=== PATIENT | female | born 1995 | race Caucasian/White ===

== ENCOUNTER 2017-05-01 20:30 | Emergency (ER) | payer SELFPAY ==
[~2017-05-01] VITALS: Ht 160 cm; Wt 97.5 kg
[2017-05-01] MEDS ORDERED: BUPR-42 PO (20:46)
--- NOTE | 2017-05-01 20:54 | ED Cough/URI ---
General Chief Complaint: Chest Wall/Rib Pain Stated Complaint: CHEST PAIN/COUGH Nursing Triage Note: PRODUCTIVE COUGH, CHEST WALL PAIN, EMISIS YESTERDAY. Source: patient Exam Limitations: no limitations History of Present Illness Time seen by provider: 20:54 Initial Comments 22-year-old female patient presents to the emergency department complaints of green productive cough, rib pain with coughing, and coughing until she throws up beginning yesterday. Does report chills and malaise. Patient states she missed work today because of the illness. Does have a history of asthma. Smokes daily. Timing/Duration: yesterday, getting worse Severity/Quality: productive cough Prior Episodes/Possible Cause: occasional episodes Modifying Factors: Worse With Coughing Allergies and Home Medications Allergies Coded Allergies: Sulfa (Sulfonamide Antibiotics) (Verified Allergy, Unknown, 05/01/17) Home Medications Bupropion HCl 150 Mg Tab.er.24h, Unknown Dose PO, (Reported) Constitutional: see HPI, chills, fever, malaise EENTM: nose congestion, throat pain, No ear pain, No nose pain, No throat swelling Respiratory: see HPI, cough, phlegm, short of breath (occasional shortness of breath), wheezing (occasional wheezing) Cardiovascular: no symptoms reported Gastrointestinal: No abdominal pain, No constipation, No diarrhea, loss of appetite, No nausea, vomiting Genitourinary: no symptoms reported Musculoskeletal: see HPI, other (generalized rib pain) Skin: no symptoms reported Psychiatric/Neurological: No Symptoms Reported All Other Systems Reviewed Negative Unless Noted: Yes (Negative excepted noted.) Past Mrotfzw-Muwhhx-Cavcqf Hx Patient Social History Alcohol Use: Rarely Uses Recreational Drug Use: No Smoking Status: Current Everyday Smoker Type Used: Cigarettes 2nd Hand Smoke Exposure: Yes Recent Foreign Travel: No Contact w/Someone Who Travel: No Recent Infectious Disease Expo: No Recent Hopitalizations: No Immunizations Up To Date Tetanus Booster (TDap): Unknown PED Vaccines UTD: Yes Seasonal Allergies Seasonal Allergies: No Surgeries HX Surgeries: Yes Surgeries: Nose, Tonsillectomy Respiratory Hx Respiratory Disorders: Yes Respiratory Disorders: Asthma Cardiovascular Hx Cardiac Disorders: No Neurological Hx Neurological Disorders: No Reproductive System : No Gastrointestinal Hx Gastrointestinal Disorders: No Reviewed Nursing Assessment Reviewed/Agree w Nursing PMH: Yes Family Medical History Significant Family History: No Pertinent Family Hx Physical Exam Vital Signs Vital Sign - Last 12Hours 05/01/17 20:47 Temp 96.9 Pulse 103 Resp 16 B/P (MAP) 114/70 Pulse Ox 96 O2 Delivery Room Air Capillary Refill : Less Than 3 Seconds General Appearance: WD/WN, no apparent distress HEENT: PERRL/EOMI, TMs normal, pharyngeal erythema, No tonsillar exudate, other (positive nasal congestion.) Neck: non-tender, full range of motion, supple, normal inspection Respiratory: lungs clear, normal breath sounds, no respiratory distress, no accessory muscle use Cardiovascular: regular rate, rhythm, no murmur Gastrointestinal: normal bowel sounds, non tender, soft Extremities: normal capillary refill Neurologic/Psychiatric: alert, normal mood/affect, oriented x 3 Skin: normal color, warm/dry Progress/Results/Core Measures Results/Orders Vital Signs/I&O Vital Sign - Last 12Hours 05/01/17 20:47 Temp 96.9 Pulse 103 Resp 16 B/P (MAP) 114/70 Pulse Ox 96 O2 Delivery Room Air Blood Pressure Mean: 85 Departure Impression Impression: Primary Impression: Acute bronchitis Qualified Codes: J20.9 - Acute bronchitis, unspecified Disposition: 01 HOME, SELF-CARE Condition: Improved Departure-Patient Inst. Decision time for Depature: 21:25 Referrals: [facility] (PCP/Family) Primary Care Physician Patient Instructions: Acute Bronchitis, Adult (DC) Add. Discharge Instructions: All discharge instructions reviewed with patient and/or family. Voiced understanding. Medications as instructed. Tylenol extra strength over-the- counter as directed for pain. Ibuprofen 800 mg by mouth every 8 hours as needed for pain. Cool humidifier. No smoking or exposure to secondhand smoke. Afrin nasal spray [id number] as needed for nasal congestion. Follow-up with your family practitioner for recheck if needed. Return to the emergency department for worsened symptoms or any other concerns. Scripts Minocycline HCl (Minocycline HCl) 100 Mg Capsule 100 MG PO BID, #14 CAP 0 Refills Prov: TATYANA ESTES 05/01/17 Prednisone (Prednisone) 20 Mg Tab 40 MG PO DAILY, #8 TAB 0 Refills Prov: TATYANA ESTES 05/01/17 Work/School Note: Work Release Form Date Seen in the Emergency Department: May 01, 2017 Return to Work: May 02, 2017 Other Restrictions Listed Below: please excuse patient's absence due to acute bronchitis. TATYANA ESTES May 01, 2017 20:54
[2017-05-01] MEDS ORDERED: RX-ALBUTEROL INHALER (PROAIR) 8 GM IH STA (21:19)
[2017-05-01] MEDS ORDERED: PROMETHAZINE/ CODEINE SYRUP 5 ML UDC PO STA (21:19)
[2017-05-01] MEDS ORDERED: RX-DOXYCYCLINE 100 MG (VIBRAMYCIN) TAB PPK#2 PO STA (21:19)
[2017-05-01] MEDS ORDERED: MINO100C2 PO (21:27)
[2017-05-01] MEDS ORDERED: PRD20T PO (21:27)
[2017-05-01] MEDS ORDERED: predniSONE 20 MG TAB PO ONE (21:30)
[2017-05-01 21:34] VITALS: BP 114/70
--- OUTSIDE RECORDS SUMMARY | 2017-05-12 12:14 | XMS REPORT | CCD ---
Author Author BUBBA MATOS Organization Unknown Address [address] [place], [place] [id number] Care Team Providers Care [employer] Officer Name Role Phone KARLA HENDERSON, ARABELLA Parkinson Attphys Vital Signs Vital Sign Value Unit Date/Time Recent/Initial? Weight Measured 201 lbs 02/14/2015 04:08 Initial VS Height 63 in 02/14/2015 04:08 Initial VS BMI (Body Mass Index) 35.61 kg/m^2 02/14/2015 04:08 Initial VS BSA (Body Surface Area) 2.01 m^2 02/14/2015 04:08 Initial VS Weight Measured 201 lbs 02/14/2015 04:54 Most Recent VS Height 63 in 02/14/2015 04:54 Most Recent VS BMI (Body Mass Index) 35.61 kg/m^2 02/14/2015 04:54 Most Recent VS BSA (Body Surface Area) 2.01 m^2 02/14/2015 04:54 Most Recent VS Allergies Allergy Code Allergy Type Reaction Status SULFA (sulfonamide) 0 Drug allergy Active Procedures Procedure Code Procedure Type Date OB TRANSVAGINAL 183508485 SNOMED CT 02/14/2015 ^CULTURE URINE IDENTIFICATION 609951040 SNOMED CT 2014 ^UA WITH MICRO 923228115 SNOMED CT 02/14/2015 CULTURE URINE 118601433 SNOMED CT 02/14/2015 RAPID DRUG SCREEN 472262126 SNOMED CT 02/14/2015 UA ROUTINE C&S IF IND 780750267 SNOMED CT 02/14/2015 History of Immunizations Immunization Code Date OPV 1995 OPV 10/15/1996 OPV 12/17/1996 MMR 10/15/1996 Hep B, adolescent or pediatric 1995 Hep B, adolescent or pediatric 1995 Hep B, adolescent or pediatric 10/15/1996 Hib, unspecified formulation 17 1995 Hib, unspecified formulation 17 10/15/1996 DTaP 06/24/1997 varicella 06/24/1997 Problems Unknown or Not Available. Results RAPID DRUG SCREEN - Collect Date/Time: 02/14/2015 04:22 Test Name Code Test Result Test Units Test Ref Range Cannabinoids (THC) NEGATIVE N/A NEG: < 50 ng/ ml Phencyclidine (PCP) NEGATIVE N/A NEG: < 25 ng/ ml Cocaine NEGATIVE N/A NEG: < 300 ng/ml Methamphetamine NEGATIVE N/A NEG: < 1000 ng/ml Opiates NEGATIVE N/A NEG: < 300 ng/ml Amphetamine NEGATIVE N/A NEG: < 1000 ng/ml Benzodiazepines NEGATIVE N/A NEG: < 300 ng/ml Tricyclic Antidepres NEGATIVE N/A NEG: < 300 ng/ ml Methadone NEGATIVE N/A NEG: < 300 ng/ml Barbiturates NEGATIVE N/A NEG: < 200 ng/ml Oxycodone NEGATIVE N/A NEG: < 100 ng/ml Propoxyphene (PPX) NEGATIVE N/A NEG: < 300 ng/ ml UA ROUTINE C&S IF IND - Collect Date/Time: 02/14/2015 04:12 Test Name Code Test Result Test Units Test Ref Range COLOR YELLOW N/A NL: YELLOW APPEARANCE CLOUDY N/A NL: CLEAR SPEC GRAV 1.020 N/A NL: 1.002 - 1.022 pH 6.5 N/A NL: 5 - 9 PROTEIN TRACE N/A NL: NEGATIVE mg/dl GLUCOSE NEGATIVE N/A NL: NEGATIVE mg/dl KETONE NEGATIVE N/A NL: NEGATIVE mg/dl BILIRUBIN NEGATIVE N/A NL: NEGATIVE BLOOD MODERATE N/A NL: NEGATIVE NITRITE POSITIVE N/A NL: NEGATIVE LEUK SCREEN MODERATE N/A NL: NEGATIVE MICRO INDICATED? SEE BELOW N/A WBC/HPF 20-50 N/A NL: NEGATIVE RBC/HPF 10-20 N/A NL: NEGATIVE CASTS/LPF FEW HYALINE N/A NL: NEGATIVE CRYSTALS TRACE AMORPH N/A NL: NEGATIVE MUCOUS THRDS 1+ N/A NL: NEGATIVE BACTERIA 1+ N/A NL: NEGATIVE EPITH CELLS 1+ SQUAMOUS N/A NL: NEGATIVE TRICHOMONAS NEGATIVE N/A NL: NEGATIVE YEAST NEGATIVE N/A NL: NEGATIVE CULT SET UP? YES N/A Active Medications Medication Code Dose Units Frequency Route Modification Start Date/Time Amoxicillin/Clavulanate Potassium 875MG-125MG Oral Tablet [id number] MILLIGRAMS TWICE WITH MEALS BY MOUTH 12:06 PNV Plus 1MG-27MG Oral Tablet [id number] 1 EACH DAILY ORAL 02/14/2015 12:06 Medications Administered During Visit Unknown or Not Available. Encounters Encounter Diagnosis Diagnosis Code Start Date PREG COMPL NEC-ANTEPART 09906 02/14/2015 Social History Smoking Status Code Start Date End Date Current every day smoker [id number] Patient Decision Aids Unknown or Not Available. Discharge Instructions You were admitted to [facility] on 02/14/2015 with a principal diagnosis of PREG COMPL NEC-ANTEPART. You were discharged from [facility] on 02/14/2015. Should you have any questions prior to discharge, please contact a member of your healthcare team. If you have left the hospital and have any questions, please contact your primary care physician. Chief Complaint and Reason For Visit Chief Complaint Date of Onset FALL Function Status Unknown or Not Available. Plan of Care Unknown or Not Available. Referral/Transition of Care Unknown or Not Available.
--- OUTSIDE RECORDS SUMMARY | 2017-05-12 12:14 | XMS REPORT ---
Author Author Shikha Kessler Organization [facility] Address [address] [place], [place] [address] Care Team Providers Care Smocker Name Role Phone Shikha Kessler PCP Unavailable Allergies and Adverse Reactions Name Reaction Notes SULFA (SULFONAMIDES) hives and vomiting Plan of Treatment Not available. Medications Active Name Start Date Estimated Completion Date SIG Comments Vitamin oral tablet take 1 tablet by oral route once daily Diflucan 150 mg oral tablet 07/13/2015 take 1 tablet (150 mg) by oral route once Name Start Date Expiration Date SIG Comments Flagyl 500 mg oral tablet 09/17/2014 09/23/2014 take 1 tablet (500 mg) by oral route 2 times per day for 7 days Diflucan 150 mg oral tablet 09/17/2014 09/17/2014 take 1 tablet (150 mg) by oral route once for 1 day Macrobid 100 mg oral capsule 03/03/2015 03/13/2015 take 1 capsule (100 mg) by oral route every 12 hours with food for 10 days Elocon 0.1 % topical cream 04/08/2015 04/22/2015 apply a thin layer to the affected area(s) by topical route once daily for 14 days Discontinued Name Start Date Discontinued Date SIG Comments Augmentin 500-125 mg oral tablet 01/22/2015 01/23/2015 take 1 tablet by oral route every 12 hours for 7 days organism resistent to augmentin Problem List Not available. Vital Signs Date Time BP-Sys(mm[Hg] BP-Farheen(mm[Hg]) HR(bpm) RR(rpm) Temp WT HT HC BMI BSA BMI Percentile O2 Sat(%) 09/10/2014 4:36:00 PM 106 mmHg 71 mmHg 85 bpm 98.1 F 188.25 lbs 63 in 33.35 kg/m2 1.95 m2 96.3 % Social History Name Description Comments Tobacco Current every day smoker Black and mild Alcohol Never No history of foreign travel History of Procedures Date Ordered Description Order Status 09/10/2014 12:00 AM CYTOPATH C/V THIN LAYER Reviewed 09/10/2014 12:00 AM SPECIMEN HANDLING OFFICE-LAB Reviewed 09/10/2014 12:00 AM N.GONORRHOEAE DNA AMP PROB Returned 09/10/2014 12:00 AM CHLAMYDIA CULTURE Returned 09/10/2014 12:00 AM HIV-1ANTIBODY Returned 09/10/2014 12:00 AM OBSTETRIC PANEL Returned 09/10/2014 12:00 AM HERPES SIMPLEX TYPE 1 TEST Returned 09/10/2014 12:00 AM HERPES SIMPLEX TYPE 2 TEST Returned 12/05/2014 12:00 AM OB US >/=14 WKS SNGL FETUS Returned 01/08/2015 12:00 AM GLUCOSE TEST Returned 01/08/2015 12:00 AM COMPLETE CBC W/AUTO DIFF WBC Returned 01/08/2015 12:00 AM Type and screen Returned 01/16/2015 12:00 AM OB US LIMITED FETUS(S) Returned 01/23/2015 12:00 AM URINALYSIS AUTO W/SCOPE Returned 03/19/2015 12:00 AM CULTURE SCREEN ONLY Returned 03/26/2015 12:00 AM OB US LIMITED FETUS(S) Returned 04/08/2015 12:00 AM BIOPHYS PROFILE W/NST Returned 04/08/2015 12:00 AM OB US LIMITED FETUS(S) Reviewed Results Summary Data and Description Results 09/10/2014 5:50 PM WBC 13.1 RBC 4.56 HGB 13.70 g/dLHCT 40.40 %MCV 89.0 fLMCH 30.0 pgMCHC 33.90 g/dLRDW CV 13.10 %MPV 10.0 fLPLT 260 %NEUT 69.90 %%LYMP 19.50 %%MONO 7.0 %%EOS 3.10 %%BASO 0.50 %#NEUT 9.15 #LYMP 2.55 #MONO 0.92 #EOS 0.40 # BASO 0.06 HIV AG/AB COMBO 0.11 COLOR YELLOW APPEARANCE CLEAR SPEC GRAV 1.025 pH 6.0 PROTEIN NEGATIVE GLUCOSE NEGATIVE KETONE NEGATIVE BILIRUBIN NEGATIVE BLOOD NEGATIVE NITRITE NEGATIVE LEUK SCREEN NEGATIVE CASTS/LPF NEGATIVE CRYSTALS NEGATIVE MUCOUS THRDS FEW BACTERIA FEW EPITH CELLS FEW SQUAMOUS TRICHOMONAS NEGATIVE YEAST NEGATIVE HBsAg Screen Negative RPR Non Reactive Rubella Antibodies, IgG 1.69 IndexHSV 1 IgG, Type Spec 16.10 IndexHSV 2 IgG, Type Spec < 0.91 index 12/14/2014 5:53 PM AMNISURE ROM NEGATIVE COLOR YELLOW APPEARANCE CLEAR SPEC GRAV 1.010 pH 6.5 PROTEIN NEGATIVE GLUCOSE NEGATIVE KETONE NEGATIVE BILIRUBIN NEGATIVE BLOOD NEGATIVE NITRITE NEGATIVE LEUK SCREEN NEGATIVE CASTS/LPF NEGATIVE CRYSTALS NEGATIVE MUCOUS THRDS FEW BACTERIA NEGATIVE EPITH CELLS FEW SQUAMOUS TRICHOMONAS NEGATIVE YEAST NEGATIVE 01/08/2015 3:55 PM WBC 11.2 RBC 4.00 HGB 11.90 g/dLHCT 36.0 %MCV 90.0 fLMCH 29.80 pgMCHC 33.10 g/dLRDW CV 13.60 %MPV 9.20 fLPLT 217 %NEUT 75.0 %%LYMP 17.0 % %MONO 5.0 %%EOS 2.60 %%BASO 0.40 %#NEUT 8.40 #LYMP 1.90 #MONO 0.56 #EOS 0.29 # BASO 0.04 01/21/2015 7:15 PM COLOR YELLOW APPEARANCE CLEAR SPEC GRAV 1.015 pH 7.0 PROTEIN NEGATIVE GLUCOSE NEGATIVE KETONE NEGATIVE BILIRUBIN NEGATIVE BLOOD TRACE -INTACT NITRITE POSITIVE LEUK SCREEN SMALL CASTS/LPF NEGATIVE CRYSTALS NEGATIVE MUCOUS THRDS NEGATIVE BACTERIA 1+ EPITH CELLS FEW SQUAMOUS TRICHOMONAS NEGATIVE YEAST NEGATIVE 02/14/2015 4:12 AM COLOR YELLOW APPEARANCE CLOUDY SPEC GRAV 1.020 pH 6.5 PROTEIN TRACE GLUCOSE NEGATIVE KETONE NEGATIVE BILIRUBIN NEGATIVE BLOOD MODERATE NITRITE POSITIVE LEUK SCREEN MODERATE CASTS/LPF FEW HYALINE CRYSTALS TRACE AMORPH MUCOUS THRDS 1+ BACTERIA 1+ EPITH CELLS 1+ SQUAMOUS TRICHOMONAS NEGATIVE YEAST NEGATIVE 02/14/2015 4:22 AM Cannabinoids (THC) NEGATIVE Phencyclidine (PCP) NEGATIVE Cocaine NEGATIVE Methamphetamine NEGATIVE Opiates NEGATIVE Amphetamine NEGATIVE Benzodiazepines NEGATIVE Methadone NEGATIVE Barbiturates NEGATIVE Oxycodone NEGATIVE Propoxyphene (PPX) NEGATIVE 03/31/2015 9:40 AM AMNISURE ROM NEGATIVE 04/03/2015 2:27 AM AMNISURE ROM NEGATIVE 07/13/2015 11:30 AM HSV 1 IgG, Type Spec 13.40 IndexHSV 2 IgG, Type Spec 3.970 Index 07/13/2015 11:51 AM WET PREP NO TRICH SEEN CLUE CELLS NONE SEEN Neisseria Gonorrhoeae NEGATIVE Chlamydia Trachomatis NEGATIVE History Of Immunizations Not available. History of Past Illness Name Date of Onset Comments MRSA 01/22/15 UTI test confirmed positive Sep 10 2014 4:38PM UTI (lower urinary tract infection) Sep 10 2014 4:38PM Vaginal discharge in Sep 10 2014 4:38PM Genital lesion, female Sep 10 2014 4:38PM , First Normal Dec 02 2014 9:54AM , First Normal Jan 08 2015 3:01PM Uterine size date discrepancy; antepartum condition or complication Jan 08 2015 3:10PM UTI (urinary tract infection) Jan 23 2015 11:49AM , First Normal Mar 19 2015 1:56PM Urinary Tract Infection Mar 19 2015 1:56PM Small For Dates, Antepartum Mar 26 2015 2:22PM SGA (small for gestational age), , affecting care of mother, antepartum Apr 08 2015 4:36PM Payers Insurance Name Company Name Plan Name Plan Number Policy Number Policy Group Number Start Date [facility] - RHC - Community Plan [facility] RHC Comm [id number] N/A [facility] Community Plan [facility] Comm Plan of [id number] N/A History of Encounters Visit Date Visit Type Provider 07/13/2015 Office visit Shikha Kessler APRN 04/17/[address] [facility] [address]. KRISTINA GARCIA MD 04/09/2015 Office visit DELIA RUEDA MD 04/08/2015 Office visit DELIA RUEDA MD 04/03/2015 [facility] DELIA RUEDA MD 03/26/2015 Office visit DELIA RUEDA MD 03/19/2015 Office visit JV OLIVO DO 02/14/2015 [facility] Heath Salomon MD 02/05/2015 Office visit Delia Rueda MD 01/21/2015 [facility] Heath Salomon MD 01/16/2015 Office visit Heath Salomon MD 01/08/2015 Office visit Heath Salomon MD 12/01/2014 Office visit Heath Salomon MD 09/24/2014 Office visit Heath Salomon MD 09/10/2014 Office visit Heath Salomon MD
--- OUTSIDE RECORDS SUMMARY | 2017-05-12 12:14 | XMS REPORT ---
Author Author [facility] Organization [facility] Address [address] [place], [place] [address] Care Team Providers Care Credit Collections Rep Name Role Phone PCP Unavailable Allergies and Adverse Reactions Name Reaction Notes SULFA (SULFONAMIDES) hives and vomiting Plan of Treatment Planned Activity Comments Planned Date Planned Time Plan/Goal CULTURE SCREEN ONLY 03/19/2015 12:00 AM URINALYSIS 03/19/2015 12:00 AM URINE CULTURE/COLONY COUNT 03/19/2015 12:00 AM COMPLETE CBC W/AUTO DIFF WBC 03/19/2015 12:00 AM Medications Active Name Start Date Estimated Completion Date SIG Comments Vitamin oral tablet take 1 tablet by oral route once daily Name Start Date Expiration Date SIG Comments Flagyl oral tablet 500 mg 09/17/2014 09/23/2014 take 1 tablet (500 mg) by oral route 2 times per day for 7 days Diflucan oral tablet 150 mg 09/17/2014 09/17/2014 take 1 tablet (150 mg) by oral route once for 1 day Macrobid oral capsule 100 mg 03/03/2015 03/13/2015 take 1 capsule (100 mg) by oral route every 12 hours with food for 10 days Discontinued Name Start Date Discontinued Date SIG Comments Augmentin oral tablet 500-125 mg 01/22/2015 01/23/2015 take 1 tablet by oral [...] every day smoker Black and mild Alcohol No history of foreign travel History of [...] 01/23/2015 12:00 AM URINALYSIS AUTO W/SCOPE Returned Results Summary Data and Description Results 09/10/2014 [...] TRICHOMONAS NEGATIVE YEAST NEGATIVE HBsAg Screen Negative 12/14/2014 5:53 PM AMNISURE ROM NEGATIVE COLOR [...] Barbiturates NEGATIVE Oxycodone NEGATIVE Propoxyphene (PPX) NEGATIVE History Of Immunizations Not available. History [...] Urinary Tract Infection Mar 19 2015 1:56PM Payers Insurance Name Company Name Plan Name Plan Number Policy Number Policy Group Number Start Date [facility] Comm [id number] N/A [facility] Comm Plan of [id number] N/A History of Encounters Visit Date Visit Type Provider 03/19/2015 Office visit JV OLIVO DO 02/14/2015 [facility] Heath Salomon MD 02/05/2015 Office visit Delia Rueda MD 01/21/2015 [facility] Heath Salomon MD 01/16/2015 Office visit Heath Salomon MD 01/08/2015 Office visit Heath Salomon MD 12/01/2014 Office visit Heath Salomon MD 09/24/2014 Office visit Heath Salomon MD 09/10/2014 Office visit Heath Salomon MD
--- OUTSIDE RECORDS SUMMARY | 2017-05-12 12:14 | XMS REPORT ---
Author ARELI Smith [facility] eClinicalWorks Address Unknown Phone Unavailable Care Team Providers Care Help Desk Associate Name Role Phone ARELI LARA CP Unavailable Allergies, Adverse Reactions, Alerts Substance Reaction Event Type Sulfamethoxazole-Trimethoprim hives Drug Allergy Problems Problem Type Condition Code Onset Dates Condition Status Assessment Laceration T14.8 Active Medications Medication Code System Code Instructions Start Date End Date Status Dosage Cephalexin [facility] [address]-51 250 MG Orally Four times a day 1 capsule Depo-Provera [facility] [address]-57 150 mg/mL April 29, 2013 inject 150 mg by Intramuscular route every 3 months Clindamycin HCl [facility] [address]-92 300 MG Orally 4 times a day 1 capsule Naproxen [facility] [address]-02 500 MG Orally every 12 hrs Oct 19, 2015 1 tablet as needed Procedures Procedure Coding System Code Date Office Visit, Est Pt., Level 3 CPT-4 86954 Oct 29, 2015 Vital Signs Date/Time: Oct 29, 2015 Temperature 98.3 F Weight 197.3 lbs Height 64 in BMI 33.86 Index Blood Pressure Diastolic 68 mmHg Blood Pressure Systolic 108 mmHg Cardiac Monitoring Heart Rate 96 bpm Results No Known Results Summary Purpose eClinicalWorks Submission
--- OUTSIDE RECORDS SUMMARY | 2017-05-12 12:15 | XMS REPORT ---
Author Author [facility] Organization [facility] Address [address] [place], [place] [address] Care Team Providers Care Cupola Worker Name Role Phone PCP Unavailable Allergies and [...] 1 day Macrobid oral capsule 100 mg 01/23/2015 01/30/2015 take 1 capsule (100 mg) by oral route every 12 hours with food for 7 days Discontinued Name Start Date Discontinued Date [...] (urinary tract infection) Jan 23 2015 11:49AM Payers Insurance Name Company Name Plan Name Plan Number Policy Number Policy Group Number Start Date [facility] - [facility] - [facility] Comm [id number] N/A [facility] Comm Plan of [id number] N/A History of Encounters Visit Date Visit Type Provider 02/14/2015 [facility] Heath Salomon MD 02/05/2015 Office visit Delia Rueda MD 01/21/2015 [facility] Heath Salomon MD 01/16/2015 Office visit Heath Salomon MD 01/08/2015 Office visit Heath Salomon MD 12/01/2014 Office visit Heath Salomon MD 09/24/2014 Office visit Heath Salomon MD 09/10/2014 Office visit Heath Salomon MD
--- OUTSIDE RECORDS SUMMARY | 2017-05-12 12:15 | XMS REPORT ---
Author Author [facility] Organization [facility] Address [address] [place], [place] [id number] Care Team Providers Care Leaf Tinner Name Role Phone PCP Unavailable Allergies and Adverse Reactions Name Reaction Notes SULFA (SULFONAMIDES) hives and vomiting Plan of Treatment Planned Activity Comments Planned Date Planned Time Plan/Goal URINALYSIS 03/19/2015 12:00 AM URINE CULTURE/COLONY COUNT 03/19/2015 12:00 AM COMPLETE CBC W/AUTO DIFF WBC 03/19/2015 12:00 AM OB US LIMITED FETUS(S) 03/26/2015 12:00 AM OB US LIMITED FETUS(S) 03/26/2015 12:00 AM OB US LIMITED FETUS(S) 03/26/2015 12:00 AM BIOPHYS PROFILE W/NST 04/08/2015 12:00 AM OB US LIMITED FETUS(S) 04/08/2015 12:00 AM Medications Active Name Start Date Estimated Completion Date SIG Comments Vitamin oral tablet take 1 tablet by oral route once daily Elocon topical cream 0.1 % 04/08/2015 04/22/2015 apply a thin layer to the affected area(s) by topical route once daily for 14 days Name Start Date Expiration Date SIG Comments [...] 03/19/2015 12:00 AM CULTURE SCREEN ONLY Returned Results Summary Data and Description Results [...] NEGATIVE 04/03/2015 2:27 AM AMNISURE ROM NEGATIVE History Of Immunizations Not available. History [...] Policy Number Policy Group Number Start Date [facility] - [facility] - Community Plan [facility] Comm [id number] N/A [facility] Comm Plan of [id number] N/A History of Encounters Visit Date Visit Type Provider 04/09/2015 Office visit DELIA RUEDA MD 04/08/2015 Office visit DELIA RUEDA MD 03/26/2015 Office visit DELIA RUEDA MD 03/19/2015 Office visit JV OLIVO DO 02/14/2015 [facility] Heath Salomon MD 02/05/2015 Office visit Delia Rueda MD 01/21/2015 [facility] Heath Salomon MD 01/16/2015 Office visit Heath Salomon MD 01/08/2015 Office visit Heath Salomon MD 12/01/2014 Office visit Heath Salomon MD 09/24/2014 Office visit Heath Salomon MD 09/10/2014 Office visit Heath Salomon MD
--- OUTSIDE RECORDS SUMMARY | 2017-05-12 12:15 | XMS REPORT ---
Author Author [facility] Organization [facility] Address [address] [place], [place] [phone] Care Team Providers Care Supervisor [place] Name Role Phone PCP Unavailable Allergies and [...] Policy Number Policy Group Number Start Date [facility] - [facility] - [facility] Comm [id number] N/A [facility] Comm Plan of [id number] N/A History of Encounters Visit Date Visit Type Provider 03/26/2015 Office visit DELIA RUEDA MD 03/19/2015 Office visit JV OLIVO DO 02/14/2015 [facility] Heath Salomon MD 02/05/2015 Office visit Delia Rueda MD 01/21/2015 [facility] Heath Salomon MD 01/16/2015 Office visit Heath Salomon MD 01/08/2015 Office visit Heath Salomon MD 12/01/2014 Office visit Heath Salomon MD 09/24/2014 Office visit Heath Salomon MD 09/10/2014 Office visit Heath Salomon MD
--- OUTSIDE RECORDS SUMMARY | 2017-05-12 12:16 | XMS REPORT | Continuity of Care Document ---
Author Author [facility] Organization [facility] Address [facility] [address] [place] [address] Phone Unavailable Support Name Relationship Address Phone SARAH TAPIA DO Caregiver [address] [place] [address] Unavailable GIORGI BILLS D.O. Caregiver [address] [place] [address] ELKE CHAPARRO Next Of Kin [address] [place] [address] Insurance Providers Payer Name Policy Number Subscriber Name Relationship Self Pay Insurance Kita Lopez 18 Self / Same As Patient Advance Directives Directive Response Recorded Date/Time Advance Directives No 10/16/15 8:53pm Living Will No 10/16/15 8:53pm Power of General Accountant for Health Care No 10/16/15 8:53pm Organ, Tissue, or Eye Donor No 10/16/15 8:53pm Do you have a signed organ donor card? No 10/16/15 8:53pm Chief Complaint and Reason for Visit Chief Complaint NAUSEA Reason for Visit Nausea Problems Active Problems Medical Problem Onset Date Status Abdominal cramping Unknown Acute Anxiety Unknown Acute Bronchitis Unknown Acute Bronchitis Unknown Acute Contusion Unknown Acute Laceration of shoulder, left, complicated Unknown Acute Nausea Unknown Acute Unknown Acute Scabies Unknown Acute Sinusitis, acute Unknown Acute Surgical wound dehiscence Unknown Acute Upper respiratory infection Unknown Acute Wound, surgical, infected Unknown Acute finger fracture Unknown Acute nausea Unknown Acute nausea, resolved Unknown Acute Medications Current Home Medications Medication Dose Units Route Directions Days/Qty Instructions Start Date No Known Medications 05/11/15 Clindamycin Hcl 300 Mg 300 Mg Oral Four Times Daily 40 05/11/15 Clindamycin Hcl 300 Mg 300 Mg Oral Four Times Daily 40 05/11/15 Cephalexin Monohydrate 500 Mg 500 Mg Oral Four Times Daily 20 10/16/15 Mupirocin 22 Gm 22 Gm External Twice A Day 1 10/16/15 Permethrin 60 Gm 60 Gm External Once 1 Days Apply to entire body before bed and rinse completely off in the a.m. 03/17/16 Past Home Medications Medication Directions Ordered Status Medroxyprogesterone Acet 400 Mg/Ml Vial, 07/09/13 Discontinued Acetaminophen/Hydrocodone Bitart (Lortab 5-500MG*) 1 Each Tablet, 1 Ea Oral Every 4-6 Hrs As Needed Pain 08/04/13 Discontinued Amoxicillin 875 Mg Tablet, 875 Mg Oral Twice A Day 12/13/14 Discontinued Social History Social History Problem Response Recorded Date/Time Smoking Status Never smoker 10/30/2016 6:41am Tobacco Use Cigarettes 03/17/2016 10:43am Sexual History Heterosexual 07/09/2013 9:41pm Query Response Start Date Stop Date Smoking Status Never smoker Hospital Discharge Instructions No hospital discharge instructions. Plan of Care Discharge Date 10/30/16 7:05am Condition at Discharge Stable Instructions/Education Provided Acute Nausea and Vomiting (ED) Prescriptions See Medication Section Additional Instructions/Education Followup as needed. Functional Status Query Response Date Recorded Patient Behavior Cooperative Appropriate October 30, 2016 6:38am Allergies, Adverse Reactions, Alerts Allergen Type Severity Reaction Status Last Updated SULFA (SULFONAMIDE ANTIBIOTICS) Allergy Unknown Active 05/11/15 Immunizations Name Given Type Hx Diphtheria, Pertussis, Tetanus Vaccination Unknown Historical Hx Influenza Vaccination N refused Historical Hx Pneumococcal Vaccination N refused Historical Vital Signs Acute Vital Signs Vital Response Date/Time Temperature (Fahrenheit) 97.5 degrees F (97.6 - 99.5) 10/30/2016 6:38am Temperature Source Temporal Artery 10/30/2016 6:38am Pulse Rate (adult) 94 bpm (60 - 90) 10/30/2016 6:38am Respiratory Rate 16 bpm (12 - 24) 10/30/2016 6:38am Blood Pressure 114/58 mm Hg 10/30/2016 6:38am O2 Sat by Pulse Oximetry 96 % (90 - 100) 10/30/2016 6:38am Oxygen Delivery Method 10/30/2016 6:38am Height 5 ft 3 in Weight 195 lb Body Mass Index 34.0 kg/m^2 Results Laboratory Results Test Name Result Units Flags Reference Collection Date/Time Result Date/ Time Comments Urine HCG, Qualitative NEGATIVE NEG 10/30/2016 6:45am 10/30/2016 6: 56am Procedures No known history of procedures. Encounters Encounter Location Arrival/Admit Date Discharge/Depart Date Attending Provider Departed Emergency Room [place] 10/30/16 6:39am 10/30/16 7:05am SARAH TAPIA DO Recent Diagnosis
--- OUTSIDE RECORDS SUMMARY | 2017-05-12 12:16 | XMS REPORT | Continuity of Care Document ---
Author Author [facility] Organization [facility] Address [facility] [address] [place] [address] Phone Unavailable Support Name Relationship Address Phone GIORGI BILLS D.O. Caregiver [address] [place] [address] LIDIA SHEPPARD DO Caregiver [address] [place] [address] ELKE CHAPARRO Next Of Kin [address] [place] [address] Insurance Providers Payer Name Policy Number Subscriber Name Relationship Self Pay Insurance Kita Lopez 18 Self / Same As Patient Advance Directives Directive Response Recorded Date/Time Advance Directives No 10/16/15 8:53pm Living Will No 10/16/15 8:53pm Health Care Proxy No 11/18/16 3:01pm Power of Doper Operator for Health Care No 10/16/15 8:53pm Organ, Tissue, or Eye Donor No 10/16/15 8:53pm Do you have a signed organ donor card? No 10/16/15 8:53pm Chief Complaint and Reason for Visit Chief Complaint SORE THROAT Reason for Visit [id number] Problems Active Problems Medical Problem Onset Date Status Abdominal cramping Unknown Acute Anxiety Unknown Acute Bronchitis Unknown Acute Bronchitis Unknown Acute Contusion Unknown Acute Laceration of shoulder, left, complicated Unknown Acute Nausea Unknown Acute Unknown Acute Scabies Unknown Acute Sinusitis, acute Unknown Acute Surgical wound dehiscence Unknown Acute Upper respiratory infection Unknown Acute Viral syndrome Unknown Acute Wound, surgical, infected Unknown Acute [...] rinse completely off in the a.m. 03/17/16 Promethazine Hcl 25 Mg 25 Mg Oral Every 4-6 Hours as needed for Nausea 10 11/18/16 Albuterol (Ventolin 17GM Hfa Inhaler*) 1 Puff 2 Puff Inhalation Every 4-6 Hours As Needed 1 INHALE 2 PUFFS 11/18/16 Past Home Medications Medication Directions Ordered Status Medroxyprogesterone Acet 400 Mg/Ml Vial, 07/09/13 Discontinued Acetaminophen/Hydrocodone Bitart (Lortab 5-500MG*) 1 Each Tablet, 1 Ea Oral Every 4-6 Hrs As Needed Pain 08/04/13 Discontinued Amoxicillin 875 Mg Tablet, 875 Mg Oral Twice A Day 12/13/14 Discontinued Social History Social History Problem Response Recorded Date/Time Smoking Status Never smoker 10/30/2016 6:41am Tobacco Use Denies Use 11/18/2016 3:20pm Alcohol Use none 11/18/2016 3:20pm Drug Use none 11/18/2016 3:20pm Sexual History Heterosexual 07/09/2013 9:41pm Query Response Start Date Stop Date Smoking Status Never smoker Hospital Discharge Instructions No hospital discharge instructions. Plan of Care Discharge Date 11/18/16 3:14pm Condition at Discharge Stable Instructions/Education Provided Viral Syndrome (ED) Prescriptions See Medication Section Referrals GIORGI BILLS D.O. - Functional Status Query Response Date Recorded Patient Behavior Appropriate November 18, 2016 2:53pm Allergies, Adverse Reactions, Alerts Allergen Type Severity Reaction Status Last Updated SULFA (SULFONAMIDE ANTIBIOTICS) Allergy Unknown Active 05/11/15 Immunizations Name Given Type Hx Diphtheria, Pertussis, Tetanus Vaccination Up To Date Historical Hx Influenza Vaccination No Historical Hx Pneumococcal Vaccination No Historical Vital Signs Acute Vital Signs Vital Response Date/Time Temperature (Fahrenheit) 100.2 degrees F (97.6 - 99.5) 11/18/2016 3:14pm Temperature Source Temporal Artery 11/18/2016 3:14pm Pulse Rate (adult) 114 bpm (60 - 90) 11/18/2016 3:14pm Respiratory Rate 16 bpm (12 - 24) 11/18/2016 3:14pm Blood Pressure 109/72 mm Hg 11/18/2016 3:14pm O2 Sat by Pulse Oximetry 99 % (90 - 100) 11/18/2016 3:14pm Oxygen Delivery Method 11/18/2016 3:14pm Height 5 ft 3 in Weight 185 lb Body Mass Index 32.0 kg/m^2 Results Laboratory Results Test Name Result Units Flags Reference Collection Date/Time Result Date/ Time Comments Urine HCG, Qualitative NEGATIVE NEG 10/30/2016 6:45am 10/30/2016 6: 56am Procedures No known history of procedures. Encounters Encounter Location Arrival/Admit Date Discharge/Depart Date Attending Provider Departed Emergency Room [place] 11/18/16 2:53pm 11/18/16 3:14pm LIDIA SHEPPARD DO Departed Emergency Room [place] 10/30/16 6:39am 10/30/16 7:05am SARAH TAPIA DO Recent Diagnosis
--- OUTSIDE RECORDS SUMMARY | 2017-05-12 12:16 | XMS REPORT ---
Author Author [facility] Organization [facility] Address [address] [place], [place] [address] Care Team Providers Care Veterans Employment Representative Name Role Phone PCP Unavailable Allergies and [...] Policy Number Policy Group Number Start Date [facility] - [facility] Comm [id number] N/A [facility] Comm Plan of [id number] N/A History of Encounters Visit Date Visit Type Provider 03/19/2015 Office visit JV OLIVO DO 02/14/2015 [facility] Heath Salomon MD 02/05/2015 Office visit Delia Rueda MD 01/21/2015 [facility] Heath Salomon MD 01/16/2015 Office visit Heath Salomon MD 01/08/2015 Office visit Heath Salomon MD 12/01/2014 Office visit Heath Salomon MD 09/24/2014 Office visit Heath Salomon MD 09/10/2014 Office visit Heath Salomon MD
--- OUTSIDE RECORDS SUMMARY | 2017-05-12 12:16 | XMS REPORT | Continuity of Care Document ---
Author Author [facility] Organization [facility] Address [facility] [address] [place] [address] Phone Unavailable Support Name Relationship Address Phone BOSTON OCONNELL DO Caregiver [address] [place], [place] [phone] GIORGI BILLS D.O. Caregiver [address] [place] [address] ELKE CHAPARRO Next Of Kin [address] [place] [address] Insurance Providers Payer Name Policy Number Subscriber Name Relationship Self Pay Insurance Kita Lopez 18 Self / Same As Patient Advance Directives Directive Response Recorded Date/Time Advance Directives No 10/16/15 8:53pm Living Will No 10/16/15 8:53pm Health Care Proxy No 03/17/16 9:33am Power of Automation Clerk for Health Care No 10/16/15 8:53pm Organ, Tissue, or Eye Donor No 10/16/15 8:53pm Do you have a signed organ donor card? No 10/16/15 8:53pm Chief Complaint and Reason for Visit Chief Complaint SKIN RASH Reason for Visit Scabies [id number] Problems Active Problems Medical Problem Onset Date Status Abdominal cramping Unknown Acute Anxiety Unknown Acute Bronchitis Unknown Acute Bronchitis Unknown Acute Contusion Unknown Acute Laceration of shoulder, left, complicated Unknown Acute Unknown Acute Scabies Unknown Acute [...] History Problem Response Recorded Date/Time Smoking Status Current every day smoker 07/09/2013 9:41pm Tobacco Use Cigarettes 03/17/2016 10:43am Alcohol Use none 03/17/2016 10:43am Drug Use none 03/17/2016 10:43am Sexual History Heterosexual 07/09/2013 9:41pm Employment Employed 03/17/2016 10:43am Query Response Start Date Stop Date Smoking Status Current every day smoker Hospital Discharge Instructions No hospital discharge instructions. Plan of Care Discharge Date 03/17/16 10:59am Disposition 01 HOME, HALFWAY,ASSISTED LIVING Condition at Discharge Stable Instructions/Education Provided Scabies (ED) Acute Abdominal Pain (ED) Prescriptions See Medication Section Referrals GIORGI BILLS D.O. - Functional Status Query Response Date Recorded Patient Behavior Appropriate March 17, 2016 9:25am Allergies, Adverse Reactions, Alerts Allergen Type Severity Reaction Status Last Updated SULFA (SULFONAMIDE ANTIBIOTICS) Allergy Unknown Active 05/11/15 Immunizations Name Given Type Hx Diphtheria, Pertussis, Tetanus Vaccination Unknown Historical Hx Influenza Vaccination No Historical Hx Pneumococcal Vaccination No Historical Vital Signs Acute Vital Signs Vital Response Date/Time Temperature (Fahrenheit) 98.9 degrees F (97.6 - 99.5) 03/17/2016 9:25am Temperature Source Temporal Artery 03/17/2016 9:25am Pulse Rate (adult) 82 bpm (60 - 90) 03/17/2016 10:50am Respiratory Rate 18 bpm (12 - 24) 03/17/2016 10:50am Blood Pressure 122/70 mm Hg 03/17/2016 10:50am O2 Sat by Pulse Oximetry 99 % (90 - 100) 03/17/2016 10:50am Oxygen Delivery Method 03/17/2016 10:50am Height 5 ft 3 in Weight 189 lb Body Mass Index 33.0 kg/m^2 Results Laboratory Results Test Name Result Units Flags Reference Collection Date/Time Result Date/ Time Comments Urine Color YELLOW YELLOW 03/17/2016 10:05am 03/17/2016 10:14am Urine Appearance CLEAR CLEAR 03/17/2016 10:0503/17/2016 10:14am Urine Glucose (UA) NEGATIVE mg/dL NEGATIVE 03/17/2016 10:052015 10:14am Urine Bilirubin NEGATIVE NEGATIVE 03/17/2016 10:0503/17/2016 10: 14am Urine Ketones NEGATIVE mg/dL NEGATIVE 03/17/2016 10:0503/17/2016 10: 14am Urine Specific [place] >=1.030 H 1.010-1.025 03/17/2016 10:052015 10:14am Urine Occult Blood NEGATIVE NEGATIVE 03/17/2016 10:0503/17/2016 10 :14am Urine pH 6.0 5.0-8.0 03/17/2016 10:05am 03/17/2016 10:14am Urine Protein NEGATIVE mg/dL NEGATIVE 03/17/2016 10:0503/17/2016 10: 14am Urine Urobilinogen 0.2 mg/dL E.U./dL 0.2-1.0 03/17/2016 10:052015 10:14am Urine Nitrate NEGATIVE NEGATIVE 03/17/2016 10:0503/17/2016 10: 14am Urine Leukocyte Esterase NEGATIVE NEGATIVE 03/17/2016 10:052015 10:14am Urine RBC NEGATIVE /hpf 0 03/17/2016 10:0503/17/2016 10:25am Urine WBC 3-4 /hpf 0-4 03/17/2016 10:0503/17/2016 10:25am Urine Squamous Epithelial Cells 5-10 /hpf H 0-1 03/17/2016 10:05am 03/17 10:25am Urine Bacteria 1+ H NEGATIVE 03/17/2016 10:0503/17/2016 10:25am Urine HCG, Qualitative NEGATIVE NEG 03/17/2016 10:0503/17/2016 10: 14am Procedures No known history of procedures. Encounters Encounter Location Arrival/Admit Date Discharge/Depart Date Attending Provider Departed Emergency Room [place] 03/17/16 9:26am 03/17/16 10:59am BOSTON OCONNELL DO Recent Diagnosis
--- OUTSIDE RECORDS SUMMARY | 2017-05-12 12:16 | XMS REPORT ---
Author Author THEO SAVAGE Organization [employer] Address Unknown Phone Unavailable Care Team Providers Care Business Advisor Name Role Phone THEO SAVAGE CP Unavailable Allergies, Adverse Reactions, Alerts Substance Reaction Event Type Sulfamethoxazole-Trimethoprim hives Drug Allergy Problems Problem Type Condition Code Onset Dates Condition Status Assessment Encounter for initial prescription of injectable contraceptive Z30.013 Active Assessment Laceration T14.8 Active Medications Medication Code System Code Instructions Start Date End Date Status Dosage Cephalexin [facility] [address]-61 250 MG Orally Four times a day 1 capsule Naproxen [facility] [address]-11 500 MG Orally every 12 hrs Oct 19, 2015 1 tablet as needed Procedures Procedure Coding System Code Date DEPO PROVERA (150 MG/ML) CPT-4 J1050 Oct 19, 2015 THER/PROPH/DIAG INJ, SC/IM CPT-4 26365 Oct 19, 2015 URINE TEST CPT-4 80228 Oct 19, 2015 Office Visit, Est Pt., Level 3 CPT-4 95865 Oct 19, 2015 TORADOL (IM) 60 MG/2ML (UP TO 15 MG) CPT-4 J1885 Oct 19, 2015 Vital Signs Date/Time: Oct 19, 2015 Temperature 98 F Weight 195 lbs Height 64 in BMI 33.47 Index Blood Pressure Diastolic 78 mmHg Blood Pressure Systolic 128 mmHg Cardiac Monitoring Heart Rate 98 bpm Results Name Result Date Reference Range Unit Abnormality Flag TEST, URINE (IN HOUSE) ----RESULTS neg [id number] ----Lot # [id number] ----Control + [id number] ----Exp date [id number] Summary Purpose [employer] Submission
--- OUTSIDE RECORDS SUMMARY | 2017-05-12 12:16 | XMS REPORT ---
Author Author NAGA ARORA Organization [employer] Address Unknown Phone Unavailable Care Team Providers Care Afterschool Babysitter Name Role Phone NAGA ARORA CP Unavailable Allergies No Known Allergies Problems No Known Problems Medications No Known Medications Results No Known Results Summary Purpose [employer] Submission
--- OUTSIDE RECORDS SUMMARY | 2017-05-12 12:16 | XMS REPORT ---
Author Author [facility] Organization [facility] Address [address] [place], [place] [address] Care Team Providers Care Pattern Puncher Name Role Phone PCP Unavailable Allergies and [...] Policy Number Policy Group Number Start Date [facility] - [facility] Comm [id number] N/A [facility] Comm Plan of [id number] N/A History of Encounters Visit Date Visit Type Provider 03/19/2015 Office visit JV OLIVO DO 02/14/2015 [facility] Heath Salomon MD 02/05/2015 Office visit Delia Rueda MD 01/21/2015 [facility] Heath Salomon MD 01/16/2015 Office visit Heath Salomon MD 01/08/2015 Office visit Heath Salomon MD 12/01/2014 Office visit Heath Salomon MD 09/24/2014 Office visit Heath Salomon MD 09/10/2014 Office visit Heath Salomon MD
--- OUTSIDE RECORDS SUMMARY | 2017-05-12 12:17 | XMS REPORT | CCD ---
Author Author COLIN PEÑA Organization Unknown Address [address] [place], [place] [address] Care Team Providers Care Change Management Name Role Phone RE FALCONR DO Attphys FALCONRER DO Prisurg Vital Signs Unknown or Not Available. Allergies Allergy Code Allergy Type Reaction Status SULFA (sulfonamide) 0 Drug allergy Active Procedures Procedure Code Procedure Type Date TEST URINE [id number] SNOMED CT 05/26/2015 History of Immunizations Immunization Code Date DTP 1995 DTP 10/15/1996 DTP 12/17/1996 DTP 06/24/1997 DTP 03/30/2000 OPV 02 1995 OPV 02 10/15/1996 OPV 02 12/17/1996 OPV 02 05/30/2000 MMR 03 10/15/1996 MMR 03 05/30/2000 Hep B, adolescent or pediatric 1995 Hep B, adolescent or pediatric 1995 Hep B, adolescent or pediatric 08 10/15/1996 IPV 10 05/30/2000 Hib, unspecified formulation 17 1995 Hib, unspecified formulation 17 10/15/1996 DTaP 20 06/24/1997 DTaP 20 05/30/2000 varicella 21 06/24/1997 varicella 21 06/28/2010 varicella 21 07/04/2012 HPV, quadrivalent 62 04/07/2010 HPV, quadrivalent 62 05/25/2011 HPV, quadrivalent 62 07/04/2012 influenza, live, intranasal 111 07/04/2012 Tdap 115 06/28/2010 Tdap 115 07/04/2012 Tdap 115 04/18/2015 Meningococcal MCV4O 136 06/28/2010 Problems Unknown or Not Available. Results TEST URINE - Collect Date/Time: 05/26/2015 23:02 Test Name Code Test Result Test Units Test Ref Range TEST UR 9154-3 NEGATIVE N/A Active Medications Medication Code Dose Units Frequency Route Modification Start Date/Time PNV Plus 1MG-27MG Oral Tablet [id number] 1 EACH DAILY ORAL 02/14/2015 12:06 Medications Administered During Visit Unknown or Not Available. Encounters Encounter Diagnosis Diagnosis Code Start Date IRREGULAR MENSTRUATION 6264 05/26/2015 Social History Smoking Status Code Start Date End Date Current every day smoker 464291976 Patient Decision Aids Unknown or Not Available. Discharge Instructions You were admitted to [facility] on 05/26/2015 with a principal diagnosis of IRREGULAR MENSTRUATION. You were discharged from [facility] on 05/26/2015. Should you have any questions prior to discharge, please contact a member of your healthcare team. If you have left the hospital and have any questions, please contact your primary care physician. Chief Complaint and Reason For Visit Chief Complaint Date of Onset VAG BLEEDING Function Status Unknown or Not Available. Plan of Care Unknown or Not Available. Referral/Transition of Care Unknown or Not Available.
--- OUTSIDE RECORDS SUMMARY | 2017-05-12 12:17 | XMS REPORT ---
Author Author [facility] Organization [facility] Address [address] [place], [place] [address] Care Team Providers Care Track Greaser Name Role Phone PCP Unavailable Allergies and [...] OB US LIMITED FETUS(S) 03/26/2015 12:00 AM Medications Active Name Start Date [...] ONLY Returned 03/26/2015 12:00 AM OB US >/=14 WKS SNGL FETUS Returned Results Summary Data and Description Results [...] Small For Dates, Antepartum Mar 26 2015 2:17PM Small For Dates, Antepartum Mar 26 2015 2:22PM Payers Insurance Name Company Name Plan Name Plan Number Policy Number Policy Group Number Start Date [facility] - RHC - Community [facility] RHC Comm [id number] N/A [facility] Comm Plan of [id number] N/A History of Encounters Visit Date Visit Type Provider 04/08/2015 Office visit DELIA UREDA MD 03/26/2015 Office visit DELIA RUEDA MD 03/19/2015 Office visit JV OLIVO DO 02/14/2015 [facility] Heath Salomon MD 02/05/2015 Office visit Delia Rueda MD 01/21/2015 [facility] Heath Salomon MD 01/16/2015 Office visit Heath Salomon MD 01/08/2015 Office visit Heath Salomon MD 12/01/2014 Office visit Heath Salomon MD 09/24/2014 Office visit Heath Salomon MD 09/10/2014 Office visit Heath Salomon MD
--- OUTSIDE RECORDS SUMMARY | 2017-05-12 12:17 | XMS REPORT ---
Author Author Shikha Kessler [facility] Address [address] [place], [place] [address] Care Team Providers Care Blocker And Polisher Gold Wheel Name Role Phone Shikha Kessler PCP Unavailable Allergies and Adverse Reactions Name Reaction Notes SULFA (SULFONAMIDES) hives and vomiting Plan of Treatment Not available. Medications Active Name Start Date Estimated Completion Date SIG Comments Vitamin oral tablet take 1 tablet by oral route once daily Diflucan 150 mg oral tablet 08/05/2015 take 1 tablet (150 mg) by oral [...] for 7 days organism resistent to augmentin Diflucan 150 mg oral tablet 07/13/2015 08/05/2015 take 1 tablet (150 mg) by oral route once Problem List Not available. Vital Signs Date Time BP-Sys(mm[Hg] BP-Farheen(mm[Hg]) HR(bpm) RR(rpm) Temp WT HT HC BMI BSA BMI Percentile O2 Sat(%) 08/05/2015 2:56:00 PM 124 mmHg 64 mmHg 56 bpm 18 rpm 98.7 F 194.25 lbs 63 in 34.41 kg/m2 1.98 m2 0 % 98 % 09/10/2014 4:36:00 PM 106 mmHg 71 mmHg 85 bpm 98.1 F 188.25 lbs 63 in 33.3466 kg/m 1.9482 m 96.3 % Social History Name Description Comments [...] of mother, antepartum Apr 08 2015 4:36PM Vulvovaginitis due to Jessica Aug 05 2015 2:58PM HSV (herpes simplex virus) infection Aug 05 2015 2:58PM Payers Insurance Name Company Name Plan Name Plan Number Policy Number Policy Group Number Start Date [facility] - [facility] RH Comm [id number] N/A [facility] Comm Plan of [id number] N/A History of Encounters Visit Date Visit Type Provider 08/05/2015 Office visit Shikha Kessler APRN 07/13/2015 Office visit Shikha Kessler APRN 04/17/[address] [facility] [address] KRISTINA GARCIA MD 04/09/2015 Office visit DELIA RUEDA MD 04/08/2015 Office visit DELIA RUEDA MD 04/03/2015 [facility] DELIA RUEDA MD 03/26/2015 Office visit DELIA RUEDA MD 03/19/2015 Office visit JV OLIVO DO 02/14/2015 [facility] Heath Salomon MD 02/05/2015 Office visit Delia Rueda MD 01/21/2015 [facility] Heath Salomon MD 01/16/2015 Office visit Heath Salomon MD 01/08/2015 Office visit Heath Salomon MD 12/01/2014 Office visit Hetah Salomon MD 09/24/2014 Office visit Heath Salomon MD 09/10/2014 Office visit Heath Salomon MD
--- OUTSIDE RECORDS SUMMARY | 2017-05-12 12:17 | XMS REPORT ---
Author Author NAGA ARORA Organization [employer] Address Unknown Phone Unavailable Care Team Providers Care Door Tender Name Role Phone NAGA ARORA CP Unavailable Allergies No Known Allergies Problems No Known Problems Medications No Known Medications Results No Known Results Summary Purpose [employer] Submission
--- OUTSIDE RECORDS SUMMARY | 2017-05-12 12:18 | XMS REPORT ---
Author Author [facility] Organization [facility] Address [address] [place], [place] [address] Care Team Providers Care Boat Loader Name Role Phone PCP Unavailable Allergies and [...] Policy Number Policy Group Number Start Date [facility] - [facility] Comm [id number] N/A [facility] Comm Plan of [id number] N/A History of Encounters Visit Date Visit Type Provider 03/19/2015 Office visit JV OLIVO DO 02/14/2015 [facility] Heath Salomon MD 02/05/2015 Office visit Delia Rueda MD 01/21/2015 [facility] Heath Salomon MD 01/16/2015 Office visit Heath Salomno MD 01/08/2015 Office visit Heath Salomon MD 12/01/2014 Office visit Heath Salomon MD 09/24/2014 Office visit Heath Salomon MD 09/10/2014 Office visit Heath Salomon MD
--- OUTSIDE RECORDS SUMMARY | 2017-05-12 12:18 | XMS REPORT ---
Author Author [facility] Organization [facility] Address [address] [place], [place] [address] Care Team Providers Care Sea Kayaking Guide Name Role Phone PCP Unavailable Allergies and [...] Policy Number Policy Group Number Start Date [facility] - RHC - Community Plan [facility] RHC Comm [id number] N/A [facility] Community [facility] Comm Plan of [id number] N/A History of Encounters Visit Date Visit Type Provider 04/08/2015 Office visit DELIA RUEDA MD 03/26/2015 Office visit DELIA RUEDA MD 03/19/2015 Office visit JV OLIVO DO 02/14/2015 [facility] Heath Salomon MD 02/05/2015 Office visit Delia Rueda MD 01/21/2015 [facility] Heath Salomon MD 01/16/2015 Office visit Heath Salomon MD 01/08/2015 Office visit Heath Salomon MD 12/01/2014 Office visit Heath Salomon MD 09/24/2014 Office visit Heath Salomon MD 09/10/2014 Office visit Heath Salomon MD
--- OUTSIDE RECORDS SUMMARY | 2017-05-12 12:18 | XMS REPORT ---
Author Author THEO SAVAGE Organization [employer] Address Unknown Phone Unavailable Care Team Providers Care Counter Hand Name Role Phone THEO SAVAGE CP Unavailable Allergies, Adverse Reactions, Alerts Substance Reaction Event Type Sulfamethoxazole-Trimethoprim hives Drug Allergy Problems Problem Type Condition Code Onset Dates Condition Status Assessment Laceration T14.8 Active Medications Medication Code System Code Instructions Start Date End Date Status Dosage Depo-Provera [facility] [address]-33 150 mg/mL April 29, 2013 inject 150 mg by Intramuscular route every 3 months Clindamycin HCl [facility] [address]-61 300 MG Orally 4 times a day Oct 26, 2015 Nov 02, 2015 1 capsule Cephalexin [facility] [address]-46 250 MG Orally Four times a day 1 capsule Naproxen [facility] [address]-29 500 MG Orally every 12 hrs Oct 19, 2015 1 tablet as needed Procedures Procedure Coding System Code Date REMOV SUTS; NOT MD WHO CLOS WND CPT-4 S0630 Oct 26, 2015 Office Visit, Est Pt., Level 3 CPT-4 61198 Oct 26, 2015 Vital Signs Date/Time: Oct 26, 2015 Temperature 98.5 F Weight 198.2 lbs Height 64 in BMI 34.02 Index Blood Pressure Diastolic 68 mmHg Blood Pressure Systolic 110 mmHg Cardiac Monitoring Heart Rate 94 bpm Results Name Result Date Reference Range Unit Abnormality Flag SUTURE REMOVAL Summary Purpose [employer] Submission
--- OUTSIDE RECORDS SUMMARY | 2017-05-12 12:18 | XMS REPORT ---
Author Author [facility] Organization [facility] Address [address] [place], [place] [address] Care Team Providers Care Triage Register Nurse Name Role Phone PCP Unavailable Allergies and Adverse Reactions Name Reaction Notes SULFA (SULFONAMIDES) hives and vomiting Plan of Treatment Planned Activity Comments Planned Date Planned Time Plan/Goal URINALYSIS 03/19/2015 12:00 AM URINE CULTURE/COLONY COUNT 03/19/2015 12:00 AM COMPLETE CBC W/AUTO DIFF WBC 03/19/2015 12:00 AM OB US >/=14 WKS SNGL FETUS 03/26/2015 12:00 AM OB US LIMITED FETUS(S) [...] Policy Number Policy Group Number Start Date [facility] - RHC - Community Plan [facility] RHC Comm [id number] N/A [facility] Community Plan [facility] Comm Plan of [id number] N/A History of Encounters Visit Date Visit Type Provider 03/26/2015 Office visit DELIA RUEDA MD 03/19/2015 Office visit JV OLIVO DO 02/14/2015 [facility] Heath Salomon MD 02/05/2015 Office visit Delia Rueda MD 01/21/2015 [facility] Heath Salomon MD 01/16/2015 Office visit Heath Salomon MD 01/08/2015 Office visit Heath Salomon MD 12/01/2014 Office visit Heath Salomon MD 09/24/2014 Office visit Heath Salomon MD 09/10/2014 Office visit Heath Salomon MD
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
--- OUTSIDE RECORDS SUMMARY | 2017-05-12 12:19 | XMS REPORT ---
Author Author [facility] Organization [facility] Address [address] [place], [place] [address] Care Team Providers Care Electronic Communications Technician Name Role Phone PCP Unavailable Allergies and [...] Group Number Start Date [facility] - [facility] - Community [facility] Comm [id number] N/A [facility] Comm Plan of [id number] N/A History of Encounters Visit Date Visit Type Provider 02/14/2015 [facility] Heath Salomon MD 02/05/2015 Office visit Delia Rueda MD 01/21/2015 [facility] Heath Salomon MD 01/16/2015 Office visit Heath Salomon MD 01/08/2015 Office visit Heath Salomon MD 12/01/2014 Office visit Heath Salomon MD 09/24/2014 Office visit Heath Salomon MD 09/10/2014 Office visit Heath Salomon MD
--- OUTSIDE RECORDS SUMMARY | 2017-05-12 12:19 | XMS REPORT | CCD ---
Author Author TRISTIN JARRELL Organization Unknown Address [address] [place], [place] [address] Care Team Providers Care Night Stocker Name Role Phone IRENE ER, REJI DO Attphys IRENE ER, REJI DO Prisurg Vital Signs Unknown or Not Available. Allergies Allergy Code Allergy Type Reaction Status SULFA (sulfonamide) 0 Drug allergy Active Procedures Procedure Code Procedure Type Date UA W/MICRO C&S IF IND [id number] SNOMED CT 08/25/2015 TEST URINE [id number] SNOMED CT 08/25/2015 RAPID DRUG SCREEN [id number] SNOMED CT 08/25/2015 History of Immunizations Immunization Code Date DTP [...] 06/28/2010 Problems Unknown or Not Available. Results RAPID DRUG SCREEN - Collect Date/Time: 08/25/2015 04:47 Test Name Code Test Result Test Units [...] N/A NEG: < 300 ng/ ml UA W/MICRO C&S IF IND - Collect Date/Time: 08/25/2015 04:47 Test Name Code Test Result Test Units Test Ref Range COLOR YELLOW N/A NL: YELLOW APPEARANCE CLEAR N/A NL: CLEAR SPEC GRAV >=1.030 N/A NL: 1.002 - 1.022 pH 6.0 N/A NL: 5 - 9 PROTEIN NEGATIVE N/A NL: NEGATIVE mg/dl GLUCOSE NEGATIVE N/A NL: NEGATIVE mg/dl KETONE NEGATIVE N/A NL: NEGATIVE mg/dl BILIRUBIN NEGATIVE N/A NL: NEGATIVE BLOOD NEGATIVE N/A NL: NEGATIVE NITRITE NEGATIVE N/A NL: NEGATIVE LEUK SCREEN NEGATIVE N/A NL: NEGATIVE WBC/HPF NEGATIVE N/A NL: NEGATIVE RBC/HPF NEGATIVE N/A NL: NEGATIVE CASTS/LPF NEGATIVE N/A NL: NEGATIVE CRYSTALS NEGATIVE N/A NL: NEGATIVE MUCOUS THRDS NEGATIVE N/A NL: NEGATIVE BACTERIA FEW N/A NL: NEGATIVE EPITH CELLS 1+ SQUAMOUS N/A NL: NEGATIVE TRICHOMONAS NEGATIVE N/A NL: NEGATIVE YEAST NEGATIVE N/A NL: NEGATIVE CULT SET UP? NO N/A TEST URINE - Collect Date/Time: 08/25/2015 04:47 Test Name Code Test Result Test Units Test Ref Range TEST UR 2106-3 NEGATIVE N/A Active Medications Medication Code Dose Units Frequency Route Modification Start Date/Time PNV Plus 1MG-27MG Oral Tablet [id number] 1 EACH DAILY ORAL 02/14/2015 12:06 Prescription Detail 1 EACH ORAL DAILY Medications Administered During Visit Unknown or Not Available. Encounters Encounter Diagnosis Diagnosis Code Start Date Constipation [id number] 08/25/2015 Social History Smoking Status Code Start Date End Date Current every day smoker [id number] Patient Decision Aids Unknown or Not Available. Discharge Instructions You were admitted to [facility] on 08/25/2015 with a principal diagnosis of Constipation . You were discharged from [facility] on 08/25/2015. Should you have any questions prior to discharge, please contact a member of your healthcare team. If you have left the hospital and have any questions, please contact your primary care physician. Chief Complaint and Reason For Visit Chief Complaint Date of Onset POSS UTI Function Status Unknown or Not Available. Plan of Care Unknown or Not Available. Referral/Transition of Care Unknown or Not Available.
--- OUTSIDE RECORDS SUMMARY | 2017-05-12 12:19 | XMS REPORT ---
Demographics Preferred Language American Marital Status Never Zoroastrianism Affiliation Unknown Race Other Race Ethnic Group Unknown Author Shikha Frankel [facility] Address [address] [place], [place] [address] Care Team Providers Care Ward Clerk Name Role Phone Shikha Kessler PCP Unavailable Allergies and Adverse Reactions Name Reaction Notes SULFA (SULFONAMIDES) Plan of Treatment Planned Activity Comments Planned Date Planned Time Plan/Goal TISSUE EXAM FOR FUNGI 07/13/2015 12:00 AM SMEAR WET [place] SALINE/INK 07/13/2015 12:00 AM CHLAMYDIA CULTURE 07/13/2015 12:00 AM N.GONORRHOEAE DNA AMP PROB 07/13/2015 12:00 AM CHORIONIC GONADOTROPIN ASSAY 07/13/2015 12:00 AM HERPES SIMPLEX TYPE 1 TEST 07/13/2015 12:00 AM HERPES SIMPLEX TYPE 2 TEST 07/13/2015 12:00 AM VIRUS INOCULATION TISSUE 07/13/2015 12:00 AM Medications Active Name Start Date Estimated Completion Date SIG Comments Cipro oral Problem List Description Status Onset *No known medical problems Active Vital Signs Date Time BP-Sys(mm[Hg] BP-Farheen(mm[Hg]) HR(bpm) RR(rpm) Temp WT HT HC BMI BSA BMI Percentile O2 Sat(%) 07/13/2015 10:39:00 AM 126 mmHg 72 mmHg 66 bpm 18 rpm 98.4 F 193.125 lbs 63 in 34.21 kg/m2 1.97 m2 0 % 97 % Social History Name Description Comments Tobacco Current every day smoker denies alcohol use SONIC History of Procedures Not available. Results Summary Not available. History Of Immunizations Not available. History of Past Illness Name Date of Onset Comments *No known medical problems Vaginal lesion Jul 13 2015 10:42AM Vaginal discharge Jul 13 2015 10:42AM Amenorrhea Jul 13 2015 10:42AM Payers Not available. History of Encounters Visit Date Visit Type Provider 07/13/2015 Office visit Shikha Kessler BAR ATTENDANT
--- OUTSIDE RECORDS SUMMARY | 2017-05-12 12:19 | XMS REPORT ---
Author Author [facility] Organization [facility] Address [address] [place], [place] [address] Care Team Providers Care Clinical Application Manager Name Role Phone PCP Unavailable Allergies and [...] Policy Number Policy Group Number Start Date [facility] - [facility] - [facility] Comm [id number] N/A [facility] Comm Plan of [id number] N/A History of Encounters Visit Date Visit Type Provider 03/26/2015 Office visit DELIA RUEDA MD 03/19/2015 Office visit JV OLIVO DO 02/14/2015 [facility] Heath Salomon MD 02/05/2015 Office visit Delia Rueda MD 01/21/2015 [facility] Heath Salomon MD 01/16/2015 Office visit Heath Salomon MD 01/08/2015 Office visit Heath Salomon MD 12/01/2014 Office visit Heath Salomon MD 09/24/2014 Office visit Heath Salomon MD 09/10/2014 Office visit Heath Salomon MD
--- OUTSIDE RECORDS SUMMARY | 2017-05-12 12:19 | XMS REPORT | Continuity of Care Document ---
Author Author [facility] Organization [facility] Address [facility] [address] [place] [address] Phone Unavailable Support Name Relationship Address Phone GIORGI BILLS D.O. Caregiver [address] [place], [place] [phone] ALTAGRACIA KEVIN MD Caregiver [address] [place] [address] Unavailable ELKE CHAPARRO Next Of Kin [address] [place] [address] Insurance Providers Payer Name Policy Number Subscriber Name Relationship Self Pay Insurance Kita Lopez 18 Self / Same As Patient Advance Directives Directive Response Recorded Date/Time Advance Directives No 10/16/15 8:53pm Living Will No 10/16/15 8:53pm Health Care Proxy No 05/24/16 2:14pm Power of [place] Former for Health Care No 10/16/15 8:53pm Organ, Tissue, or Eye Donor No 10/16/15 8:53pm Do you have a signed organ donor card? No 10/16/15 8:53pm Problems Active Problems Medical Problem Onset Date [...] 07/09/2013 9:41pm Tobacco Use Cigarettes 03/17/2016 10:43am Sexual History Heterosexual 07/09/2013 9:41pm Query Response Start Date Stop Date Smoking Status Current every day smoker Hospital Discharge Instructions No hospital discharge instructions. Plan of Care Discharge Date 05/24/16 6:00pm Disposition 07 AMA, LWOT, LWBS Prescriptions See Medication Section Functional Status No functional status results. Allergies, Adverse Reactions, Alerts Allergen Type Severity [...] 03/17/2016 10:50am Oxygen Delivery Method 03/17/2016 10:50am Results Laboratory Results Test Name Result Units Flags Reference Collection Date/Time Result Date/ Time Comments Urine Color YELLOW YELLOW 03/17/2016 10:05am 03/17/2016 10:14am Urine Appearance CLEAR CLEAR 03/17/2016 10:05am 03/17/2016 10:14am Urine Glucose (UA) NEGATIVE mg/dL NEGATIVE 03/17/2016 10:05am 2015 10:14am Urine Bilirubin NEGATIVE NEGATIVE 03/17/2016 10:05am 03/17/2016 10: 14am Urine Ketones NEGATIVE mg/dL NEGATIVE 03/17/2016 10:05am 03/17/2016 10: 14am Urine Specific [place] >=1.030 H 1.010-1.025 03/17/2016 10:05am 2015 10:14am Urine Occult Blood NEGATIVE NEGATIVE 03/17/2016 10:05am 03/17/2016 10 :14am Urine pH 6.0 5.0-8.0 03/17/2016 10:05am 03/17/2016 10:14am Urine Protein NEGATIVE mg/dL NEGATIVE 03/17/2016 10:05am 03/17/2016 10: 14am Urine Urobilinogen 0.2 mg/dL E.U./dL 0.2-1.0 03/17/2016 10:05am 2015 10:14am Urine Nitrate NEGATIVE NEGATIVE 03/17/2016 10:05am 03/17/2016 10: 14am Urine Leukocyte Esterase NEGATIVE NEGATIVE 03/17/2016 10:05am 2015 10:14am Urine RBC NEGATIVE /hpf 0 03/17/2016 10:05am 03/17/2016 10:25am Urine WBC 3-4 /hpf 0-4 03/17/2016 10:05am 03/17/2016 10:25am Urine Squamous Epithelial Cells 5-10 /hpf H 0-1 03/17/2016 10:05am 03/17 10:25am Urine Bacteria 1+ H NEGATIVE 03/17/2016 10:05am 03/17/2016 10:25am Urine HCG, Qualitative NEGATIVE NEG 03/17/2016 10:05am 03/17/2016 10: 14am Procedures No known history of procedures. Encounters Encounter Location Arrival/Admit Date Discharge/Depart Date Attending Provider Departed Emergency Room [place] 05/24/16 6:00pm 05/24/16 6:00pm ALTAGRACIA KEVIN MD Departed Emergency Room [place] 03/17/16 9:26am 03/17/16 10:59am BOSTON OCONNELL DO
--- OUTSIDE RECORDS SUMMARY | 2017-05-12 12:20 | XMS REPORT ---
Author Author [facility] Organization [facility] Address [address] [place], [place] [address] Care Team Providers Care Supervisor Costuming Name Role Phone PCP Unavailable Allergies and [...] Policy Number Policy Group Number Start Date [facility] - [facility] - [facility] Comm [id number] N/A [facility] Comm Plan of [id number] N/A History of Encounters Visit Date Visit Type Provider 03/19/2015 Office visit JV OLIVO DO 02/14/2015 [facility] Heath Salomon MD 02/05/2015 Office visit Delia Rueda MD 01/21/2015 [facility] Heath Salomon MD 01/16/2015 Office visit Heath Salomon MD 01/08/2015 Office visit Heath Salomon MD 12/01/2014 Office visit Heath Salomon MD 09/24/2014 Office visit Heath Salomon MD 09/10/2014 Office visit Heath Salomon MD
--- OUTSIDE RECORDS SUMMARY | 2017-05-12 12:20 | XMS REPORT ---
Author Author [facility] Organization [facility] Address [address] [place], [place] [phone] Care Team Providers Care Rodding Machine Tender Name Role Phone PCP Unavailable Allergies and Adverse Reactions Name Reaction Notes SULFA (SULFONAMIDES) hives and vomiting Plan of Treatment Planned Activity Comments Planned Date Planned Time Plan/Goal URINALYSIS AUTO W/SCOPE 01/23/2015 12:00 AM Medications Active Name Start Date [...] 12:00 AM OB US LIMITED FETUS(S) Returned Results Summary Data and Description Results [...] CELLS FEW SQUAMOUS TRICHOMONAS NEGATIVE YEAST NEGATIVE History Of Immunizations Not available. History [...] Policy Number Policy Group Number Start Date [facility] - RHC - Community Plan [facility] Comm [id number] N/A [facility] Comm Plan of [id number] N/A History of Encounters Visit Date Visit Type Provider 02/05/2015 Office visit Delia Rueda MD 01/21/2015 [facility] Heath Salomon MD 01/16/2015 Office visit Heath Salomon MD 01/08/2015 Office visit Heath Salomon MD 12/01/2014 Office visit Heath Salomon MD 09/24/2014 Office visit Heath Salomon MD 09/10/2014 Office visit Heath Salomon MD
--- OUTSIDE RECORDS SUMMARY | 2017-05-12 12:20 | XMS REPORT ---
Author Author Shikha Kessler Organization [facility] Address [address] [place], [place] [address] Care Team Providers Care Inside Sales Coordinator Name Role Phone Shikha Kessler PCP Unavailable [...] Policy Number Policy Group Number Start Date [facility] - RHC - Community Plan [facility] RHC Comm [id number] N/A [facility] Community Plan [facility] Comm Plan of [id number] N/A History of Encounters Visit Date Visit Type Provider 07/13/2015 Office visit Shikha Kessler APRN 04/17/2015 [facility] Dr. KRISTINA GARCIA MD 04/09/2015 Office visit DELIA RUEDA MD 04/08/2015 Office visit DELIA RUEDA MD 04/03/2015 [facility] DELIA RUEDA MD 03/26/2015 Office visit DELIA RUEDA MD 03/19/2015 Office visit JV OLIVO DO 02/14/2015 [facility] Heath Salomon MD 02/05/2015 Office visit Delia Rueda MD 01/21/2015 [facility] Heath Salomon MD 01/16/2015 Office visit Heath Salomon MD 01/08/2015 Office visit Heath Salomon MD 12/01/2014 Office visit Heath Salomon MD 09/24/2014 Office visit Heath Salomon MD 09/10/2014 Office visit Heath Salomon MD
--- OUTSIDE RECORDS SUMMARY | 2017-05-12 12:21 | XMS REPORT ---
Author Author [facility] Organization [facility] Address [address] [place], [place] [phone] Care Team Providers Care Professor Of Poultry Science Name Role Phone PCP Unavailable Allergies and [...] Policy Number Policy Group Number Start Date [facility] - RHC - Community Plan [facility] RHC Comm [id number] N/A [facility] Community [facility] Comm Plan of [id number] N/A History of Encounters Visit Date Visit Type Provider 04/09/2015 Office visit DELIA RUEDA MD 04/08/2015 Office visit DELIA RUEDA MD 03/26/2015 Office visit DELIA RUEDA MD 03/19/2015 Office visit JV OLIVO DO 02/14/2015 [facility] Heath Salomon MD 02/05/2015 Office visit Delia Rueda MD 01/21/2015 [facility] Heath Salomon MD 01/16/2015 Office visit Heath Salomon MD 01/08/2015 Office visit Heath Salomon MD 12/01/2014 Office visit Heath Salomon MD 09/24/2014 Office visit Heath Salomon MD 09/10/2014 Office visit Heath Salomon MD
--- OUTSIDE RECORDS SUMMARY | 2017-05-12 12:21 | XMS REPORT | CCD ---
Author Author COLIN PEÑA Organization Unknown Address [address] [place], [place] [phone] Care Team Providers Care Newspaper Stuffer Name Role Phone RE FALCONR DO Attphys FALCONRER DO Prisurg Vital Signs Unknown or Not Available. Allergies Allergy Code Allergy Type Reaction Status SULFA (sulfonamide) 0 Drug allergy Active Procedures Procedure Code Procedure Type Date TEST URINE 760409897 SNOMED CT 05/26/2015 History of Immunizations Immunization [...] Test Units Test Ref Range TEST UR 6025-3 NEGATIVE N/A Active Medications Medication Code Dose Units Frequency Route Modification Start Date/Time PNV Plus 1MG-27MG Oral Tablet 1981124 1 EACH DAILY ORAL 02/14/2015 12:06 Medications Administered During Visit Unknown or Not Available. Encounters Encounter Diagnosis Diagnosis Code Start Date IRREGULAR MENSTRUATION 6264 05/26/2015 Social History Smoking Status Code Start Date End Date Current every day smoker 817659512 Patient Decision Aids Unknown or Not Available. Discharge Instructions You were admitted to [facility] on 05/26/2015 with a principal diagnosis of IRREGULAR MENSTRUATION. You were discharged from [facility] on 05/26/2015. Should you have any questions [...]
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
--- OUTSIDE RECORDS SUMMARY | 2017-05-12 12:21 | XMS REPORT ---
Author Author [facility] Organization [facility] Address [address] [place], [place] [phone] Care Team Providers Care Him Specialists Name Role Phone PCP Unavailable Allergies and [...] Policy Group Number Start Date [facility] Comm [id number] N/A [facility] Comm Plan of [id number] N/A History of Encounters Visit Date Visit Type Provider 03/26/2015 Office visit DELIA RUEDA MD 03/19/2015 Office visit JV OLIVO DO 02/14/2015 [facility] Heath Salomon MD 02/05/2015 Office visit Delia Rueda MD 01/21/2015 [facility] Heath Salomon MD 01/16/2015 Office visit Heath Salomon MD 01/08/2015 Office visit Heath Salomon MD 12/01/2014 Office visit Heath Salomon MD 09/24/2014 Office visit Heath Salomon MD 09/10/2014 Office visit Heath Salomon MD
--- OUTSIDE RECORDS SUMMARY | 2017-05-12 12:21 | XMS REPORT ---
Author Author VLADIMIR WEBER [facility] eClinicalWorks Address Unknown Phone Unavailable Care Team Providers Care Corncob Pipe Manufacturing Supervisor Name Role Phone VLADIMIR WEBER CP Unavailable Allergies, Adverse Reactions, Alerts Substance Reaction Event Type Sulfamethoxazole-Trimethoprim hives Drug Allergy Problems Problem Type Condition Code Onset Dates Condition Status Assessment Possible exposure to STD Z20.2 Active Assessment Possible Z32.00 Active Medications No Known Medications Procedures Procedure Coding System Code Date No Charge CPT-4 58475 Jul 29, 2016 HIV-1 AG W/HIV-1 & HIV-2 AB CPT-4 90374 Jul 29, 2016 URINE TEST CPT-4 11651 Jul 29, 2016 VENIPUNCT, ROUTINE* CPT-4 93645 Jul 29, 2016 TRICHOMONAS ASSAY W/OPTIC CPT-4 74064 Jul 29, 2016 Office Visit, Est Pt., Level 3 CPT-4 68394 Jul 29, 2016 Vital Signs Date/Time: Jul 29, 2016 Cardiac Monitoring Heart Rate 111 bpm Weight 202.2 lbs Height 64 in BMI 34.70 Index Blood Pressure Diastolic 68 mmHg Blood Pressure Systolic 110 mmHg Results Name Result Date Reference Range Unit Abnormality Flag TEST, URINE (IN HOUSE) ----Control + [id number] ----Exp date [id number] ----RESULTS neg [id number] ----Lot # [id number] HIV ANTIGEN/ANTIBODY ----HIV Screen 4th Generation wRfx Non Reactive [id number] Non Reactive ROUTINE VENIPUNCTURE TRICHOMONAS (IN HOUSE) ----Exp date 20160801 ----Control + [id number] ----Lot # [id number] ----TRICHOMONAS neg [id number] HEP B SURFACE ANTIGEN (STATE) ----HEP B ANTIBODY (STATE) NonReactive [id number] HEP C ANTIBODY (STATE) ----RESULTS NonReactive [id number] SYPHILIS (STATE) CULTURE, GENITAL ----Request Problem TNP [id number] ----Genital Culture, Routine TNP [id number] GC/CHLAM PROBE (STATE) ----GC Negative [id number] ----CHLAMYDIA Negative [id number] Summary Purpose eClinicalWorks Submission
--- OUTSIDE RECORDS SUMMARY | 2017-05-12 12:22 | XMS REPORT ---
Author Author [facility] Organization [facility] Address [address] [place], [place] [address] Care Team Providers Care Placement Specialist Name Role Phone PCP Unavailable Allergies and [...] Number Policy Group Number Start Date [facility] - RHC - Community Plan [facility] Comm [id number] N/A [facility] Comm Plan of [id number] N/A History of Encounters Visit Date Visit Type Provider 02/05/2015 Office visit Delia Rueda MD 01/21/2015 [facility] Heath Salomon MD 01/16/2015 Office visit Heath Salomon MD 01/08/2015 Office visit Heath Salomon MD 12/01/2014 Office visit Heath Salomon MD 09/24/2014 Office visit Heath Salomon MD 09/10/2014 Office visit Heath Salomon MD
--- OUTSIDE RECORDS SUMMARY | 2017-05-12 12:22 | XMS REPORT | CCD ---
Author Author COLIN PEÑA Organization Unknown Address [address] [place], [place] [phone] Care Team Providers Care Compliance Coordinator Name Role Phone RE FALCONR DO Attphys FALCONRER DO Prisurg Vital Signs Unknown or Not Available. Allergies Allergy Code Allergy Type Reaction Status SULFA (sulfonamide) 0 Drug allergy Active Procedures Procedure Code Procedure Type Date TEST URINE [id number] SNOMED CT 05/26/2015 History of Immunizations Immunization [...] Test Units Test Ref Range TEST UR 9228-3 NEGATIVE N/A Active Medications Medication Code Dose Units Frequency Route Modification Start Date/Time PNV Plus 1MG-27MG Oral Tablet [id number] 1 EACH DAILY ORAL 02/14/2015 12:06 Medications Administered During Visit Unknown or Not Available. Encounters Encounter Diagnosis Diagnosis Code Start Date IRREGULAR MENSTRUATION 6264 05/26/2015 Social History Smoking Status Code Start Date End Date Current every day smoker 063160630 Patient Decision Aids Unknown or Not Available. Discharge Instructions You were admitted to [facility] on 05/26/2015 with a principal diagnosis of IRREGULAR MENSTRUATION. You were discharged from [facility] on 05/26/2015. Should you have any [...]
--- OUTSIDE RECORDS SUMMARY | 2017-05-12 12:22 | XMS REPORT ---
Author Author [facility] Organization [facility] Address [address] [place], [place] [phone] Care Team Providers Care Composition Teacher Name Role Phone PCP Unavailable Allergies and [...] Policy Number Policy Group Number Start Date [facility] - RHC - Community Plan [facility] RHC Comm [id number] N/A [facility] Community [facility] Comm Plan of [id number] N/A History of Encounters Visit Date Visit Type Provider 04/08/2015 Office visit DELIA RUEDA MD 03/26/2015 Office visit DELIA RUEDA MD 03/19/2015 Office visit JV OLIVO DO 02/14/2015 [facility] Heath Salomon MD 02/05/2015 Office visit Delia Rueda MD 01/21/2015 [facility] Heath Salomon MD 01/16/2015 Office visit Heath Salomon MD 01/08/2015 Office visit Heath Salomon MD 12/01/2014 Office visit Heath Salomon MD 09/24/2014 Office visit Heath Salomon MD 09/10/2014 Office visit Heath Salomon MD
--- OUTSIDE RECORDS SUMMARY | 2017-05-12 12:22 | XMS REPORT ---
Author Author Shikha Kessler Organization [facility] Address [address] [place], [place] [address] Care Team Providers Care Case Finisher Name Role Phone Shikha Kessler PCP Unavailable [...] Number Policy Group Number Start Date [facility] - RHC - Community Plan [facility] RHC Comm [id number] N/A [facility] Community Plan [facility] Comm Plan of [id number] N/A History of Encounters Visit Date Visit Type Provider 07/13/2015 Office visit Shikha eKssler APRN 04/17/[address] [facility] [address] KRISTINA GARCIA MD 04/09/2015 Office visit DELIA RUEDA MD 04/08/2015 Office visit DELIA RUEDA MD 04/03/2015 [facility] DELIA RUEDA MD 03/26/2015 Office visit DELIA RUEDA MD 03/19/2015 Office visit JV OLIVO DO 02/14/2015 [facility] Heath Salomon MD 02/05/2015 Office visit Delia Rueda MD 01/21/2015 [facility] Heath Salomon MD 01/16/2015 Office visit Heath Salomon MD 01/08/2015 Office visit Heath Salomon MD 12/01/2014 Office visit Heath Salomon MD 09/24/2014 Office visit Heath Salomon MD 09/10/2014 Office visit Heath Salomon MD
--- OUTSIDE RECORDS SUMMARY | 2017-05-12 12:23 | XMS REPORT | Continuity of Care Document ---
Author Author [facility] Organization [facility] Address [facility] [address] [place] [address] Phone Unavailable Support Name Relationship Address Phone GIORGI BILLS D.O. Caregiver [address] [place], [place] [phone] SENDY CAROLINA Caregiver [address] [place] [address] Unavailable ELKE CHAPARRO Next Of Kin [address] [place] [address] Insurance Providers Payer Name Policy Number Subscriber Name Relationship [facility] [id number] Kita Lopez 18 Self / Same As Patient Advance Directives Directive Response Recorded Date/Time Advance Directives No 08/04/13 12:55pm Living Will No 08/04/13 12:55pm Health Care Proxy No 05/11/15 12:48pm Power of Geographic Analyst for Health Care No 08/04/13 12:55pm Organ, Tissue, or Eye Donor No 08/04/13 12:55pm Do you have a signed organ donor card? No 08/04/13 12:55pm Chief Complaint and Reason for Visit Chief Complaint POST OP WOUND CHECK Reason for Visit [id number] Problems Active Problems Medical Problem Onset Date Status Anxiety Unknown Acute Bronchitis Unknown Acute Bronchitis Unknown Acute Contusion Unknown Acute Unknown Acute Sinusitis, acute Unknown [...] Mg Oral Four Times Daily 40 05/11/15 Past Home Medications Medication Directions Ordered Status [...] discharge instructions. Plan of Care Discharge Date 05/11/15 1:50pm Condition at Discharge Stable Instructions/Education Provided Wound Dehiscence (ED) Prescriptions See Medication Section Additional Instructions/Education Monitor for signs of worsening infection. This may include increasing or spreading redness around the surgical site, increased amount of drainage from the surgical site, fevers or chills. If any of these should occur before years senior application security consultant, he will need to return to the emergency department immediately for evaluation. Functional Status Query Response Date Recorded Patient Behavior Appropriate May 11, 2015 12:57pm Allergies, Adverse Reactions, Alerts Allergen Type Severity Reaction Status Last Updated SULFA (SULFONAMIDE ANTIBIOTICS) Allergy Unknown Active 05/11/15 Immunizations Name Given Type Hx Diphtheria, Pertussis, Tetanus Vaccination Unknown Historical Hx Influenza Vaccination Y 2013 Historical Hx Pneumococcal Vaccination No Historical Vital Signs Acute Vital Signs Vital Response Date/Time Temperature (Fahrenheit) 97.6 degrees F (97.6 - 99.5) 05/11/2015 1:50pm Temperature Source Temporal Artery 05/11/2015 1:50pm Pulse Rate (adult) 69 bpm (60 - 90) 05/11/2015 1:50pm Respiratory Rate 20 bpm (12 - 24) 05/11/2015 1:50pm Blood Pressure 111/80 mm Hg 05/11/2015 1:50pm O2 Sat by Pulse Oximetry 100 % (90 - 100) 05/11/2015 1:50pm Oxygen Delivery Method 05/11/2015 1:50pm Height 5 ft 3 in Weight 165 lb Body Mass Index 29.0 kg/m^2 Results No known relevant diagnostic tests, laboratory data and/or discharge summary. Procedures No known history of procedures. Encounters Encounter Location Arrival/Admit Date Discharge/Depart Date Attending Provider Departed Emergency Room [facility] 05/11/15 12:50pm 05/11/15 1:50pm CAROLINA KABA DO Recent Diagnosis
--- OUTSIDE RECORDS SUMMARY | 2017-05-12 12:23 | XMS REPORT | Continuity of Care Document ---
Demographics Preferred Language Unknown Marital Status Unknown Christianity Affiliation Unknown Race Unknown Ethnic Group Unknown Author Author [facility] Organization [facility] Address Unknown Phone Unavailable Allergies Medications Problems Procedures Results Encounters ACCT No. Visit Date/Time Discharge Status Pt. Type Provider Facility Loc./Unit Complaint [id number] 07/13/2015 13:08:41 07/13/2015 23: 59:59 C[facility] Outpatient Shikha Kessler
--- OUTSIDE RECORDS SUMMARY | 2017-05-12 12:23 | XMS REPORT ---
Author Author Shikha Kessler [facility] Address [address] [place], [place] [phone] Care Team Providers Care Market Research Specialist Name Role Phone Shikha Kessler PCP Unavailable [...] Policy Number Policy Group Number Start Date [facility] - Community Plan [facility] Comm [id number] Monday, 2014 [facility] Comm Plan of [id number] N/A History of Encounters Visit Date Visit Type Provider 08/05/2015 Office visit Shikha Kessler APRN 07/13/2015 Office visit Shikha Kessler APRN 04/17/2015 [facility] [address] KRISTINA GARCIA MD 04/09/2015 Office visit DELIA RUEDA MD 04/08/2015 Office visit DELIA RUEDA MD 04/03/2015 [facility] DELIA RUEDA MD 03/26/2015 Office visit DELIA RUEDA MD 03/19/2015 Office visit JV OLIVO DO 02/14/2015 [facility] Heath Salomon MD 02/05/2015 Office visit Delia Rueda MD 01/21/2015 [facility] Heath Salomon MD 01/16/2015 Office visit Heath Salomon MD 01/08/2015 Office visit Heath Salomon MD 12/01/2014 Office visit Heath Salomon MD 09/24/2014 Office visit Heath Salomon MD 09/10/2014 Office visit 09/10/2014 Office visit 09/10/2014 Office visit Heath Salomon MD
== END 2017-05-01 21:33 | disposition home or self-care (01) ==
LOC: ER 20:33
DX: J20.9 Acute bronchitis, unspecified (principal); J45.909 Unspecified asthma, uncomplicated; F17.210 Nicotine dependence, cigarettes, uncomplicated
CPT/HCPCS: 99283

== ENCOUNTER 2017-05-06 16:59 | Emergency (ER) | payer SELFPAY ==
[~2017-05-06] VITALS: Ht 160 cm; Wt 97.5 kg
[~2017-05-06 16:59] MED LIST: BUPR-42 PO; MINO100C2 PO; PRD20T PO
[2017-05-06] MEDS ORDERED: ONDANSETRON 4 MG (ZOFRAN) ORAL DISSOLVE TAB SL STA (17:19)
[2017-05-06] MEDS ORDERED: AMOX500C2 PO (17:45)
[2017-05-06] MEDS ORDERED: ONDA8TAB13 PO (17:45)
--- NOTE | 2017-05-06 17:45 | ED GI ---
General Chief Complaint: Abdominal/GI Problems Stated Complaint: ACUTE BRONCHITIS, THROWING UP MEDICINE Nursing Triage Note: vomitting after taking prednisone Sepsis Screen: No Definite Risk Source of Information: Patient Exam Limitations: No Limitations History of Present Illness Time Seen By Provider: 17:40 Allergies and Home Medications Allergies Coded Allergies: Sulfa (Sulfonamide Antibiotics) (Verified Allergy, Unknown, 05/01/17) Home Medications Bupropion HCl 150 Mg Tab.er.24h, Unknown Dose PO, (Reported) Minocycline HCl 100 Mg Capsule, 100 MG PO BID, #14 Ref 0 Prescribed by: TATYANA ESTES on 05/01/172126 Prednisone 20 Mg Tab, 40 MG PO DAILY, #8 Ref 0 Prescribed by: TATYANA ESTES on 05/01/172126 Past Wrqabnc-Qjzwor-Updrec Hx Patient Social History Alcohol Use: Denies Use Recreational Drug Use: No Smoking Status: Current Everyday Smoker Type Used: Cigarettes 2nd Hand Smoke Exposure: Yes Recent Foreign Travel: No Contact w/Someone Who Travel: No Recent Infectious Disease Expo: No Recent Hopitalizations: No Immunizations Up To Date Tetanus Booster (TDap): Unknown PED Vaccines UTD: Yes Seasonal Allergies Seasonal Allergies: No Surgeries HX Surgeries: Yes Surgeries: Nose, Tonsillectomy Respiratory Hx Respiratory Disorders: Yes Respiratory Disorders: Asthma Cardiovascular Hx Cardiac Disorders: No Neurological Hx Neurological Disorders: No Reproductive System : No Gastrointestinal Hx Gastrointestinal Disorders: No Family Medical History Significant Family History: No Pertinent Family Hx Physical Exam Vital Signs VS - Last 72 Hours, by Label 05/06/17 17:15 Temp 99.0 Pulse 99 Resp 16 B/P (MAP) 145/81 Pulse Ox 96 O2 Delivery Room Air Capillary Refill : Less Than 3 Seconds Progress/Results/Core Measures Results/Orders My Orders Orders - TATYANA ESTES Ondansetron Oral Dissolve Tab (Zofran (05/06/17 17:19) Vital Signs/I&O Vital Sign - Last 12Hours 05/06/17 17:15 Temp 99.0 Pulse 99 Resp 16 B/P (MAP) 145/81 Pulse Ox 96 O2 Delivery Room Air Blood Pressure Mean: 102 Departure Impression Impression: Primary Impression: Adverse drug effect Additional Impression: Nausea and vomiting Disposition: 01 HOME, SELF-CARE Condition: Improved Departure-Patient Inst. Decision time for Depature: 17:40 Referrals: [facility] (PCP/Family) Primary Care Physician Patient Instructions: Nausea and Vomiting, Adult (DC) Add. Discharge Instructions: All discharge instructions reviewed with patient and/or family. Voiced understanding. Stop the prednisone and minocycline immediately. Zofran as instructed. Drink plenty of fluids. Follow-up with your family practitioner for recheck if no improvement in symptoms. Return to the emergency department for worsened symptoms or any other concerns. Scripts Amoxicillin (Amoxicillin) 500 Mg Capsule 500 MG PO Q8H, #21 CAP 0 Refills Prov: TATYANA ESTES 05/06/17 Ondansetron (Ondansetron Odt) 8 Mg Tab.rapdis 8 MG PO Q6H Y for NAUSEA/VOMITING-1ST LINE, #10 TAB 0 Refills Prov: TATYANA ESTES 05/06/17 TATYANA ESTES May 06, 2017 17:45
[2017-05-06 17:54] VITALS: BP 145/81
== END 2017-05-06 17:54 | disposition home or self-care (01) ==
LOC: EDUNIT# 16:59 → ER 17:01
DX: T38.0X5A Adverse effect of glucocorticoids and synthetic analogues, initial encounter (principal); R11.2 Nausea with vomiting, unspecified; J45.909 Unspecified asthma, uncomplicated; F17.210 Nicotine dependence, cigarettes, uncomplicated; Z90.89 Acquired absence of other organs
CPT/HCPCS: 99283

== ENCOUNTER 2017-09-10 15:29 | Emergency (ER) | payer SELFPAY ==
[~2017-09-10] VITALS: Ht 160 cm; Wt 90.7 kg
[~2017-09-10 15:29] MED LIST changes: +AMOX500C2 PO; +ONDA8TAB13 PO
--- OUTSIDE RECORDS SUMMARY | 2017-09-10 15:34 | XMS REPORT | Clinical Summary ---
Author Author [facility] Address Unknown Phone Unavailable Allergies Not on File Current Medications Not on file Active Problems Not on file Social History Tobacco Use Types Packs/Day Years Used Date Never Assessed Sex Assigned at Date Recorded Not on file Plan of Treatment Health Maintenance Due Date Last Done Comments HPV Vaccines (1 of 3 - 2006 Female 3 Dose Series) Varicella Vaccines (1 of 02/19/2008 2 - 2 Dose Adolescent Series) MenB Vaccine (Bexsero) (1 2011 of 2) DTaP,Tdap,and Td Vaccines 2014 (1 - Tdap) CERVICAL CANCER SCREENING 02/19/2016 Influenza Vaccine (#1) 2017 Results Not on filefrom Last 3 Months
--- OUTSIDE RECORDS SUMMARY | 2017-09-10 15:37 | XMS REPORT | CCD ---
Author MICHAEL Orozco Unknown Address [address] [facility] [address] [place] [address] Care Team Providers Care Precision Lens Centerer And Edger Name Role Phone BILL GAGE DO Attphys BILL GAGE DO Prisurg Allergies Allergy Code Allergy Type Reaction Status SULFA (sulfonamide) 0 Drug allergy Active Active Medications Medication Code Dose Units Frequency Route Modification Start Date/Time PNV Plus 1MG-27MG Oral Tablet [id number] 1 EACH DAILY ORAL 02/14/2015 12:06 Prescription Detail 1 EACH ORAL DAILY Problems Unknown or Not Available. Procedures Procedure Code Procedure Type Date CULTURE WOUND [id number] SNOMED CT 12/31/2016 Results Unknown or Not Available. Function Status Unknown or Not Available. History of Immunizations Immunization Code Date DTP 1995 DTP 10/15/1996 DTP 12/17/1996 DTP 06/24/1997 DTP 03/30/2000 OPV 02 1995 OPV 02 10/15/1996 OPV 02 12/17/1996 OPV 02 05/30/2000 MMR 03 10/15/1996 MMR 03 05/30/2000 Hep B, adolescent or pediatric 1995 Hep B, adolescent or pediatric 1995 Hep B, adolescent or pediatric 10/15/1996 IPV 10 05/30/2000 Hib, unspecified formulation 17 1995 Hib, unspecified formulation 17 10/15/1996 DTaP 06/24/1997 DTaP 05/30/2000 varicella 21 06/24/1997 varicella 21 06/28/2010 varicella 21 07/04/2012 HPV, quadrivalent 62 04/07/2010 HPV, quadrivalent 62 05/25/2011 HPV, quadrivalent 62 07/04/2012 influenza, live, intranasal 111 07/04/2012 Tdap 115 06/28/2010 Tdap 115 07/04/2012 Tdap 115 04/18/2015 Meningococcal MCV4O 136 06/28/2010 Plan of Treatment Unknown or Not Available. Social History Smoking Status Code Start Date End Date Current every day smoker [id number] Vital Signs Unknown or Not Available. Function Status Unknown or Not Available. Goals Unknown or Not Available. ASSESSMENTS Unknown or Not Available. Health Concerns Section Unknown or Not Available.
--- OUTSIDE RECORDS SUMMARY | 2017-09-10 15:37 | XMS REPORT ---
Author Author SHOLA MORENO Organization [facility] Address [address] [place] [address] Care Team Providers Care Dish Room Worker Name Role Phone SHOLA MORENO Unavailable PROBLEMS Type Condition ICD9-CM Code INQ00-CT Code Onset Dates Condition Status SNOMED Code Problem Non morbid obesity due to excess calories E66.09 Active 544116643 Problem Moderate depressive disorder F32.9 Active 000833336 ALLERGIES Substance Reaction Event Type Date Status Sulfamethoxazole-Trimethoprim hives Drug Allergy Oct, Active SOCIAL HISTORY No smoking Hx information available PLAN OF CARE Activity Details Follow Up prn Reason: VITAL SIGNS Height 64 in 2016-11-04 Weight 208 lbs 2016-11-04 Temperature 98 degrees Fahrenheit 2016-11-04 Heart Rate 90 bpm 2016-11-04 Respiratory Rate 18 2016-11-04 BMI 35.70 kg/m2 2016-11-04 Blood pressure systolic 120 mmHg 2016-11-04 Blood pressure diastolic 76 mmHg 2016-11-04 MEDICATIONS Medication Instructions Dosage Frequency Start Date End Date Duration Status Metronidazole 500 MG Orally once a day 4 tablet 24h Oct, Active RESULTS No Results PROCEDURES Procedure Date Ordered Related Diagnosis Body Site ROUTINE VENIPUNCTURE 2016-11-04 N/A No Charge Nov 04, 2016 Office Visit, Est Pt., Level 3 Nov 04, 2016 BOYKIN VAG, DNA, DIR PROBE Nov 04, 2016 TRICHOMONAS ASSAY W/OPTIC Nov 04, 2016 VENIPUNCT, ROUTINE* Nov 04, 2016 SPECIMEN HANDLING Nov 04, 2016 IMMUNIZATIONS No Known Immunizations
--- OUTSIDE RECORDS SUMMARY | 2017-09-10 15:38 | XMS REPORT ---
Author Author SHOLA MORENO Organization [facility] Address [address] [place] [address] Care Team Providers Care Home Lighting Adviser Name Role Phone SHOLA MORENO Unavailable PROBLEMS Type Condition ICD9-CM Code YLS14-DM Code Onset Dates Condition Status SNOMED Code Problem Non morbid obesity due to excess calories E66.09 Active 197204302 Problem Moderate depressive disorder F32.9 Active 802301046 ALLERGIES No Information SOCIAL HISTORY Never Assessed PLAN OF CARE VITAL SIGNS MEDICATIONS Unknown Medications RESULTS No Results PROCEDURES No Known procedures IMMUNIZATIONS No Known Immunizations MEDICAL (GENERAL) HISTORY Type Description Date Medical History herpes gential Medical History depression Medical History bipolar disorder Medical History borderline diabetes Surgical History tonsillectomy Surgical History deviated septum repair Surgical History section Hospitalization History childbirth only
--- OUTSIDE RECORDS SUMMARY | 2017-09-10 15:42 | XMS REPORT | Continuity of Care Document ---
Demographics x Preferred Language Unknown Marital Status Unknown Taoist Affiliation Unknown Race Unknown Ethnic Group Unknown Author Author [facility] Organization [facility] Address Unknown Phone Unavailable Allergies Medications Problems Procedures Results Encounters ACCT No. Visit Date/Time Discharge Status Pt. Type Provider Facility Loc./Unit Complaint [id number] 07/13/2015 13:08:41 07/13/2015 23: 59:59 CLS Outpatient Shikha Kessler [id number] 08/05/2015 15:51:36 08/05/2015 23: 59:59 CLS Outpatient Checo Shikha [id number] 07/13/2015 13:13:24 07/13/2015 23: 59:59 CLS Outpatient [place]co Shikha [id number] 05/18/2015 22:28:33 05/18/2015 23: 59:59 CLS Outpatient Heath Salomon [id number] 05/18/2015 22:19:16 05/18/2015 23: 59:59 CLS Outpatient Heath Salomon [id number] 05/18/2015 22:09:03 05/18/2015 23: 59:59 CLS Outpatient Heath Salomon [id number] 05/18/2015 22:09:00 05/18/2015 23: 59:59 CLS Outpatient Heath Salomon [id number] 05/18/2015 22:00:04 05/18/2015 23: 59:59 CLS Outpatient Heath Salomon [id number] 05/18/2015 21:55:44 05/18/2015 23: 59:59 CLS Outpatient Heath Salomon [id number] 05/18/2015 21:27:14 05/18/2015 23: 59:59 CLS Outpatient Heath Salomon [id number] 02/05/2015 14:21:31 02/05/2015 23: 59:59 CLS Outpatient Stephanie Hendrickson [id number] 02/02/2015 18:12:04 02/02/2015 23: 59:59 CLS Outpatient Heath Salomon [id number] 01/16/2015 12:03:06 01/16/2015 23: 59:59 CLS Outpatient Heath Salomon [id number] 01/08/2015 15:34:50 01/08/2015 23: 59:59 [facility] Outpatient Heath Salomon [id number] 09/24/2014 10:52:17 09/24/2014 23: 59:59 [facility] Outpatient Heath Salomon [id number] 09/10/2014 17:00:27 09/10/2014 23: 59:59 [facility] Outpatient Heath Salomon
[2017-09-10] MEDS ORDERED: CLINDAMYCIN INJECTION 900 MG in NS (IVPB) 50 ML IV ONE (15:45)
[2017-09-10] MEDS ORDERED: HYDROcodone/APAP 5 MG/325 MG (LORTAB) TAB PO ONE (15:45)
[2017-09-10] MEDS ORDERED: PENI500T PO (15:48)
[2017-09-10] MEDS ORDERED: HYDR-757 PO (15:48)
--- NOTE | 2017-09-10 15:48 | ED EENT ---
History of Present Illness General Stated Complaint: DENTAL PAIN/FACIAL SWELLING Source: patient Exam Limitations: no limitations History of Present Illness Time seen by provider: 15:44 Initial Comments To ER with right lower dental pain and swelling for 3 days. She states that she fractured this tooth months ago and then again fractured what remained elevated a few days ago. Following the second fracture she developed swelling. Timing/Duration: other Severity: moderate Location: dental Associated Symptoms: denies symptoms, facial pain/swelling Allergies and Home Medications Allergies Coded Allergies: Sulfa (Sulfonamide Antibiotics) (Verified Allergy, Unknown, 05/01/17) Home Medications Amoxicillin 500 Mg Capsule, 500 MG PO Q8H, #21 Ref 0 Prescribed by: TATYANA ESTES on 05/06/171744 Bupropion HCl 150 Mg Tab.er.24h, Unknown Dose PO, (Reported) Hydrocodone/Acetaminophen 1 Each Tablet, 1 EACH PO Q4H PRN for PAIN-MODERATE, # 14 Do not fill unless penicillin is also filled Prescribed by: OSCAR HENDRIX on 09/10/17 154 Minocycline HCl 100 Mg Capsule, 100 MG PO BID, #14 Ref 0 Prescribed by: TATYANA ESTES on 05/01/172126 Ondansetron 8 Mg Tab.rapdis, 8 MG PO Q6H PRN for NAUSEA/VOMITING-1ST LINE, #10 Ref 0 Prescribed by: TATYANA ESTES on 05/06/171744 Penicillin V Potassium 500 Mg Tablet, 500 MG PO QID, #30 Prescribed by: OSCAR HENDRIX on 09/10/17 154 Prednisone 20 Mg Tab, 40 MG PO DAILY, #8 Ref 0 Prescribed by: TATYANA ESTES on 05/01/172126 Review of Systems Constitutional: see HPI Eyes: No Symptoms Reported Ears: No Symptoms Reported Nose: no symptoms reported Mouth: see HPI Throat: no symptoms reported Respiratory: no symptoms reported Cardiovascular: no symptoms reported Musculoskeletal: no symptoms reported Past Sldtexa-Asrhoq-Fszzjs Hx Patient Social History Alcohol Beverage of Choice: Wine Type Used: Cigarettes 2nd Hand Smoke Exposure: Yes Recent Foreign Travel: No Contact w/Someone Who Travel: No Recent Hopitalizations: No Immunizations Up To Date Tetanus Booster (TDap): Unknown PED Vaccines UTD: Yes Seasonal Allergies Seasonal Allergies: No Surgeries History of Surgeries: Yes Surgeries: Nose, Tonsillectomy Respiratory History of Respiratory Disorde: No Respiratory Disorders: Asthma Cardiovascular History of Cardiac Disorders: No Neurological History of Neurological Disord: No Genitourinary History of Genitourinary Disor: No Gastrointestinal History of Gastrointestinal Di: No Musculoskeletal History of Musculoskeletal Dis: No Endocrine History of Endocrine Disorders: No HEENT History of HEENT Disorders: No Cancer History of Cancer: No Psychosocial History of Psychiatric Problem: No Integumentary History of Skin or Integumenta: No Blood Transfusions History of Blood Disorders: No Family Medical History Significant Family History: No Pertinent Family Hx Physical Exam Vital Signs Vital Sign - Last 12Hours 09/10/17 15:45 Temp 98.1 Pulse 70 Resp 16 B/P (MAP) 114/89 (97) Pulse Ox 99 General Appearance: WD/WN, no apparent distress Eyes: bilateral eye normal inspection, bilateral eye PERRL, bilateral eye EOMI Ears: bilateral ear auricle normal, bilateral ear canal normal, bilateral ear TM normal Mouth/Throat: normal mouth inspection, mandibular swelling, other (multiple dental caries. The buccal mucosa on the right mandible is swollen but without fluctuance.) Neck: non-tender, full range of motion Respiratory: normal breath sounds, no respiratory distress, no accessory muscle use Gastrointestinal: non tender, soft Neurologic/Psychiatric: alert, normal mood/affect, oriented x 3 Progress/Results/Core Measures Results/Orders Lab Results Laboratory Tests Test 09/10/17 15:42 Range/Units White Blood Count 11.2 H 4.3-11.0 10^3/uL Red Blood Count 4.86 4.35-5.85 10^6/uL Hemoglobin 14.9 11.5-16.0 G/DL Hematocrit 44 35-52 % Mean Corpuscular Volume 90 80-99 FL Mean Corpuscular Hemoglobin 31 25-34 PG Mean Corpuscular Hemoglobin Concent 34 32-36 G/DL Red Cell Distribution Width 14.0 10.0-14.5 % Platelet Count 264 130-400 10^3/uL Mean Platelet Volume 9.6 7.4-10.4 FL Neutrophils (%) (Auto) 66 42-75 % Lymphocytes (%) (Auto) 22 12-44 % Monocytes (%) (Auto) 10 0-12 % Eosinophils (%) (Auto) 3 0-10 % Basophils (%) (Auto) 1 0-10 % Neutrophils # (Auto) 7.3 1.8-7.8 X 10^3 Lymphocytes # (Auto) 2.4 1.0-4.0 X 10^3 Monocytes # (Auto) 1.1 H 0.0-1.0 X 10^3 Eosinophils # (Auto) 0.3 0.0-0.3 10^3/uL Basophils # (Auto) 0.1 0.0-0.1 10^3/uL My Orders Orders - OSCAR HENDRIX APRN Cbc With Automated Diff (09/10/17 15:43) Urine Bedside (09/10/17 15:43) Saline Lock/Iv-Start (09/10/17 15:43) Ct Maxillofacial W (09/10/17 15:43) Hydrocodone/Apap 5/325 Tablet (Lortab 5 (09/10/17 15:45) Clindamycin Injection (Cleocin Injection (09/10/17 15:45) Iohexol Injection (Omnipaque 350 Mg/Ml 1 (09/10/17 16:00) Ns (Ivpb) (Sodium Chloride 0.9% Ivpb Bag (09/10/17 16:00) Medications Given in ED Current Medications Medications Dose Ordered Sig/Edy Route Start Time Stop Time Status Last Admin Dose Admin Acetaminophen/ Hydrocodone Bitart 1 tab ONCE ONCE PO 09/10/17 15:45 09/10/17 15:46 DC 09/10/17 16:31 1 TAB Clindamycin Phosphate 900 mg/ Sodium Chloride 56 ml @ 100 mls/hr ONCE ONCE IV 09/10/17 15:45 09/10/17 16:18 DC 09/10/17 16:32 100 MLS/HR Iohexol 100 ml ONCE ONCE IV 09/10/17 16:00 09/10/17 16:01 DC 09/10/17 16:08 80 ML Sodium Chloride 100 ml ONCE ONCE IV 09/10/17 16:00 09/10/17 16:01 DC 09/10/17 16:08 80 ML Vital Signs/I&O Vital Sign - Last 12Hours 09/10/17 09/10/17 15:45 16:31 Temp 98.1 98.1 Pulse 70 Resp 16 B/P (MAP) 114/89 (97) Pulse Ox 99 Departure Communication (Admissions) Progress Notes NAME: BERNADETTE GLEASON R MED REC#: [id number] PT STATUS: REG ER : 1995 PHYSICIAN: OSCAR HENDRIX DISTRICT CAPTAIN ADMIT DATE: 09/10/17/ER Draft Date of Exam:09/10/17 CT MAXILLOFACIAL W PROCEDURE: CT maxillofacial with contrast. TECHNIQUE: After intravenous administration of contrast, axial images were obtained through the face and reformatted into coronal and sagittal planes. INDICATION: Right-sided facial swelling. COMPARISON: None available. FINDINGS: The globes are unremarkable. Retrobulbar fat is unremarkable. No retrobulbar abscess. The partially visualized intracranial contents are grossly unremarkable. Parapharyngeal fat is symmetric and well maintained. Muscles of mastication are unremarkable. The visualized salivary glands are unremarkable. Fat stranding is identified within the subcutaneous tissues of the face inferiorly on the right extending over the mandible and chin. This is associated with thickening of the right platysma. Submental lymph nodes are also asymmetrically prominent on the right. No focal fluid collection. The airway is patent. Minimal fluid and mucosal thickening within some left ethmoidal air cells. Minimal mucosal thickening within the bilateral maxillary sinuses. Sphenoid sinuses are clear. Mastoid air cells and middle ear cavities are clear. No temporomandibular joint dislocation. No facial fracture. Periapical lucency is identified associated with the right mandibular first molar. Minimal cortical breakthrough is suggested on series 2, image 20. No focal fluid collection or dislocation. No suspicious radiopaque foreign body. IMPRESSION: 1. Fat stranding throughout the right face inferiorly, with associated mild probable reactive adenopathy within the right submental region. Findings are favored to relate to an underlying infectious process including cellulitis. Given a periapical lucency with probable cortical breakthrough associated with the right mandibular first molar, this may be odontogenic in origin. There is no evidence of focal abscess or fluid collection. 2. Additional findings, as above. Dictated on workstation # [id number] Dict: 09/10/17 1627 Trans: 09/10/17 1655 [id number] Interpreted by: ANA JARRETT MD Electronically signed by: Impression Impression: Primary Impression: Dental infection Disposition: 01 HOME, SELF-CARE Condition: Stable Departure-Patient Inst. Decision time for Depature: 15:46 Referrals: [facility] (PCP/Family) Primary Care Physician Patient Instructions: Dental Pain, Tooth Abscess (DC) Add. Discharge Instructions: 1. Medication as directed 2. The pain medication runs out use Tylenol and Motrin. Follow-up with a dentist of your choosing next week. If you do not have a dentist [facility] and [address] to schedule an appointment. Scripts Hydrocodone/Acetaminophen ([place] 5-325 Tablet) 1 Each Tablet 1 EACH PO Q4H Y for PAIN-MODERATE, #14 TAB Do not fill unless penicillin is also filled Prov: OCSAR HENDRIX APRN 09/10/17 Penicillin V Potassium (Penicillin V Potassium) 500 Mg Tablet 500 MG PO QID, #30 TAB Prov: OSCAR HENDRIX APRN 09/10/17 Images Mouth/Nose 1 - Caries, Fracture Tooth, Swelling, Tenderness OSCAR HENDRIX APRN Sep 10, 2017 15:48
[2017-09-10 15:55] LABS: BASOPHILS # (AUTO) 0.1 10^3/uL (0.0-0.1); BASOPHILS % (AUTO) 1 % (0-10); EOSINOPHILS # (AUTO) 0.3 10^3/uL (0.0-0.3); EOSINOPHILS % (AUTO) 3 % (0-10); LYMPHOCYTES # (AUTO) 2.4 X 10^3 (1.0-4.0); LYMPHOCYTES % (AUTO) 22 % (12-44); MEAN CORPUSCULAR HEMOGLOBIN 31 PG (25-34); MEAN CORPUSCULAR HGB CONC 34 G/DL (32-36); MEAN CORPUSCULAR VOLUME 90 FL (80-99); MEAN PLATELET VOLUME 9.6 FL (7.4-10.4); MONOCYTES # (AUTO) 1.1 X 10^3 (0.0-1.0); MONOCYTES % (AUTO) 10 % (0-12); NEUTROPHILS # (AUTO) 7.3 X 10^3 (1.8-7.8); NEUTROPHILS % (AUTO) 66 % (42-75); PLATELET COUNT 264 10^3/uL (130-400); RED BLOOD COUNT 4.86 10^6/uL (4.35-5.85); WHITE BLOOD COUNT 11.2 10^3/uL (4.3-11.0)
[2017-09-10] MEDS ORDERED: NS 100 ML (IVPB) BAG IV ONE (16:00)
[2017-09-10] MEDS ORDERED: IOHEXOL 350 MG/ML 100 ML (OMNIPAQUE 350) VIAL IV ONE (16:00)
--- NOTE | 2017-09-10 16:55 | Diagnostic Imaging Report ---
PROCEDURE: CT maxillofacial with contrast. TECHNIQUE: After intravenous administration of contrast, axial images were obtained through the face and reformatted into coronal and sagittal planes. INDICATION: Right-sided facial swelling. COMPARISON: None available. FINDINGS: The globes are unremarkable. Retrobulbar fat is unremarkable. No retrobulbar abscess. The partially visualized intracranial contents are grossly unremarkable. Parapharyngeal fat is symmetric and well maintained. Muscles of mastication are unremarkable. The visualized salivary glands are unremarkable. Fat stranding is identified within the subcutaneous tissues of the face inferiorly on the right extending over the mandible and chin. This is associated with thickening of the right platysma. Submental lymph nodes are also asymmetrically prominent on the right. No focal fluid collection. The airway is patent. Minimal fluid and mucosal thickening within some left ethmoidal air cells. Minimal mucosal thickening within the bilateral maxillary sinuses. Sphenoid sinuses are clear. Mastoid air cells and middle ear cavities are clear. No temporomandibular joint dislocation. No facial fracture. Periapical lucency is identified associated with the right mandibular first molar. Minimal cortical breakthrough is suggested on series 2, image 20. No focal fluid collection or dislocation. No suspicious radiopaque foreign body. IMPRESSION: 1. Fat stranding throughout the right face inferiorly, with associated mild probable reactive adenopathy within the right submental region. Findings are favored to relate to an underlying infectious process including cellulitis. Given a periapical lucency with probable cortical breakthrough associated with the right mandibular first molar, this may be odontogenic in origin. There is no evidence of focal abscess or fluid collection. 2. Additional findings, as above. Dictated by: Dictated on workstation # [id number]
[2017-09-10 17:07] VITALS: BP 114/89
== END 2017-09-10 17:07 | disposition home or self-care (01) ==
LOC: EDUNIT# 15:29 → ER 15:31
DX: K04.7 Periapical abscess without sinus (principal); J45.909 Unspecified asthma, uncomplicated; Z77.22 Contact with and (suspected) exposure to environmental tobacco smoke (acute) (chronic); Z90.89 Acquired absence of other organs
CPT/HCPCS: 36415; 70487; 85025

== ENCOUNTER 2017-12-25 23:14 | Emergency (ER) | payer SELFPAY ==
[~2017-12-25] VITALS: Ht 160 cm; Wt 90.7 kg
[~2017-12-25 23:14] MED LIST changes: +HYDR-757 PO; +PENI500T PO
[2017-12-25] MEDS ORDERED: LACTATED RINGERS 1,000 ML IV ONE (23:34)
--- NOTE | 2017-12-25 23:37 | ED Abdominal Pain ---
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 patient reports it is like she has a UTI. patient denies and reports having her menstrual period already this month. c/o n/v Sepsis Screen: No Definite Risk Source of Information: Patient History of Present Illness Date Seen by Provider: Dec 25, 2017 Time Seen by Provider: 23:23 Initial Comments PT ARRIVES VIA POV FROM HOME PT STATES SHE HAS BEEN VOMITING ALL DAY--HAS VOMITED X 6 TODAY STATES SHE HAS BEEN VOMITING FOR THE LAST 3 MONTHS WAS SEEN AT [facility] LAST WEEK FOR THIS COMPLAINT OF VOMITING AND STATES SHE HAD LAB DONE, BUT NO EXAM OR OTHER TESTS. WAS GIVEN RX FOR ZOFRAN, BUT ONLY TAKES IT ONCE A DAY. TOOK 1 ZOFRAN THIS AM. PT STATES SHE "CAN'T KEEP ANYTHING DOWN" --YET WAS DRINKING WATER IN THE WAITING ROOM. PT STATES IT HAS BEEN "HARD TO PEE" FOR 2 DAYS C/O SEVERE DIFFUSE LOWER ABDOMINAL PAIN "WHERE MY SCAR IS" --BEGAN SUDDENLY 1 HOUR AGO, ALONG WITH BLEEDING--DOES NOT KNOW IF BLEEDING IS VAGINAL OR FROM URINE. LMP -ENDED 1 1/2 WEEKS AGO, NO CONTROL. DOES NOT KNOW IF SHE HAS HAD FEVER OR NOT--"JUST FEEL HOT" HAS NOT TAKEN ANYTHING FOR PAIN PCP: [facility] Allergies and Home Medications Allergies Coded Allergies: Sulfa (Sulfonamide Antibiotics) (Verified Allergy, Unknown, 05/01/17) Home Medications Amoxicillin 500 Mg Capsule, 500 MG PO Q8H Prescribed by: TATYANA ESTES on 05/06/17 1745 Hydrocodone/Acetaminophen 1 Each Tablet, 1 EACH PO Q4H PRN for PAIN-MODERATE Do not fill unless penicillin is also filled Prescribed by: OSCAR HENDRIX on 09/10/17 1548 Hydrocodone/Ibuprofen 1 Each Tablet, 1-2 EACH PO Q4H Prescribed by: KATIE WALTON on 12/26/17106 Minocycline HCl 100 Mg Capsule, 100 MG PO BID Prescribed by: TATYANA ESTES on 05/01/172126 Nitrofurantoin Monohyd/M-Cryst 100 Mg Capsule, 100 MG PO BID Prescribed by: KATIE WALTON on 12/26/17106 Ondansetron 8 Mg Tab.rapdis, 8 MG PO Q6H PRN for NAUSEA/VOMITING-1ST LINE Prescribed by: TATYANA ESTES on 05/06/17 174 Penicillin V Potassium 500 Mg Tablet, 500 MG PO QID Prescribed by: OSCAR HENDRIX on 09/10/17 1548 Prednisone 20 Mg Tab, 40 MG PO DAILY Prescribed by: TATYANA ESTES on 05/01/172126 Promethazine HCl 25 Mg Supp.rect, 25 MG RC Q4H Prescribed by: KATIE WALTON on 12/26/17106 Tamsulosin HCl 0.4 Mg Cap, 0.4 MG PO DAILY Prescribed by: KATIE WALTON on 12/26/17106 Patient Home Medication List Home Medication List Reviewed: Yes Review of Systems Constitutional: see HPI Respiratory: No Symptoms Reported Cardiovascular: No Symptoms Reported Gastrointestinal: See HPI, Abdominal Pain, Denies Constipated, Denies Diarrhea , Nausea, Poor Appetite, Poor Fluid Intake, Vomiting Genitourinary: See HPI, Denies Burning Musculoskeletal: no symptoms reported, No back pain Skin: no symptoms reported Psychiatric/Neurological: No Symptoms Reported Endocrine: No Symptoms Reported Hematologic/Lymphatic: No Symptoms Reported Past Uyyxvus-Vlbrnu-Cpxldp Hx Patient Social History Alcohol Use: Rarely Uses Number of Drinks Today: Alcohol Beverage of Choice: Wine Recreational Drug Use: No Smoking Status: Current Everyday Smoker Type Used: Cigarettes 2nd Hand Smoke Exposure: Yes Recent Foreign Travel: No Contact w/Someone Who Travel: No Recent Infectious Disease Expo: No Recent Hopitalizations: No Immunizations Up To Date Tetanus Booster (TDap): Unknown PED Vaccines UTD: Yes Seasonal Allergies Seasonal Allergies: No Surgeries History of Surgeries: Yes ( X 1) Surgeries: Section, Nose, Tonsillectomy Respiratory History of Respiratory Disorde: Yes Respiratory Disorders: Asthma Cardiovascular History of Cardiac Disorders: No Neurological History of Neurological Disord: No Reproductive System : No Last Menstrual Period: Dec 07, 2017 Hx : 4 Hx Para: 1 Hx Total # of Abortions (Spona: 3 Female Reproductive Disorders: Denies Genitourinary History of Genitourinary Disor: No Gastrointestinal History of Gastrointestinal Di: No Musculoskeletal History of Musculoskeletal Dis: No Endocrine History of Endocrine Disorders: No HEENT History of HEENT Disorders: No Cancer History of Cancer: No Psychosocial History of Psychiatric Problem: No Integumentary History of Skin or Integumenta: No Blood Transfusions History of Blood Disorders: No Family Medical History Significant Family History: No Pertinent Family Hx Physical Exam Vital Signs VS - Last 72 Hours, by Label 12/25/17 12/26/17 23:22 02:03 Temp 98.5 98.5 Pulse 82 82 Resp 18 18 B/P (MAP) 120/72 (88) 120/72 (88) Pulse Ox 98 98 Capillary Refill : Less Than 3 Seconds General Appearance: obese, other (VERY DRAMATIC, SOBBING/MOANING/WAILING LOUDLY , HYPERVENTILATING, NEAR-HYSTERIA, THRASHING ALL OVER. PT NOTED TO BE HOLDING RIGHT FLANK AT TIMES WELL LOWER ABDOMEN. SCREAMS EVEN LOUDER WITH IV STICK ) HEENT: PERRL/EOMI Respiratory: normal breath sounds, other (HYPERVENTILATING) Cardiovascular: tachycardia Gastrointestinal: soft, tenderness (DIFFUSE LOWER ABDOMINAL TENDERNESS. ) Extremities: normal inspection Back: CVA tenderness (R) Neurologic/Psychiatric: hat liner II-XII nml as tested, no motor/sensory deficits, alert, oriented x 3 Skin: normal color, warm/dry Progress/Results/Core Measures Results/Orders Lab Results Laboratory Tests Test 12/25/17 23:35 12/26/17 01:30 Range/Units White Blood Count 14.4 H 4.3-11.0 10^3/uL Red Blood Count 4.73 4.35-5.85 10^6/uL Hemoglobin 14.5 11.5-16.0 G/DL Hematocrit 42 35-52 % Mean Corpuscular Volume 89 80-99 FL Mean Corpuscular Hemoglobin 31 25-34 PG Mean Corpuscular Hemoglobin Concent 35 32-36 G/DL Red Cell Distribution Width 14.0 10.0-14.5 % Platelet Count 321 130-400 10^3/uL Mean Platelet Volume 9.3 7.4-10.4 FL Neutrophils (%) (Auto) 72 42-75 % Lymphocytes (%) (Auto) 21 12-44 % Monocytes (%) (Auto) 6 0-12 % Eosinophils (%) (Auto) 1 0-10 % Basophils (%) (Auto) 0 0-10 % Neutrophils # (Auto) 10.3 H 1.8-7.8 X 10^3 Lymphocytes # (Auto) 3.0 1.0-4.0 X 10^3 Monocytes # (Auto) 0.9 0.0-1.0 X 10^3 Eosinophils # (Auto) 0.2 0.0-0.3 10^3/uL Basophils # (Auto) 0.1 0.0-0.1 10^3/uL Neutrophils % (Manual) 71 % Lymphocytes % (Manual) 24 % Monocytes % (Manual) 5 % Eosinophils % (Manual) 0 % Basophils % (Manual) 0 % Band Neutrophils 0 % Blood Morphology Comment NORMAL Sodium Level 139 135-145 MMOL/L Potassium Level 3.4 L 3.6-5.0 MMOL/L Chloride Level 108 H 98-107 MMOL/L Carbon Dioxide Level 18 L 21-32 MMOL/L Anion Gap 13 5-14 MMOL/L Blood Urea Nitrogen 7 7-18 MG/DL Creatinine 0.88 0.60-1.30 MG/DL Estimat Glomerular Filtration Rate > 60 BUN/Creatinine Ratio 8 Glucose Level 108 H 70-105 MG/DL Calcium Level 9.8 8.5-10.1 MG/DL Total Bilirubin 0.4 0.1-1.0 MG/DL Aspartate Amino Transf (AST/SGOT) 19 5-34 U/L Alanine Aminotransferase (ALT/SGPT) 21 0-55 U/L Alkaline Phosphatase 60 40-136 U/L Total Protein 7.6 6.4-8.2 GM/DL Albumin 4.4 3.2-4.5 GM/DL Amylase Level 42 25-125 U/L Lipase 11 8-78 U/L Serum Test, Qualitative NEGATIVE NEGATIVE Serum Alcohol < 10 <10 MG/DL Urine Color MERCY H Urine Clarity SLIGHTLY CLOUDY Urine pH 6 5-9 Urine Specific Capulin 1.015 L 1.016-1.022 Urine Protein 3+ H NEGATIVE Urine Glucose (UA) NEGATIVE NEGATIVE Urine Ketones 1+ H NEGATIVE Urine Nitrite NEGATIVE NEGATIVE Urine Bilirubin NEGATIVE NEGATIVE Urine Urobilinogen 1 NORMAL MG/DL Urine Leukocyte Esterase 2+ H NEGATIVE Urine RBC (Auto) 5+ H NEGATIVE Urine RBC TNTC H /HPF Urine WBC 5-10 H /HPF Urine Squamous Epithelial Cells RARE /HPF Urine Crystals PRESENT H /LPF Urine Calcium Oxalate Crystals FEW H /LPF Urine Bacteria FEW H /HPF Urine Casts NONE /LPF Urine Mucus SMALL H /LPF Urine Culture Indicated YES Urine Opiates Screen NEGATIVE NEGATIVE Urine Oxycodone Screen NEGATIVE NEGATIVE Urine Methadone Screen NEGATIVE NEGATIVE Urine Propoxyphene Screen NEGATIVE NEGATIVE Urine Barbiturates Screen NEGATIVE NEGATIVE Ur Tricyclic Antidepressants Screen NEGATIVE NEGATIVE Urine Phencyclidine Screen NEGATIVE NEGATIVE Urine Amphetamines Screen NEGATIVE NEGATIVE Urine Methamphetamines Screen NEGATIVE NEGATIVE Urine Benzodiazepines Screen POSITIVE H NEGATIVE Urine Cocaine Screen NEGATIVE NEGATIVE Urine Cannabinoids Screen POSITIVE H NEGATIVE My Orders Orders - ISABELLEKATIE Yakov DO Saline Lock/Iv-Start (12/25/17 23:34) Alcohol (12/25/17 23:34) Amylase (12/25/17 23:34) Cbc With Automated Diff (12/25/17 23:34) Comprehensive Metabolic Panel (12/25/17 23:34) Drug Screen Stat (Urine) (12/25/17 23:34) Hcg,Qualitative Serum (12/25/17:34) Lipase (12/25/17:34) Ua Culture If Indicated (12/25/17 23:34) Saline Lock/Iv-Start (12/25/17 23:34) Lactated Ringers (Lr 1000 Ml Iv Solution (12/25/17 23:34) Ondansetron Injection (Zofran Injectio (12/25/17 23:45) Manual Differential (12/25/17 23:35) Abdomen/Kub 1view (12/26/17 00:01) Ct Abd/Pelvis Wo(Kidney Stone) (12/26/17 00:01) Ketorolac Injection (Toradol Injection) (12/26/17 00:15) Promethazine Injection (Phenergan Injec (12/26/17 00:15) Diphenhydramine Injection (Benadryl Inje (12/26/17 00:15) Alfuzosin (Not Stocked) (Uroxatral (Not (12/26/17 01:15) Nitrofurantoin Capsule,Macro (Macrobid C (12/26/17 01:15) Rx-Hydrocodone/Apap 5-325 Mg (Rx-Vicodin (12/26/17 01:15) Urine Culture (12/26/17 01:30) Medications Given in ED Current Medications Medications Dose Ordered Sig/Edy Route Start Time Stop Time Status Last Admin Dose Admin Acetaminophen/ Hydrocodone Bitart 1 ea Q4H PRN PO 12/26/17 01:15 12/26/17 02:04 DC 12/26/17 02:00 1 EA Diphenhydramine HCl 50 mg ONCE ONCE IVP 12/26/17 00:15 12/26/17 00:16 DC 12/26/17 00:09 50 MG Ketorolac Tromethamine 30 mg ONCE ONCE IVP 12/26/17 00:15 12/26/17 00:16 DC 12/26/17 00:09 30 MG Lactated Ringer's 1,000 ml @ 0 mls/hr Q0M ONCE IV 12/25/17 23:34 12/25/17 23:36 DC 12/25/17 23:44 0 MLS/HR Nitrofurantoin Macrocrystals 100 mg ONCE ONCE PO 12/26/17 01:15 12/26/17 01:16 DC 12/26/17 02:00 100 MG Ondansetron HCl 8 mg ONCE ONCE IVP 12/25/17 23:45 12/25/17 23:46 DC 12/25/17 23:44 8 MG Promethazine HCl 25 mg ONCE ONCE IVP 12/26/17 00:15 12/26/17 00:16 DC 12/26/17 00:09 25 MG Vital Signs/I&O Vital Sign - Last 12Hours 12/25/17 12/26/17 23:22 02:03 Temp 98.5 98.5 Pulse 82 82 Resp 18 18 B/P (MAP) 120/72 (88) 120/72 (88) Pulse Ox 98 98 Blood Pressure Mean: 88 Progress Note : Progress Note ALL SYMPTOMS COMPLETELY RESOLVED WITH MEDICATIONS ABDOMEN IS NON-TENDER AT DISMISSAL Diagnostic Imaging Comments KUB--NO ACUTE PROCESS, PENDING RADIOLOGIST REVIEW CT ABDOMEN/PELVIS--5 MM DISTAL RIGHT URETERAL STONE AT UVJ WITH MILD RIGHT HYDRONEPHROSIS. PUNCTATE NONOBSTRUCTIVE 2 MM STONE IN UPPER POLE OF RIGHT KIDNEY. CHOLELITHIASIS WITHOUT INFLAMMATION OR DUCTAL DILATION. PER [facility] VIA FAX AT 0025 Reviewed: Reviewed by Me Departure Impression Impression: Primary Impression: Right distal ureteral calculus Additional Impression: Cholelithiasis Disposition: HOME, SELF-CARE Condition: Improved Departure-Patient Inst. Referrals: [facility] (PCP/Family) Primary Care Physician VIN RICHARDSON MD, ELIAS A MD Patient Instructions: Gallstones (DC), Kidney Stones (DC) Add. Discharge Instructions: LOTS OF CLEAR LIQUIDS CONTINUE ZOFRAN EVERY 4 HOURS NEEDED FOR NAUSEA STRAIN ALL URINE--RETURN ANY STONES TO DR. ROSSI'S OFFICE FOLLOW UP WITH DR. ROSSI THIS WEEK FOR FOLLOW UP ON KIDNEY STONE FOLLOW UP WITH DR. RICHARDSON THIS WEEK FOR FOLLOW UP ON GALLSTONES FOLLOW UP WITH [facility] NEEDED RETURN TO ER IF SYMPTOMS WORSEN All discharge instructions reviewed with patient and/or family. Voiced understanding. Scripts Tamsulosin HCl (Flomax) 0.4 Mg Cap 0.4 MG PO DAILY, #10 CAP Prov: KATIE WALTON DO 12/26/17 Promethazine HCl (Phenergan) 25 Mg Supp.rect 25 MG RC Q4H for Nausea/Vomiting, #10 SUPP.RECT Prov: KATIE WALTON DO 12/26/17 Hydrocodone/Ibuprofen (Hydrocodone-Ibuprofen 7.5-200) 1 Each Tablet 1-2 EACH PO Q4H for Pain, #20 TAB Prov: KATIE WALTON DO 12/26/17 Nitrofurantoin Monohyd/M-Cryst (Macrobid 100 mg Capsule) 100 Mg Capsule 100 MG PO BID, #20 CAP Prov: KATIE WALTON DO 12/26/17 KATIE WALTON DO Dec 25, 2017 23:37
[2017-12-25 23:44] LABS: BASOPHILS # (AUTO) 0.1 10^3/uL (0.0-0.1); BASOPHILS % (AUTO) 0 % (0-10); EOSINOPHILS # (AUTO) 0.2 10^3/uL (0.0-0.3); EOSINOPHILS % (AUTO) 1 % (0-10); HEMATOCRIT 42 % (35-52); HEMOGLOBIN 14.5 G/DL (11.5-16.0); LYMPHOCYTES % (AUTO) 21 % (12-44); MEAN CORPUSCULAR HEMOGLOBIN 31 PG (25-34); MEAN CORPUSCULAR HGB CONC 35 G/DL (32-36); MEAN CORPUSCULAR VOLUME 89 FL (80-99); MEAN PLATELET VOLUME 9.3 FL (7.4-10.4); MONOCYTES # (AUTO) 0.9 X 10^3 (0.0-1.0); MONOCYTES % (AUTO) 6 % (0-12); NEUTROPHILS # (AUTO) 10.3 X 10^3 (1.8-7.8); NEUTROPHILS % (AUTO) 72 % (42-75); PLATELET COUNT 321 10^3/uL (130-400); RED BLOOD COUNT 4.73 10^6/uL (4.35-5.85); WHITE BLOOD COUNT 14.4 10^3/uL (4.3-11.0)
[2017-12-25] MEDS ORDERED: ONDANSETRON 4 MG/2 ML (SDV) Z0FRAN IVP ONE (23:45)
[2017-12-25 23:55] LABS: BAND NEUTROPHILS 0 %; BASOPHILS % (MANUAL) 0 %; EOSINOPHILS % (MANUAL) 0 %; LYMPHOCYTES % (MANUAL) 24 %; MONOCYTES % (MANUAL) 5 %; NEUTROPHILS % (MANUAL) 71 %; RBC MORPH NORMAL
[2017-12-26 00:07] LABS: ALANINE AMINOTRANSFERASE 21 U/L (0-55); ALBUMIN 4.4 GM/DL (3.2-4.5); ALKALINE PHOSPHATASE 60 U/L (40-136); AMYLASE 42 U/L (25-125); BILIRUBIN,TOTAL 0.4 MG/DL (0.1-1.0); BUN/CREATININE RATIO 8; CALCIUM 9.8 MG/DL (8.5-10.1); CARBON DIOXIDE 18 MMOL/L (21-32); CHLORIDE 108 MMOL/L (98-107); CREATININE SERUM 0.88 MG/DL (0.60-1.30); GFR ESTIMATED > 60; GLUCOSE 108 MG/DL (70-105); LIPASE 11 U/L (8-78); POTASSIUM 3.4 MMOL/L (3.6-5.0); SODIUM 139 MMOL/L (135-145); TOTAL PROTEIN 7.6 GM/DL (6.4-8.2)
[2017-12-26] MEDS ORDERED: PROMETHAZINE INJ 25 MG/ML (PHENERGAN) AMP IVP ONE (00:15)
[2017-12-26] MEDS ORDERED: diphenhydrAMINE 50 MG/ML INJ (BENADRYL) IVP ONE (00:15)
[2017-12-26] MEDS ORDERED: KETOROLAC 30 MG/ML VIAL IVP ONE (00:15)
[2017-12-26] MEDS ORDERED: PROM25SU43 RC (01:07)
[2017-12-26] MEDS ORDERED: TAMS0.4C98 PO (01:07)
[2017-12-26] MEDS ORDERED: HYDR-87 PO (01:07)
[2017-12-26] MEDS ORDERED: NITR-65 PO (01:07)
[2017-12-26] MEDS ORDERED: NITROFURANTOIN 100 MG (MACROBID) CAPSULE PO ONE (01:15)
[2017-12-26] MEDS ORDERED: ALFUZOSIN HCL 10 MG TAB (UROXATRAL) PO SCH (01:15)
[2017-12-26] MEDS ORDERED: RX-HYDROCODONE/APAP 5/325 MG #4 TAB PK PO PRN (01:15)
[2017-12-26 01:57] LABS: BILIRUBIN,URINE NEGATIVE (NEGATIVE); CLARITY,URINE SLIGHTLY CLOUDY; GLUCOSE, URINE (UA) NEGATIVE (NEGATIVE); KETONES,URINE 1+ (NEGATIVE); LEUKOCYTE ESTERASE ,URINE 2+ (NEGATIVE); NITRITE,URINE NEGATIVE (NEGATIVE); PH,URINE 6 (5-9); PROTEIN,URINE 3+ (NEGATIVE); UROBILINOGEN,URINE 1 MG/DL (NORMAL)
[2017-12-26 02:03] VITALS: BP 120/72
[2017-12-26 02:06] LABS: COLOR,URINE AMBER
[2017-12-26 02:12] LABS: BACTERIA,URINE FEW /HPF; CALCIUM OXALATE CRYSTALS,UR FEW /LPF; RBC,URINE TNTC /HPF; SQUAMOUS EPITHELIAL CELL,UR RARE /HPF
[2017-12-26 02:22] LABS: AMPHETAMINE SCREEN, URINE NEGATIVE (NEGATIVE); BARBITURATE SCREEN URINE NEGATIVE (NEGATIVE); BENZODIAZEPINES SCREEN URINE POSITIVE (NEGATIVE); CANNABINOID SCREEN, URINE POSITIVE (NEGATIVE); COCAINE SCREEN URINE NEGATIVE (NEGATIVE); METHADONE STAT NEGATIVE (NEGATIVE); METHAMPHETAMINE SCREEN URINE S NEGATIVE (NEGATIVE); OPIATE SCREEN URINE NEGATIVE (NEGATIVE); OXYCODONE STAT NEGATIVE (NEGATIVE); PROPOXYPHENE STAT NEGATIVE (NEGATIVE); TRICYCLIC ANTIDEPRESSANTS SCRE NEGATIVE (NEGATIVE)
--- NOTE | 2017-12-26 06:20 | Diagnostic Imaging Report ---
Clinical indication: Patient with complaints of lower abdominal and pelvic pain with hematuria. Exam: KUB x-ray. Comparison: None. Findings: There are small calcifications in the right and left side of the pelvis seen medially. The largest measures roughly 3 mm and is on the left. There is no other calcifications overlying the expected regions of the kidneys or ureters. There is a nonobstructed bowel gas pattern. There is no evidence of abdominal free air. The visualized bones and extra abdominal soft tissues are unremarkable. Impression: There are small calcifications in the right and left pelvis medially. These may represent phleboliths, but distal urinary tract stones can't be completely excluded. CT scan would better evaluate if clinically indicated. Dictated by: Dictated on workstation # [id number]
--- NOTE | 2017-12-26 07:14 | Diagnostic Imaging Report ---
Clinical indication: Patient complains of lower abdominal and pelvic pain with hematuria. Exam: CT exam of the abdomen and pelvis is performed without IV or oral contrast using stone protocol. Comparisons: None. Findings: Visualized lung bases: Unremarkable. Liver: Unremarkable as visualized. Gallbladder: There are multiple gallstones seen. The gallbladder is mildly fluid distended. There is no gallbladder wall thickening or pericholecystic fluid. Pancreas: Unremarkable as visualized. Spleen: Unremarkable as visualized. Adrenal glands: Unremarkable. Kidneys/ ureters: There is a 2 mm nonobstructive focal calcification involving the upper pole of the right kidney. There is a 5 mm stone within the distal right ureter/UVJ region which causes mild right hydronephrosis. There are no urinary tract stones seen. Both kidneys are otherwise unremarkable. Aorta: Unremarkable as visualized. Intraabdominal/ retroperitoneal contents: Unremarkable. Intestines: Unremarkable as visualized. Appendix: Unremarkable. Bladder: Besides stones seen in the right UVJ, the bladder is predominantly decompressed with no other gross abnormality. Pelvic organs: Unremarkable as visualized. Extra abdominal/ pelvis regions: Unremarkable. Abdominal wall: Unremarkable. Bones: Unremarkable. Impression: 1: There is a 5 mm obstructive stone in the distal right ureter/UVJ with mild right hydronephrosis. 2: There is another 2 mm nonobstructive right renal stone. 3: Cholelithiasis with no CT evidence of cholecystitis. I agree with [facility] report. Dictated by: Dictated on workstation # [id number]
== END 2017-12-26 02:03 | disposition home or self-care (01) ==
LOC: EDUNIT# 23:14 → ER 23:16
DX: N20.1 Calculus of ureter (principal); K80.20 Calculus of gallbladder without cholecystitis without obstruction; J45.909 Unspecified asthma, uncomplicated; F17.210 Nicotine dependence, cigarettes, uncomplicated; Z87.59 Personal history of other complications of pregnancy, childbirth and the puerperium; Z88.0 Allergy status to penicillin; Z90.89 Acquired absence of other organs; Z79.52 Long term (current) use of systemic steroids
CPT/HCPCS: 36415; 74018; 74176; 80053; 80306; 80320; 81000; 82150; 83690; 84703; 85007; 85027; 87088; 96361; 96374; 96375

== ENCOUNTER 2018-02-19 05:41 | Outpatient (CLI) | payer MEDICAID ==
[~2018-02-19] VITALS: Ht 160 cm; Wt 90.7 kg
[~2018-02-19 05:41] MED LIST changes: +HYDR-87 PO; +NITR-65 PO; +PROM25SU43 RC; +TAMS0.4C98 PO
[2018-02-19] MEDS ORDERED: ACET-93 PO (13:32)
== END 2018-02-19 13:49 ==
LOC: PREOP 05:41
PROVIDERS: ATTEND Surgery
DX: Z01.818 Encounter for other preprocedural examination (principal); K80.20 Calculus of gallbladder without cholecystitis without obstruction

== ENCOUNTER 2018-02-21 09:34 | Day surgery (SDC) | payer MEDICAID ==
[~2018-02-21] VITALS: Ht 160 cm; Wt 90.7 kg
[~2018-02-21 09:34] MED LIST changes: +ACET-93 PO
[2018-02-21 09:38] VITALS: BP 109/68
--- OUTSIDE RECORDS SUMMARY | 2018-02-21 09:38 | XMS REPORT ---
Author Author FUNMILAYO RAMOS Organization [facility] Address [address] [place] [address] Care Team Providers Care Pastrycook'S Assistant Name Role Phone FUNMILAYO RAMOS Unavailable PROBLEMS Type Condition ICD9-CM Code WOV67-LO Code Onset Dates Condition Status SNOMED Code Problem Nephrolithiasis N20.0 Active 68441841 Problem Gallstones K80.20 Active 291617619 Problem Other chronic pain G89.29 Active 68510673 Problem Vaginal yeast infection B37.3 Active 30190347 Problem Moderate depressive disorder F32.9 Active 820629910 Problem Non morbid obesity due to excess calories E66.09 Active 824588274 ALLERGIES No Information ENCOUNTERS Encounter Location Date Diagnosis [facility] [id number] [place] [phone] Jan, [facility] [address] [address] Dec, Nephrolithiasis N20.0 ; Gallstones K80.20 and Right lower quadrant abdominal pain R10.31 [facility] [id number] [place] [phone] Dec, [facility] [address] [address] Dec, [facility] [id number] [place] [address] Dec, Unprotected sexual intercourse Z72.51 and Intractable cyclical vomiting with nausea 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 [facility] [id number] [place] [phone] Dec, Dental examination Z01.20 [facility] [id number] [place] [phone] Jul, [facility] [id number] [address] Jun, Concern about STD in female without diagnosis Z71.1 [facility] [id number] [address] Jun, [facility] [id number] [address] Apr, [facility] [address], [place] [address] Apr, [facility] [address], [place] [address] Mar, Screening for STD sexually transmitted disease Z11.3 ; control counseling Z30.09 ; Tobacco use Z72.0 ; Moderate depressive disorder F32.9 ; Non morbid obesity due to excess calories E66.09 ; Pain at surgical incision R20.8 ; Low back pain M54.5 and Other chronic pain G89.29 [facility] [id number] [address] Nov, [facility] [address] [id number] [address] Oct, Routine screening for STI (sexually transmitted infection) Z11.3 ; Screening for cervical cancer Z12.4 and Trichomonal cervicitis A59.09 [address]65100[place] [phone] Jul, [address]65100[place] [id number] Jul, [id number] [place] [phone] Jul, Possible Z32.00 and Possible exposure to STD Z20.2 [address]65[place] [phone] Apr, [address] [id number] [id number] Mar, Encounter for surveillance of injectable contraceptive Z30.42 and General medical exam Z00.00 [facility] [address] [id number] [place] [phone] Mar, [facility] [id number] [phone] Oct, [facility] T14.8 [facility] [id number] [place] [id number] Oct, Laceration T14.8 [facility] [id number] [place] [id number] Oct, Laceration T14.8 and Encounter for initial prescription of injectable contraceptive Z30.013 [facility] [address], [place] [address] Jan, [facility] [id number] [place] [address] Jan, [facility] [id number] [place] [id number] Oct, [facility] [id number] [place] [address] Oct, [facility] [address], [place] [address] Oct, [facility] [id number] [place] [address] Oct, [facility] [id number] [place] [address] Jun, [facility] [id number] [place] [id number] Jun, [facility] [id number] [id number] Jun, [facility] [address] [facility] [id number] [place] [address] Jun, [address] [facility] [id number] [place] [id number] Apr, [facility] [address] [facility] [id number] [address] Apr, [facility] [address] [facility] [id number] [address] Apr, [facility] [address] [facility] [id number] [place] [phone] Apr, IMMUNIZATIONS No Known Immunizations SOCIAL HISTORY Never Assessed REASON FOR VISIT PLAN OF CARE VITAL SIGNS MEDICATIONS Unknown Medications RESULTS No Results PROCEDURES No Known procedures INSTRUCTIONS MEDICATIONS ADMINISTERED No Known Medications MEDICAL (GENERAL) HISTORY Type Description Date Medical History herpes gential Medical History depression Medical History bipolar disorder Medical History borderline diabetes Surgical History tonsillectomy Surgical History deviated septum repair Surgical History section Hospitalization History childbirth only Hospitalization History ER visit 12/25/17
--- OUTSIDE RECORDS SUMMARY | 2018-02-21 09:38 | XMS REPORT | Clinical Summary ---
Author Author [facility] Address Unknown Phone Unavailable Care Team Providers Care Millinery Salesperson Name Role Phone PP Unavailable Allergies Not on File Current Medications [...] 02/19/2008 2 - 2 Dose Adolescent Series) DTaP,Tdap,and Td Vaccines 2014 (1 - Tdap) CERVICAL CANCER SCREENING 02/19/2016 Influenza Vaccine (Season 06/09/2018 Ended) MenB Vaccine (Bexsero) Aged Out No longer eligible based on patient's age to complete this topic Results Not on filefrom Last 3 Months
--- OUTSIDE RECORDS SUMMARY | 2018-02-21 09:40 | XMS REPORT ---
Author Author FUNMILAYO RAMOS Organization [facility] Address [address] [place] [address] Care Team Providers Care Nutritional Assistant Name Role Phone FUNMILAYO RAMOS Unavailable PROBLEMS Type Condition ICD9-CM Code [id number] Code Onset Dates Condition Status SNOMED Code Problem Nephrolithiasis N20.0 Active 37061090 Problem Gallstones K80.20 Active 840500781 Problem Other chronic pain G89.29 Active 73441534 Problem Vaginal yeast infection B37.3 Active 37416868 Problem Moderate depressive disorder F32.9 Active 817781276 Problem Non morbid obesity due to excess calories E66.09 Active 345903333 ALLERGIES No Information ENCOUNTERS Encounter Location Date Diagnosis [facility] [id number] [place] [address] Dec, Nephrolithiasis N20.0 ; Gallstones K80.20 and Right lower quadrant abdominal pain R10.31 [facility] [id number] [place] [address] Dec, [facility] [id number] [place] [address]07- [address] Dec, [facility] [id number] [place] [address] 9547 Dec, Unprotected sexual intercourse Z72.51 and Intractable cyclical vomiting with nausea G43.A1 [facility] [id number] [place] [id number] Dec, Dental examination Z01.20 [facility] [id number] [place] [id number] Jul, [facility] [address] [address] 30 Jun, 2017 Concern about STD in female without diagnosis Z71.1 [facility] [address] [facility] [id number] [address] Jun, [facility] [id number] [address] Apr, [facility] [id number] [address] Apr, [facility] [id number] [address] Mar, Screening for STD (sexually transmitted disease) Z11.3 ; control counseling Z30.09 ; Tobacco use Z72.0 ; Moderate depressive disorder F32.9 ; Non morbid obesity due to excess calories E66.09 ; Pain at surgical incision R20.8 ; Low back pain M54.5 and Other chronic pain G89.29 [facility] [id number], [place] [address] Nov, [facility] [id number], [place] [address] Oct, Routine screening for STI (sexually transmitted infection) Z11.3 ; Screening for cervical cancer Z12.4 and Trichomonal cervicitis A59.09 [address]65[place] [id number] Jul, [id number] [id number] Jul, [id number] [id number] Jul, Possible Z32.00 and Possible exposure to STD Z20.[address]65[place] [id number] Apr, [id number] [id number] Mar, Encounter for surveillance of injectable contraceptive Z30.42 and General medical exam Z00.00 [facility] [id number] [id number] Mar, [facility] [id number][place] [id number] Oct, Laceration T14.8 [facility] [address] [place] [id number] Oct, Laceration T14.8 [facility] [address] [place] [id number] Oct, Laceration T14.8 and Encounter for initial prescription of injectable contraceptive Z30.013 [facility] [address]00565100[place] [address] Jan, [facility] [id number] [place] [address] Jan, [facility] [address] [place] [id number] Oct, [facility] [id number] [place] [address] Oct, [facility] [address] [place] [address] [id number]- [address] Oct, [facility] [address] [place] [address] Oct, [facility] [address] [place] [address] [id number]- [address] Jun, [facility] [id number], [place] [id number] Jun, [facility] [id number], [place] [id number] Jun, [facility] [address]00565100[place], [place] [address] Jun, [facility] [address] [facility] [id number] [place] [id number] Apr, [facility] [address] [facility] [id number], [place] [address] Apr, [facility] [address] [facility] [id number] [place] [address] Apr, [facility] [address] [facility] [id number] [phone] Apr, IMMUNIZATIONS No Known Immunizations SOCIAL HISTORY Never Assessed REASON FOR VISIT triage - CBowmanRN PLAN OF CARE VITAL SIGNS MEDICATIONS No Known Medications RESULTS No Results PROCEDURES No Known procedures INSTRUCTIONS MEDICATIONS ADMINISTERED No Known Medications MEDICAL (GENERAL) HISTORY Type Description Date Medical History herpes gential Medical History depression Medical History bipolar disorder Medical History borderline diabetes Surgical History tonsillectomy Surgical History deviated septum repair Surgical History section Hospitalization History childbirth only Hospitalization History ER visit 12/25/17
--- OUTSIDE RECORDS SUMMARY | 2018-02-21 09:44 | XMS REPORT ---
Author Author YOSHI GRACIA Organization [facility] Address [address] [place] [address] Care Team Providers Care Roll Setter Name Role Phone YOSHI GRACIA Unavailable PROBLEMS Type Condition ICD9-CM Code QUP03-ZT Code Onset Dates Condition Status SNOMED Code Problem Nephrolithiasis N20.0 Active 87768815 Problem Gallstones K80.20 Active 640098464 Problem Other chronic pain G89.29 Active 47305773 Problem Vaginal yeast infection B37.3 Active 80205259 Problem Moderate depressive disorder F32.9 Active 170462866 Problem Non morbid obesity due to excess calories E66.09 Active 739250325 ALLERGIES Substance Reaction Event Type Date Status Sulfamethoxazole-Trimethoprim hives Drug Allergy Jun, Active ENCOUNTERS Encounter Location Date Diagnosis [facility] [id number] [place] [address] February, [facility] [id number] [place] [address] Jan, [facility] [id number] [place] [address]3099- [address] Dec, Nephrolithiasis N20.0 ; Gallstones K80.20 and Right lower quadrant abdominal pain R10.31 [facility] [id number] [place] [address]26[address] 54[address] Dec, [facility] [address] [address] Dec, [facility] [id number] [place] [address] 9787 Dec, Unprotected sexual intercourse Z72.51 and Intractable cyclical vomiting with nausea G43.A1 [facility] [id number] [id number] Dec, Dental examination Z01.20 [facility] [id number] [id number] Jul, [facility] [id number] [address] Jun, Concern about STD in female without diagnosis Z71.1 [facility] [address]00565100[place], [place] [address] Jun, [facility] [address]00565100[place], [place] [address] Apr, [facility] [id number] [place] [address] 12258- 4[address] Apr, [facility] [address], [place] [address] Mar, Screening for STD sexually transmitted disease Z11.3 ; control counseling Z30.09 ; Tobacco use Z72.0 ; Moderate depressive disorder F32.9 ; Non morbid obesity due to excess calories E66.09 ; Pain at surgical incision R20.8 ; Low back pain M54.5 and Other chronic pain G89.29 [facility] [address] [id number] [address] Nov, [facility] [id number] [place] [address] Oct, Routine screening for STI (sexually transmitted infection) Z11.3 ; Screening for cervical cancer Z12.4 and Trichomonal cervicitis A59.09 [facility] [id number] [place] [id number] Jul, [address]00565100[place] [id number] Jul, [address]00565100[place] [id number] Jul, Possible Z32.00 and Possible exposure to STD Z20.2 [facility] [address]00565100[place] [id number] Apr, [facility] [id number] [place] [id number] Mar, Encounter for surveillance of injectable contraceptive Z30.42 and General medical exam Z00.00 [facility] [address] [id number] [place] [id number] Mar, [facility] [address]00565100[place] [id number] Oct, Laceration T14.[id number] [place] [id number] Oct, [place] T14.[address] [place] [id number] Oct, Laceration T14.8 and Encounter for initial prescription of injectable contraceptive Z30.013 [facility] [address]005[address]100[place] [address] Jan, [facility] [address] [place] [address] [id number]- 9280 Jan, [address]00565100[place] [id number] Oct, [facility] [id number] [place] [address] 9[address]00- [address] Oct, [facility] [address] [id number] Oct, [facility] [id number] [place] [address] [id number]- 7266 Oct, [facility] [address]100[place] [address] Jun, [address] [id number] [id number] Jun, [facility] [address] [id number] [id number] Jun, [facility] [id number] [address] Jun, [facility] [address]00565100[place] [id number] Apr, [facility] [address]100[place], [place] [address] Apr, [facility] [address]100[place], [place] [address] Apr, [facility] [address]00565100[place] [id number] Apr, IMMUNIZATIONS No Known Immunizations SOCIAL HISTORY Never Assessed REASON FOR VISIT STD check Neha MOODY PLAN OF CARE Activity Details Follow Up prn Reason: VITAL SIGNS Height 64 in 2017-07-08 Weight 218.0 lbs 2017-07-08 Temperature 98.1 degrees Fahrenheit 2017-07-08 Heart Rate 88 bpm 2017-07-08 Respiratory Rate 16 2017-07-08 BMI 37.42 kg/m2 2017-07-08 Blood pressure systolic 118 mmHg 2017-07-08 Blood pressure diastolic 74 mmHg 2017-07-08 MEDICATIONS Medication Instructions Dosage Frequency Start Date End Date Duration Status BuPROPion HCl 100 mg Orally Once a day 1/2 tablet 24h Mar, 30 day(s) Active Xulane 150-35 MCG/24HR Transdermal weekly 1 patch to skin Mar, 21 day(s) Active RESULTS Name Result Date Reference Range TEST, URINE (IN HOUSE) 2017-07-08 RESULTS neg Lot # [id number] Control + Exp date 01/06/17 GC/CHLAM URINE (STATE) CHLAMYDIA GC PROCEDURES Procedure Date Ordered Result Body Site URINE TEST Jul 08, 2017 No Charge Jul 08, 2017 INSTRUCTIONS MEDICATIONS ADMINISTERED No Known Medications MEDICAL (GENERAL) HISTORY Type Description Date Medical History herpes gential Medical History depression Medical History bipolar disorder Medical History borderline diabetes Surgical History tonsillectomy Surgical History deviated septum repair Surgical History section Hospitalization History childbirth only Hospitalization History ER visit 12/25/17
--- OUTSIDE RECORDS SUMMARY | 2018-02-21 09:46 | XMS REPORT | Continuity of Care Document ---
Demographics x Preferred Language Unknown Marital Status Unknown Judaism Affiliation Unknown Race Unknown Ethnic Group Unknown Author Author [facility] Organization [facility] Address Unknown Phone Unavailable Allergies Active Description Code Type Severity Reaction Onset Reported/Identified Relationship to Patient Clinical Status Yes SULFA Drug Allergy N/A N/A Yes SULFA (sulfonamide) [id number] CLASS N/A N/A Yes Sulfa (Sulfonamide Antibiotics) [id number] Drug Allergy Unknown N/A 2017 Medications Medication Packaging Start Date Stop Date Route Dosage Sig MACROBID ORAL 08/14/2014 08/21/2014 ORAL 1414 twice daily Problems Date Dx Coded Attending Type Code Diagnosis Diagnosed By 04/29/2013 V25.02 CONTRACEPTION - ANY METHOD 04/29/2013 V25.09 CONTRACEPTIVE COUNSELING - GENERAL 04/29/2013 V65.45 STD COUNSELING 04/29/2013 V74.5 STD SCREEN 04/29/2013 YUE ORTEGA MD V25.02 CONTRACEPTION - ANY METHOD 04/29/2013 YUE ORTEGA MD V25.09 CONTRACEPTIVE COUNSELING - GENERAL 04/29/2013 YUE ORTEGA MD V65.45 STD COUNSELING 04/29/2013 YUE ORTEGA MD V74.5 STD SCREEN 04/29/2013 YUE ORTEGA MD V25.02 CONTRACEPTION - ANY METHOD 04/29/2013 YUE ORTEGA MD V25.09 CONTRACEPTIVE COUNSELING - GENERAL 04/29/2013 YUE ORTEGA MD V65.45 STD COUNSELING 04/29/2013 YUE ORTEGA MD V74.5 STD SCREEN 05/06/2013 919.4 INSECT BITE NONVENOMOUS OF OTHER MULTIPLE AND UNSPECIFIED SITES WITHOUT INFECTION 05/06/2013 YUE ORTEGA MD 919.4 INSECT BITE NONVENOMOUS OF OTHER MULTIPLE AND UNSPECIFIED SITES WITHOUT INFECTION 05/06/2013 YUE ORTEGA MD 919.4 INSECT BITE NONVENOMOUS OF OTHER MULTIPLE AND UNSPECIFIED SITES WITHOUT INFECTION 06/14/2013 YUE ORTEGA MD 300.00 ANXIETY UNSPEC 06/14/2013 YUE ORTEGA MD 300.00 ANXIETY UNSPEC 10/28/2014 YUE ORTEGA MD 788.1 DYSURIA 10/28/2014 YUE ORTEGA MD V04.81 FLU SHOT 05/01/2017 TATYANA ESPINOZA Ot F17.210 NICOTINE DEPENDENCE, CIGARETTES, UNCOMPL 05/01/2017 TATYANA ESPINOZA Ot J20.9 ACUTE BRONCHITIS, UNSPECIFIED 05/01/2017 TATYANA ESPINOZA Ot J45.909 UNSPECIFIED ASTHMA, UNCOMPLICATED 05/01/2017 TATYANA ESPINOZA Ot R05 COUGH 05/03/2017 TATYANA ESPINOZA Ot F17.210 NICOTINE DEPENDENCE, CIGARETTES, UNCOMPL 05/03/2017 TATYANA ESPINOZA Ot J20.9 ACUTE BRONCHITIS, UNSPECIFIED 05/03/2017 TATYANA ESPINOZA Ot J45.909 UNSPECIFIED ASTHMA, UNCOMPLICATED 05/03/2017 TATYANA ESPINOZA Ot R05 COUGH 05/06/2017 Ot F17.210 NICOTINE DEPENDENCE, CIGARETTES, UNCOMPL 05/06/2017 Ot J20.9 ACUTE BRONCHITIS, UNSPECIFIED 05/06/2017 Ot J45.909 UNSPECIFIED ASTHMA, UNCOMPLICATED 05/06/2017 Ot R11.2 NAUSEA WITH VOMITING, UNSPECIFIED 05/06/2017 Ot T38.0X5A ADVERSE EFFECT OF GLUCOCORT/SYNTH ANALOG 05/06/2017 Ot Z90.89 ACQUIRED ABSENCE OF OTHER ORGANS 09/10/2017 OSCAR HENDRIX APRN Ot J45.909 UNSPECIFIED ASTHMA, UNCOMPLICATED 09/10/2017 OSCAR HENDRIX APRN Ot K04.7 PERIAPICAL ABSCESS WITHOUT SINUS 09/10/2017 OSCAR HENDRIX APRN Ot K08.89 OTHER SPECIFIED DISORDERS OF TEETH AND S 09/10/2017 OSCAR HENDRIX APRN Ot Z77.22 CNTCT W AND EXPSR TO ENVIRON TOBACCO SMO 09/10/2017 OSCAR HENDRIX APRN Ot Z90.89 ACQUIRED ABSENCE OF OTHER ORGANS 12/26/2017 KATIE WALTON DO Ot F17.210 NICOTINE DEPENDENCE, CIGARETTES, UNCOMPL 12/26/2017 KATIE WALTON DO Ot J45.909 UNSPECIFIED ASTHMA, UNCOMPLICATED 12/26/2017 KATIE WALTON DO Ot K80.20 CALCULUS OF GALLBLADDER W/O CHOLECYSTITI 12/26/2017 ISABELLE DO, KATIE K Ot N20.1 CALCULUS OF URETER 12/26/2017 ISABELLE DO, KATIE K Ot R10.84 GENERALIZED ABDOMINAL PAIN 12/26/2017 ISABELLE DO, KATIE K Ot 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.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 12/26/2017 ISABELLE DO, KATIE K Ot Z87.59 PERSONAL HISTORY OF COMP OF PREG, CHLDBR 12/26/2017 ISABELLE DO, KATIE K Ot Z88.0 ALLERGY STATUS TO PENICILLIN 12/26/2017 BREEDING DO, KATIE K Ot Z90.89 ACQUIRED ABSENCE OF OTHER ORGANS 12/27/2017 ISABELLE DO, KATIE K Ot F17.210 NICOTINE DEPENDENCE, CIGARETTES, UNCOMPL 12/27/2017 ISABELLE DO, KATIE K Ot J45.909 UNSPECIFIED ASTHMA, UNCOMPLICATED 12/27/2017 BREEDING DO, KATIE K Ot K80.20 CALCULUS OF GALLBLADDER W/O CHOLECYSTITI 12/27/2017 ISABELLE DO KATIE K Ot N20.1 CALCULUS OF URETER 12/27/2017 BREEDING DO, KATIE K Ot R10.84 GENERALIZED ABDOMINAL PAIN 12/27/2017 BREEDING DO, KATIE K Ot 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.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 12/27/2017 BREEDING DO, KATIE K Ot Z87.59 PERSONAL HISTORY OF COMP OF PREG, CHLDBR 12/27/2017 BREEDING DO, KATIE K Ot Z88.0 ALLERGY STATUS TO PENICILLIN 12/27/2017 BREEDING DO, KATIE K Ot Z90.89 ACQUIRED ABSENCE OF OTHER ORGANS 02/16/2018 ISABELLE DO, KATIE K Ot F17.210 NICOTINE DEPENDENCE, CIGARETTES, UNCOMPL 02/16/2018 ISABELLE DO, KATIE K Ot J45.909 UNSPECIFIED ASTHMA, UNCOMPLICATED 02/16/2018 ISABELLE DO, KATIE K Ot K80.20 CALCULUS OF GALLBLADDER W/O CHOLECYSTITI 02/16/2018 ISABELLE DO KATIE K Ot N20.1 CALCULUS OF URETER 02/16/2018 ISABELLE DO, KATIE K Ot R10.84 GENERALIZED ABDOMINAL PAIN 02/16/2018 ISABELLE DO, KATIE K Ot Z79.52 [facility] (CURRENT) USE OF SYSTEMIC STER 02/16/2018 ISABELLE DO, KATIE K Ot Z87.59 PERSONAL HISTORY OF COMP OF PREG, CHLDBR 02/16/2018 KATIE WALTON DO Ot Z88.0 ALLERGY STATUS TO PENICILLIN 02/16/2018 KATIE WALTON DO Yakov Ot Z90.89 ACQUIRED ABSENCE OF OTHER ORGANS 02/17/2018 OSCAR HENDRIX APRN Ot J45.909 UNSPECIFIED ASTHMA, UNCOMPLICATED 02/17/2018 OSCAR HENDRIX APRN Ot K04.7 PERIAPICAL ABSCESS WITHOUT SINUS 02/17/2018 OSCAR HENDRIX APRN Ot K08.89 OTHER SPECIFIED DISORDERS OF TEETH AND S 02/17/2018 OSCAR HENDRIX APRN Ot Z77.22 CNTCT W AND EXPSR TO ENVIRON TOBACCO SMO 02/17/2018 OSCAR HENDRIX APRN Ot Z90.89 ACQUIRED ABSENCE OF OTHER ORGANS Procedures Code Description [place] [address] UA LONG DIP 10/28/2014 Results Test Result Range Genital Culture, Routine - 04/06/17 16:13 Genital Culture, Routine Note Hemoglobin A1c - 04/06/17 16:13 Hemoglobin A1c 5.8 % 4.8-5.6 hCG,Beta Subunit,Qual,Serum - 04/06/17 16:13 hCG,Beta Subunit,Qual,Serum Negative mIU/mL Negative <6 Complete blood count (CBC) with automated white blood cell (WBC) differential - 09/10/17 15:42 Blood leukocytes automated count (number/volume) 11.2 10*3/uL 4.3-11.0 Blood erythrocytes automated count (number/volume) 4.86 10*6/uL 4.35-5.85 Venous blood hemoglobin measurement (mass/volume) 14.9 g/dL 11.5-16.0 Blood hematocrit (volume fraction) 44 % 35-52 Automated erythrocyte mean corpuscular volume 90 [foz_us] 80-99 Automated erythrocyte mean corpuscular hemoglobin (mass per erythrocyte) 31 pg 25-34 Automated erythrocyte mean corpuscular hemoglobin concentration measurement ( mass/volume) 34 g/dL 32-36 Automated erythrocyte distribution width ratio 14.0 % 10.0-14.5 Automated blood platelet count (count/volume) 264 10*3/uL 130-400 Automated blood platelet mean volume measurement 9.6 [foz_us] 7.4-10.4 Automated blood neutrophils/100 leukocytes 66 % 42-75 Automated blood lymphocytes/100 leukocytes 22 % 12-44 Blood monocytes/100 leukocytes 10 % 0-12 Automated blood eosinophils/100 leukocytes 3 % 0-10 Automated blood basophils/100 leukocytes 1 % 0-10 Blood neutrophils automated count (number/volume) 7.3 10*3 1.8-7.8 Blood lymphocytes automated count (number/volume) 2.4 10*3 1.0-4.0 Blood monocytes automated count (number/volume) 1.1 10*3 0.0-1.0 Automated eosinophil count 0.3 10*3/uL 0.0-0.3 Automated blood basophil count (count/volume) 0.1 10*3/uL 0.0-0.1 TSH - 12/18/17 13:45 TSH TNP mIU/L NRG CMP - 12/18/17 14:00 GLUCOSE 92 mg/dL 65-99 UREA NITROGEN (BUN) 7 mg/dL 7-25 CREATININE 0.83 mg/dL 0.50-1.10 eGFR NON-AFR. LAO 100 mL/min/1.73m2 > OR=60 eGFR 116 mL/min/1.73m2 > OR=60 BUN/CREATININE RATIO NOT APPLICABLE (calc) 6-22 SODIUM 135 mmol/L 135-146 POTASSIUM 3.9 mmol/L 3.5-5.3 CHLORIDE 105 mmol/L 98-110 CARBON DIOXIDE 24 mmol/L 20-31 CALCIUM 9.3 mg/dL 8.6-10.2 PROTEIN, TOTAL 6.9 g/dL 6.1-8.1 ALBUMIN 4.4 g/dL 3.6-5.1 GLOBULIN 2.5 g/dL (calc) 1.9-3.7 ALBUMIN/GLOBULIN RATIO 1.8 (calc) 1.0-2.5 BILIRUBIN, TOTAL 0.6 mg/dL 0.2-1.2 ALKALINE PHOSPHATASE 62 U/L 33-115 AST 17 U/L 10-30 ALT 19 U/L 6-29 CBC - 12/18/17 14:00 WHITE BLOOD CELL COUNT 10.1 Thousand/uL 3.8-10.8 RED BLOOD CELL COUNT 4.81 Million/uL 3.80-5.10 HEMOGLOBIN 14.4 g/dL 11.7-15.5 HEMATOCRIT 43.4 % 35.0-45.0 MCV 90.2 fL 80.0-100.0 MCH 29.9 pg 27.0-33.0 MCHC 33.2 g/dL 32.0-36.0 RDW 13.2 % 11.0-15.0 PLATELET COUNT 285 Thousand/uL 140-400 MPV 9.7 fL 7.5-12.5 ABSOLUTE NEUTROPHILS 6908 cells/uL 9821-7502 ABSOLUTE LYMPHOCYTES 2202 cells/uL 850-3900 ABSOLUTE MONOCYTES 737 cells/uL 200-950 ABSOLUTE EOSINOPHILS 182 cells/uL 15-500 ABSOLUTE BASOPHILS 71 cells/uL 0-200 NEUTROPHILS 68.4 % NRG LYMPHOCYTES 21.8 % NRG MONOCYTES 7.3 % NRG EOSINOPHILS 1.8 % NRG BASOPHILS 0.7 % NRG TSH - 12/18/17 14:00 TSH 2.18 mIU/L NRG Complete blood count (CBC) with automated white blood cell (WBC) differential - 12/25/17 23:35 Blood leukocytes automated count (number/volume) 14.4 10*3/uL 4.3-11.0 Blood erythrocytes automated count (number/volume) 4.73 10*6/uL 4.35-5.85 Venous blood hemoglobin measurement (mass/volume) 14.5 g/dL 11.5-16.0 Blood hematocrit (volume fraction) 42 % 35-52 Automated erythrocyte mean corpuscular volume 89 [foz_us] 80-99 Automated erythrocyte mean corpuscular hemoglobin (mass per erythrocyte) 31 pg 25-34 Automated erythrocyte mean corpuscular hemoglobin concentration measurement ( mass/volume) 35 g/dL 32-36 Automated erythrocyte distribution width ratio 14.0 % 10.0-14.5 Automated blood platelet count (count/volume) 321 10*3/uL 130-400 Automated blood platelet mean volume measurement 9.3 [foz_us] 7.4-10.4 Automated blood neutrophils/100 leukocytes 72 % 42-75 Automated blood lymphocytes/100 leukocytes 21 % 12-44 Blood monocytes/100 leukocytes 6 % 0-12 Automated blood eosinophils/100 leukocytes 1 % 0-10 Automated blood basophils/100 leukocytes 0 % 0-10 Blood neutrophils automated count (number/volume) 10.3 10*3 1.8-7.8 Blood lymphocytes automated count (number/volume) 3.0 10*3 1.0-4.0 Blood monocytes automated count (number/volume) 0.9 10*3 0.0-1.0 Automated eosinophil count 0.2 10*3/uL 0.0-0.3 Automated blood basophil count (count/volume) 0.1 10*3/uL 0.0-0.1 Blood manual differential performed detection - 12/25/17 23:35 Blood monocytes/100 leukocytes 5 % NRG Manual blood segmented neutrophils/100 leukocytes 71 % NRG Blood band neutrophils/100 leukocytes 0 % NRG Manual blood lymphocytes/100 leukocytes 24 % NRG Manual eosinophils/100 leukocytes in nose 0 % NRG Manual blood basophils/100 leukocytes 0 % NRG Blood erythrocyte morphology finding identification NORMAL NRG Serum or plasma choriogonadotropin ( test) detection - 12/25/17 23:35 Serum or plasma choriogonadotropin ( test) detection NEGATIVE NEGATIVE Comprehensive metabolic panel - 12/25/17 23:35 Serum or plasma sodium measurement (moles/volume) 139 mmol/L 135-145 Serum or plasma potassium measurement (moles/volume) 3.4 mmol/L 3.6-5.0 Serum or plasma chloride measurement (moles/volume) 108 mmol/L 98-107 Carbon dioxide 18 mmol/L 21-32 Serum or plasma anion gap determination (moles/volume) 13 mmol/L 5-14 Serum or plasma urea nitrogen measurement (mass/volume) 7 mg/dL 7-18 Serum or plasma creatinine measurement (mass/volume) 0.88 mg/dL 0.60-1.30 Serum or plasma urea nitrogen/creatinine mass ratio 8 NRG Serum or plasma creatinine measurement with calculation of estimated glomerular filtration rate > NRG Serum or plasma glucose measurement (mass/volume) 108 mg/dL 70-105 Serum or plasma calcium measurement (mass/volume) 9.8 mg/dL 8.5-10.1 Serum or plasma total bilirubin measurement (mass/volume) 0.4 mg/dL 0.1-1.0 Serum or plasma alkaline phosphatase measurement (enzymatic activity/volume) 60 U/L 40-136 Serum or plasma aspartate aminotransferase measurement (enzymatic activity/ volume) 19 U/L 5-34 Serum or plasma alanine aminotransferase measurement (enzymatic activity/volume ) 21 U/L 0-55 Serum or plasma protein measurement (mass/volume) 7.6 g/dL 6.4-8.2 Serum or plasma albumin measurement (mass/volume) 4.4 g/dL 3.2-4.5 Serum or plasma amylase measurement (enzymatic activity/volume) - 12/25/17 23: 35 Serum or plasma amylase measurement (enzymatic activity/volume) 42 U /L 25-125 Lipase - 12/25/17 23:35 Lipase 11 U/L 8-78 Serum or plasma ethanol measurement (mass/volume) - 12/25/17 23:35 Serum or plasma ethanol measurement (mass/volume) < mg/dL <10 Complete urinalysis with reflex to culture - 12/26/17 01:30 Urine color determination SHIKHA NRG Urine clarity determination SLIGHTLY CLOUDY NRG Urine pH measurement by test strip 6 5-9 Specific gravity of urine by test strip 1.015 1.016- 1.022 Urine protein assay by test strip, semi-quantitative 3+ NEGATIVE Urine glucose detection by automated test strip NEGATIVE NEGATIVE Erythrocytes detection in urine sediment by light microscopy 5+ NEGATIVE Urine ketones detection by automated test strip 1+ NEGATIVE Urine nitrite detection by test strip NEGATIVE NEGATIVE Urine total bilirubin detection by test strip NEGATIVE NEGATIVE Urine urobilinogen measurement by automated test strip (mass/volume) 1 mg/dL NORMAL Urine leukocyte esterase detection by dipstick 2+ NEGATIVE Automated urine sediment erythrocyte count by microscopy (number/high power field) TNTC NRG Automated urine sediment leukocyte count by microscopy (number/high power field ) [HPF] NRG Bacteria detection in urine sediment by light microscopy FEW NRG Squamous epithelial cells detection in urine sediment by light microscopy RARE NRG Crystals detection in urine sediment by light microscopy PRESENT NRG Casts detection in urine sediment by light microscopy NONE NRG Mucus detection in urine sediment by light microscopy SMALL NRG Complete urinalysis with reflex to culture YES NRG Calcium oxalate crystals detection in urine sediment by light microscopy FEW NRG Urine drug screening test - 12/26/17 01:30 Urine phencyclidine detection by screening method NEGATIVE NEGATIVE Urine benzodiazepines detection by screening method POSITIVE NEGATIVE Urine cocaine detection NEGATIVE NEGATIVE Urine amphetamines detection by screening method NEGATIVE NEGATIVE Urine methamphetamine detection by screening method NEGATIVE NEGATIVE Urine cannabinoids detection by screening method POSITIVE NEGATIVE Urine opiates detection by screening method NEGATIVE NEGATIVE Urine barbiturates detection NEGATIVE NEGATIVE Screening urine tricyclic antidepressants detection NEGATIVE NEGATIVE Urine methadone detection by screening method NEGATIVE NEGATIVE Urine oxycodone detection NEGATIVE NEGATIVE Urine propoxyphene detection NEGATIVE NEGATIVE Bacterial urine culture - 12/26/17 01:30 URINE CULTURE RESULTS IF STILL NEEDED NRG Encounters ACCT No. Visit Date/Time Discharge Status Pt. Type Provider Facility Loc./Unit Complaint [id number] 07/13/2015 13:08:41 07/13/2015 23:59:59 CLS Outpatient Shikha Kessler [id number] 11/04/2014 09:42:45 11/04/2014 09:42:46 DIS Outpatient [id number] 04/10/2017 13:05:00 Document Registration [id number] 12/27/2017 15:20:00 12/27/2017 23:59:59 CLS Outpatient [facility] [id number] 12/18/2017 13:45:00 Document Registration [id number] 12/18/2017 13:00:00 Document Registration [id number] 10/18/2014 10:27:25 10/18/2014 10:27:25 DIS Outpatient [id number] 08/22/2014 13:04:14 Document Registration [id number] 08/14/2014 17:07:25 Document Registration [id number] 08/14/2014 17:07:24 Document Registration [id number] 08/14/2014 17:07:23 Document Registration [id number] 08/14/2014 17:07:19 Document Registration [id number] 08/14/2014 17:07:16 Document Registration [id number] 10/28/2014 16:16:00 10/28/2014 23:59:59 CLS Outpatient YUE ORTEGA MD [id number] 06/14/2013 08:59:00 06/14/2013 23:59:59 CLS Outpatient YUE ORTEGA MD [id number] 05/06/2013 15:26:00 Document Registration [id number] 04/07/2017 11:08:00 Document Registration [id number] 05/27/2017 14:28:25 Document Registration [id number] 05/27/2017 14:24:56 Document Registration [id number] 08/05/2015 15:51:36 08/05/2015 23:59:59 CLS Outpatient Shikha Kessler [id number] 07/13/2015 13:13:24 07/13/2015 23:59:59 CLS Outpatient Shikha Kessler [id number] 05/18/2015 22:28:33 05/18/2015 23:59:59 CLS Outpatient Heath Salomon [id number] 05/18/2015 22:19:16 05/18/2015 23:59:59 CLS Outpatient Heath Salomon [id number] 05/18/2015 22:09:03 05/18/2015 23:59:59 CLS Outpatient Heath Salomon [id number] 05/18/2015 22:09:00 05/18/2015 23:59:59 CLS Outpatient Heath Salomon [id number] 05/18/2015 22:00:04 05/18/2015 23:59:59 CLS Outpatient Heath Salomon [id number] 05/18/2015 21:55:44 05/18/2015 23:59:59 CLS Outpatient Heath Salomon [id number] 05/18/2015 21:27:14 05/18/2015 23:59:59 CLS Outpatient Heath Salomon [id number] 02/05/2015 14:21:31 02/05/2015 23:59:59 CLS Outpatient Stephanie Hendrickson [id number] 02/02/2015 18:12:04 02/02/2015 23:59:59 CLS Outpatient Heath Salomon [id number] 01/16/2015 12:03:06 01/16/2015 23:59:59 CLS Outpatient Heath Salomon [id number] 01/08/2015 15:34:50 01/08/2015 23:59:59 CLS Outpatient Heath Salomon [id number] 09/24/2014 10:52:17 09/24/2014 23:59:59 CLS Outpatient Heath Salomon [id number] 09/10/2014 17:00:27 09/10/2014 23:59:59 CLS Outpatient Heath Saloomn [id number] 02/19/2018 05:41:00 02/19/2018 13:49:00 DIS Outpatient SUHAS VIDES DO [facility] PREOP LAP LEIF [id number] 12/29/2017 07:00:00 12/29/2017 23:59:59 CLS Preadmit BRIELLE [employer] [facility] RAD G43.A1 VOMITING W/NAUSEA [id number] 12/25/2017 23:16:00 12/26/2017 02:03:00 DIS Outpatient KATIE WALTON DO [facility] ER ABD PAIN [id number] 09/10/2017 15:31:00 09/10/2017 17:07:00 DIS Outpatient OSCAR HENDRIX APRN [facility] ER DENTAL PAIN/FACIAL SWELLING [id number] 05/01/2017 20:33:00 05/01/2017 21:33:00 DIS Emergency TATYANA ESPINOZA [facility] ER CHEST PAIN/COUGH [id number] 02/21/2018 11:00:00 PEN Preadmit SUHAS VIDES DO [facility] CHOLELITHIASIS [id number] 05/06/2017 17:01:00 Document Registration
--- OUTSIDE RECORDS SUMMARY | 2018-02-21 09:46 | XMS REPORT | CCD ---
Author Author MICHAEL RUTH Organization Unknown Address [address] [facility] [address] [place] [address] Care Team Providers Care Research Greenhouse Supervisor Name Role Phone REJI PARIS DO Attphys Allergies Allergy Code Allergy Type Reaction Status SULFA (sulfonamide) 0 Drug allergy Active Active Medications Medication Code Dose Units Frequency Route Modification Start Date/Time PNV Plus 1MG-27MG Oral Tablet 028664 1 EACH DAILY ORAL 02/14/2015 12:06 Prescription Detail 1 EACH ORAL DAILY Problems Unknown or Not Available. Procedures Procedure Code Procedure Type Date ^UA AUTO DIPSTICK ONLY [id number] SNOMED CT 05/27/2017 TEST URINE 215295049 SNOMED CT 05/27/2017 UA ROUTINE C&S IF IND 780468606 SNOMED CT 05/27/2017 Results UA ROUTINE C&S IF IND - Collect Date/Time: 05/27/2017 15:10 Test Name Code Test Result Test Units Test Ref Range COLOR YELLOW N/A NL: YELLOW APPEARANCE CLEAR N/A NL: CLEAR SPEC GRAV 1.025 N/A NL: 1.002 - 1.022 pH 6.0 N/A NL: 5 - 9 PROTEIN NEGATIVE N/A NL: NEGATIVE mg/dl GLUCOSE NEGATIVE N/A NL: NEGATIVE mg/dl KETONE NEGATIVE N/A NL: NEGATIVE mg/dl BILIRUBIN NEGATIVE N/A NL: NEGATIVE BLOOD NEGATIVE N/A NL: NEGATIVE NITRITE NEGATIVE N/A NL: NEGATIVE LEUK SCREEN NEGATIVE N/A NL: NEGATIVE MICRO INDICATED? NOT INDICATED N/A TEST URINE - Collect Date/Time: 05/27/2017 15:10 Test Name Code Test Result Test Units Test Ref Range TEST UR 2106-3 NEGATIVE N/A Function Status Unknown or Not Available. History of Immunizations Immunization Code Date DTP 1995 DTP 10/15/1996 DTP 12/17/1996 DTP 06/24/1997 DTP 03/30/2000 OPV 02 1995 OPV 10/15/1996 OPV 02 12/17/1996 OPV 05/30/2000 MMR 10/15/1996 MMR 05/30/2000 Hep B, adolescent or pediatric 1995 [...] Date End Date Current every day smoker [id number] Vital Signs Unknown or Not Available. Function Status Unknown or Not Available. Goals Unknown or Not Available. ASSESSMENTS Unknown or Not Available. Health Concerns Section Unknown or Not Available.
[2018-02-21] MEDS ORDERED: ceFAZolin 2 GM IV Premixed 50 ML IV ONE (10:00)
[2018-02-21] MEDS ORDERED: FAMOTIDINE 20MG/2ML IV (PEPCID) ONE (10:41)
[2018-02-21 10:47] LABS: BASOPHILS % (AUTO) 1 % (0-10); EOSINOPHILS # (AUTO) 0.3 10^3/uL (0.0-0.3); EOSINOPHILS % (AUTO) 4 % (0-10); HEMATOCRIT 41 % (35-52); HEMOGLOBIN 13.7 G/DL (11.5-16.0); LYMPHOCYTES % (AUTO) 28 % (12-44); MEAN CORPUSCULAR HEMOGLOBIN 30 PG (25-34); MEAN CORPUSCULAR HGB CONC 34 G/DL (32-36); MEAN CORPUSCULAR VOLUME 91 FL (80-99); MEAN PLATELET VOLUME 9.3 FL (7.4-10.4); MONOCYTES # (AUTO) 0.7 X 10^3 (0.0-1.0); MONOCYTES % (AUTO) 9 % (0-12); NEUTROPHILS # (AUTO) 4.2 X 10^3 (1.8-7.8); NEUTROPHILS % (AUTO) 59 % (42-75); PLATELET COUNT 273 10^3/uL (130-400); RED CELL DISTRIBUTION WIDTH 14.3 % (10.0-14.5); WHITE BLOOD COUNT 7.1 10^3/uL (4.3-11.0)
[2018-02-21] MEDS: LACTATED RINGERS 1,000 ML IV PRN ×2 (10:52→11:47)
[2018-02-21] MEDS ORDERED: LIDOCAINE/EPI 1%-1:200,000 (XYLOCAINE) 10 ML VIAL ONE (10:53)
[2018-02-21] MEDS ORDERED: GLYCOPYRROLATE 0.2 MG/ML (ROBINUL) 2 ML VIAL ONE (10:53)
[2018-02-21] MEDS ORDERED: SEVOFLURANE (ULTANE) 15 ML INHAL SOLN ONE ×2 (10:53→12:01)
[2018-02-21] MEDS ORDERED: ONDANSETRON 4 MG/2 ML (SDV) Z0FRAN ONE (10:53)
[2018-02-21] MEDS ORDERED: MIDAZOLAM 2 MG/2 ML (VERSED) VIAL ONE (10:53)
[2018-02-21] MEDS ORDERED: fentaNYL INJECTION 100 MCG/2 ML AMP ONE ×2 (10:53→11:31)
[2018-02-21] MEDS ORDERED: DEXAMETHASONE 10 MG/ML (DECADRON) 1 ML VIAL ONE (10:53)
[2018-02-21] MEDS ORDERED: LIDOCAINE PF 2% 5 ML (XYLOCAINE) VIAL ONE (10:53)
[2018-02-21] MEDS ORDERED: proPOfol 200 MG/20 ML (DIPRIVAN) VIAL IV ONE (10:53)
[2018-02-21] MEDS ORDERED: ROCURONIUM 10 MG/ML 5 ML SYRINGE IV ONE (10:53)
[2018-02-21] MEDS ORDERED: NEOSTIGMINE 1 MG/ML 5 ML SYRINGE ONE (10:53)
--- NOTE | 2018-02-21 11:04 | Progress Note-Pre Operative ---
Pre-Operative Progress Note H&P Reviewed The H&P was reviewed, patient examined and no changes noted. Time Seen by Provider: 10:58 Date H&P Reviewed: February 21, 2018 Time H&P Reviewed: 11:01 Pre-Operative Diagnosis: kelsey/kelsey SUHAS VIDES DO February 21, 2018 11:04
--- NOTE | 2018-02-21 11:59 | Progress Note-Post Operative ---
Post-Operative Progess Note Surgeon (s)/Freight Loader (s) Surgeon SUHAS VIDES DO Freight Loader: Nicole Pre-Operative Diagnosis kelsey/kelsey Post-Operative Diagnosis same Procedure & Operative Findings Date of Procedure 02/21/18 Procedure Performed/Findings Lap kelsey with IOC Anesthesia Type GET Estimated Blood Loss Estimated blood loss (mL): scant Specimens/Packing Specimens Removed GB and contents SUHAS VIDES DO February 21, 2018 11:59
[2018-02-21] MEDS ORDERED: ACHD5005 PO (12:00)
--- NOTE | 2018-02-21 12:02 | Discharge Inst-Surgical ---
Discharge Inst-Surgical Depart Medication/Instructions New, Converted or Re-Newed RX: RX Given to Pt/Family Patient Instructions Follow up Appt: Make appointment for 1 week; [phone]. Instructions: No lifting greater than 10 pounds. No strenuous activity. May shower in 24 hours, no tub bath or soaking. Use incentive spirometer at home as directed. No Smoking Skin/Wound Care: May remove bandages. You need to leave the Dermabond on over incision it will fall off on its own. Symptoms to Report: Appetite Changes, Extremity Discoloration, Numbness/Tingling, Swelling Increased , Bleeding Excessive, Eyesight Changes, Pain Increased, Urine Color Change, Constipation(Persistent), Fever over 101 degree F, Pain/Pressure in chest, Urinating Difficulty, Cough Up/Vomit Blood, Heart Beat Irreg/Pounding, Pain/ Pressure in jaw, Vaginal Bleeding Increase, Cramps in feet or legs, Lightheadedness, Pain/Pressure in shoulder, Diarrhea(Persistent), Memory Changes Suddenly, Questions/Concerns, Weight gain consecutive days, Dizziness/ Fainting, Nausea/Vomiting, Shortness of Breath, Weight gain over 2 pounds. If eyes or skin turn yellow notify physician. If questions or concerns contact your physician Or seek help at emergency department. Activity Activity as Tolerated: Yes Activity Instructions: Avoid Pulling & Pushing, Avoid Stress to Incision Driving Instructions: No Driving/Refer to Dr. Hagen Discharge Diet: Avoid Fatty Foods, Low Fat/Low Cholesterol Diet After 24 Hours: Clear Liquid if Nauseous If Any Problems/Questions/Issu: Contact Your Physician, Go to Emergency Room Skin/Wound Care Infection Signs and Symptoms: Increased Redness, Foul Odor of Wound, Increased Drainage, Skin Itchy or Has a Rash, Increased Swelling, Temperature Above 101 F Wound Care Comment: Heating pad to shoulder or neck for pain tonight. Bathing Instructions: Shower Stitches/Zoë/Dermabond Dis: Dermabond Ice Pack: Ice On and Off Site SUHAS VIDES DO February 21, 2018 12:02
[2018-02-21] MEDS ORDERED: ONDANSETRON 4 MG/2 ML (SDV) Z0FRAN IVP PRN (12:30)
[2018-02-21] MEDS ORDERED: MEPERIDINE (DEMEROL) INJ 50 MG/ML IVP PRN (12:30)
[2018-02-21] MEDS ORDERED: fentaNYL INJECTION 100 MCG/2 ML AMP IVP PRN (12:30)
[2018-02-21] MEDS ORDERED: HYDROmorphone 1 MG/ML (DILAUDID) 1 ML SYRINGE ONE (12:36)
[2018-02-21] MEDS: HYDROmorphone 1 MG/ML (DILAUDID) 1 ML SYRINGE IV PRN ×2 (12:40→12:50)
[2018-02-21 13:20] VITALS: BP 107/65
--- NOTE | 2018-02-21 13:41 | Diagnostic Imaging Report ---
Indication: Fluoroscopy for intraoperative cholangiogram. Fluoroscopy was provided during intraoperative cholangiogram. 14 seconds of fluoroscopy was utilized. Images demonstrate contrast being injected via the cystic duct remnant. Extrahepatic bile duct is without evidence of filling defect. There is contrast flowing into the duodenum. Impression: Fluoroscopy for intraoperative cholangiogram, as described. Dictated by: Dictated on workstation # [id number]
[2018-02-21] MEDS ORDERED: HYDROcodone/APAP 5 MG/325 MG (LORTAB) TAB ONE (13:49)
--- NOTE | 2018-02-21 13:49 | Anesthesia-General Post-Op ---
General Patient Condition Mental Status/LOC: Same as Preop Cardiovascular: Satisfactory Nausea/Vomiting: Absent Respiratory: Satisfactory Pain: Controlled Complications: Absent Post Op Complications Complications None Follow Up Care/Instructions Patient Instructions None needed. Anesthesia/Patient Condition Patient Condition Patient is doing well, no complaints, stable vital signs, no apparent adverse anesthesia problems. No complications reported per nursing. VERONICA BAL CRNA February 21, 2018 13:49
[2018-02-21 13:55] VITALS: BP 109/63
[2018-02-21] MEDS ORDERED: HYDROcodone/APAP 5 MG/325 MG (LORTAB) TAB PO ONE (14:00)
[2018-02-21 14:30] VITALS: BP 102/68
[2018-02-21 14:52] VITALS: BP 102/68
--- NOTE | 2018-02-22 01:06 | OPERATIVE REPORT ---
DATE OF SERVICE: PREOPERATIVE DIAGNOSES: Cholelithiasis and cholecystitis. POSTOPERATIVE DIAGNOSES: Cholelithiasis and cholecystitis. PROCEDURES: Laparoscopic cholecystectomy, intraoperative cholangiogram. SURGEON: Raheel Cordero DO. BIOMETRICS TECHNICIAN: Dick Rivera DO. ANESTHESIA: General endotracheal tube. SPECIMEN: Gallbladder and contents. BLOOD LOSS: Scant. FLUIDS: Per Anesthesia. POSTOPERATIVE CONDITION: Stable. INDICATION FOR PROCEDURE: The patient is a 23-year-old female, who has been having some right upper quadrant pain, symptoms classic for cholecystitis with cholelithiasis and has CAT scan, which showed cholelithiasis. FINDINGS: The patient had a gallbladder removed without any difficulty. PROCEDURE NOTE: After informed consent was obtained, the patient was brought to the operating room, placed on the table in supine position. She was sterilely prepped and draped in normal fashion. Local lidocaine was used to infiltrate the skin above the umbilicus. I then made an incision with #11-blade, carried down through the skin into the subcutaneous tissue, then deepened down through the subcutaneous tissue with Bovie electrocautery down to fascia. Fascia was incised with Bovie electrocautery and bluntly entered the abdomen, swept a finger around, placed 0 Vicryl fjjiap-uf-gyete suture, then placed 11 mm trocar port under direct visualization. I created pneumoperitoneum and placed three more ports in normal fashion using local lidocaine, #11-blade for stab incision and the VersaStep system, all done under direct visualization, one in the subxiphoid and two in the right upper quadrant. The patient was then placed in reverse Trendelenburg and rotated little bit left, able to grasp the gallbladder at the fundus and taken in superior direction and then grasped at Eulogio's pouch and pulled in the inferolateral direction and start dissecting out the cystic duct and cystic artery. I was able to get around the cystic duct and the cystic artery using the Bovie electrocautery as well as blunt dissection with the Maryland forceps. Then able to place one clip distally on the cystic duct and then one distally and two proximally in the cystic artery. Cut the cystic duct correction through Metzenbaum scissors. Placed a cholangiogram catheter, shot a cholangiogram. Good spillage of dye down the cystic duct into the common bile duct and into the duodenum as well as up into the common hepatic duct. Removed the cholangiogram catheter, placed two clips proximally on the cystic duct and cut the cystic duct and cystic artery with Metzenbaum scissors. Removed the gallbladder from bed of liver with the L-hook cautery, which was completely removed and placed in the bag and then removed this through a supraumbilical incision. Placed the port back in the abdomen, copiously irrigated with normal saline, suctioned this out, took picture of the bed of liver. There was no bleeding. Briefly looked around, no other obvious pathology and at this point, the patient was then placed supine and removed all ports under direct visualization, suctioned out the pneumoperitoneum as well as allowed it to escape. Closed the supraumbilical incision with the 0 Vicryl nzjmze-to-zowtb suture closing the fascia first and then irrigated all incisions with normal saline, closing the 3 small 5 mm incisions with a single interrupted 4-0 undyed Monocryl subcuticular stitch, closed the supraumbilical incision with 3 interrupted 4-0 undyed Monocryl subcuticular stitches. Area was cleaned and dried. Dermabond placed as well as Band-Aids. The patient then transferred to the recovery room in stable condition. Sponge, instrument and needle counts correct at the end of the case. Dr. Rivera assisted in this case. His presence was necessary. He helped make incisions, close the incisions as well as identify anatomy and hold up the gallbladder so surgery could be performed on. Job ID: [id number] DocumentID: [id number] Dictated Date: 02/21/2018 13:51:37 Room Cooler Installer Date: 02/22/2018 00:21:05 Dictated By: DO VIOLET JUAREZ
== END 2018-02-21 14:52 | disposition home or self-care (01) ==
LOC: SDC 09:34
PROVIDERS: ATTEND Surgery
DX: K80.10 Calculus of gallbladder with chronic cholecystitis without obstruction (principal); Z11.2 Encounter for screening for other bacterial diseases; N20.2 Calculus of kidney with calculus of ureter; J45.909 Unspecified asthma, uncomplicated; G43.909 Migraine, unspecified, not intractable, without status migrainosus; K21.9 Gastro-esophageal reflux disease without esophagitis; F17.210 Nicotine dependence, cigarettes, uncomplicated
CPT/HCPCS: 36415; 84703; 85025; 87081; 88304; 94664

== ENCOUNTER 2018-09-21 19:20 | Emergency (ER) | payer MEDICAID ==
[~2018-09-21] VITALS: Ht 160 cm; Wt 84.8 kg
[~2018-09-21 19:20] MED LIST changes: +ACHD5005 PO; +HYDR-4226 PO; -HYDR-757 PO
--- OUTSIDE RECORDS SUMMARY | 2018-09-21 19:26 | XMS REPORT | Clinical Summary ---
Author Author [facility] Address Unknown Phone Unavailable Care Team Providers Care Activities Volunteer Name Role Phone PP Unavailable Allergies Not on File Current Medications Not on file Active Problems Not on file Social History Tobacco Use Types Packs/Day Years Used Date Never Assessed Sex Assigned at Date Recorded Not on file Plan of Treatment Health Maintenance Due Date Last Done Comments HPV Vaccines (1 - Female 2006 3-dose series) Varicella Vaccines (1 of 02/19/2008 2 - 2-dose adolescent series) DTaP,Tdap,and Td Vaccines 2014 (1 - Tdap) CERVICAL CANCER SCREENING 02/19/2016 Influenza Vaccine (#1) 2018 MenB Vaccine (Bexsero) Aged Out No longer eligible based on patient's age to complete this topic Results Not on filefrom Last 3 Months
--- OUTSIDE RECORDS SUMMARY | 2018-09-21 19:32 | XMS REPORT ---
Author Author KRISTINA HAWK Organization [facility] Address [address] [place] [address] Care Team Providers Care Bilingual Office Assistant Name Role Phone KRISTINA HAWK Unavailable PROBLEMS Type Condition ICD9-CM Code XLC90-WT Code Onset Dates Condition Status SNOMED Code Problem Moderate depressive disorder F32.9 Active 805492726 Problem Non morbid obesity due to excess calories E66.09 Active 297870528 Problem Other chronic pain G89.29 Active 86449137 Problem Vaginal yeast infection B37.3 Active 65573482 Problem Seasonal allergies J30.2 Active 442835362 Problem Chronic gingivitis, plaque induced K05.10 Active 90333390 Problem Gallstones K80.20 Active 314273839 Problem Nephrolithiasis N20.0 Active 88599916 Problem Hx laparoscopic cholecystectomy Z90.49 Active 308945383 Problem Status post cholecystectomy Z90.49 Active 813372802 ALLERGIES Substance Reaction Event Type Date Status Sulfamethoxazole-Trimethoprim hives Drug Allergy Aug, Active ENCOUNTERS Encounter Location Date Diagnosis [facility] [address] [address] Aug, Vaginal discharge N89.8 and Low back pain M54.5 [facility] [id number] [place] [address] Jul, Encounter for test, result negative Z32.02 and Seasonal allergies J30.2 [facility] [address] [address] 15 May, 2018 [facility] [id number] [place] [address] Apr, Abdominal pain R10.9 [facility] [address] [address] February, Blister (nonthermal) of oral cavity, initial encounter S00.522A and Chronic gingivitis, plaque induced K05.10 [facility] [id number] [place] [address] February, Vaginal discharge N89.8 ; Vaginal yeast infection B37.3 ; Acute vaginitis N76.0 and Status post cholecystectomy Z90.49 [facility] [id number] [place] [address] February, [facility] [address] [address] Jan, [facility] [address] [address] Dec, Nephrolithiasis N20.0 ; Gallstones K80.20 and Right lower quadrant abdominal pain R10.31 [facility] [id number] [place] [address] Dec, [facility] [id number] [place] [address] Dec, [facility] [id number] [place] [address] Dec, Unprotected sexual intercourse Z72.51 and Intractable cyclical vomiting with nausea G43.A1 [facility] [id number] [place] [id number] Dec, Dental examination Z01.20 [facility] [address] [place] [id number] Jul, [facility] [address] [address] 30 Jun, 2017 Concern about STD in female without diagnosis Z71.1 [facility] [address] [place] [address] Jun, [facility] [id number] [place] [address] Apr, [facility] [address] [facility] [id number] [id number] Apr, [facility] [address] [facility] [id number] [address] Mar, Screening for STD sexually transmitted disease Z11.3 ; control counseling Z30.09 ; Tobacco use Z72.0 ; Moderate depressive disorder F32.9 ; Non morbid obesity due to excess calories E66.09 ; Pain at surgical incision R20.8 ; Low back pain M54.5 and Other chronic pain G89.29 [facility] [id number], [place] [address] Nov, [facility] [address] [id number] [address] Oct, Routine screening for STI (sexually transmitted infection) Z11.3 ; Screening for cervical cancer Z12.4 and Trichomonal cervicitis A59.09 [facility] [address]65[place] [id number] Jul, [id number] [place] [id number] Jul, [address]65[place] [id number] Jul, Possible Z32.00 and Possible exposure to STD Z20.2 [address]00565[place] [id number] Apr, [id number] [place] [id number] Mar, Encounter for surveillance of injectable contraceptive Z30.42 and General medical exam Z00.00 [facility] [address] [id number] [id number] Mar, [facility] [address]00565[place] [id number] Oct, [place] T14.8 [facility] [id number] [id number] Oct, [place] T14.8 [facility] [id number], [place] [id number] Oct, [place] T14.8 and Encounter for initial prescription of injectable contraceptive Z30.013 [facility] [id number] [place] [address] Jan, [facility] [id number] [place] [address] Jan, [facility] [id number] [place] [id number] Oct, [facility] [id number] [place] [address] Oct, [facility] [id number] [place] [address] Oct, [facility] [id number] [place] [address] Oct, [facility] [id number] [place] [address] Jun, [address]65[place] [id number] Jun, [address]65[place] [id number] Jun, [facility] [address]65100[place], [place] [address] Jun, [facility] [id number], [place] [id number] Apr, [facility] [address]65100[place], [place] [address] Apr, [facility] [address] [facility] [id number] [place] [address] Apr, [facility] [address] [facility] [id number] [place] [phone] Apr, IMMUNIZATIONS No Known Immunizations SOCIAL HISTORY Never Assessed REASON FOR VISIT Yeast infection, possible-No symptoms just wants check up- Radha Moraes RN, Also reports having yellowish- Green discharge for 3-4 days in a row for the last couple weeks- Radha Moraes RN PLAN OF CARE Activity Details Follow Up if not improving with PCP or reg follow up Reason: Pending Test TRICHOMONAS (IN HOUSE) Pending Test BACTERIAL VAGINOSIS (IN HOUSE) Pending Test GC/CHLAMYDIA (SWAB OR URINE)-RAPID VITAL SIGNS Height 64 in 2018-08-27 Weight 186 lbs 2018-08-27 Temperature 98.0 degrees Fahrenheit 2018-08-27 Heart Rate 78 bpm 2018-08-27 Respiratory Rate 18 2018-08-27 BMI 31.92 kg/m2 2018-08-27 Blood pressure systolic 102 mmHg 2018-08-27 Blood pressure diastolic 74 mmHg 2018-08-27 MEDICATIONS Medication Instructions Dosage Frequency Start Date End Date Duration Status Cyclobenzaprine HCl 10 mg Orally qhs 1 tablet as needed Aug, 30 days Active Metronidazole 500 mg Orally 2 times a day 1 tablet 12h Aug, 10 day(s) Active Naproxen 250 MG Orally Twice a day 1 tablet with food or milk 12h Aug, 30 day(s) Active RESULTS No Results PROCEDURES Procedure Date Ordered Result Body Site LAB NOT BILLED BY [facility] Aug 27, 2018 Bacterial Vaginosis In House Aug 27, 2018 INSTRUCTIONS MEDICATIONS ADMINISTERED No Known Medications MEDICAL (GENERAL) HISTORY Type Description Date Medical History herpes gential Medical History depression Medical History bipolar disorder Medical History borderline diabetes Surgical History tonsillectomy Surgical History deviated septum repair Surgical History section Surgical History cholecystectomy 02/2018 Hospitalization History childbirth only Hospitalization History ER visit 12/25/17
--- OUTSIDE RECORDS SUMMARY | 2018-09-21 19:32 | XMS REPORT ---
Author Author [facility] Address [address] [place] [address] Care Team Providers Care Bridge Leverman Name Role Phone RENAE ANNE Unavailable PROBLEMS Type Condition ICD9-CM Code XMX72-VU Code Onset Dates Condition Status SNOMED Code Problem Moderate depressive disorder F32.9 Active 066300398 Problem Non morbid obesity due to excess calories E66.09 Active 519306508 Problem Other chronic pain G89.29 Active 43069665 Problem Vaginal yeast infection B37.3 Active 78995550 Problem Seasonal allergies J30.2 Active 236671869 Problem Chronic gingivitis, plaque induced K05.10 Active 29856530 Problem Gallstones K80.20 Active 688825969 Problem Nephrolithiasis N20.0 Active 51235237 Problem Hx laparoscopic cholecystectomy Z90.49 Active 260678254 Problem Status post cholecystectomy Z90.49 Active 608693147 ALLERGIES Substance Reaction Event Type Date Status Sulfamethoxazole-Trimethoprim hives Drug Allergy Aug, Active ENCOUNTERS Encounter Location Date Diagnosis [facility] [address] [place] [address] Aug, Acute sinusitis J01.90 [facility] [id number] [place] [address] Aug, Vaginal discharge N89.8 and Low back pain M54.5 [facility] [id number] [place] [address] Jul, Encounter for test, result negative Z32.02 and Seasonal allergies J30.2 [facility] [id number] [place] [address] May, [facility] [address] [address] Apr, Abdominal pain R10.9 [facility] [id number] [place] [address] February, Blister (nonthermal) of oral cavity, initial encounter S00.522A and Chronic gingivitis, plaque induced K05.10 [facility] [id number] [place] [address] February, Vaginal discharge N89.8 ; Vaginal yeast infection B37.3 ; Acute vaginitis N76.0 and Status post cholecystectomy Z90.49 [facility] [address] [address] February, [facility] [address] [address] Jan, [facility] [address] [address] Dec, Nephrolithiasis N20.0 ; Gallstones K80.20 and Right lower quadrant abdominal pain R10.31 [facility] [id number] [place] [address] Dec, [facility] [address] [address] Dec, [facility] [id number] [place] [address] Dec, Unprotected sexual intercourse Z72.51 and Intractable cyclical vomiting with nausea G43.A1 [facility] [id number] [place] [id number] Dec, Dental examination Z01.20 [facility] [address] [id number] Jul, [facility] [id number] [place] [address] 30 Jun, 2017 Concern about STD in female without diagnosis Z71.1 [facility] [address] [place] [id number] Jun, [facility] [address] [facility] [id number] [address] Apr, [facility] [address] [facility] [id number] [place]AL[place] [address] Apr, [facility] [address] [facility] [id number] [place] [address] Mar, Screening for STD sexually transmitted disease Z11.3 ; control counseling Z30.09 ; Tobacco use Z72.0 ; Moderate depressive disorder F32.9 ; Non morbid obesity due to excess calories E66.09 ; Pain at surgical incision R20.8 ; Low back pain M54.5 and Other chronic pain G89.29 [facility] [id number], [place] [address] Nov, [facility] [id number], [place] [address] Oct, Routine screening for STI (sexually transmitted infection) Z11.3 ; Screening for cervical cancer Z12.4 and Trichomonal cervicitis A59.09 [address]65[place] [id number] Jul, [address]65[place] [id number] Jul, [id number] [place] [id number] Jul, Possible Z32.00 and Possible exposure to STD Z20.2 [address] [place] [id number] Apr, [address] [place] [id number] Mar, Encounter for surveillance of injectable contraceptive Z30.42 and General medical exam Z00.00 [facility] [address] [id number] [id number] Mar, [facility] [id number], [place] [id number] Oct, [place] T14.[address] [facility] [id number] [id number] Oct, [place] T14.[address] [facility] [address] [id number] [id number] Oct, [place] T14.8 and Encounter for initial prescription of injectable contraceptive Z30.013 [facility] [id number] [place] [id number] Jan, [facility] [id number] [place] [address] Jan, [address] [id number] [place] [id number] Oct, [facility] [address] [place] [address] Oct, [facility] [id number] [place] [address]- [address] Oct, [facility] [address]65100[place] [address] Oct, [facility] [address] [place] [id number]- [address] Jun, [facility] [id number], [place] [id number] Jun, [address] [place] [id number] Jun, [facility] [address]65100[place] [address] Jun, [facility] [id number] [place] [id number] Apr, [facility] [address] [facility] [id number] [place] [address] Apr, [facility] [address] [facility] [id number] [place] [address] Apr, [facility] [address] [facility] [id number] [place] [id number] Apr, IMMUNIZATIONS No Known Immunizations SOCIAL HISTORY Never Assessed REASON FOR VISIT congestion and cough for 3 days. [email or web address] PLAN OF CARE Activity Details Follow Up if not improving with PCP or reg follow up Reason: VITAL SIGNS Height 64 in 2018-09-01 Weight 186.0 lbs 2018-09-01 Temperature 97.6 degrees Fahrenheit 2018-09-01 Heart Rate 80 bpm 2018-09-01 Respiratory Rate 20 2018-09-01 BMI 31.92 kg/m2 2018-09-01 Blood pressure systolic 120 mmHg 2018-09-01 Blood pressure diastolic 76 mmHg 2018-09-01 MEDICATIONS Medication Instructions Dosage Frequency Start Date End Date Duration Status Naproxen 250 MG Orally Twice a day 1 tablet with food or milk 12h Aug, 30 day(s) Not-Taking PredniSONE 20 MG Orally Once a day 2 tablet 24h Aug, 5 days Active Metronidazole 500 mg Orally 2 times a day 1 tablet 12h Aug, 10 day(s) Active Cyclobenzaprine HCl 10 mg Orally qhs 1 tablet as needed Aug, 30 days Active RESULTS No Results PROCEDURES No Known procedures [...]
--- OUTSIDE RECORDS SUMMARY | 2018-09-21 19:32 | XMS REPORT ---
Author Author FUNMILAYO RAMOS Organization [facility] Address [address] [place] [address] Care Team Providers Care Senior Investigator Name Role Phone FUNMILAYO RAMOS Unavailable PROBLEMS Type Condition ICD9-CM Code [id number] Code Onset Dates Condition Status SNOMED Code Problem Vaginal yeast infection B37.3 Active 44700232 Problem Moderate depressive disorder F32.9 Active 178194068 Problem Other chronic pain G89.29 Active 21778679 Problem Chronic gingivitis, plaque induced K05.10 Active 55005952 Problem Hx laparoscopic cholecystectomy Z90.49 Active 472835697 Problem Nephrolithiasis N20.0 Active 94536446 Problem Non morbid obesity due to excess calories E66.09 Active 128023051 Problem Status post cholecystectomy Z90.49 Active 834304944 Problem Gallstones K80.20 Active 493784876 ALLERGIES No Information ENCOUNTERS Encounter Location Date Diagnosis [facility] [address] [address] 15 May, 2018 [facility] [id number] [place] [address] Apr, Abdominal pain R10.9 [facility] [address] [address] February, Blister (nonthermal) of oral cavity, initial encounter S00.522A and Chronic gingivitis, plaque induced K05.10 [facility] [address] [address] February, Vaginal discharge N89.8 ; Vaginal yeast infection B37.3 ; Acute vaginitis N76.0 and Status post cholecystectomy Z90.49 [facility] [address] [address] February, [facility] [address], [place] [address] Jan, [facility] [id number] [place] [address] Dec, Nephrolithiasis N20.0 ; Gallstones K80.20 and Right lower quadrant abdominal pain R10.31 [facility] [id number] [place] [address] 6[address] Dec, [facility] [address] [place] [address] 389[address] 9217 Dec, [facility] [id number] [place] [address] 3847 Dec, Unprotected sexual intercourse Z72.51 and Intractable cyclical vomiting with nausea G43.A1 [facility] [id number] [place] [phone] Dec, Dental examination Z01.20 [facility] [address] [place] [id number] Jul, [facility] [address] [place] [id number] [place] [address] Jun, Concern about STD in female without diagnosis Z71.1 [facility] [address], [place] [address] Jun, [facility] [address] [place] [address] Apr, [facility] [address], [place] [address] Apr, [facility] [id number] [place] [address] 5692 Mar, Screening for STD sexually transmitted disease Z11.3 ; control counseling Z30.09 ; Tobacco use Z72.0 ; Moderate depressive disorder F32.9 ; Non morbid obesity due to excess calories E66.09 ; Pain at surgical incision R20.8 ; Low back pain M54.5 and Other chronic pain G89.29 [facility] [id number], [place] [address] Nov, [facility] [address] [id number] [address] Oct, Routine screening for STI (sexually transmitted infection) Z11.3 ; Screening for cervical cancer Z12.4 and Trichomonal cervicitis A59.09 [place] [address]00565[place] [phone] Jul, [place] [id number] [place] [id number] Jul, [place] [id number] [place] [address] [id number] Jul, Possible Z32.00 and Possible exposure to STD Z20.2 [address]00565[place] [phone] Apr, [place] [id number] [place] [phone] Mar, Encounter for surveillance of injectable contraceptive Z30.42 and General medical exam Z00.00 [facility] [place] [id number] [id number] Mar, [facility] [address]00565[place] [phone] Oct, Laceration T14.8 [address]65[place] [id number] Oct, [place] T14.[address]65[place] [id number] Oct, Laceration T14.8 and Encounter for initial prescription of injectable contraceptive Z30.013 [facility] [address]100[place] [address] Jan, [facility] [address], [place] [address] Jan, [address] [id number] Oct, [facility] [address], [place] [address] Oct, [facility] [address], [place] [address] Oct, [facility] [address], [place] [address] Oct, [facility] [address] [place] [address] Jun, [place] [id number] [place] [id number] Jun, [place] [id number] [place] [address] [phone] Jun, [facility] [address], [place] [address] Jun, [place] [id number] [place] [address] [id number] Apr, [facility] [address], [place] [address] Apr, [facility] [address], [place] [address] Apr, [id number] [place] [address] [phone] Apr, IMMUNIZATIONS No Known Immunizations SOCIAL HISTORY Never Assessed REASON FOR VISIT med question PLAN OF CARE VITAL SIGNS MEDICATIONS Unknown [...]
--- OUTSIDE RECORDS SUMMARY | 2018-09-21 19:32 | XMS REPORT ---
Author Author BRIELLE CUNNINGHAM Organization [facility] Address [address] [place] [address] Care Team Providers Care Hall Manager Name Role Phone BRIELLE CUNNINGHAM Unavailable PROBLEMS Type Condition ICD9-CM Code [id number] Code Onset Dates Condition Status SNOMED Code Problem Vaginal yeast infection B37.3 Active 50499716 Problem Moderate depressive disorder F32.9 Active 356414229 Problem Other chronic pain G89.29 Active 53701837 Problem Chronic gingivitis, plaque induced K05.10 Active 68584873 Problem Hx laparoscopic cholecystectomy Z90.49 Active 934420148 Problem Nephrolithiasis N20.0 Active 75581755 Problem Non morbid obesity due to excess calories E66.09 Active 475138556 Problem Status post cholecystectomy Z90.49 Active 324252012 Problem Gallstones K80.20 Active 791515582 ALLERGIES Substance Reaction Event Type Date Status Sulfamethoxazole-Trimethoprim hives Drug Allergy Apr, Active ENCOUNTERS Encounter Location Date Diagnosis [facility] [id number] [place] [address] May, [facility] [id number] [place] [address] Apr, Abdominal pain R10.9 [facility] [address] [address] February, Blister (nonthermal) of oral cavity, initial encounter S00.522A and Chronic gingivitis, plaque induced K05.10 [facility] [id number] [place] [address] February, Vaginal discharge N89.8 ; Vaginal yeast infection B37.3 ; Acute vaginitis N76.0 and Status post cholecystectomy Z90.49 [facility] [address]00565[address] [address] February, [facility] [id number] [place] [address] 5357 Jan, [facility] [id number] [place] [address]07[address] 9074 Dec, Nephrolithiasis N20.0 ; Gallstones K80.20 and Right lower quadrant abdominal pain R10.31 [facility] [address] [place]487565[place] [address] Dec, [facility] [id number] [place] [address] Dec, [facility] [id number] [place] [address] 95[address] Dec, Unprotected sexual intercourse Z72.51 and Intractable cyclical vomiting with nausea G43.A1 [facility] [id number] [place] [address] [phone] Dec, Dental examination Z01.20 [facility] [address] [place] [phone] Jul, [facility] [id number] [place] [address] Jun, Concern about STD in female without diagnosis Z71.1 [facility] [address]005[address] [address] Jun, [facility] [address] [address] Apr, [facility] [address] [place] [address]89[address] Apr, [facility] [address] [place] [address] [id number]- 4941 Mar, Screening for STD sexually transmitted disease Z11.3 ; control counseling Z30.09 ; Tobacco use Z72.0 ; Moderate depressive disorder F32.9 ; Non morbid obesity due to excess calories E66.09 ; Pain at surgical incision R20.8 ; Low back pain M54.5 and Other chronic pain G89.29 [facility] [id number] [address] Nov, [facility] [id number] [address] Oct, Routine screening for STI (sexually transmitted infection) Z11.3 ; Screening for cervical cancer Z12.4 and Trichomonal cervicitis A59.[address] [facility] [address]00565[address] [phone] Jul, [facility] [address] [place] [id number] [place] [phone] Jul, [id number] [place] [id number] Jul, Possible Z32.00 and Possible exposure to STD Z20.[address] [facility] [address]65100[place] [phone] Apr, [facility] [address] [place] [id number] [place] [address] [phone] Mar, Encounter for surveillance of injectable contraceptive Z30.42 and General medical exam Z00.00 [facility] [address] [id number] [phone] Mar, [facility] [address]65[address] [phone] Oct, [place] T14.8 [address] [phone] Oct, [place] T14.8 [address] [phone] Oct, Laceration T14.8 and Encounter for initial prescription of injectable contraceptive Z30.013 [facility] [address] [address] Jan, [facility] [id number] [place] [address]- 7486 Jan, [place] [id number][place] [phone] Oct, [facility] [id number] [place] [address]25- 9438 Oct, [facility] [id number] [place] [address] 57377- 8318 Oct, [facility] [id number] [place] [address]- 287[address] Oct, [facility] [id number] [place] [address] 35345- 5766 Jun, [address] [id number] [place] [address] [phone] Jun, [id number] [place] [address] [phone] Jun, [facility] [id number] [place] [address]106- 6696 Jun, [address] [id number] [place] [address] [phone] Apr, [facility] [address] [place] [address] [phone] Apr, [facility] [address] [address] Apr, [address] [id number] [place] [address] [phone] Apr, IMMUNIZATIONS No Known Immunizations SOCIAL HISTORY Never Assessed REASON FOR VISIT Abdominal pain on the RLQ et also in the center for the past 2 weeks. pain comes et goes. last BM was this am et normal for her, denies pain with intercourse, last menstural period was 04/11/2018. denies dysuria. [email or web address] PLAN OF CARE Activity Details Follow Up w/ PCP Reason:irregular menstrual cycles VITAL SIGNS Height 64 in 2018-04-27 Weight 187.2 lbs 2018-04-27 Temperature 98.0 degrees Fahrenheit 2018-04-27 Heart Rate 84 bpm 2018-04-27 Respiratory Rate 20 2018-04-27 BMI 32.13 kg/m2 2018-04-27 Blood pressure systolic 118 mmHg 2018-04-27 Blood pressure diastolic 78 mmHg 2018-04-27 MEDICATIONS Unknown Medications RESULTS No Results PROCEDURES Procedure Date Ordered Result Body Site URINALYSIS, AUTO, W/O SCOPE April 27, 2018 Bacterial Vaginosis In House April 27, 2018 No Charge April 27, 2018 LAB NOT BILLED BY [facility] April 27, 2018 URINE TEST April 27, 2018 INSTRUCTIONS MEDICATIONS ADMINISTERED No Known Medications MEDICAL (GENERAL) HISTORY Type Description Date Medical History herpes gential Medical History depression Medical History bipolar disorder Medical History borderline diabetes Surgical History tonsillectomy Surgical History deviated septum repair Surgical History section Surgical History cholecystectomy 02/2018 Hospitalization History childbirth only Hospitalization History ER visit 12/25/17
--- OUTSIDE RECORDS SUMMARY | 2018-09-21 19:33 | XMS REPORT ---
Author Author ALTAGRACIA LOTT Organization [facility] Address [address] [place] [address] Care Team Providers Care Siding Stapler Name Role Phone ALTAGRACIA LOTT Unavailable PROBLEMS Type Condition ICD9-CM Code [id number] Code Onset Dates Condition Status SNOMED Code Problem Vaginal yeast infection B37.3 Active 98956159 Problem Moderate depressive disorder F32.9 Active 391141193 Problem Other chronic pain G89.29 Active 39140327 Problem Chronic gingivitis, plaque induced K05.10 Active 19664291 Problem Hx laparoscopic cholecystectomy Z90.49 Active 641522197 Problem Nephrolithiasis N20.0 Active 00324862 Problem Non morbid obesity due to excess calories E66.09 Active 454227041 Problem Status post cholecystectomy Z90.49 Active 002353652 Problem Gallstones K80.20 Active 205959155 ALLERGIES Substance Reaction Event Type Date Status Sulfamethoxazole-Trimethoprim hives Drug Allergy February, Active ENCOUNTERS Encounter Location Date Diagnosis [facility] [address] [place] [address] 04 Jun, 2018 [facility] [id number] [place] [address]- 4975 15 May, 2018 [facility] [id number] [place] [address] Apr, Abdominal pain R10.9 [facility] [id number] [place] [address] February, Blister (nonthermal) of oral cavity, initial encounter S00.522A and Chronic gingivitis, plaque induced K05.10 [facility] [address] [place] [address]- [address] February, Vaginal discharge N89.8 ; Vaginal yeast infection B37.3 ; Acute vaginitis N76.0 and Status post cholecystectomy Z90.49 [facility] [address]100[place] [address] February, [facility] [address]65100[place] [address] Jan, [facility] [address] [place] [address]362- 3[address] Dec, Nephrolithiasis N20.0 ; Gallstones K80.20 and Right lower quadrant abdominal pain R10.31 [facility] [address]00565[address] [address] Dec, [facility] [address] [place] [address] 94993- 0668 Dec, [facility] [address] [place] [address] 80180- 5795 Dec, Unprotected sexual intercourse Z72.51 and Intractable cyclical vomiting with nausea G43.A1 [facility] [address]005[address], [place] [address] Dec, Dental examination Z01.20 [facility] [address] [place] [phone] Jul, [facility] [id number] [place] [address] Jun, Concern about STD in female without diagnosis Z71.1 [facility] [address] [address] Jun, [facility] [address] [address]60 Apr, [facility] [address]100[place] [address] 7[address] Apr, [facility] [address] [address] Mar, Screening for STD sexually transmitted disease Z11.3 ; control counseling Z30.09 ; Tobacco use Z72.0 ; Moderate depressive disorder F32.9 ; Non morbid obesity due to excess calories E66.09 ; Pain at surgical incision R20.8 ; Low back pain M54.5 and Other chronic pain G89.29 [facility] [id number] [address] Nov, [facility] [id number] [place] [address] Oct, Routine screening for STI (sexually transmitted infection) Z11.3 ; Screening for cervical cancer Z12.4 and Trichomonal cervicitis A59.09 [place] [id number] [place] [address] [phone] Jul, [place] [id number] [place] [address] [id number] Jul, [place] [id number] [place] [address] [phone] Jul, Possible Z32.00 and Possible exposure to STD Z20.2 [id number] [place] [address] [phone] Apr, [place] [id number] [place] [address] [phone] Mar, Encounter for surveillance of injectable contraceptive Z30.42 and General medical exam Z00.00 [facility] [address] [id number] [id number] Mar, [place] [id number] [place] [address] [phone] Oct, Laceration T14.[address]100[place], [place] [id number] Oct, Laceration T14.8 [place] [id number] [place] [address] [phone] Oct, Laceration T14.8 and Encounter for initial prescription of injectable contraceptive Z30.013 [facility] [address]100[place] [address] Jan, [facility] [id number] [address]- 45[address] Jan, [facility] [id number] [place] [phone] Oct, [facility] [address] 3863465100[place] [address] 30[address] Oct, [facility] [id number] [place] [address] 10669- 7420 Oct, [facility] [id number] [place] [address] 97010- 5093 Oct, [facility] [id number] [place] [address] 23557- 5814 Jun, [facility] [id number] [place] [address] [phone] Jun, [facility] [id number] [place] [address] [phone] Jun, [facility] [address]100[place] [address] Jun, [facility] [address] [id number] [phone] Apr, [facility] [address]100[place] [address]- [address] Apr, [facility] [id number] [place] [address] 61660- 6336 Apr, [facility] [id number] [phone] Apr, IMMUNIZATIONS No Known Immunizations SOCIAL HISTORY Never Assessed REASON FOR VISIT tooth pain Pt has had tooth pain for several weeks, has not been able to get in with dental yet KARIE Reed PLAN OF CARE VITAL SIGNS Height 64 in 2018-03-07 Weight 193.6 lbs 2018-03-07 Temperature 97.2 degrees Fahrenheit 2018-03-07 Heart Rate 80 bpm 2018-03-07 Respiratory Rate 18 2018-03-07 BMI 33.23 kg/m2 2018-03-07 Blood pressure systolic 122 mmHg 2018-03-07 Blood pressure diastolic 68 mmHg 2018-03-07 MEDICATIONS Medication Instructions Dosage Frequency Start Date End Date Duration Status Hydrocodone-Acetaminophen 7.5-325 MG Orally every 6 hrs 1 tablet as needed 6h February, Active Amoxicillin 500 mg Orally 2 times a day 2 capsules 12h February,Mar 10 day(s) Active RESULTS No Results PROCEDURES No Known [...]
--- OUTSIDE RECORDS SUMMARY | 2018-09-21 19:33 | XMS REPORT ---
Author Author BRIELLE CUNNINGHAM Organization [facility] Address [address] [place] [address] Care Team Providers Care Pension Consultant Name Role Phone BRIELLE CUNNINGHAM Unavailable PROBLEMS Type Condition ICD9-CM Code SLF56-PN Code Onset Dates Condition Status SNOMED Code Problem Vaginal yeast infection B37.3 Active 89850616 Problem Moderate depressive disorder F32.9 Active 304724324 Problem Other chronic pain G89.29 Active 60060992 Problem Chronic gingivitis, plaque induced K05.10 Active 87130839 Problem Hx laparoscopic cholecystectomy Z90.49 Active 179732048 Problem Nephrolithiasis N20.0 Active 32191677 Problem Non morbid obesity due to excess calories E66.09 Active 579939602 Problem Status post cholecystectomy Z90.49 Active 285984137 Problem Gallstones K80.20 Active 504842986 ALLERGIES No Information ENCOUNTERS Encounter Location Date Diagnosis [facility] [id number] [place] [address] 30 Feb, 2018 Blister (nonthermal) of oral cavity, initial encounter S00.522A and Chronic gingivitis, plaque induced K05.10 [facility] [id number] [place] [address] 32792- 0626 2018 Vaginal discharge N89.8 ; Vaginal yeast infection B37.3 ; Acute vaginitis N76.0 and Status post cholecystectomy Z90.49 [facility] [id number] [place] [address] 13489- 9239 February, [facility] [id number] [place] [address] 31345- 8105 16 Jan, 2018 [facility] [id number] [place] [address] 28676- 5128 21 Mar, 2018 Nephrolithiasis N20.0 ; Gallstones K80.20 and Right lower quadrant abdominal pain R10.31 [facility] [address] [place] [address] 74229- 5704 Dec, [facility] [id number] [place] [address] 71166- 6530 Dec, [facility] [address] [address]70- 2583 Dec, Unprotected sexual intercourse Z72.51 and Intractable cyclical vomiting with nausea G43.A1 [facility] [address] [id number] Dec, Dental examination Z01.20 [facility] [address] [id number] Jul, [facility] [id number] [place] [address] Jun, Concern about STD in female without diagnosis Z71.1 [facility] [id number] [place] [address] 72630 -5271 Jun, [facility] [id number] [place] [address] 34908- 9635 Apr, [facility] [id number] [place] [address] 63858- 5504 Apr, [facility] [id number] [place] [address] 48395- 6033 Mar, Screening for STD sexually transmitted disease Z11.3 ; control counseling Z30.09 ; Tobacco use Z72.0 ; Moderate depressive disorder F32.9 ; Non morbid obesity due to excess calories E66.09 ; Pain at surgical incision R20.8 ; Low back pain M54.5 and Other chronic pain G89.29 [facility] [id number] [place] [address] Nov, [facility] [id number] [place] [address] Oct, Routine screening for STI (sexually transmitted infection) Z11.3 ; Screening for cervical cancer Z12.4 and Trichomonal cervicitis A59.09 [address]65[address] [id number] Jul, [id number] [place] [address] [id number] Jul, [id number] [place] [address] [phone] Jul, Possible Z32.00 and Possible exposure to STD Z20.2 [id number] [place] [address] [phone] Apr, [id number] [place] [address] [id number] Mar, Encounter for surveillance of injectable contraceptive Z30.42 and General medical exam Z00.00 [facility] [address] [id number] [id number] Mar, [id number] [place] [address] [phone] Oct, Laceration T14.8 [address] [place] [address] [phone] Oct, Laceration T14.8 [id number] [place] [address] [phone] Oct, Laceration T14.8 and Encounter for initial prescription of injectable contraceptive Z30.013 [facility] [id number] [address] Jan, [facility] [id number] [place] [address] [id number]- 3751 Jan, [id number] [place] [address] [phone] Oct, [facility] [address] [id number], [place] [address] Oct, [facility] [address], [place] [address] 6[address] Oct, [facility] [address], [place] [address] 5[address] Oct, [facility] [address], [place] [address]- 7[address] Jun, [facility] [id number] [id number] Jun, [facility] [address] [place] [id number] [place] [address] [phone] Jun, [facility] [address], [place] [address]- 8[address] Jun, [facility] [id number] [place] [address] [phone] Apr, [facility] [address], [place] [address]- 7[address] Apr, [facility] [address], [place] [address]- 73[address] Apr, [facility] [address] [place], [place] [address] [phone] Apr, IMMUNIZATIONS No Known Immunizations SOCIAL HISTORY Never Assessed REASON FOR VISIT Rx per lab PLAN OF CARE VITAL SIGNS MEDICATIONS No [...]
--- OUTSIDE RECORDS SUMMARY | 2018-09-21 19:33 | XMS REPORT ---
Author Author BRIELLE CUNNINGHAM Organization [facility] Address [address] [place] [address] Care Team Providers Care Clinical Operations Specialist Name Role Phone BRIELLE CUNNINGHAM Unavailable PROBLEMS Type Condition ICD9-CM Code [id number] Code Onset Dates Condition Status SNOMED Code Problem Vaginal yeast infection B37.3 Active 68776339 Problem Moderate depressive disorder F32.9 Active 610479916 Problem Other chronic pain G89.29 Active 05911918 Problem Chronic gingivitis, plaque induced K05.10 Active 08804806 Problem Hx laparoscopic cholecystectomy Z90.49 Active 561679936 Problem Nephrolithiasis N20.0 Active 57290881 Problem Non morbid obesity due to excess calories E66.09 Active 710773219 Problem Status post cholecystectomy Z90.49 Active 746243536 Problem Gallstones K80.20 Active 328256661 ALLERGIES Substance Reaction Event Type Date Status Sulfamethoxazole-Trimethoprim hives Drug Allergy February, Active ENCOUNTERS Encounter Location Date Diagnosis [facility] [address] [address] 04 Jun, 2018 [facility] [id number] [place] [address] 26457- 8050 15 May, 2018 [facility] [address] [address] Apr, Abdominal pain R10.9 [facility] [address] [address] February, Blister (nonthermal) of oral cavity, initial encounter S00.522A and Chronic gingivitis, plaque induced K05.10 [facility] [id number] [place] [address] 89057- 0356 February, Vaginal discharge N89.8 ; Vaginal yeast infection B37.3 ; Acute vaginitis N76.0 and Status post cholecystectomy Z90.49 [facility] [address] [place] [address] 61850- 3737 February, [facility] [id number] [place] [address] 39654- 6513 Jan, [facility] [id number] [place] [address] 82390- 1099 Dec, Nephrolithiasis N20.0 ; Gallstones K80.20 and Right lower quadrant abdominal pain R10.31 [facility] [id number] [place] [address] 82835- 5260 Dec, [facility] [id number] [place] [address] 28167- 9728 Dec, [facility] [id number] [place] [address] 31426- 5543 Dec, Unprotected sexual intercourse Z72.51 and Intractable cyclical vomiting with nausea G43.A1 [facility] [id number] [place] [address] [id number] Dec, Dental examination Z01.20 [facility] [id number] [place] [address] [phone] Jul, [facility] [id number] [place] [address] Jun, Concern about STD in female without diagnosis Z71.1 [facility] [address], [place] [address] Jun, [facility] [address] [place] [address] 85116- 5033 Apr, [facility] [address] [address] Apr, [facility] [address] [place] [address] 82097- 6862 Mar, Screening for STD sexually transmitted disease Z11.3 ; control counseling Z30.09 ; Tobacco use Z72.0 ; Moderate depressive disorder F32.9 ; Non morbid obesity due to excess calories E66.09 ; Pain at surgical incision R20.8 ; Low back pain M54.5 and Other chronic pain G89.29 [facility] [id number] [address] Nov, [facility] [id number] [place] [address] Oct, Routine screening for STI (sexually transmitted infection) Z11.3 ; Screening for cervical cancer Z12.4 and Trichomonal cervicitis A59.09 [id number] [place] [address] [phone] Jul, [id number] [place] [address] [phone] Jul, [id number] [place] [address] [id number] Jul, Possible Z32.00 and Possible exposure to STD Z20.2 [id number] [place] [address] [id number] Apr, [id number] [place] [address] [phone] Mar, Encounter for surveillance of injectable contraceptive Z30.42 and General medical exam Z00.00 [facility] [id number] [place] [address] [phone] Mar, [id number] [place] [address] [phone] Oct, Laceration T14.8 [id number] [phone] Oct, Laceration T14.8 [id number] [place] [address] [phone] Oct, Laceration T14.8 and Encounter for initial prescription of injectable contraceptive Z30.013 [facility] [address] [id number] [address] Jan, [facility] [address] [id number] [address] 64[address] Jan, [facility] [id number] [place] [address] [id number] Oct, [facility] [id number] [place] [address] 74353- 9949 Oct, [facility] [id number] [place] [address] [phone] Oct, [facility] [id number] [place] [address] 07986- 9149 Oct, [facility] [id number] [place] [address] 02585- 3734 Jun, [facility] [id number] [place] [address] [phone] Jun, [id number] [place] [address] [id number] Jun, [facility] [address], [place] [address]- 2867 Jun, [id number] [place] [address] [phone] Apr, [facility] [address] [place] [address] 66224- 2345 Apr, [facility] [address] [place], [place] [address] 2667 Apr, [facility] [id number] [phone] Apr, IMMUNIZATIONS No Known Immunizations SOCIAL HISTORY Never Assessed REASON FOR VISIT White viscous disharge since 18:00 yesterday. Pt states she frequently has yeast infections. Denies bleeding outside of menstruation, denies cramping, denies dysuria, denies polyuria, no self-treatment. aura PLAN OF CARE Activity Details Follow Up 2 Weeks, prn Reason:if symptoms worsen or do not improve VITAL SIGNS Height 64 in 2018-02-23 Weight 203.8 lbs 2018-02-23 Temperature 98.1 degrees Fahrenheit 2018-02-23 Heart Rate 72 bpm 2018-02-23 Respiratory Rate 14 2018-02-23 BMI 34.98 kg/m2 2018-02-23 Blood pressure systolic 110 mmHg 2018-02-23 Blood pressure diastolic 66 mmHg 2018-02-23 MEDICATIONS Medication Instructions Dosage Frequency Start Date End Date Duration Status Fluconazole 150 MG Orally once today, second tablet on Monday 1 tablet today. Take second tablet on Monday. February, February, 2 doses Active Hydrocodone-Acetaminophen 7.5-325 MG Orally every 6 hrs 1 tablet as needed 6h Active Metronidazole 500 mg Orally Twice a day 1 tablet 12h February, February, 07 days Active RESULTS No Results PROCEDURES Procedure Date Ordered Result Body Site No Charge February 23, 2018 Bacterial Vaginosis In House February 23, 2018 LAB NOT BILLED BY [facility] February 23, 2018 INSTRUCTIONS MEDICATIONS ADMINISTERED No Known Medications MEDICAL (GENERAL) HISTORY Type Description Date Medical History herpes gential Medical History depression Medical History bipolar disorder Medical History borderline diabetes Surgical History tonsillectomy Surgical History deviated septum repair Surgical History section Surgical History cholecystectomy 02/2018 Hospitalization History childbirth only Hospitalization History ER visit 12/25/17
--- OUTSIDE RECORDS SUMMARY | 2018-09-21 19:33 | XMS REPORT ---
Author Author FNUMILAYO RAMOS Organization [facility] Address [address] [place] [address] Care Team Providers Care Paper Bag Inspector Name Role Phone FUNMILAYO RAMOS Unavailable PROBLEMS Type Condition ICD9-CM Code ONE20-SD Code Onset Dates Condition Status SNOMED Code Problem Vaginal yeast infection B37.3 Active 98300619 Problem Moderate depressive disorder F32.9 Active 058962850 Problem Other chronic pain G89.29 Active 19347350 Problem Chronic gingivitis, plaque induced K05.10 Active 43422808 Problem Hx laparoscopic cholecystectomy Z90.49 Active 047363318 Problem Nephrolithiasis N20.0 Active 29344377 Problem Non morbid obesity due to excess calories E66.09 Active 047257116 Problem Status post cholecystectomy Z90.49 Active 889308238 Problem Gallstones K80.20 Active 001167917 ALLERGIES No Information ENCOUNTERS Encounter Location Date Diagnosis [facility] [address] [address] 04 Jun, 2018 [facility] [id number] [place] [address] 22410 [address]9061 Apr, Abdominal pain R10.9 [facility] [address] [address] 30 Feb, 2018 Blister (nonthermal) of oral cavity, initial encounter S00.522A and Chronic gingivitis, plaque induced K05.10 [facility] [address] [address] February, Vaginal discharge N89.8 ; Vaginal yeast infection B37.3 ; Acute vaginitis N76.0 and Status post cholecystectomy Z90.49 [facility] [address] [address] February, [facility] [address], [place] [address] Jan, [facility] [id number] [place] [address] 87748- 4718 Dec, Nephrolithiasis N20.0 ; Gallstones K80.20 and Right lower quadrant abdominal pain R10.31 [facility] [id number] [place] [address] 74569- 6551 Dec, [facility] [address] [place] [address] 985128- 1364 Dec, [facility] [id number] [place] [address] 51472- 6864 Dec, Unprotected sexual intercourse Z72.51 and Intractable cyclical vomiting with nausea G43.A1 [facility] [id number] [place] [address] [id number] Dec, Dental examination Z01.20 [facility] [address] [place] [address] [id number] Jul, [facility] [address] [place] [id number] [place] [address] Jun, Concern about STD in female without diagnosis Z71.1 [facility] [address], [place] [address] Jun, [facility] [address] [place] [address] 14607- 6835 Apr, [facility] [address], [place] [address]- 69[address] Apr, [facility] [id number] [place] [address] 73440- 7070 Mar, Screening for STD sexually transmitted disease Z11.3 ; control counseling Z30.09 ; Tobacco use Z72.0 ; Moderate depressive disorder F32.9 ; Non morbid obesity due to excess calories E66.09 ; Pain at surgical incision R20.8 ; Low back pain M54.5 and Other chronic pain G89.29 [facility] [id number] [address] Nov, [facility] [address] [id number] [address] Oct, Routine screening for STI (sexually transmitted infection) Z11.3 ; Screening for cervical cancer Z12.4 and Trichomonal cervicitis A59.09 [address] [place] [address] [id number] Jul, [id number] [place] [address] [phone] Jul, [id number] [place] [address] [id number] Jul, Possible Z32.00 and Possible exposure to STD Z20.2 [address] [phone] Apr, [id number] [place] [address] [phone] Mar, Encounter for surveillance of injectable contraceptive Z30.42 and General medical exam Z00.00 [facility] [address] [id number] [place] [id number] Mar, [facility] [address] [id number] Oct, [facility] T14.8 [address] [id number] Oct, [facility] T14.8 [address] [id number] Oct, Laceration T14.8 and Encounter for initial prescription of injectable contraceptive Z30.013 [facility] [address] [address]- [address]38 Jan, [facility] [address], [place] [address]- 85[address] Jan, [id number] [id number] Oct, [facility] [address], [place] [address]- 36[address] Oct, [facility] [address], [place] [address]- 0232 Oct, [facility] [address], [place] [address]- 0[address] Oct, [facility] [address] [place] [address] 78656- 7944 Jun, [id number] [place] [address] [phone] Jun, [id number] [place] [address] [phone] Jun, [facility] [address], [place] [address]- 2567 Jun, [id number] [place] [address] [id number] Apr, [facility] [address], [place] [address]- 7068 Apr, [facility] [address], [place] [address]- 12[address] Apr, [id number] [place] [address] [phone] Apr, IMMUNIZATIONS No Known Immunizations SOCIAL HISTORY Never Assessed REASON FOR VISIT referral question PLAN OF CARE VITAL SIGNS MEDICATIONS [...]
--- OUTSIDE RECORDS SUMMARY | 2018-09-21 19:33 | XMS REPORT ---
Author Author FUNMILAYO RAMOS Organization [facility] Address [address] [place] [address] Care Team Providers Care Aircraft Engine Technician Name Role Phone FUNMILAYO RAMOS Unavailable PROBLEMS Type Condition ICD9-CM Code LAR08-NM Code Onset Dates Condition Status SNOMED Code Problem Vaginal yeast infection B37.3 Active 68233536 Problem Moderate depressive disorder F32.9 Active 610103227 Problem Other chronic pain G89.29 Active 58665606 Problem Chronic gingivitis, plaque induced K05.10 Active 16523635 Problem Hx laparoscopic cholecystectomy Z90.49 Active 707389872 Problem Nephrolithiasis N20.0 Active 45756122 Problem Non morbid obesity due to excess calories E66.09 Active 814952883 Problem Status post cholecystectomy Z90.49 Active 288250516 Problem Gallstones K80.20 Active 438262151 ALLERGIES No Information ENCOUNTERS Encounter Location Date Diagnosis [facility] [address] [address] 04 Jun, 2018 [facility] [id number] [place] [address] Apr, Abdominal pain R10.9 [facility] [address] [address] 30 Feb, 2018 Blister (nonthermal) of oral cavity, initial encounter S00.522A and Chronic gingivitis, plaque induced K05.10 [facility] [address] [address] 2018 Vaginal discharge N89.8 ; Vaginal yeast infection B37.3 ; Acute vaginitis N76.0 and Status post cholecystectomy Z90.49 [facility] [address] [address] February, [facility] [address] [address] Jan, [facility] [id number] [place] [address] 08[address] Dec, Nephrolithiasis N20.0 ; Gallstones K80.20 and Right lower quadrant abdominal pain R10.31 [facility] [id number] [place] [address] 25752[address] 0778 Dec, [facility] [address] [place] [address] 752662- 1661 Dec, [facility] [id number] [place] [address] 70157- 4816 Dec, Unprotected sexual intercourse Z72.51 and Intractable cyclical vomiting with nausea G43.A1 [facility] [id number] [place] [address] [phone] Dec, Dental examination Z01.20 [facility] [address] [place] [address] [phone] Jul, [facility] [address] [place] [id number] [place] [address] Jun, Concern about STD in female without diagnosis Z71.1 [facility] [address] [address] Jun, [facility] [address] [place] [address] 84518- 0649 Apr, [facility] [address] [address] Apr, [facility] [id number] [place] [address] 69[address] 7363 Mar, Screening for STD sexually transmitted disease Z11.3 ; control counseling Z30.09 ; Tobacco use Z72.0 ; Moderate depressive disorder F32.9 ; Non morbid obesity due to excess calories E66.09 ; Pain at surgical incision R20.8 ; Low back pain M54.5 and Other chronic pain G89.29 [facility] [id number] [address] Nov, [facility] [address] [id number] [address] Oct, Routine screening for STI (sexually transmitted infection) Z11.3 ; Screening for cervical cancer Z12.4 and Trichomonal cervicitis A59.09 [address] [address]65[place] [phone] Jul, [id number] [place] [address] [phone] Jul, [id number] [place] [address] [phone] Jul, Possible Z32.00 and Possible exposure to STD Z20.2 [address]00565[place] [phone] Apr, [id number] [place] [address] [phone] Mar, Encounter for surveillance of injectable contraceptive Z30.42 and General medical exam Z00.00 [facility] [id number] [phone] Mar, [facility] [address]00565100[place] [id number] Oct, Laceration T14.[address]00565100[place] [id number] Oct, Laceration T14.[address]100[place] [phone] Oct, Laceration T14.8 and Encounter for initial prescription of injectable contraceptive Z30.013 [facility] [address] [address] Jan, [facility] [address] [address] Jan, [id number] [phone] Oct, [facility] [address] [address] Oct, [facility] [address] [address] Oct, [facility] [address] [address] Oct, [facility] [address] [place] [address] 60438- [address] Jun, [id number] [place] [address] [id number] Jun, [id number] [place] [address] [phone] Jun, [facility] [address] [address] Jun, [id number] [place] [address] [phone] Apr, [facility] [address] [address] Apr, [facility] [address] [address] Apr, [id number] [place] [address] [phone] Apr, IMMUNIZATIONS No Known Immunizations SOCIAL HISTORY Never Assessed REASON FOR VISIT Needing referral PLAN OF CARE VITAL SIGNS MEDICATIONS Unknown [...]
--- OUTSIDE RECORDS SUMMARY | 2018-09-21 19:33 | XMS REPORT ---
Author Author FUNMILAYO RAMOS Organization [facility] Address [address] [place] [address] Care Team Providers Care Whiting Machine Operator Name Role Phone FUNMILAYO RAMOS Unavailable PROBLEMS Type Condition ICD9-CM Code DHV89-KF Code Onset Dates Condition Status SNOMED Code Problem Vaginal yeast infection B37.3 Active 84690530 Problem Moderate depressive disorder F32.9 Active 812910345 Problem Other chronic pain G89.29 Active 41521784 Problem Chronic gingivitis, plaque induced K05.10 Active 41317187 Problem Hx laparoscopic cholecystectomy Z90.49 Active 954478074 Problem Nephrolithiasis N20.0 Active 47595743 Problem Non morbid obesity due to excess calories E66.09 Active 956038534 Problem Status post cholecystectomy Z90.49 Active 749568416 Problem Gallstones K80.20 Active 981686594 ALLERGIES Substance Reaction Event Type Date Status Sulfamethoxazole-Trimethoprim hives Drug Allergy Dec, Active ENCOUNTERS Encounter Location Date Diagnosis [facility] [address] [place] [address] 04 Jun, 2018 [facility] [address] [place] [address] 99511- 7591 15 May, 2018 [facility] [id number] [place] [address] Apr, Abdominal pain R10.9 [facility] [id number] [place] [address] February, Blister (nonthermal) of oral cavity, initial encounter S00.522A and Chronic gingivitis, plaque induced K05.10 [facility] [address] [place] [address] 39484- 5243 February, Vaginal discharge N89.8 ; Vaginal yeast infection B37.3 ; Acute vaginitis N76.0 and Status post cholecystectomy Z90.49 [facility] [address], [place] [address] February, [facility] [id number] [place] [address] 10463- 5827 Jan, [facility] [id number] [place] [address] 11742- 4078 Dec, Nephrolithiasis N20.0 ; Gallstones K80.20 and Right lower quadrant abdominal pain R10.31 [facility] [address] [place] [address] 30843- 6933 Dec, [facility] [id number] [place] [address] 59039- 2206 Dec, [facility] [id number] [place] [address] 09099- 1105 Dec, Unprotected sexual intercourse Z72.51 and Intractable cyclical vomiting with nausea G43.A1 [facility] [address] [place] [address] [phone] Dec, Dental examination Z01.20 [facility] [id number] [place] [address] [phone] Jul, [facility] [id number] [place] [address] Jun, Concern about STD in female without diagnosis Z71.1 [facility] [address], [place] [address] Jun, [facility] [address] [place] [address] 37090- 9650 Apr, [facility] [address], [place] [address] 9[address] Apr, [facility] [address] [place] [address]99- 1729 29 Josué, 2017 Screening for STD sexually transmitted disease Z11.3 ; control counseling Z30.09 ; Tobacco use Z72.0 ; Moderate depressive disorder F32.9 ; Non morbid obesity due to excess calories E66.09 ; Pain at surgical incision R20.8 ; Low back pain M54.5 and Other chronic pain G89.29 [facility] [id number] [address] Nov, [facility] [id number] [place] [address] Oct, Routine screening for STI (sexually transmitted infection) Z11.3 ; Screening for cervical cancer Z12.4 and Trichomonal cervicitis A59.09 [id number] [place] [address] [id number] Jul, [id number] [place] [address] [phone] Jul, [id number] [place] [address] [phone] Jul, Possible Z32.00 and Possible exposure to STD Z20.2 [id number] [place] [address] [phone] Apr, [id number] [place] [address] [phone] Mar, Encounter for surveillance of injectable contraceptive Z30.42 and General medical exam Z00.00 [facility] [address] [id number] [phone] Mar, [id number] [place] [address] [phone] Oct, Laceration T14.8 [address]65[address] [phone] Oct, Laceration T14.8 [id number] [place] [address] [phone] Oct, Laceration T14.8 and Encounter for initial prescription of injectable contraceptive Z30.013 [facility] [id number] [place] [address] 18491- 0823 Jan, [facility] [id number] [place] [address] 90060- 9465 Jan, [facility] [id number] [place] [address] [phone] Oct, [facility] [id number] [place] [address] 23326- 7889 Oct, [facility] [id number] [place] [address] 62022- 0344 Oct, [facility] [id number] [place] [address] 19193- 4917 Oct, [facility] [id number] [place] [address] 58916- 2032 Jun, [facility] [id number] [place] [address] [phone] Jun, [id number] [place] [address] [phone] Jun, [facility] [id number] [place] [address] 65123- 4261 Jun, [id number] [place] [address] [phone] Apr, [facility] [id number] [place] [address] 84822- 1706 Apr, [facility] [id number] [place] [address] 40644- 5051 Apr, [place] [address] [phone] Apr, IMMUNIZATIONS No Known Immunizations SOCIAL HISTORY Never Assessed REASON FOR VISIT ER f/u VC--tjanssenMA, --ER visit 2 days ago abdominal pain by csection scar and pain over kidney along back. , --they dxd with kidney stones and gallstones. PLAN OF CARE Activity Details Follow Up 3 Months with Roro sanders abd pain Reason: VITAL SIGNS Height 64 in 2017-12-27 Weight 215.9 lbs 2017-12-27 Temperature 97.8 degrees Fahrenheit 2017-12-27 Heart Rate 90 bpm 2017-12-27 Respiratory Rate 18 2017-12-27 BMI 37.06 kg/m2 2017-12-27 Blood pressure systolic 118 mmHg 2017-12-27 Blood pressure diastolic 88 mmHg 2017-12-27 MEDICATIONS Medication Instructions Dosage Frequency Start Date End Date Duration Status Zofran 4 MG Orally every 8 hours PRN 1 tablet Dec, Active Tamsulosin HCl 0.4 MG Orally Once a day 1 capsule 24h Active Hydrocodone-Acetaminophen 7.5-325 MG Orally every 6 hrs 1 tablet as needed 6h Active Nitrofurantoin Macrocrystal Orally BID 1 capsule 12h Active RESULTS No Results PROCEDURES No Known [...]
--- OUTSIDE RECORDS SUMMARY | 2018-09-21 19:34 | XMS REPORT ---
Author Author BRIELLE CUNNINGHAM Organization [facility] Address [address] [place] [address] Care Team Providers Care Service Desk Technician Name Role Phone BRIELLE CUNNINGHAM Unavailable PROBLEMS Type Condition ICD9-CM Code VSA40-LA Code Onset Dates Condition Status SNOMED Code Problem Vaginal yeast infection B37.3 Active 30102276 Problem Moderate depressive disorder F32.9 Active 564561232 Problem Other chronic pain G89.29 Active 99751700 Problem Chronic gingivitis, plaque induced K05.10 Active 39388004 Problem Hx laparoscopic cholecystectomy Z90.49 Active 558337029 Problem Nephrolithiasis N20.0 Active 21170563 Problem Non morbid obesity due to excess calories E66.09 Active 937052225 Problem Status post cholecystectomy Z90.49 Active 016683690 Problem Gallstones K80.20 Active 534530375 ALLERGIES Substance Reaction Event Type Date Status Sulfamethoxazole-Trimethoprim hives Drug Allergy Dec, Active ENCOUNTERS Encounter Location Date Diagnosis [facility] [address] [place] [address] 30 Feb, 2018 Blister (nonthermal) of oral cavity, initial encounter S00.522A and Chronic gingivitis, plaque induced K05.10 [facility] [address] [place] [address] 47138- 7089 February, Vaginal discharge N89.8 ; Vaginal yeast infection B37.3 ; Acute vaginitis N76.0 and Status post cholecystectomy Z90.49 [facility] [id number] [place] [address] 23487- 8769 03 Feb, 2018 [facility] [address] [place] [address] 20262- 0374 16 Jan, 2018 [facility] [id number] [place] [address] 21339- 2013 Dec, Nephrolithiasis N20.0 ; Gallstones K80.20 and Right lower quadrant abdominal pain R10.31 [facility] [id number] [place] [address] 99740- 7134 Dec, [facility] [id number] [place] [address] 52637- 7328 Dec, [facility] [id number] [place] [address] 31882- 1762 Dec, Unprotected sexual intercourse Z72.51 and Intractable cyclical vomiting with nausea G43.A1 [facility] [address] [id number] Dec, Dental examination Z01.20 [facility] [id number] [place] [address] [id number] Jul, [facility] [id number] [place] [address] 30 Jun, 2017 Concern about STD in female without diagnosis Z71.1 [facility] [address] [place] [address] 60683 -2141 Jun, [facility] [id number] [place] [address] 42523- 2051 Apr, [facility] [address] [place] [address] 11922- 4405 Apr, [facility] [id number] [place] [address] 63276- 9570 Mar, Screening for STD sexually transmitted disease Z11.3 ; control counseling Z30.09 ; Tobacco use Z72.0 ; Moderate depressive disorder F32.9 ; Non morbid obesity due to excess calories E66.09 ; Pain at surgical incision R20.8 ; Low back pain M54.5 and Other chronic pain G89.29 [facility] [id number] [address] Nov, [facility] [address] [id number] [address] Oct, Routine screening for STI (sexually transmitted infection) Z11.3 ; Screening for cervical cancer Z12.4 and Trichomonal cervicitis A59.09 [facility] [id number] [phone] Jul, [facility] [address]00565[address] [id number] Jul, [facility] [address]65[address] [phone] Jul, Possible Z32.00 and Possible exposure to STD Z20.[address]65[address] [phone] Apr, [facility] [address] [place] [address] [phone] Mar, Encounter for surveillance of injectable contraceptive Z30.42 and General medical exam Z00.00 [facility] [address] [id number] [id number] Mar, [facility] [id number] [id number] Oct, Laceration T14.8 [address] [phone] Oct, Laceration T14.8 [address] [id number] Oct, Laceration T14.8 and Encounter for initial prescription of injectable contraceptive Z30.013 [facility] [id number] [address] Jan, [facility] [address] [id number] [address] 9[address] Jan, [place] [address]00565100[place], [place] [id number] Oct, [facility] [address]100[place], [place] [address]- 4[address] Oct, [facility] [address]100[place], [place] [address]- 5[address] Oct, [facility] [address] [id number] [address]- 6739 Oct, [facility] [id number] [place] [address] 316269- 5579 Jun, [address] [id number] [place] [address] [id number] Jun, [id number] [place] [address] [id number] Jun, [facility] [id number] [place] [address] 88305- 1686 Jun, [address] [id number] [place] [address] [id number] Apr, [facility] [address] [id number] [address]- 5781 Apr, [facility] [address]100[place], [place] [address] Apr, [id number] [id number] Apr, IMMUNIZATIONS No Known Immunizations SOCIAL HISTORY Never Assessed REASON FOR VISIT STD check, frequent yeast infections, no vaginal pain or sores/Abdominal pain/ Vomiting has been going on for around 3 months-DK Arango current PLAN OF CARE Activity Details Follow Up prn Reason:vomiting VITAL SIGNS Height 64 in 2017-12-18 Weight 213 lbs 2017-12-18 Temperature 97.8 degrees Fahrenheit 2017-12-18 Heart Rate 84 bpm 2017-12-18 Respiratory Rate 18 2017-12-18 BMI 36.56 kg/m2 2017-12-18 Blood pressure systolic 124 mmHg 2017-12-18 Blood pressure diastolic 76 mmHg 2017-12-18 MEDICATIONS Medication Instructions Dosage Frequency Start Date End Date Duration Status Zofran 4 MG Orally every 8 hours PRN 1 tablet Dec, Active RESULTS No Results PROCEDURES Procedure Date Ordered Result Body Site CULTURE, BACTERIA, OTHER December 18, 2017 No Charge December 18, 2017 URINE TEST December 18, 2017 COMPLETE CBC W/AUTO DIFF WBC December 18, 2017 IMMUNOASSAY,INFECTIOUS AGENT December 18, 2017 Bacterial Vaginosis In House December 18, 2017 ASSAY THYROID STIM HORMONE December 18, 2017 COMPREHEN METABOLIC PANEL December 18, 2017 TRICHOMONAS ASSAY W/OPTIC December 18, 2017 LIPID PANEL December 18, 2017 INSTRUCTIONS MEDICATIONS ADMINISTERED No Known Medications MEDICAL (GENERAL) HISTORY Type Description Date Medical History herpes gential Medical History depression Medical History bipolar disorder Medical History borderline diabetes Surgical History tonsillectomy Surgical History deviated septum repair Surgical History section Surgical History cholecystectomy 02/2018 Hospitalization History childbirth only Hospitalization History ER visit 12/25/17
--- OUTSIDE RECORDS SUMMARY | 2018-09-21 19:34 | XMS REPORT ---
Author Author FUNMILAYO RAMOS Organization [facility] Address [address] [place] [address] Care Team Providers Care Monitoring Tech Name Role Phone FUNMILAYO RAMOS Unavailable PROBLEMS Type Condition ICD9-CM Code [id number] Code Onset Dates Condition Status SNOMED Code Problem Vaginal yeast infection B37.3 Active 98925020 Problem Moderate depressive disorder F32.9 Active 695276198 Problem Other chronic pain G89.29 Active 39325501 Problem Chronic gingivitis, plaque induced K05.10 Active 65455327 Problem Hx laparoscopic cholecystectomy Z90.49 Active 675173963 Problem Nephrolithiasis N20.0 Active 43712637 Problem Non morbid obesity due to excess calories E66.09 Active 158179488 Problem Status post cholecystectomy Z90.49 Active 024477966 Problem Gallstones K80.20 Active 569704427 ALLERGIES No Information ENCOUNTERS Encounter Location Date Diagnosis [facility] [id number] [place] [address] 38237 -4669 30 Feb, 2018 Blister (nonthermal) of oral cavity, initial encounter S00.522A and Chronic gingivitis, plaque induced K05.10 [facility] [address] [place] [address] 93394- 0794 2018 Vaginal discharge N89.8 ; Vaginal yeast infection B37.3 ; Acute vaginitis N76.0 and Status post cholecystectomy Z90.49 [facility] [id number] [place] [address] 42392- 9680 03 Feb, 2018 [facility] [address] [address]- [address]60 16 Jan, 2018 [facility] [id number] [place] [address] 16574- 7380 Dec, Nephrolithiasis N20.0 ; Gallstones K80.20 and Right lower quadrant abdominal pain R10.31 [facility] [address], [place] [address] Dec, [facility] [id number] [place] [address] 90735- 4247 Dec, [facility] [id number] [place] [address] 96879- 5074 Dec, Unprotected sexual intercourse Z72.51 and Intractable cyclical vomiting with nausea G43.A1 [facility] [id number] [place] [address] [id number] Dec, Dental examination Z01.20 [facility] [id number] [place] [address] [id number] Jul, [facility] [id number] [place] [address] Jun, Concern about STD in female without diagnosis Z71.1 [facility] IN [facility] [id number] [place] [address] 25363 -0463 Jun, [facility] [id number] [place] [address] 65704- 6329 Apr, [facility] [id number] [place] [address] 74095- 3126 Apr, [facility] [id number] [place] [address] 67478- 5348 Mar, Screening for STD sexually transmitted disease Z11.3 ; control counseling Z30.09 ; Tobacco use Z72.0 ; Moderate depressive disorder F32.9 ; Non morbid obesity due to excess calories E66.09 ; Pain at surgical incision R20.8 ; Low back pain M54.5 and Other chronic pain G89.29 [facility] [id number] [place] [address] Nov, [facility] [id number] [place] [address] Oct, Routine screening for STI (sexually transmitted infection) Z11.3 ; Screening for cervical cancer Z12.4 and Trichomonal cervicitis A59.09 [address] [id number] Jul, [id number] [place] [address] [id number] Jul, [id number] [place] [address] [id number] Jul, Possible Z32.00 and Possible exposure to STD Z20.2 [id number] [place] [address] [phone] Apr, [id number] [place] [address] [id number] Mar, Encounter for surveillance of injectable contraceptive Z30.42 and General medical exam Z00.00 [facility] [address] [id number] [id number] Mar, [id number] [place] [address] [id number] Oct, Laceration T14.8 [address] [id number] Oct, [place] T14.8 [id number] [place] [address] [phone] Oct, Laceration T14.8 and Encounter for initial prescription of injectable contraceptive Z30.013 [facility] [address] [address] Jan, [facility] [address] [address]- 3[address] Jan, [address] [place] [address] [phone] Oct, [facility] [id number], [place] [address] 1140 Oct, [facility] [address], [place] [address] 7[address] Oct, [facility] [id number], [place] [address] 3[address] Oct, [facility] [address], [place] [address] Jun, [facility] [id number] [id number] Jun, [facility] [address] [place] [address] [place] [address] [phone] Jun, [facility] [address], [place] [address]- [address] Jun, [id number] [place] [address] [phone] Apr, [facility] [address], [place] [address]- 1[address] Apr, [facility] [address], [place] [address] 4420 Apr, [facility] [address] [phone] Apr, IMMUNIZATIONS No Known Immunizations SOCIAL HISTORY Never Assessed REASON FOR VISIT UTI symptoms PLAN OF CARE VITAL SIGNS MEDICATIONS No [...]
--- OUTSIDE RECORDS SUMMARY | 2018-09-21 19:34 | XMS REPORT ---
Author Author FUNMILAYO RAMOS Organization [facility] Address [address] [place] [address] Care Team Providers Care Filling Station Laborer Name Role Phone FUNMILAYO RAMOS Unavailable PROBLEMS Type Condition ICD9-CM Code [id number] Code Onset Dates Condition Status SNOMED Code Problem Vaginal yeast infection B37.3 Active 89128632 Problem Moderate depressive disorder F32.9 Active 237043303 Problem Other chronic pain G89.29 Active 41541913 Problem Chronic gingivitis, plaque induced K05.10 Active 31533646 Problem Hx laparoscopic cholecystectomy Z90.49 Active 937426947 Problem Nephrolithiasis N20.0 Active 00184183 Problem Non morbid obesity due to excess calories E66.09 Active 208720521 Problem Status post cholecystectomy Z90.49 Active 234742986 Problem Gallstones K80.20 Active 822994101 ALLERGIES Substance Reaction Event Type Date Status Sulfamethoxazole-Trimethoprim hives Drug Allergy Mar, Active ENCOUNTERS Encounter Location Date Diagnosis [facility] IN [facility] [address] [place] [address]75 [address]9257 30 Feb, 2018 Blister (nonthermal) of oral cavity, initial encounter S00.522A and Chronic gingivitis, plaque induced K05.10 [facility] [address] [place] [address] 43483- 0909 February, Vaginal discharge N89.8 ; Vaginal yeast infection B37.3 ; Acute vaginitis N76.0 and Status post cholecystectomy Z90.49 [facility] [id number] [place] [address] 03579- 0583 03 Feb, 2018 [facility] [id number] [place] [address] 48158- 8228 16 Jan, 2018 [facility] [id number] [place] [address] 99899- 7583 Dec, Nephrolithiasis N20.0 ; Gallstones K80.20 and Right lower quadrant abdominal pain R10.31 [facility] [id number] [place] [address] 90933- 8577 Dec, [facility] [id number] [place] [address] 60260- 3735 Dec, [facility] [id number] [place] [address] 31022- 7021 Dec, Unprotected sexual intercourse Z72.51 and Intractable cyclical vomiting with nausea G43.A1 [facility] [address] [id number] Dec, Dental examination Z01.20 [facility] [id number] [place] [address] [id number] Jul, [facility] [id number] [place] [address] 30 Jun, 2017 Concern about STD in female without diagnosis Z71.1 [facility] [id number] [place] [address] 50371 -0467 Jun, [facility] [id number] [place] [address] 09243- 3617 Apr, [facility] [id number] [place] [address] 43158- 4001 Apr, [facility] [id number] [place] [address] 71295- 8409 Mar, Screening for STD sexually transmitted disease Z11.3 ; control counseling Z30.09 ; Tobacco use Z72.0 ; Moderate depressive disorder F32.9 ; Non morbid obesity due to excess calories E66.09 ; Pain at surgical incision R20.8 ; Low back pain M54.5 and Other chronic pain G89.29 [facility] [id number] [place] [phone] Nov, [facility] [address] [id number] [address] Oct, Routine screening for STI (sexually transmitted infection) Z11.3 ; Screening for cervical cancer Z12.4 and Trichomonal cervicitis A59.09 [facility] [address]005[address] [phone] Jul, [address] [phone] Jul, [address] [id number] Jul, Possible Z32.00 and Possible exposure to STD Z20.2 [address] [phone] Apr, [id number] [phone] Mar, Encounter for surveillance of injectable contraceptive Z30.42 and General medical exam Z00.00 [facility] [address] [id number] [id number] Mar, [address]65[address] [phone] Oct, [place] T14.8 [address] [phone] Oct, [place] T14.8 [address] [id number] Oct, Laceration T14.8 and Encounter for initial prescription of injectable contraceptive Z30.013 [facility] [address], [place] [address]- 4406 Jan, [facility] [id number], [place] [address] 2[address] Jan, [address] [phone] Oct, [facility] [address], [place] [address]- 5952 Oct, [facility] [address] 70[address] Oct, [facility] [address] [address] 3331 Oct, [facility] [id number] [address] 65[address] Jun, [id number] [place] [id number] Jun, [id number] [place] [address] [phone] Jun, [facility] [id number] [address] 4785 Jun, [address] [id number] Apr, [facility] [id number], [place] [address]- 9210 Apr, [facility] [address], [place] [address]- 4[address] Apr, [id number] [phone] Apr, IMMUNIZATIONS No Known Immunizations SOCIAL HISTORY Never Assessed REASON FOR VISIT Establish Care, Lower back pain x2 years, Wants STD testing/ Patient would like blood test SFondren PLAN OF CARE Activity Details Follow Up 3 Months with Roro f/u BETTIE Reason: VITAL SIGNS Height 64 in 2017-04-06 Weight 220 lbs 2017-04-06 Temperature 97.0 degrees Fahrenheit 2017-04-06 Heart Rate 100 bpm 2017-04-06 Respiratory Rate 18 2017-04-06 BMI 37.76 kg/m2 2017-04-06 Blood pressure systolic 122 mmHg 2017-04-06 Blood pressure diastolic 82 mmHg 2017-04-06 MEDICATIONS Medication Instructions Dosage Frequency Start Date End Date Duration Status Xulane 150-35 MCG/24HR Transdermal weekly 1 patch to skin Mar, 21 day(s) Active BuPROPion HCl 100 mg Orally Once a day 1/2 tablet 24h Mar, 30 day(s) Active RESULTS Name Result Date Reference Range TEST, SERUM (QUAL) 2017-04-06 hCG,Beta Subunit,Qual,Serum Negative Negative <6 A1C 2017-04-06 Hemoglobin A1c 5.8 4.8-5.6 CULTURE, GENITAL 2017-04-06 Genital Culture, Routine Final report Result 1 Result 2 SYPHILIS (STATE) HEP B SURFACE ANTIGEN (STATE) HEP B ANTIBODY negative HEP B ANTIBODY (RML) HEP B ANTIBODY (STATE) GC/CHLAM PROBE (STATE) CHLAMYDIA negative GC negative HIV (STATE) PROCEDURES Procedure Date Ordered Result Body Site No Charge April 06, 2017 CHORIONIC GONADOTROPIN ASSAY April 06, 2017 VENIPUNCT, ROUTINE* April 06, 2017 GLYCATED HEMOGLOBIN TEST April 06, 2017 CULTURE, BACTERIA, OTHER April 06, 2017 INSTRUCTIONS MEDICATIONS ADMINISTERED No Known Medications MEDICAL (GENERAL) HISTORY Type Description Date Medical History herpes gential Medical History depression Medical History bipolar disorder Medical History borderline diabetes Surgical History tonsillectomy Surgical History deviated septum repair Surgical History section Surgical History cholecystectomy 02/2018 Hospitalization History childbirth only Hospitalization History ER visit 12/25/17
--- OUTSIDE RECORDS SUMMARY | 2018-09-21 19:34 | XMS REPORT ---
Author Author MOSHE DE LUNA [facility] Address Unknown Care Team Providers Care Transcribing Operators Supervisor Name Role Phone MOSHE DE LUNA Unavailable PROBLEMS Type Condition ICD9-CM Code RYY20-ZM Code Onset Dates Condition Status SNOMED Code Problem Vaginal yeast infection B37.3 Active 77510772 Problem Moderate depressive disorder F32.9 Active 804475482 Problem Other chronic pain G89.29 Active 77777657 Problem Chronic gingivitis, plaque induced K05.10 Active 32003033 Problem Hx laparoscopic cholecystectomy Z90.49 Active 145100454 Problem Nephrolithiasis N20.0 Active 06938673 Problem Non morbid obesity due to excess calories E66.09 Active 081341188 Problem Status post cholecystectomy Z90.49 Active 031915778 Problem Gallstones K80.20 Active 037901532 ALLERGIES Substance Reaction Event Type Date Status Sulfamethoxazole-Trimethoprim hives Drug Allergy Dec, Active ENCOUNTERS Encounter Location Date Diagnosis [facility] [id number] [place] [address] 36135 -0000 30 Feb, 2018 Blister (nonthermal) of oral cavity, initial encounter S00.522A and Chronic gingivitis, plaque induced K05.10 [facility] [address] [place] [address] 56690- 1224 2018 Vaginal discharge N89.8 ; Vaginal yeast infection B37.3 ; Acute vaginitis N76.0 and Status post cholecystectomy Z90.49 [facility] [id number] [place] [address] 19141- 0651 03 Feb, 2018 [facility] [id number] [place] [address] 53280- 4202 16 Jan, 2018 [facility] [address] [place] [address] 59833- 5427 Dec, Nephrolithiasis N20.0 ; Gallstones K80.20 and Right lower quadrant abdominal pain R10.31 [facility] [address] [place] [address] 55972- 3024 Dec, [facility] [id number] [place] [address] 36828- 0973 Dec, [facility] [id number] [place] [address] 27792- 8765 Dec, Unprotected sexual intercourse Z72.51 and Intractable cyclical vomiting with nausea G43.A1 [facility] [id number] [place] [address] [phone] Dec, Dental examination Z01.20 [facility] [id number] [place] [address] [id number] Jul, [facility] [id number] [place] [address] Jun, Concern about STD in female without diagnosis Z71.1 [facility] [id number] [place] [address] 88938 -4908 Jun, [facility] [id number] [place] [address] 06085- 9274 Apr, [facility] [address] [place] [address] 72767- 3265 Apr, [facility] [address] [place] [address] 40281- 7924 Mar, Screening for STD sexually transmitted disease Z11.3 ; control counseling Z30.09 ; Tobacco use Z72.0 ; Moderate depressive disorder F32.9 ; Non morbid obesity due to excess calories E66.09 ; Pain at surgical incision R20.8 ; Low back pain M54.5 and Other chronic pain G89.29 [facility] [id number] [address] Nov, [facility] [address] [place] [address] Oct, Routine screening for STI (sexually transmitted infection) Z11.3 ; Screening for cervical cancer Z12.4 and Trichomonal cervicitis A59.09 [address] [phone] Jul, [id number] [place] [address] [id number] Jul, [address] [place] [address] [id number] Jul, Possible Z32.00 and Possible exposure to STD Z20.2 [address] [place] [address] [phone] Apr, [id number] [place] [phone] Mar, Encounter for surveillance of injectable contraceptive Z30.42 and General medical exam Z00.00 [facility] [address] [id number] [place] [id number] Mar, [address]65[address] [phone] Oct, Laceration T14.8 [address]005[address] [id number] Oct, Laceration T14.8 [id number] [place] [address] [id number] Oct, Laceration T14.8 and Encounter for initial prescription of injectable contraceptive Z30.013 [facility] [address] [place] [address]- 4162 Jan, [facility] [address], [place] [address]- 6849 Jan, [id number] [place] [address] [phone] Oct, [facility] [address], [place] [address]- 6926 Oct, [facility] [address], [place] [address]- 8589 Oct, [facility] [address], [place] [address]- 7531 Oct, [facility] [address] [place], [place] [address]- 5398 Jun, [id number] [place] [address] [phone] Jun, [id number] [place] [address] [id number] Jun, [facility] [address], [place] [address]- 0446 Jun, [id number] [place] [address] [id number] Apr, [facility] [address], [place] [address]- 4955 Apr, [facility] [address], [place] [address]- 4123 Apr, [address]65[address] [phone] Apr, IMMUNIZATIONS No Known Immunizations SOCIAL HISTORY Never Assessed REASON FOR VISIT heather/abscess PLAN OF CARE Activity Details Follow Up prn Reason:30 min TE VITAL SIGNS Blood pressure systolic 116 mmHg 2017-12-13 Blood pressure diastolic 73 mmHg 2017-12-13 MEDICATIONS No Known Medications RESULTS No Results PROCEDURES Procedure Date Ordered Result Body Site LTD ORAL EVALUATION - PROBLEM FOCUS December 13, 2017 INTRAORL-PERIAPICAL 1 FILM [id number] December 13, 2017 INSTRUCTIONS MEDICATIONS ADMINISTERED No Known Medications MEDICAL (GENERAL) HISTORY Type Description Date Medical History herpes gential Medical History depression Medical History bipolar disorder Medical History borderline diabetes Surgical History tonsillectomy Surgical History deviated septum repair Surgical History section Surgical History cholecystectomy 02/2018 Hospitalization History childbirth only Hospitalization History ER visit 12/25/17
--- OUTSIDE RECORDS SUMMARY | 2018-09-21 19:35 | XMS REPORT ---
Author Author MOSHE DE LUNA [facility] Address Unknown Care Team Providers Care Lead Driver Name Role Phone MOSHE DE LUNA Unavailable PROBLEMS Type Condition ICD9-CM Code [id number] Code Onset Dates Condition Status SNOMED Code Problem Moderate depressive disorder F32.9 Active 330812714 Problem Vaginal yeast infection B37.3 Active 03811011 Problem Hx laparoscopic cholecystectomy Z90.49 Active 182189989 Problem Status post cholecystectomy Z90.49 Active 978148996 Problem Non morbid obesity due to excess calories E66.09 Active 741794656 Problem Other chronic pain G89.29 Active 06917300 Problem Gallstones K80.20 Active 188819207 Problem Nephrolithiasis N20.0 Active 93418059 ALLERGIES No Information ENCOUNTERS Encounter Location Date Diagnosis [place] [id number] [place] [address] February, Vaginal discharge N89.8 ; Vaginal yeast infection B37.3 ; Acute vaginitis N76.0 and Status post cholecystectomy Z90.49 [facility] [address] [place] [address] February, [facility] [id number] [place] [address] Jan, [facility] [id number] [place] [address] Dec, Nephrolithiasis N20.0 ; Gallstones K80.20 and Right lower quadrant abdominal pain R10.31 [facility] [id number] [place] [address] 1447 Dec, [facility] [id number] [place] [address] 5847 Dec, [facility] [address] [address] Dec, Unprotected sexual intercourse Z72.51 and Intractable cyclical vomiting with nausea G43.A1 [facility] [address] [phone] Dec, Dental examination Z01.20 [facility] [address] [phone] Jul, [facility] [id number] [place] [phone] Jun, Concern about STD in female without diagnosis Z71.1 [facility] [id number] [place] [address] Jun, [facility] [address] [place] [phone] Apr, [facility] [id number] [place] [phone]- [phone] Apr, [facility] [address] [place] [address] Mar, Screening for STD sexually transmitted disease Z11.3 ; control counseling Z30.09 ; Tobacco use Z72.0 ; Moderate depressive disorder F32.9 ; Non morbid obesity due to excess calories E66.09 ; Pain at surgical incision R20.8 ; Low back pain M54.5 and Other chronic pain G89.29 [facility] [address] [id number] [address] Nov, [facility] [id number] [address] Oct, Routine screening for STI (sexually transmitted infection) Z11.3 ; Screening for cervical cancer Z12.4 and Trichomonal cervicitis A59.09 [address] [id number] Jul, [place] [id number] [phone] Jul, [place] [address] [phone] Jul, Possible Z32.00 and Possible exposure to STD Z20.2 [facility] [address]65[address] [phone] Apr, [facility] [id number] [place] [phone] Mar, Encounter for surveillance of injectable contraceptive Z30.42 and General medical exam Z00.00 [facility] [id number] [place] [phone] Mar, [facility] [address] [phone] Oct, Laceration T14.8 [place] [address] [phone] Oct, [place] T14.8 [place] [id number] [place] [phone] Oct, Laceration T14.8 and Encounter for initial prescription of injectable contraceptive Z30.013 [place] [address] [address] Jan, [facility] [id number] [place] [address] Jan, [address] [phone] Oct, [facility] [id number] [place] [address] Oct, [facility] [id number] [place] [phone] Oct, [facility] [id number] [place] [phone] Oct, [facility] [address] [address] Jun, [facility] [address] [phone] Jun, [facility] [address] [phone] Jun, [facility] [address] [address] Jun, [address] [phone] Apr, [facility] [address] [address] Apr, [facility] [address] [address] Apr, [address] [phone] Apr, IMMUNIZATIONS No Known Immunizations SOCIAL HISTORY Never Assessed REASON FOR VISIT Dental appt PLAN OF CARE VITAL SIGNS MEDICATIONS No [...]
--- OUTSIDE RECORDS SUMMARY | 2018-09-21 19:37 | XMS REPORT | Continuity of Care Document ---
Author Author [facility] Organization [facility] Address [facility] [address] [place] [address] Phone Unavailable Support Name Relationship Address Phone HARRISON MCCLURE DO Caregiver Unknown Unavailable GIORGI BILLS D.O. Caregiver [address] [place] [address] ELKE CHAPARRO Next Of Kin [address] [place] [address] Insurance Providers Payer Name Policy Number Subscriber Name Relationship [facility] [id number] Kita Lopez 18 Self / Same As Patient Advance Directives Directive Response Recorded Date/Time Advance Directives No 08/04/13 12:55pm Living Will No 08/04/13 12:55pm Health Care Proxy No 12/04/14 1:42pm Power of Agribusiness Professor for Health Care No 08/04/13 12:55pm Organ, Tissue, or Eye Donor No 08/04/13 12:55pm Do you have a signed organ donor card? No 08/04/13 12:55pm Problems Medical Problems Problem Onset Date Status Anxiety Unknown Active nausea Unknown Active nausea, resolved Unknown Active Contusion Unknown Active finger fracture Unknown Active Bronchitis Unknown Active Medications Medication Dose Route Sig Days/Qty Instructions Order Date Discontinued Date Status Medroxyprogesterone Acet 07/09/13 Active Acetaminophen/Hydrocodone Bitart (Lortab 5-500mg*) 1 Ea PO EVERY 4-6 HRS NEEDED PAIN 15 Qty 08/04/13 02/25/14 Discontinued Social History Social History Problem Response Recorded Date/Time Smoking Status Current every day smoker 07/09/2013 9:41pm Tobacco Use Denies Use 05/07/2013 9:17pm Sexual History Heterosexual 07/09/2013 9:41pm Query Response Start Date Stop Date Smoking Status Current every day smoker Hospital Discharge Instructions No hospital discharge instructions. Plan of Care No plan of care. Functional Status Query Response Date Recorded [place] Coma Scale Total 15 December 04, 2014 1:50pm Patient Behavior Appropriate December 04, 2014 1:50pm Allergies, Adverse Reactions, Alerts Allergen Type Severity Reaction Status Last Updated SULFA (SULFONAMIDE ANTIBIOTICS) Allergy Unknown Active 12/04/14 Immunizations Name Given Type Hx Diphtheria, Pertussis, Tetanus Vaccination Unknown Historical Hx Influenza Vaccination Y 2015 Historical Hx Pneumococcal Vaccination No Historical Vital Signs Acute Vital Signs Vital Response Date/Time Temperature (Fahrenheit) 98.6 degrees F (97.6 - 99.5) Temperature Source Temporal Artery Pulse Rate (adult) 112 bpm (60 - 90) Respiratory Rate 22 bpm (12 - 24) Blood Pressure 121/66 mm Hg O2 Sat by Pulse Oximetry 96 % (90 - 100) Oxygen Delivery Method Pain Intensity 7 Pain Description Height 5 ft 4 in Weight 196 lb Body Mass Index 33.0 kg/m^2 Results Test Source Date Result Interp. Ref. Range Comments Alanine Aminotransferase (ALT/SGPT) June 09, 2013 5:00pm 31 U/L N 12-78 Albumin June 09, 2013 5:00pm 4.0 gm/dL N 3.4-5.0 Aspartate Amino Transf (AST/SGOT) June 09, 2013 5:00pm 17 U/L N 15- 37 Basophils # (Auto) July 09, 2013 7:34pm 0.2 K/uL N 0.0-0.2 Basophils (%) (Auto) July 09, 2013 7:34pm 2.1 % H 0.0-1.0 Blood Urea Nitrogen June 09, 2013 5:00pm 11 mg/dL N 7-18 Calcium Level June 09, 2013 5:00pm 9.0 mg/dL N 8.8-10.5 Carbon Dioxide Level June 09, 2013 5:00pm 28.5 mEq/L N 21-32 Chloride Level June 09, 2013 5:00pm 104 mEq/L N 98-107 Creatinine June 09, 2013 5:00pm 1.0 mg/dL N 0.6-1.0 Eosinophils # (Auto) July 09, 2013 7:34pm 0.5 K/uL N 0.0-0.7 Eosinophils (%) (Auto) July 09, 2013 7:34pm 6.4 % H 0.0-2.0 Hematocrit July 09, 2013 7:34pm 40.8 % N 37.0-47.0 Hemoglobin July 09, 2013 7:34pm 13.5 gm/dL N 12.0-16.0 Lymphocytes # (Auto) July 09, 2013 7:34pm 2.3 K/uL N 1.2-3.4 Lymphocytes (%) (Auto) July 09, 2013 7:34pm 30.2 % N 20.5-51.1 Mean Corpuscular Hemoglobin July 09, 2013 7:34pm 29.3 pg N 27.0-31.0 Mean Corpuscular Hemoglobin Concent July 09, 2013 7:34pm 33.1 g/dL N 30.0-37.0 Mean Corpuscular Volume July 09, 2013 7:34pm 88.3 fL N 81.0-99.0 Mean Platelet Volume July 09, 2013 7:34pm 6.8 fL L 7.4-10.4 Monocytes # (Auto) July 09, 2013 7:34pm 0.6 K/uL N 0.1-0.6 Monocytes (%) (Auto) July 09, 2013 7:34pm 8.6 % N 1.7-9.3 Neutrophils # (Auto) July 09, 2013 7:34pm 4.0 K/uL N 2.0-6.9 Neutrophils (%) (Auto) July 09, 2013 7:34pm 52.7 % N 42.2-75.2 Platelet Count July 09, 2013 7:34pm 240 K/uL N 130-400 Potassium Level June 09, 2013 5:00pm 3.9 mEq/L N 3.5-5.0 Random Glucose June 09, 2013 5:00pm 87 mg/dL N 70-110 Red Blood Count July 09, 2013 7:34pm 4.62 M/uL N 4.20-5.40 Red Cell Distribution Width July 09, 2013 7:34pm 12.5 % N 11.5-14.5 Sodium Level June 09, 2013 5:00pm 140 mEq/L N 136-145 Total Alkaline Phosphatase June 09, 2013 5:00pm 81 U/L N 50-136 Total Bilirubin June 09, 2013 5:00pm 0.50 mg/dL N 0.00-1.00 Total Protein June 09, 2013 5:00pm 7.8 gm/dL N 6.4-8.2 Urine Amorphous Sediment July 09, 2013 9:00pm 1+ H - Urine Appearance July 09, 2013 9:00pm Cloudy H - Urine Bacteria July 09, 2013 9:00pm 1+ H - Urine Bilirubin July 09, 2013 9:00pm 1+ (small) H - Urine Color July 09, 2013 9:00pm [place] H - Urine Glucose (UA) July 09, 2013 9:00pm Negative mg/dL - Urine HCG, Qualitative July 09, 2013 9:00pm Negative - Urine Ketones July 09, 2013 9:00pm Negative mg/dL - Urine Leukocyte Esterase July 09, 2013 9:00pm Negative - Urine Mucus July 09, 2013 9:00pm N - Urine Nitrate July 09, 2013 9:00pm Negative - Urine Occult Blood July 09, 2013 9:00pm 3+ (large) H - Urine Protein July 09, 2013 9:00pm 1+ (30 mg/dl) mg/dL H - Urine RBC July 09, 2013 9:00pm 100-150 /hpf - Urine Specific [place] July 09, 2013 9:00pm 1.020 N 1.010-1.025 Urine Squamous Epithelial Cells July 09, 2013 9:00pm 5-10 /hpf H - Urine Urobilinogen July 09, 2013 9:00pm 4.0 E.U./dL - Urine WBC July 09, 2013 9:00pm 1-3 /hpf - Urine pH July 09, 2013 9:00pm 7.5 - White Blood Count July 09, 2013 7:34pm 7.6 K/uL N 4.8-10.8 Glomerular Filtration Rate Calc June 09, 2013 5:00pm 76.8 mL/min N 60.0-128.0 Urine Culture Urine,Random July 09, 2013 9:00pm Procedures No known history of procedures. Encounters Encounter Location Date/Time Departed Emergency Room [facility] 12/04/14 1:45pm Recent Diagnosis
--- OUTSIDE RECORDS SUMMARY | 2018-09-21 19:37 | XMS REPORT | CCD ---
Author Author TRISTIN JARRELL ELKEGianluca Organization Unknown Address [address] [facility] [address] [place], [place] [address] Care Team Providers Care Boring Inspector Name Role Phone [facility], REJI DO Attphys [facility], REJI DO Prisurg Vital Signs Unknown or Not Available. Allergies Unknown or Not Available. Procedures Procedure Code Procedure Type Date ^CULTURE URINE IDENTIFICATION 459929269 SNOMED CT 2013 CULTURE URINE 356126914 SNOMED CT 08/04/2014 TEST URINE 331232135 SNOMED CT 08/04/2014 CHLAMYDIA/GC AMPLIFIED DNA 873483639 SNOMED CT 08/04/2014 URINALYSIS C&S IF IND [id number] SNOMED CT 08/04/2014 History of Immunizations Unknown or Not Available. Problems Unknown or Not Available. Medications Unknown or Not Available. Medications Administered Unknown or Not Available. Encounters Encounter Diagnosis Diagnosis Code Start Date URIN TRACT INFECTION NOS 5990 08/04/2014 Social History Smoking Status Code Start Date End Date Current every day smoker 537514117 Patient Decision Aids Unknown or Not Available. Discharge Instructions You were admitted to [facility] on 08/04/2014 with a principal diagnosis of URIN TRACT INFECTION NOS. You had the following tests done: Neisseria Gonorrhoeae Chlamydia Trachomatis You were discharged from [facility] on 08/04/2014. Should you have any questions prior to discharge, please contact a member of your healthcare team. If you have left the hospital and have any questions, please contact your primary care physician. Chief Complaint and Reason For Visit Chief Complaint Date of Onset POSS UTI Function Status Unknown or Not Available. Referral/Transition of Care Unknown or Not Available.
--- OUTSIDE RECORDS SUMMARY | 2018-09-21 19:37 | XMS REPORT | Continuity of Care Document ---
Author Author [facility] Organization [facility] Address [facility] [address] [place] [address] Phone Unavailable Support Name Relationship Address Phone GIORGI BILLS D.O. Caregiver [address] [place] [address] [place] Next Of Kin [address] [place] [address] Insurance Providers Payer Name Policy Number Subscriber Name Relationship [facility] [id number] Kita Lopez 18 Self / Same As Patient Advance Directives Directive Response Recorded Date/Time Advance Directives No 08/04/13 12:55pm Living Will No 08/04/13 12:55pm Health Care Proxy No 12/13/14 2:40pm Power of Reacher for Health Care No 08/04/13 12:55pm Organ, Tissue, or Eye Donor No 08/04/13 12:55pm Do you have a signed organ donor card? No 08/04/13 12:55pm Problems Medical Problems Problem Onset Date Status Anxiety Unknown Active nausea Unknown Active nausea, resolved Unknown Active Contusion Unknown Active finger fracture Unknown Active Bronchitis Unknown Active Bronchitis Unknown Active Unknown Active Sinusitis, acute Unknown Active Medications Medication Dose Route Sig Days/Qty Instructions Order Date Discontinued Date Status Medroxyprogesterone Acet 07/09/13 Active Acetaminophen/Hydrocodone Bitart (Lortab 5-500mg*) 1 Ea PO EVERY 4-6 HRS NEEDED PAIN 15 Qty 08/04/13 02/25/14 Discontinued Amoxicillin 875 Mg PO TWICE A DAY 28 Qty 12/13/14 Active Social History Social History Problem Response Recorded Date/Time Smoking Status Current every day smoker 07/09/2013 9:41pm Tobacco Use Denies Use 05/07/2013 9:17pm Sexual History Heterosexual 07/09/2013 9:41pm Query Response Start Date Stop Date Smoking Status Current every day smoker Hospital Discharge Instructions No hospital discharge instructions. Plan of Care No plan of care. Functional Status Query Response Date Recorded Patient Behavior Cooperative Appropriate December 13, 2014 3:07pm Allergies, Adverse Reactions, Alerts Allergen Type Severity Reaction Status Last Updated SULFA (SULFONAMIDE ANTIBIOTICS) Allergy Unknown Active 12/04/14 Immunizations Name Given Type Hx Diphtheria, Pertussis, Tetanus Vaccination Not Up To Date Historical Hx Influenza Vaccination No Historical Hx Pneumococcal Vaccination No Historical Vital Signs Acute Vital Signs Vital Response Date/Time Temperature (Fahrenheit) 98.1 degrees F (97.6 - 99.5) Temperature Source Temporal Artery Pulse Rate (adult) 89 bpm (60 - 90) Respiratory Rate 16 bpm (12 - 24) Blood Pressure 103/50 mm Hg O2 Sat by Pulse Oximetry 97 % (90 - 100) Oxygen Delivery Method Pain Intensity 5 Pain Description Pain Duration WHEN LEANING OVER Height 5 ft 4 in Weight 194 lb Body Mass Index 33.0 kg/m^2 Results [...] - Urine Color July 09, 2013 9:00pm [place] H - Urine Glucose (UA) July 09, [...] 2013 9:00pm 100-150 /hpf - Urine Specific [place] July 09, 2013 9:00pm 1.020 N 1.010-1.025 [...] Encounters Encounter Location Date/Time Departed Emergency Room [facility] 12/13/14 2:41pm Departed Emergency Room [facility] 12/04/14 1:45pm Recent Diagnosis
--- OUTSIDE RECORDS SUMMARY | 2018-09-21 19:38 | XMS REPORT | Continuity of Care Document ---
Author Author [facility] Organization [facility] Address Unknown Phone Unavailable Allergies Active Description Code Type Severity Reaction Onset Reported/Identified Relationship to Patient Clinical Status Yes SULFA Drug Allergy N/A N/A Yes SULFA (sulfonamide) [id number] CLASS N/A N/A Yes Sulfa (Sulfonamide Antibiotics) [id number] Drug Allergy Unknown N/A 2017 Medications Medication [...] Ot F17.210 NICOTINE DEPENDENCE, CIGARETTES, UNCOMPL 05/03/2017 TTAYANA ESPINOZA Ot J20.9 ACUTE BRONCHITIS, UNSPECIFIED 05/03/2017 [...] 12/26/2017 ISABELLE DO, KATIE K Ot Z79.52 CARE HOME (CURRENT) USE OF SYSTEMIC STER 12/26/2017 ISABELLE DO, KATIE K Ot Z87.59 PERSONAL HISTORY OF COMP OF PREG, CHLDBR 12/26/2017 ISABELLE DO, KATIE K Ot Z88.0 ALLERGY STATUS TO PENICILLIN 12/26/2017 ISABELLE DO, KATIE K Ot Z90.89 ACQUIRED ABSENCE OF OTHER ORGANS 12/27/2017 ISABELLE DO, KATIE K Ot F17.210 NICOTINE DEPENDENCE, CIGARETTES, UNCOMPL 12/27/2017 ISABELLE DO, KATIE K Ot J45.909 UNSPECIFIED ASTHMA, UNCOMPLICATED 12/27/2017 ISABELLE DO, KATIE K Ot K80.20 CALCULUS OF GALLBLADDER W/O CHOLECYSTITI 12/27/2017 ISABELLE DO, KATIE K Ot N20.1 CALCULUS OF URETER 12/27/2017 ISABELLE DO, KATIE K Ot R10.84 GENERALIZED ABDOMINAL PAIN 12/27/2017 ISABELLE DO, KATIE K Ot Z79.52 ADHESION TESTER (CURRENT) USE OF SYSTEMIC STER 12/27/2017 ISABELLE DO, KATIE K Ot Z87.59 PERSONAL HISTORY OF COMP OF PREG, CHLDBR 12/27/2017 ISABELLE DO, KATIE K Ot Z88.0 ALLERGY STATUS TO PENICILLIN 12/27/2017 ISABELLE DO, KATIE K Ot Z90.89 ACQUIRED ABSENCE OF OTHER ORGANS 02/16/2018 ISABELLE DO, KATIE K Ot F17.210 NICOTINE DEPENDENCE, CIGARETTES, UNCOMPL 02/16/2018 ISABELLE DO, KATIE K Ot J45.909 UNSPECIFIED ASTHMA, UNCOMPLICATED 02/16/2018 ISABELLE DO, KATIE K Ot K80.20 CALCULUS OF GALLBLADDER W/O CHOLECYSTITI 02/16/2018 ISABELLE DO, KATIE K Ot N20.1 CALCULUS OF URETER 02/16/2018 ISABELLE DO, KATIE K Ot R10.84 GENERALIZED ABDOMINAL PAIN 02/16/2018 ISABELLE DO, KATIE K Ot Z79.52 ADHESION TESTER (CURRENT) USE OF SYSTEMIC STER 02/16/2018 KATIE WALTON DO Ot Z87.59 PERSONAL HISTORY OF COMP OF PREG, CHLDBR 02/16/2018 KATIE WALTON DO Ot Z88.0 ALLERGY STATUS TO PENICILLIN 02/16/2018 KATIE WALTON DO Ot Z90.89 ACQUIRED ABSENCE OF OTHER ORGANS [...] Ot Z90.89 ACQUIRED ABSENCE OF OTHER ORGANS 02/19/2018 SUHAS VIDES DO Ot K80.20 CALCULUS OF GALLBLADDER W/O CHOLECYSTITI 02/19/2018 SUHAS VIDES DO Ot Z01.818 ENCOUNTER FOR OTHER PREPROCEDURAL EXAMIN 02/21/2018 SUHAS VIDES DO Ot F17.210 NICOTINE DEPENDENCE, CIGARETTES, UNCOMPL 02/21/2018 SUHAS VIDES DO Ot G43.909 MIGRAINE, UNSP, NOT INTRACTABLE, WITHOUT 02/21/2018 SUHAS VIDES DO Ot J45.909 UNSPECIFIED ASTHMA, UNCOMPLICATED 02/21/2018 SUHAS VIDES DO Ot K21.9 GASTRO-ESOPHAGEAL REFLUX DISEASE WITHOUT 02/21/2018 SUHAS VIDES DO Ot K80.10 CALCULUS OF GALLBLADDER W CHRONIC CHOLEC 02/21/2018 SUHAS VIDES DO Ot N20.2 CALCULUS OF KIDNEY WITH CALCULUS OF URET 02/21/2018 SUHAS VIDES DO Ot Z11.2 ENCOUNTER FOR SCREENING FOR OTHER BACTER 02/23/2018 SUHAS VIDES DO Ot F17.210 NICOTINE DEPENDENCE, CIGARETTES, UNCOMPL 02/23/2018 SUHAS VIDES DO Ot G43.909 MIGRAINE, UNSP, NOT INTRACTABLE, WITHOUT 02/23/2018 SUHAS VIDES DO Ot J45.909 UNSPECIFIED ASTHMA, UNCOMPLICATED 02/23/2018 SUHAS VIDES DO Ot K21.9 GASTRO-ESOPHAGEAL REFLUX DISEASE WITHOUT 02/23/2018 SUHAS VIDES DO B Ot K80.10 CALCULUS OF GALLBLADDER W CHRONIC CHOLEC 02/23/2018 SUHAS VIDES DO B Ot N20.2 CALCULUS OF KIDNEY WITH CALCULUS OF URET 02/23/2018 SUHAS VIDES DO B Ot Z11.2 ENCOUNTER FOR SCREENING FOR OTHER BACTER 02/28/2018 SUHAS VIDES DO B Ot F17.210 NICOTINE DEPENDENCE, CIGARETTES, UNCOMPL 02/28/2018 SUHAS VIDES DO B Ot G43.909 MIGRAINE, UNSP, NOT INTRACTABLE, WITHOUT 02/28/2018 SUHAS VIDES DO B Ot J45.909 UNSPECIFIED ASTHMA, UNCOMPLICATED 02/28/2018 SUHAS VIDES DO B Ot K21.9 GASTRO-ESOPHAGEAL REFLUX DISEASE WITHOUT 02/28/2018 SUHAS VIDES DO B Ot K80.10 CALCULUS OF GALLBLADDER W CHRONIC CHOLEC 02/28/2018 SUHAS VIDES DO B Ot N20.2 CALCULUS OF KIDNEY WITH CALCULUS OF URET 02/28/2018 SUHAS VIDES DO B Ot Z11.2 ENCOUNTER FOR SCREENING FOR OTHER BACTER Procedures Code [place] [address] UA LONG DIP 10/28/2014 Results Test Result [...] 7-25 CREATININE 0.83 mg/dL 0.50-1.10 eGFR NON-AFR. [facility] 100 mL/min/1.73m2 > OR=60 eGFR 116 mL/min/1.73m2 [...] 9.7 fL 7.5-12.5 ABSOLUTE NEUTROPHILS 6908 cells/uL 6984-3583 ABSOLUTE LYMPHOCYTES 2202 cells/uL 850-3900 ABSOLUTE MONOCYTES [...] URINE CULTURE RESULTS IF STILL NEEDED NRG Urine beta human chorionic gonadotropin (hCG) measurement - 02/21/18 09:45 Urine beta human chorionic gonadotropin (hCG) measurement NEGATIVE NEGATIVE Methicillin resistant Staphylococcus aureus (MRSA) screening culture - 10:00 Methicillin resistant Staphylococcus aureus (MRSA) screening culture NEG NRG Complete blood count (CBC) with automated white blood cell (WBC) differential - 02/21/18 10:40 Blood leukocytes automated count (number/volume) 7.1 10*3/uL 4.3-11.0 Blood erythrocytes automated count (number/volume) 4.50 10*6/uL 4.35-5.85 Venous blood hemoglobin measurement (mass/volume) 13.7 g/dL 11.5-16.0 Blood hematocrit (volume fraction) 41 % 35-52 Automated erythrocyte mean corpuscular volume 91 [foz_us] 80-99 Automated erythrocyte mean corpuscular hemoglobin (mass per erythrocyte) 30 pg 25-34 Automated erythrocyte mean corpuscular hemoglobin concentration measurement ( mass/volume) 34 g/dL 32-36 Automated erythrocyte distribution width ratio 14.3 % 10.0-14.5 Automated blood platelet count (count/volume) 273 10*3/uL 130-400 Automated blood platelet mean volume measurement 9.3 [foz_us] 7.4-10.4 Automated blood neutrophils/100 leukocytes 59 % 42-75 Automated blood lymphocytes/100 leukocytes 28 % 12-44 Blood monocytes/100 leukocytes 9 % 0-12 Automated blood eosinophils/100 leukocytes 4 % 0-10 Automated blood basophils/100 leukocytes 1 % 0-10 Blood neutrophils automated count (number/volume) 4.2 10*3 1.8-7.8 Blood lymphocytes automated count (number/volume) 2.0 10*3 1.0-4.0 Blood monocytes automated count (number/volume) 0.7 10*3 0.0-1.0 Automated eosinophil count 0.3 10*3/uL 0.0-0.3 Automated blood basophil count (count/volume) 0.0 10*3/uL 0.0-0.1 CULTURE, GENITAL - 02/23/18 10:57 CULTURE, GENITAL SEE NOTE NRG CULTURE, GENITAL - 04/27/18 14:21 CULTURE, GENITAL SEE NOTE NRG GC/CHLAMYDIA (SWAB OR URINE)-RAPID - 08/27/18 12:33 CHLAMYDIA TRACHOMATIS RNA, TMA NOT DETECTED NOT DETECTED NEISSERIA GONORRHOEAE RNA, TMA NOT DETECTED NOT DETECTED COMMENT NRG Encounters ACCT No. Visit Date/Time Discharge Status Pt. Type Provider Facility Loc./Unit Complaint [id number] 08/05/2015 15:51:36 08/05/2015 23:59:59 CLS Outpatient Shikha Kessler [id number] 07/13/2015 13:13:24 07/13/2015 23:59:59 CLS Outpatient Shikha Kessler [id number] 05/18/2015 22:28:33 05/18/2015 23:59:59 CLS Outpatient Heath Salomon [id number] 05/18/2015 22:19:16 05/18/2015 23:59:59 CLS Outpatient Heath Salomon [id number] 05/18/2015 22:09:03 05/18/2015 23:59:59 CLS Outpatient Heath Salomon [id number] 05/18/2015 22:09:00 05/18/2015 23:59:59 CLS Outpatient Heath Salomon [id number] 05/18/2015 22:00:04 05/18/2015 23:59:59 CLS Outpatient Heath Salomon [id number] 05/18/2015 21:55:44 05/18/2015 23:59:59 CLS Outpatient Heath Salomon [id number] 05/18/2015 21:27:14 05/18/2015 23:59:59 CLS Outpatient Heath Salomon [id number] 02/05/2015 14:21:31 02/05/2015 23:59:59 CLS Outpatient Stephanie Hendrickson [id number] 02/02/2015 18:12:04 02/02/2015 23:59:59 CLS Outpatient Heath Salomon [id number] 01/16/2015 12:03:06 01/16/2015 23:59:59 CLS Outpatient Heath Salomon [id number] 01/08/2015 15:34:50 01/08/2015 23:59:59 CLS Outpatient Heath Salomon [id number] 09/24/2014 10:52:17 09/24/2014 23:59:59 CLS Outpatient Heath Salomon [id number] 09/10/2014 17:00:27 09/10/2014 23:59:59 CLS Outpatient Heath Salomon [id number] 11/04/2014 09:42:45 11/04/2014 09:42:46 DIS Outpatient [id number] 04/10/2017 13:05:00 Document Registration [id number] 09/01/2018 12:10:00 09/01/2018 23:59:59 CLS Out[facility] [id number] 08/27/2018 09:40:00 Document Registration [id number] 04/27/2018 11:50:00 Document Registration [id number] 02/23/2018 10:20:00 Document Registration [id number] 12/18/2017 13:45:00 Document Registration [id number] 12/18/2017 13:00:00 Document Registration [id number] 07/13/2015 13:08:41 07/13/2015 23:59:59 CLS Outpatient Shikha Kessler [id number] 10/18/2014 10:27:25 10/18/2014 10:27:25 DIS Outpatient [id number] 08/22/2014 13:04:14 Document Registration [id number] 08/14/2014 17:07:25 Document Registration [id number] 08/14/2014 17:07:24 Document Registration [id number] 08/14/2014 17:07:23 Document Registration [id number] 08/14/2014 17:07:19 Document Registration [id number] 08/14/2014 17:07:16 Document Registration [id number] 10/28/2014 16:16:00 10/28/2014 23:59:59 CLS Outpatient YUE ORTEGA MD [id number] 06/14/2013 08:59:00 06/14/2013 23:59:59 CLS Outpatient YUE ORTEGA MD [id number] 05/06/2013 15:26:00 Document Registration [id number] 04/07/2017 11:08:00 Document Registration [id number] 05/27/2017 14:28:25 Document Registration [id number] 05/27/2017 14:24:56 Document Registration [id number] 02/21/2018 09:34:00 02/21/2018 14:52:00 DIS Outpatient SUHAS VIDES DO [facility] CHOLELITHIASIS [id number] 02/19/2018 05:41:00 02/19/2018 13:49:00 DIS Outpatient MAHOGANY BEY SUHAS Herman [facility] PREOP LAP LEIF [id number] 12/29/2017 07:00:00 12/29/2017 23:59:59 CLS Preadmit BRIELLE CUNNINGHAM ELEMENTARY EDUCATOR [facility] RAD G43.A1 VOMITING W/NAUSEA [id number] 12/25/2017 23:16:00 12/26/2017 02:03:00 DIS Emergency KATIE WALTON DO [facility] ER ABD PAIN [id number] 09/10/2017 15:31:00 09/10/2017 17:07:00 DIS Emergency OSCAR HENDRIX ELEMENTARY EDUCATOR [facility] ER DENTAL PAIN/FACIAL SWELLING [id number] 05/01/2017 20:33:00 05/01/2017 21:33:00 DIS Emergency TATYANA ESPINOZA [facility] ER CHEST PAIN/COUGH [id number] 09/21/2018 19:22:00 ACT Emergency NIKHIL STODDARD MD [facility] ER PAIN FROM WISDOM TEETH REMOVAL [id number] 05/06/2017 17:01:00 Document Registration
--- NOTE | 2018-09-21 20:00 | ED EENT ---
History of Present Illness General Chief Complaint: Dental Problems/Pain Stated Complaint: PAIN FROM WISDOM TEETH REMOVAL Nursing Triage Note: PT STATES SHE HAD WISDOM TEETH REMOVED 2 DAYS AGO. PT REPORTS BILATERAL UPPER AND LOWER PAIN IN THE REMOVAL SITES. PT HAS BEEN DRINKING THROUGH A STRAW AND SMOKING SINCE SURGERY. Source: patient Exam Limitations: no limitations History of Present Illness Date Seen by Provider: Sep 21, 2018 Time Seen by Provider: 20:00 Initial Comments 23-year-old female patient presents to the emergency department with complaints of mouth pain after having her wisdom teeth removed 2 days ago. Patient states she has been smoking and drinking through a straw since surgery. Also states she was only given 12 tablets of hydrocodone, denies having any hydrocodone at home. Timing/Duration: other (2 day onset) Location: dental Prearrival Treatment: no prearrival treatment (denies taking any medications today) Modifying Factors: Worse With Other (mild improvement with the lortab) Allergies and Home Medications Allergies Coded Allergies: Sulfa (Sulfonamide Antibiotics) (Verified Allergy, Unknown, 02/19/18) Home Medications Amoxicillin 500 Mg Capsule, 1,000 MG PO BID Prescribed by: TATYANA ESTES on 09/21/182017 Hydrocodone Bit/Acetaminophen 1 Tab Tab, 1 TAB PO Q6H PRN Prescribed by: SUHAS VIDES on 02/21/181199 Tramadol HCl 50 Mg Tablet, 50 MG PO Q6H PRN for pain Prescribed by: TATYANA ESTES on 09/21/182017 Patient Home Medication List Home Medication List Reviewed: Yes Review of Systems Review of Systems Constitutional: No chills, No fever, No malaise Eyes: No Symptoms Reported Ears: No Symptoms Reported Nose: no symptoms reported Mouth: see HPI, pain Throat: no symptoms reported Respiratory: no symptoms reported Cardiovascular: no symptoms reported Gastrointestinal: no symptoms reported Skin: no symptoms reported Neurological: No Symptoms Reported All Other Systems Reviewed Negative Unless Noted: Yes (Negative excepted noted.) Past Qogkkfa-Fwyizf-Betzzs Hx Past Med/Social Hx: Reviewed Nursing Past Med/Soc Hx Patient Social History Alcohol Use: Denies Use Number of Drinks Today: Alcohol Beverage of Choice: Wine Recreational Drug Use: No Type Used: Cigarettes 2nd Hand Smoke Exposure: Yes Recent Foreign Travel: No Contact w/Someone Who Travel: No Recent Infectious Disease Expo: No Recent Hopitalizations: No Physical Abuse: No Sexual Abuse: No Immunizations Up To Date Tetanus Booster (TDap): Unknown PED Vaccines UTD: Yes Seasonal Allergies Seasonal Allergies: No Past Medical History Surgeries: Yes ( X 1) Section, Gallbladder, Nose, Tonsillectomy Respiratory: Yes ( A CHILD) Asthma Cardiac: No Neurological: Yes Headaches /Migraines Reproductive Disorders: No Female Reproductive Disorders: Denies Sexually Transmitted Disease: No HIV/AIDS: No Genitourinary: No Kidney Stones Gastrointestinal: Yes Gastroesophageal Reflux, Chronic Constipation, Chronic Diarrhea, Gall Bladder Disease Musculoskeletal: Yes Chronic Back Pain Endocrine: No (PRE-DIABETIC) HEENT: No Loss of Vision: Bilateral Hearing Impairment: Denies Cancer: No Psychosocial: No Integumentary: No Blood Disorders: No Adverse Reaction/Blood Tranf: No (N/A) Family Medical History Reviewed Nursing Family Hx No Pertinent Family Hx Physical Exam Vital Signs Vital Signs - First Documented 09/21/18 19:25 Temp 98.5 Pulse 89 Resp 12 B/P (MAP) 140/73 (95) Pulse Ox 98 Height, Weight, BMI Height: 5'3.00" Weight: 187lbs. 0.0oz. 84.265479kg; 35.4 BMI Method:Stated General Appearance: WD/WN, no apparent distress Eyes: bilateral eye normal inspection, bilateral eye PERRL, bilateral eye EOMI Ears: bilateral ear auricle normal, bilateral ear canal normal, bilateral ear TM normal Nose: normal inspection Mouth/Throat: pharynx normal, other (no drainage or bleeding from the dental extraction sites. right lower shows mild erythema and swelling. ) Neck: non-tender, full range of motion, supple, normal inspection Cardiovascular: regular rate, rhythm, no murmur Respiratory: lungs clear, normal breath sounds, no respiratory distress, no accessory muscle use Neurologic/Psychiatric: alert, normal mood/affect, oriented x 3 Skin: normal color, warm/dry Progress/Results/Core Measures Results/Orders My Orders Orders - TATYANA ESTES Rx-Tramadol Hcl (Rx-Ultram) (09/21/18 20:16) Lidocaine 2% Viscous 15 Ml (Xylocaine Vi (09/21/18 20:30) Benzocaine Extension Tube (Hurricaine Ex (09/21/18 20:30) Medications Given in ED Current Medications Medications Dose Ordered Sig/Edy Route Start Time Stop Time Status Last Admin Dose Admin Benzocaine 1 ea ONCE ONCE XX 09/21/18 20:30 09/21/18 20:30 DC 09/21/18 20:22 1 EA Lidocaine HCl 15 ml ONCE ONCE PO 09/21/18 20:30 09/21/18 20:30 DC 09/21/18 20:22 15 ML Vital Signs/I&O 09/21/18 09/21/18 19:25 20:29 Temp 98.5 98.5 Pulse 89 89 Resp 12 20 B/P (MAP) 140/73 (95) 140/73 (95) Pulse Ox 98 98 Blood Pressure Mean: 95 Departure Communication (Admissions) Patient seen and evaluated. Plan for discharge to home. Impression Primary Impression: Pain, dental Disposition: HOME, SELF-CARE Condition: Improved Departure-Patient Inst. Decision time for Depature: 20:17 Referrals: [facility] (PCP/Family) Primary Care Physician Patient Instructions: Dental Pain (DC) Add. Discharge Instructions: All discharge instructions reviewed with patient and/or family. Voiced understanding. Medications as instructed. Tylenol extra strength over-the- counter as directed for pain. Ibuprofen 800 mg by mouth every 8 hours as needed for pain. You may use an ice pack or heating pad as needed. Follow-up with your dentist next week for recheck. Return in the emergency department for worsened symptoms or any other concerns. Lidocaine pads: Place 1 pad between the affected area and bite down gently for 5-10 minutes. Remove the gauze pad. You may repeat this for suture 4 times daily as needed for pain. Do not lie down with the gauze pads in her mouth, swallow the gauze pads, or fall asleep with gauze pads in your mouth due to risk of choking and . Scripts Amoxicillin (Amoxicillin) 500 Mg Capsule 1000 MG PO BID, #28 CAP 0 Refills Prov: TATYANA ESTES 09/21/18 Tramadol HCl (Tramadol HCl) 50 Mg Tablet 50 MG PO Q6H PRN for pain, #10 TAB 0 Refills Prov: TATYANA ESTES 09/21/18 TATYANA ESTES Sep 21, 2018 20:00
[2018-09-21] MEDS ORDERED: RX-TRAMADOL 50 MG (ULTRAM) TAB PPK#4 PO STA (20:16)
[2018-09-21] MEDS ORDERED: TRAM50TA2 PO (20:18)
[2018-09-21] MEDS ORDERED: AMOX500C2 PO (20:18)
[2018-09-21 20:29] VITALS: BP 140/73
[2018-09-21] MEDS ORDERED: HURRICAINE EXT TUBE (BENZOCAINE) XX ONE (20:30)
[2018-09-21] MEDS ORDERED: LIDOCAINE 2% VISCOUS 15 ML UDC PO ONE (20:30)
== END 2018-09-21 20:29 | disposition home or self-care (01) ==
LOC: EDUNIT# 19:20 → ER 19:22
DX: G89.18 Other acute postprocedural pain (principal); K08.89 Other specified disorders of teeth and supporting structures; F10.10 Alcohol abuse, uncomplicated; J45.909 Unspecified asthma, uncomplicated; G43.909 Migraine, unspecified, not intractable, without status migrainosus; K21.9 Gastro-esophageal reflux disease without esophagitis; F17.210 Nicotine dependence, cigarettes, uncomplicated; Z98.890 Other specified postprocedural states; Z87.442 Personal history of urinary calculi; Z87.19 Personal history of other diseases of the digestive system; Z88.2 Allergy status to sulfonamides; Z90.89 Acquired absence of other organs
CPT/HCPCS: 99283

== ENCOUNTER 2018-12-11 16:18 | Emergency (ER) | payer MEDICAID ==
[~2018-12-11] VITALS: Ht 160 cm; Wt 81.6 kg
[~2018-12-11 16:18] MED LIST changes: +TRAM50TA2 PO
--- OUTSIDE RECORDS SUMMARY | 2018-12-11 16:25 | XMS REPORT | Clinical Summary ---
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 Plan of Treatment Health Maintenance Due Date Last Done Comments Varicella Vaccines (1 of 02/19/2008 2 - 13+ 2-dose series) HPV Vaccines (1 - Female 2010 3-dose series) DTaP,Tdap,and Td Vaccines 2014 (1 - Tdap) CERVICAL CANCER SCREENING 02/19/2016 Influenza Vaccine (#1) 2018 MenB Vaccine (Bexsero) Aged Out No longer eligible based on patient's age to complete this topic Results Not on filefrom Last 3 Months
--- OUTSIDE RECORDS SUMMARY | 2018-12-11 16:36 | XMS REPORT | Continuity of Care Document ---
Author Author [facility] Organization [facility] Address Unknown Phone Unavailable Allergies Active Description Code Type Severity Reaction Onset Reported/Identified Relationship to Patient Clinical Status Yes SULFA Drug Allergy N/A N/A Yes SULFA (sulfonamide) [id number] CLASS N/A N/A Yes Sulfa (Sulfonamide Antibiotics) [id number] Drug Allergy Unknown N/A 2017 Medications Medication [...] 12/26/2017 ISABELLE DO, KATIE K Ot Z79.52 CUSTODIAL (CURRENT) USE OF SYSTEMIC STER 12/26/2017 ISABELLE [...] 12/27/2017 ISABELLE DO, KATIE K Ot Z79.52 [employer] (CURRENT) USE OF SYSTEMIC STER 12/27/2017 ISABELLE [...] 02/16/2018 ISABELLE DO, KATIE K Ot Z79.52 [employer] (CURRENT) USE OF SYSTEMIC STER 02/16/2018 KATIE [...] Ot K21.9 GASTRO-ESOPHAGEAL REFLUX DISEASE WITHOUT 02/23/2018 MAHOGANY BEY SUHAS B Ot K80.10 CALCULUS OF GALLBLADDER W CHRONIC CHOLEC 02/23/2018 MAHOGANY BEY SUHAS B Ot N20.2 CALCULUS OF KIDNEY WITH CALCULUS OF URET 02/23/2018 MAHOGANY BEY SUHAS B Ot Z11.2 ENCOUNTER FOR SCREENING FOR OTHER BACTER 02/28/2018 MAHOGANY BEY SUHAS B Ot F17.210 NICOTINE DEPENDENCE, CIGARETTES, UNCOMPL 02/28/2018 JORJE VIDES DOIC B Ot G43.909 MIGRAINE, UNSP, NOT INTRACTABLE, WITHOUT 02/28/2018 MAHOGANY BEY SUHAS B Ot J45.909 UNSPECIFIED ASTHMA, UNCOMPLICATED 02/28/2018 JORJE VIDES DOIC B Ot K21.9 GASTRO-ESOPHAGEAL REFLUX DISEASE WITHOUT 02/28/2018 MAHOGANY BEY SUHAS B Ot K80.10 CALCULUS OF GALLBLADDER W CHRONIC CHOLEC 02/28/2018 MAHOGANY BEY SUHAS B Ot N20.2 CALCULUS OF KIDNEY WITH CALCULUS OF URET 02/28/2018 SUHAS VIDES DO B Ot Z11.2 ENCOUNTER FOR SCREENING FOR OTHER BACTER 09/21/2018 TATYANA ESPINOZA Ot F10.10 ALCOHOL ABUSE, UNCOMPLICATED 09/21/2018 TATYANA ESPINOZA Ot F17.210 NICOTINE DEPENDENCE, CIGARETTES, UNCOMPL 09/21/2018 TATYANA ESPINOZA Ot G43.909 MIGRAINE, UNSP, NOT INTRACTABLE, WITHOUT 09/21/2018 TATYANA ESPINOZA Ot G89.18 OTHER ACUTE POSTPROCEDURAL PAIN 09/21/2018 TATYANA ESPINOZA Ot J45.909 UNSPECIFIED ASTHMA, UNCOMPLICATED 09/21/2018 TATYANA ESPINOZA Ot K08.89 OTHER SPECIFIED DISORDERS OF TEETH AND S 09/21/2018 TATYANA ESPINOZA Ot K21.9 GASTRO-ESOPHAGEAL REFLUX DISEASE WITHOUT 09/21/2018 TATYANA ESPINOZA Ot Z87.19 PERSONAL HISTORY OF OTHER DISEASES OF TH 09/21/2018 TATYANA ESPINOZA Ot Z87.442 PERSONAL HISTORY OF URINARY CALCULI 09/21/2018 TATYANA ESPINOZA Ot Z88.2 ALLERGY STATUS TO SULFONAMIDES STATUS 09/21/2018 TATYANA ESPINOZA Ot Z90.89 ACQUIRED ABSENCE OF OTHER ORGANS 09/21/2018 TATYANA ESPINOZA L Ot Z98.890 OTHER SPECIFIED POSTPROCEDURAL STATES Procedures Code [place] [address] UA LONG DIP 10/28/2014 Results Test Result [...] 7-25 CREATININE 0.83 mg/dL 0.50-1.10 eGFR NON-AFR. [place] 100 mL/min/1.73m2 > OR=60 eGFR 116 mL/min/1.73m2 [...] 9.7 fL 7.5-12.5 ABSOLUTE NEUTROPHILS 6908 cells/uL 3624-1697 ABSOLUTE LYMPHOCYTES 2202 cells/uL 850-3900 ABSOLUTE MONOCYTES [...] Status Pt. Type Provider Facility Loc./Unit Complaint [id number] 08/05/2015 15:51:36 08/05/2015 23:59:59 CLS Outpatient Shikha Kessler [id number] 07/13/2015 13:13:24 07/13/2015 23:59:59 CLS Outpatient Shikha Kessler [id number] 05/18/2015 22:28:33 05/18/2015 23:59:59 CLS Outpatient Heath Salomon [id number] 05/18/2015 22:19:16 05/18/2015 23:59:59 CLS Outpatient Heath Salomon [id number] 05/18/2015 22:09:03 05/18/2015 23:59:59 CLS Outpatient Heath Salomon [id number] 05/18/2015 22:09:00 05/18/2015 23:59:59 CLS Outpatient Heath Salomon [id number] 05/18/2015 22:00:04 05/18/2015 23:59:59 CLS Outpatient Heath Salomon [id number] 05/18/2015 21:55:44 05/18/2015 23:59:59 CLS Outpatient Heath Salomon [id number] 05/18/2015 21:27:14 05/18/2015 23:59:59 CLS Outpatient Heath Salomon [id number] 02/05/2015 14:21:31 02/05/2015 23:59:59 CLS Outpatient rayray Stephanie [id number] 02/02/2015 18:12:04 02/02/2015 23:59:59 CLS Outpatient Heath Salomon [id number] 01/16/2015 12:03:06 01/16/2015 23:59:59 CLS Outpatient Heath Salomon [id number] 01/08/2015 15:34:50 01/08/2015 23:59:59 CLS Outpatient Heath Salomon [id number] 09/24/2014 10:52:17 09/24/2014 23:59:59 CLS Outpatient Heath Salomon [id number] 09/10/2014 17:00:27 09/10/2014 23:59:59 CLS Outpatient Heath Salomon [id number] 11/04/2014 09:42:45 11/04/2014 09:42:46 DIS Outpatient [id number] 04/10/2017 13:05:00 Document Registration [id number] 09/01/2018 12:10:00 09/01/2018 23:59:59 CLS [facility] [id number] 08/27/2018 09:40:00 Document Registration [id number] 04/27/2018 11:50:00 Document Registration [id number] 02/23/2018 10:20:00 Document Registration [id number] 12/18/2017 13:45:00 Document Registration [id number] 12/18/2017 13:00:00 Document Registration [id number] 07/13/2015 13:08:41 07/13/2015 23:59:59 CLS Outpatient Shikha Kessler [id number] 10/18/2014 10:27:25 10/18/2014 10:27:25 DIS Outpatient [id number] 08/22/2014 13:04:14 Document Registration [id number] 08/14/2014 17:07:25 Document Registration [id number] 08/14/2014 17:07:24 Document Registration [id number] 08/14/2014 17:07:23 Document Registration [id number] 08/14/2014 17:07:19 Document Registration [id number] 08/14/2014 17:07:16 Document Registration [id number] 10/28/2014 16:16:00 10/28/2014 23:59:59 CLS Outpatient YUE ORTEGA MD [id number] 06/14/2013 08:59:00 06/14/2013 23:59:59 CLS Outpatient YUE ORTEGA MD [id number] 05/06/2013 15:26:00 Document Registration [id number] 04/07/2017 11:08:00 Document Registration [id number] 05/27/2017 14:28:25 Document Registration [id number] 05/27/2017 14:24:56 Document Registration [id number] 09/21/2018 19:22:00 09/21/2018 20:29:00 DIS Emergency TATYANA ESPINOZA [facility] ER PAIN FROM WISDOM TEETH REMOVAL [id number] 02/21/2018 09:34:00 02/21/2018 14:52:00 DIS Outpatient SUHAS VIDES DO [facility] SDC CHOLELITHIASIS [id number] 02/19/2018 05:41:00 02/19/2018 13:49:00 DIS Outpatient SUHAS VIDES DO [facility] PREOP LAP LEIF [id number] 12/29/2017 07:00:00 12/29/2017 23:59:59 CLS Preadmit BRIELLE CUNNINGHAM APRN [facility] RAD G43.A1 VOMITING W/NAUSEA [id number] 12/25/2017 23:16:00 12/26/2017 02:03:00 DIS Emergency KATIE WALTON DO [facility] ER ABD PAIN [id number] 09/10/2017 15:31:00 09/10/2017 17:07:00 DIS Emergency OSCAR HENDRIX APRN [facility] ER DENTAL PAIN/FACIAL SWELLING [id number] 05/01/2017 20:33:00 05/01/2017 21:33:00 DIS Emergency TATYANA ESPINOZA [facility] ER CHEST PAIN/COUGH [id number] 12/11/2018 16:19:00 ACT Emergency RANDALL COLE MD [facility] ER Nicol GONZALEZ LAC [id number] 05/06/2017 17:01:00 Document Registration
--- NOTE | 2018-12-11 17:34 | ED Upper Extremity ---
General Chief Complaint: Laceration Stated Complaint: R PINKY LAC Nursing Triage Note: TO TRIAGE WITH LACERATION TO 5TH RIGHT FINGER. STATES SHE WAS WASHING DISHES AT 8PM LAST NIGHT WHEN A CUP BROKE. Nursing Sepsis Screen: No Definite Risk Source: patient Exam Limitations: no limitations History of Present Illness Date Seen by Provider: Dec 11, 2018 Time Seen by Provider: 17:33 Initial Comments 23-year-old female who presents to the emergency room with a laceration to the dorsal surface of her PIP joint on her right fifth finger. She reports that she was washing dishes yesterday when he Broke cutting her finger. She is not up-to- date on her tetanus vaccine. Pain/Injury Location: right 5th finger Allergies and Home Medications Allergies Coded Allergies: Sulfa (Sulfonamide Antibiotics) (Verified Allergy, Unknown, 02/19/18) Patient Home Medication List Home Medication List Reviewed: Yes Review of Systems Constitutional: no symptoms reported, see HPI Skin: see HPI, other (laceration) All Other Systems Reviewed Negative Unless Noted: Yes Past Zwzisuo-Ymaxuh-Obrhfh Hx Past Med/Social Hx: Reviewed Nursing Past Med/Soc Hx Patient Social History Alcohol Use: Denies Use Alcohol Beverage of Choice: Wine Recreational Drug Use: No Smoking Status: Current Everyday Smoker Type Used: Cigarettes 2nd Hand Smoke Exposure: Yes Recent Foreign Travel: No Contact w/Someone Who Travel: No Recent Infectious Disease Expo: No Recent Hopitalizations: No Immunizations Up To Date Tetanus Booster (TDap): More than 5yrs PED Vaccines UTD: Yes Seasonal Allergies Seasonal Allergies: No Past Medical History Surgeries: Yes ( X 1) Section, Gallbladder, Nose, Tonsillectomy Respiratory: Yes ( A CHILD) Asthma Cardiac: No Neurological: Yes Headaches /Migraines : No Last Menstrual Period: Dec 11, 2018 Reproductive Disorders: No Female Reproductive Disorders: Denies Sexually Transmitted Disease: No HIV/AIDS: No Genitourinary: No Kidney Stones Gastrointestinal: Yes Gastroesophageal Reflux, Chronic Constipation, Chronic Diarrhea, Gall Bladder Disease Musculoskeletal: Yes Chronic Back Pain Endocrine: No (PRE-DIABETIC) HEENT: No Loss of Vision: Bilateral Hearing Impairment: Denies Cancer: No Psychosocial: No Integumentary: No Blood Disorders: No Adverse Reaction/Blood Tranf: No (N/A) Family Medical History Reviewed Nursing Family Hx No Pertinent Family Hx Physical Exam Vital Signs Vital Signs - First Documented 12/11/18 16:50 Temp 98.0 Pulse 70 Resp 16 B/P (MAP) 104/76 (85) Pulse Ox 100 O2 Delivery Room Air Capillary Refill : Less Than 3 Seconds Height, Weight, BMI Height: 5'3.00" Weight: 180lbs. 0.0oz. 81.282052gl; 35.4 BMI Method:Stated General Appearance: WD/WN, no apparent distress Cardiovascular: normal peripheral pulses, regular rate, rhythm, no edema, no gallop, no JVD, no murmur Respiratory: chest non-tender, lungs clear, normal breath sounds, no respiratory distress, no accessory muscle use Hand: Right, laceration (see history of present illness for location) Neurologic/Psychiatric: alert, normal mood/affect, oriented x 3 Skin: normal color, warm/dry Procedures/Interventions Wound Location: Upper Extremities Other Wound Location See images and history of present illness Wound's Depth, Shape: superficial, flap Irrigated w/ Saline (ccs): 100 Betadine Prep?: Yes Other Closure Supply: Wound Adhesive Progress The wound was cleaned and irrigated with normal saline and Betasept. The wound was approximated and held in place with wound adhesive. Patient tolerated procedure well. Progress/Results/Core Measures Results/Orders Vital Signs/I&O Blood Pressure Mean: 85 Departure Impression Primary Impression: Laceration Disposition: 01 HOME, SELF-CARE Condition: Stable/Unchanged Departure-Patient Inst. Decision time for Depature: 17:33 Referrals: FUNMILAYO RAMOS MD (PCP/Family) Primary Care Physician Patient Instructions: Laceration Repair With Glue (DC) Add. Discharge Instructions: Let the glue fall off on its own. Watch for signs of infection such as increased redness, swelling, drainage, pain. Do not use ointments or lotions directly to the glue area as this will cause it to detach to seen. Follow-up with primary care as needed. Return back to the emergency room for worsening symptoms or concerns as needed. All discharge instructions reviewed with patient and/or family. Voiced understanding. Images Extremities-Upper 1 - Laceration FARSHAD PENA Dec 11, 2018 17:34
[2018-12-11] MEDS ORDERED: TETANUS,DIPTH,PERTUSS P/F (BOOSTRIX) 0.5 ML VIAL IM ONE (17:45)
[2018-12-11 18:01] VITALS: BP 104/76
== END 2018-12-11 18:01 | disposition home or self-care (01) ==
LOC: EDUNIT# 16:18 → ER 16:19
DX: S60.021A Contusion of right index finger without damage to nail, initial encounter (principal); J45.909 Unspecified asthma, uncomplicated; K21.9 Gastro-esophageal reflux disease without esophagitis; G43.909 Migraine, unspecified, not intractable, without status migrainosus; F17.210 Nicotine dependence, cigarettes, uncomplicated; Z87.19 Personal history of other diseases of the digestive system; Z87.442 Personal history of urinary calculi; Z88.2 Allergy status to sulfonamides; Z90.89 Acquired absence of other organs; Z98.890 Other specified postprocedural states; Y28.0XXA Contact with sharp glass, undetermined intent, initial encounter; Y93.G1 Activity, food preparation and clean up
CPT/HCPCS: 12011; 90715

== ENCOUNTER 2018-12-22 13:35 | Emergency (ER) | payer MEDICAID ==
[~2018-12-22] VITALS: Ht 160 cm; Wt 83.9 kg
[2018-12-22] MEDS ORDERED: ONDANSETRON 4 MG (ZOFRAN) ORAL DISSOLVE TAB PO ONE (14:15)
[2018-12-22 14:24] LABS: BILIRUBIN,URINE NEGATIVE (NEGATIVE); CLARITY,URINE SLIGHTLY CLOUDY; COLOR,URINE YELLOW; GLUCOSE, URINE (UA) NEGATIVE (NEGATIVE); KETONES,URINE 1+ (NEGATIVE); LEUKOCYTE ESTERASE ,URINE 1+ (NEGATIVE); NITRITE,URINE NEGATIVE (NEGATIVE); PH,URINE 7 (5-9); PROTEIN,URINE 2+ (NEGATIVE); UROBILINOGEN,URINE 1 MG/DL (NORMAL)
[2018-12-22 14:38] LABS: BACTERIA,URINE TRACE /HPF; WBC,URINE 0-2 /HPF
[2018-12-22] MEDS ORDERED: ONDN4T PO (14:49)
--- NOTE | 2018-12-22 14:49 | ED Abdominal Pain ---
General Chief Complaint: Abdominal/GI Problems Stated Complaint: FLU LIKE SYMPTOMS, Nursing Triage Note: PT PRESENTS TO ED WITH COMPLAINTS OF N/V X 3 DAYS. REPORTS SHE TOOK A HOME TEST TODAY AND IT WAS POSITIVE. PT STATES SHE CAN ONLY KEEP DOWN WATER. PT ALSO REPORTS SHE WAS EXPOSED TO THE FLU A COUPLE DAYS AGO. Sepsis Screen: No Definite Risk Source of Information: Patient Exam Limitations: No Limitations History of Present Illness Date Seen by Provider: Dec 22, 2018 Time Seen by Provider: 14:05 Initial Comments 23-year-old female who presents to emergency room with complaints of nausea and vomiting for the past 3 days. She reports that she took a test and it was positive today. She reports that she can only keep down water but is having trouble keeping down food. She reports that she is so nauseated that every time she tries to smoke a cigarette she vomits. She denies fevers. Timing/Duration: 2-3 Days Associated Symptoms: Nausea/Vomiting Allergies and Home Medications Allergies Coded Allergies: Sulfa (Sulfonamide Antibiotics) (Verified Allergy, Unknown, 02/19/18) Home Medications Ondansetron HCl 4 Mg Tab, 4 MG PO Q4H PRN for NAUSEA/VOMITING-1ST LINE Prescribed by: FARSHAD PENA on 12/22/18 1449 Patient Home Medication List Home Medication List Reviewed: Yes Review of Systems Review of Systems Constitutional: no symptoms reported, see HPI Gastrointestinal: See HPI, Nausea, Vomiting All Other Systems Reviewed Negative Unless Noted: Yes Past Zldbbva-Vnwfyi-Kcyner Hx Past Med/Social Hx: Reviewed Nursing Past Med/Soc Hx Patient Social History Alcohol Use: Denies Use Number of Drinks Today: Alcohol Beverage of Choice: Wine Recreational Drug Use: No Type Used: Cigarettes 2nd Hand Smoke Exposure: Yes Recent Foreign Travel: No Contact w/Someone Who Travel: No Recent Infectious Disease Expo: No Recent Hopitalizations: No Physical Abuse: No Sexual Abuse: No Mistreated: No Fear: No Immunizations Up To Date Tetanus Booster (TDap): More than 5yrs PED Vaccines UTD: Yes Seasonal Allergies Seasonal Allergies: No Past Medical History Surgeries: Yes ( X 1) Section, Gallbladder, Nose, Tonsillectomy Respiratory: Yes ( A CHILD) Asthma Cardiac: No Neurological: Yes Headaches /Migraines Reproductive Disorders: No Female Reproductive Disorders: Denies Sexually Transmitted Disease: No HIV/AIDS: No Genitourinary: No Kidney Stones Gastrointestinal: Yes Gastroesophageal Reflux, Chronic Constipation, Chronic Diarrhea, Gall Bladder Disease Musculoskeletal: Yes Chronic Back Pain Endocrine: No (PRE-DIABETIC) HEENT: No Loss of Vision: Bilateral Hearing Impairment: Denies Cancer: No Psychosocial: No Integumentary: No Blood Disorders: No Adverse Reaction/Blood Tranf: No (N/A) Family Medical History Reviewed Nursing Family Hx No Pertinent Family Hx Physical Exam Vital Signs Vital Signs - First Documented 12/22/18 13:48 Temp 96.9 Pulse 64 Resp 18 B/P (MAP) 105/61 (76) Pulse Ox 100 O2 Delivery Room Air Capillary Refill : Less Than 3 Seconds Height/Weight/BMI Height: 5'3.00" Weight: 185lbs. 0.0oz. 83.606020qe; 35.4 BMI Method:Stated General Appearance: WD/WN, no apparent distress Respiratory: chest non-tender, lungs clear, normal breath sounds, no respiratory distress, no accessory muscle use Cardiovascular: normal peripheral pulses, regular rate, rhythm, no edema, no gallop, no JVD, no murmur Gastrointestinal: normal bowel sounds, non tender, soft, no organomegaly, no pulsatile mass Neurologic/Psychiatric: alert, normal mood/affect, oriented x 3 Skin: normal color, warm/dry Progress/Results/Core Measures Results/Orders Lab Results Laboratory Tests Test 12/22/18 14:15 Range/Units Urine Color YELLOW Urine Clarity SLIGHTLY CLOUDY Urine pH 7 5-9 Urine Specific [place] 1.010 L 1.016-1.022 Urine Protein 2+ H NEGATIVE Urine Glucose (UA) NEGATIVE NEGATIVE Urine Ketones 1+ H NEGATIVE Urine Nitrite NEGATIVE NEGATIVE Urine Bilirubin NEGATIVE NEGATIVE Urine Urobilinogen 1 NORMAL MG/DL Urine Leukocyte Esterase 1+ H NEGATIVE Urine RBC (Auto) NEGATIVE NEGATIVE Urine RBC NONE /HPF Urine WBC 0-2 /HPF Urine Squamous Epithelial Cells 10-25 H /HPF Urine Crystals NONE /LPF Urine Bacteria TRACE /HPF Urine Casts NONE /LPF Urine Mucus NEGATIVE /LPF Urine Culture Indicated NO My Orders Orders - FARSHAD PENA Urine Bedside (12/22/18 14:14) Ua Culture If Indicated (12/22/18 14:14) Ondansetron Oral Dissolve Tab (Zofran (12/22/18 14:15) Vital Signs/I&O 12/22/18 12/22/18 13:48 14:54 Temp 96.9 Pulse 64 65 Resp 18 16 B/P (MAP) 105/61 (76) 123/78 (93) Pulse Ox 100 99 O2 Delivery Room Air Blood Pressure Mean: 76 Progress Progress Note : Time: 14:47 Progress Note I have seen and evaluated the patient. I've informed her of her laboratory findings. She was instructed make an appointment for her OB follow-up. She agrees with plan of care, plans for discharge, return precautions were given. Departure Impression Primary Impression: Positive test Disposition: HOME, SELF-CARE Condition: Stable/Unchanged Departure-Patient Inst. Decision time for Depature: 14:47 Referrals: FUNMILAYO RAMOS MD (PCP/Family) Primary Care Physician Patient Instructions: Nausea and Vomiting of (DC) Add. Discharge Instructions: Call first thing Monday morning for an appointment time for your OB of your choosing. Return back to the emergency room for worsening symptoms or concerns as needed. Take medications as directed. All discharge instructions reviewed with patient and/or family. Voiced understanding. Scripts Ondansetron HCl (Zofran) 4 Mg Tab 4 MG PO Q4H PRN for NAUSEA/VOMITING-1ST LINE, #14 TAB Prov: FARSHAD PENA 12/22/18 FARSHAD PENA Dec 22, 2018 14:49
[2018-12-22 14:54] VITALS: BP 123/78
== END 2018-12-22 14:53 | disposition home or self-care (01) ==
LOC: EDUNIT# 13:35 → ER 13:36
DX: O21.9 Vomiting of pregnancy, unspecified (principal); O99.519 Diseases of the respiratory system complicating pregnancy, unspecified trimester; J45.909 Unspecified asthma, uncomplicated; O99.350 Diseases of the nervous system complicating pregnancy, unspecified trimester; G43.909 Migraine, unspecified, not intractable, without status migrainosus; K21.9 Gastro-esophageal reflux disease without esophagitis; O99.330 Smoking (tobacco) complicating pregnancy, unspecified trimester; F17.210 Nicotine dependence, cigarettes, uncomplicated; Z88.2 Allergy status to sulfonamides; Z87.442 Personal history of urinary calculi; Z77.22 Contact with and (suspected) exposure to environmental tobacco smoke (acute) (chronic); Z98.890 Other specified postprocedural states; Z90.89 Acquired absence of other organs; Z3A.00 Weeks of gestation of pregnancy not specified
CPT/HCPCS: 81000; 84703; 99283

== ENCOUNTER 2019-01-31 13:26 | Emergency (ER) | payer SELFPAY ==
[~2019-01-31] VITALS: Ht 160 cm; Wt 87.1 kg
[~2019-01-31 13:26] MED LIST changes: +ONDN4T PO
--- OUTSIDE RECORDS SUMMARY | 2019-01-31 13:41 | XMS REPORT | Continuity of Care Document ---
Author Organization Unknown Address Unknown Allergies There is no data. Medications There is no data. Problems There is no data. Procedures There is no data. Results There is no data. Encounters ACCT No. Visit Date/Time Discharge Status Pt. Type Provider Facility Loc./Unit Complaint [id number] 08/05/2015 15:51:36 08/05/2015 23:59:59 CLS Outpatient Shikha Kessler [id number] 07/13/2015 13:13:24 07/13/2015 23:59:59 CLS Outpatient Shikha Kessler [id number] 05/18/2015 22:28:33 05/18/2015 23:59:59 CLS Outpatient Heath Salomon [id number] 05/18/2015 22:19:16 05/18/2015 23:59:59 CLS Outpatient Heath Salomon [id number] 05/18/2015 22:09:03 05/18/2015 23:59:59 CLS Outpatient Heath Salomon [id number] 05/18/2015 22:09:00 05/18/2015 23:59:59 CLS Outpatient Heath Salomon [id number] 05/18/2015 22:00:04 05/18/2015 23:59:59 CLS Outpatient Heath Salomon [id number] 05/18/2015 21:55:44 05/18/2015 23:59:59 CLS Outpatient Heath Salomon [id number] 05/18/2015 21:27:14 05/18/2015 23:59:59 CLS Outpatient Heath Salomon [id number] 02/05/2015 14:21:31 02/05/2015 23:59:59 CLS Outpatient Stephanie Hendrickson [id number] 02/02/2015 18:12:04 02/02/2015 23:59:59 CLS Outpatient Heath Salomon [id number] 01/16/2015 12:03:06 01/16/2015 23:59:59 CLS Outpatient Heath Salomon [id number] 01/08/2015 15:34:50 01/08/2015 23:59:59 CLS Outpatient Heath Salomon [id number] 09/24/2014 10:52:17 09/24/2014 23:59:59 CLS Outpatient Heath Salomon [id number] 09/10/2014 17:00:27 09/10/2014 23:59:59 CLS Outpatient Heath Salomon [id number] 07/13/2015 13:08:41 07/13/2015 23:59:59 CLS Outpatient Shikha Kessler
--- NOTE | 2019-01-31 14:14 | ED Lower Extremity ---
General Chief Complaint: Lower Extremity Stated Complaint: R FOOT INJ Nursing Triage Note: PT TO TRIAGE PER W/C PT STATES TWISTED AND FELT R ANKLE POP SEVERAL TIMES, HAS PAIN TODAY AND SWELLING NOTED Nursing Sepsis Screen: No Definite Risk History of Present Illness Date Seen by Provider: Jan 31, 2019 Time Seen by Provider: 13:35 Initial Comments 3-year-old female presents for right foot and ankle pain. She reports twisting her ankle with an inversion injury last evening. She had Tylenol around midnight no further treatment. She denies a history of recurrent ankle sprains. She is having difficulty with ambulation. She is approximately 12 weeks gestation, she denies any abdominal pain or trauma to her abdomen she twisted her ankle. She's had no vaginal bleeding. Onset: yesterday Pain/Injury Location: right foot, right ankle Method of Injury: twisted Modifying Factors: Improves With Rest Allergies and Home Medications Allergies Coded Allergies: Sulfa (Sulfonamide Antibiotics) (Verified Allergy, Unknown, 02/19/18) Patient Home Medication List Home Medication List Reviewed: Yes Review of Systems Constitutional: no symptoms reported : Yes Musculoskeletal: see HPI, joint pain (right ankle), joint swelling (right lateral ankle) All Other Systems Reviewed Negative Unless Noted: Yes Past Djrbext-Jogqlv-Dkunau Hx Past Med/Social Hx: Reviewed Nursing Past Med/Soc Hx Patient Social History Alcohol Use: Denies Use Alcohol Beverage of Choice: Wine Recreational Drug Use: No Smoking Status: Current Everyday Smoker Type Used: Cigarettes 2nd Hand Smoke Exposure: Yes Recent Foreign Travel: No Contact w/Someone Who Travel: No Recent Infectious Disease Expo: No Recent Hopitalizations: No Immunizations Up To Date Tetanus Booster (TDap): More than 5yrs PED Vaccines UTD: Yes Seasonal Allergies Seasonal Allergies: No Past Medical History Surgeries: Yes ( X 1) Section, Gallbladder, Nose, Tonsillectomy Respiratory: Yes ( A CHILD) Asthma Cardiac: No Neurological: Yes Headaches /Migraines : Yes Last Menstrual Period: Nov 27, 2018 Reproductive Disorders: No Female Reproductive Disorders: Denies Sexually Transmitted Disease: No HIV/AIDS: No Genitourinary: No Kidney Stones Gastrointestinal: Yes Gastroesophageal Reflux, Chronic Constipation, Chronic Diarrhea, Gall Bladder Disease Musculoskeletal: Yes Chronic Back Pain Endocrine: No (PRE-DIABETIC) HEENT: No Loss of Vision: Bilateral Hearing Impairment: Denies Cancer: No Psychosocial: No Integumentary: No Blood Disorders: No Adverse Reaction/Blood Tranf: No (N/A) Family Medical History No Pertinent Family Hx Physical Exam Vital Signs Vital Signs - First Documented 01/31/19 13:30 Temp 98.3 Pulse 90 Resp 18 B/P (MAP) 120/65 (83) Pulse Ox 97 Capillary Refill : Less Than 3 Seconds Height, Weight, BMI Height: 5'3.00" Weight: 192lbs. 0.0oz. 87.786739ds; 35.4 BMI Method:Stated General Appearance: WD/WN, no apparent distress Cardiovascular: normal peripheral pulses, regular rate, rhythm Respiratory: chest non-tender, lungs clear, normal breath sounds Gastrointestinal: normal bowel sounds, non tender, soft Ankles: right ankle bone tenderness (proximal fifth metatarsal and distal fibula), right ankle limited range of motion (secondary to pain), right ankle pain, right ankle soft tissue tenderness, right ankle swelling (bilateral) Neurologic/Tendon: normal sensation, normal motor functions, normal tendon functions Neurologic/Psychiatric: no motor/sensory deficits, alert, normal mood/affect, oriented x 3 Skin: normal color, warm/dry Progress/Results/Core Measures Results/Orders My Orders Orders - KATIE FITZGERALD Foot, Right, 3 View (01/31/19 13:46) Ankle, Right, 3 Views (01/31/19 13:46) Acetaminophen Tablet/Caplet (Tylenol T (01/31/19 13:48) Vital Signs/I&O 01/31/19 01/31/19 13:30 14:53 Temp 98.3 98.3 Pulse 90 90 Resp 18 18 B/P (MAP) 120/65 (83) 120/65 (83) Pulse Ox 97 97 Blood Pressure Mean: 83 Diagnostic Imaging Diagonstic Imaging: Xray Plain Films/CT/US/NM/MRI: ankle Comments NAME: BERNADETTE GLEASON MED REC#: [id number] PT STATUS: REG ER : 1995 PHYSICIAN: KATIE FITZGERALD ADMIT DATE: 01/31/19/ER Draft Date of Exam:01/31/19 ANKLE, RIGHT, 3 VIEWS INDICATION: Ankle pain status post injury. COMPARISON: None. FINDINGS: Three views of the right ankle were obtained. There is no acute fracture or dislocation. No focal osseous lesions are seen. The surrounding soft tissue structures are unremarkable. There are no radiopaque foreign bodies. IMPRESSION: 1. No acute fracture or dislocation in the right ankle. Dictated on workstation # [id number] Dict: 01/31/19 1409 Trans: 01/31/19 1413 [facility] [id number] Interpreted by: STEFANY JAIMES MD Electronically signed by: Reviewed: Reviewed by Me Diagonstic Imaging: Xray Plain Films/CT/US/NM/MRI: other (right foot) Comments NAME: BERNADETTE GLEASON MED REC#: [id number] PT STATUS: DEP ER : 1995 PHYSICIAN: KATIE FITZGERALD ADMIT DATE: 01/31/19/ER Signed Date of Exam: 01/31/19 FOOT, RIGHT, 3 VIEW INDICATION: Right foot injury. AP, oblique, and lateral views of the right foot are obtained. FINDINGS: No fracture or acute bony abnormality is seen. Joint spaces are unremarkable. IMPRESSION: Negative right foot. Dictated by: Dictated on workstation # [id number] Dict: 01/31/19 1415 Trans: 01/31/19 1626 Interpreted by: KIP ARCE MD Electronically signed by: KIP ARCE MD 01/31/19 1626 Reviewed: Reviewed by Me Departure Impression Primary Impression: Right ankle sprain Qualified Codes: S93.491A - Sprain of other ligament of right ankle, initial encounter Disposition: 01 HOME, SELF-CARE Condition: Improved Departure-Patient Inst. Decision time for Depature: 14:05 Referrals: FUNMILAYO RAMOS MD (PCP/Family) Primary Care Physician Patient Instructions: Ankle Sprain (DC) Add. Discharge Instructions: Ice to right ankle and elevate 20 minutes every 2 hours while awake. Fernando wrap. Crutches, weight bearing as tolerated right ankle. Advance to full weight bearing, when able to walk with steady/pain free gait, discontinue crutches. Gentle Range of Motion to right ankle. Follow up with your primary care doctor, if not improving or worsening. Return to emergency department for new, urgent health care needs. All discharge instructions reviewed with patient and/or family. Voiced understanding. Copy Copies To 1: JADON ALLISON AMY ARNP Jan 31, 2019 14:14
--- NOTE | 2019-01-31 14:18 | Diagnostic Imaging Report ---
INDICATION: Right foot injury. AP, oblique, and lateral views of the right foot are obtained. FINDINGS: No fracture or acute bony abnormality is seen. Joint spaces are unremarkable. IMPRESSION: Negative right foot. Dictated by: Dictated on workstation # [id number]
[2019-01-31] MEDS: ACETAMINOPHEN 325 MG TABLET PO STA (14:39)
[2019-01-31 14:53] VITALS: BP 120/65
== END 2019-01-31 14:58 | disposition home or self-care (01) ==
LOC: EDUNIT# 13:26 → ER 13:27
DX: O9A.211 Injury, poisoning and certain other consequences of external causes complicating pregnancy, first trimester (principal); S93.491A Sprain of other ligament of right ankle, initial encounter; O99.511 Diseases of the respiratory system complicating pregnancy, first trimester; J45.909 Unspecified asthma, uncomplicated; O99.351 Diseases of the nervous system complicating pregnancy, first trimester; G43.909 Migraine, unspecified, not intractable, without status migrainosus; O99.611 Diseases of the digestive system complicating pregnancy, first trimester; K21.9 Gastro-esophageal reflux disease without esophagitis; O99.331 Smoking (tobacco) complicating pregnancy, first trimester; F17.210 Nicotine dependence, cigarettes, uncomplicated; Z88.2 Allergy status to sulfonamides; Z87.19 Personal history of other diseases of the digestive system; Z87.442 Personal history of urinary calculi; Z98.890 Other specified postprocedural states; Z3A.12 12 weeks gestation of pregnancy; Z90.89 Acquired absence of other organs; X50.1XXA Overexertion from prolonged static or awkward postures, initial encounter
CPT/HCPCS: 73610; 73630

== ENCOUNTER 2019-04-24 16:02 | Outpatient (CLI) | payer MEDICAID ==
[~2019-04-24] VITALS: Ht 160 cm; Wt 89.4 kg
--- NOTE | 2019-04-24 16:13 | NUR ---
EARLY,BERNADETTE R presented to unit via ambulation from ED, accompanied by family members , with c/o vomiting & fever. Pt. weighed, gowned, voided, and to bed. EFHM and TOCO applied, VS taken. Pt. oriented to bed controls, call light, TV, heat, and A/C controls.
--- NOTE | 2019-04-24 16:22 | NUR ---
monitors applied by HEIDY Del Angel. vs taken. pt reports c/o diarrhea x3 today. vomiting x12 today, unable to keep "water" down. describes emesis as "yellow acid". reports fever @ home, doesn't have thermometer. "cold and hot" flashes. daughter sick last noc with emesis noted this a.m. reports decreased movement.
[2019-04-24 16:30] VITALS: BP 102/63
[2019-04-24] MEDS ORDERED: NS IV 500 ML 500 ML ONE (16:46)
[2019-04-24] MEDS ORDERED: ONDANSETRON 4 MG/2 ML (SDV) Z0FRAN ONE (16:46)
[2019-04-24] MEDS ORDERED: D5 LR IV SOLUTION 1,000 ML IV ONE (16:46)
--- NOTE | 2019-04-24 16:46 | NUR ---
was called r/t pt's admit c/o's. new orders received.
[2019-04-24] MEDS ORDERED: D5 LR IV SOLUTION 1,000 ML IV SCH (17:00)
[2019-04-24] MEDS ORDERED: NS IV 500 ML 500 ML IV SCH (17:00)
--- NOTE | 2019-04-24 17:10 | NUR ---
#20g IV to Lt.AC x2 attempts by this RN. site patent. admission labs collected prior to IVF's infusing. NS 500cc bolus infusing via IV pump.
[2019-04-24] MEDS: ONDANSETRON 4 MG/2 ML (SDV) Z0FRAN IVP PRN ×2 (17:11→21:49)
--- NOTE | 2019-04-24 17:11 | NUR ---
zofran 4mg IV given. emesis bags @ side.
[2019-04-24 17:22] LABS: BASOPHILS % (AUTO) 0 % (0-10); EOSINOPHILS # (AUTO) 0.1 10^3/uL (0.0-0.3); EOSINOPHILS % (AUTO) 0 % (0-10); HEMATOCRIT 38 % (35-52); HEMOGLOBIN 13.1 G/DL (11.5-16.0); LYMPHOCYTES # (AUTO) 0.7 X 10^3 (1.0-4.0); LYMPHOCYTES % (AUTO) 4 % (12-44); MEAN CORPUSCULAR HEMOGLOBIN 31 PG (25-34); MEAN CORPUSCULAR HGB CONC 34 G/DL (32-36); MEAN CORPUSCULAR VOLUME 90 FL (80-99); MEAN PLATELET VOLUME 9.2 FL (7.4-10.4); MONOCYTES # (AUTO) 0.8 X 10^3 (0.0-1.0); MONOCYTES % (AUTO) 5 % (0-12); NEUTROPHILS # (AUTO) 15.6 X 10^3 (1.8-7.8); NEUTROPHILS % (AUTO) 91 % (42-75); PLATELET COUNT 258 10^3/uL (130-400); RED CELL DISTRIBUTION WIDTH 14.1 % (10.0-14.5); WHITE BLOOD COUNT 17.2 10^3/uL (4.3-11.0)
[2019-04-24 17:39] LABS: ALANINE AMINOTRANSFERASE 18 U/L (0-55); ALBUMIN 3.6 GM/DL (3.2-4.5); ALKALINE PHOSPHATASE 70 U/L (40-136); BILIRUBIN,TOTAL 0.3 MG/DL (0.1-1.0); BUN/CREATININE RATIO 10; CALCIUM 9.4 MG/DL (8.5-10.1); CARBON DIOXIDE 18 MMOL/L (21-32); CHLORIDE 108 MMOL/L (98-107); CREATININE SERUM 0.67 MG/DL (0.60-1.30); GFR ESTIMATED > 60; GLUCOSE 80 MG/DL (70-105); POTASSIUM 3.7 MMOL/L (3.6-5.0); SODIUM 137 MMOL/L (135-145); TOTAL PROTEIN 6.8 GM/DL (6.4-8.2)
[2019-04-24 17:51] LABS: BAND NEUTROPHILS 6 %; LYMPHOCYTES % (MANUAL) 5 %; MONOCYTES % (MANUAL) 7 %; NEUTROPHILS % (MANUAL) 82 %; RBC MORPH NORMAL
--- NOTE | 2019-04-24 18:45 | NUR ---
was called with labs. update given on pt's status. new orders received.
--- NOTE | 2019-04-24 18:58 | NUR ---
Applesauce given per pt's request.
--- NOTE | 2019-04-24 19:12 | NUR ---
report given to next shift.
[2019-04-24 20:25] VITALS: BP 100/65
--- NOTE | 2019-04-24 20:25 | NUR ---
Pt. appears to be asleep upon entering room, states she feels "better", denies nausea presently, no vomiting since arrival. POC discussed w/pt. to go home, pt. then stated she felt "some nausea", offered & will give apple juice & crackers per request.
--- NOTE | 2019-04-24 21:32 | NUR ---
Woke pt. Pt. ate 3 packages of crackers & drank 2 apple juices. No vomiting, c/o "some nausea when I close my eyes". Called Dr. Nguyen, update given, new orders rc'd to D/C home. POC reviewed w/pt, Doreen offered & will give before taking IV out.
--- NOTE | 2019-04-24 22:15 | NUR ---
D/C instructions given & explained, again reviewed a brat diet & that believes she has a virus that may last a few days, pt. verbalized understanding & signed, copy of D/C to pt. IV D/C'd. Pt. left [facility] ambulatory escorted by mother, to home via private vehicle.
--- NOTE | 2019-05-01 21:33 | Physician Query-Final Dx ---
MARCIANO HANSEN 05/01/19 2133: Clinic Account Progress/Dx Physician Query: Please give diagnosis Need dx and weeks of gestation Date of Service Apr 24, 2019 at 16:02 KIM PETERS DO 05/02/19 1328: Clinic Account Progress/Dx DIAGNOSIS: Diagnosis 24 week IUP Acute Gastroenteritis MARCIANO HANSEN May 01, 2019 21:33 KIM PETERS DO May 02, 2019 13:28
== END 2019-04-24 22:15 | disposition home or self-care (01) ==
LOC: LDRP 16:02 → WSo 16:02
PROVIDERS: ATTEND Obstetrics & Gynecology
DX: O99.612 Diseases of the digestive system complicating pregnancy, second trimester (principal); K52.9 Noninfective gastroenteritis and colitis, unspecified; Z3A.24 24 weeks gestation of pregnancy
CPT/HCPCS: 36415; 80053; 85007; 85027; 96361; 96374; 96376; 99213

== ENCOUNTER 2019-08-01 11:47 | Outpatient (CLI) | payer MEDICAID ==
[~2019-08-01] VITALS: Ht 160 cm; Wt 98.0 kg
[2019-08-01 11:54] VITALS: BP 122/78
[2019-08-01] MEDS ORDERED: PNV1TABL81 PO (11:54)
== END 2019-08-01 12:10 | disposition home or self-care (01) ==
LOC: PREOP 11:47
PROVIDERS: ATTEND Obstetrics & Gynecology
DX: Z01.818 Encounter for other preprocedural examination (principal)
CPT/HCPCS: 87081

== ENCOUNTER 2019-08-08 05:52 | Inpatient (IN) | payer MEDICAID ==
[~2019-08-08] VITALS: Ht 160 cm; Wt 98.7 kg
[2019-08-08] VITALS (10 sets, daily range): BP systolic 93–121; BP diastolic 52–81
[~2019-08-08 05:52] MED LIST changes: +CITRIC ACID/SOB CIT (BICITRA) 30 ML UDC ONE; +FAMOTIDINE 20MG/2ML IV (PEPCID) ONE; +LACTATED RINGERS 1,000 ML IV ONE; +METOCLOPRAMIDE INJ 10 MG/2 ML (REGLAN) ONE; +PNV1TABL81 PO; +WATER (STERILE) FOR INJECTION 0 ML ONE; +ceFAZolin INJECTION 0 MG ONE
--- NOTE | 2019-08-08 06:00 | NUR ---
EARLY,BERNADETTE R presented to unit via ambulation from home/ED, accompanied by family, with for REPEAT . EARLY,BERNADETTE R weighed, gowned, voided, and to bed. EFHM and TOCO applied, VS taken. EARLY,BERNADETTE R oriented to bed controls, call light, TV, heat, and A/C controls.
[2019-08-08] MEDS ORDERED: LACTATED RINGERS 1,000 ML IV PRN ×2 (06:09)
[2019-08-08] MEDS ORDERED: CATHETER FLUSH 10 ML SYR IV PRN (06:15)
[2019-08-08] MEDS ORDERED: ceFAZolin 2 GM IV Premixed 50 ML IV ONE ×2 (06:15→11:45)
[2019-08-08] MEDS ORDERED: METOCLOPRAMIDE INJ 10 MG/2 ML (REGLAN) IV ONE (06:15)
[2019-08-08] MEDS ORDERED: CITRIC ACID/SOB CIT (BICITRA) 30 ML UDC PO ONE (06:15)
[2019-08-08] MEDS ORDERED: FAMOTIDINE 20MG/2ML IV (PEPCID) IV ONE (06:15)
[2019-08-08 06:28] LABS: BASOPHILS % (AUTO) 0 % (0-10); EOSINOPHILS # (AUTO) 0.2 10^3/uL (0.0-0.3); EOSINOPHILS % (AUTO) 1 % (0-10); HEMATOCRIT 35 % (35-52); HEMOGLOBIN 11.9 G/DL (11.5-16.0); LYMPHOCYTES # (AUTO) 2.4 X 10^3 (1.0-4.0); LYMPHOCYTES % (AUTO) 21 % (12-44); MEAN CORPUSCULAR HEMOGLOBIN 31 PG (25-34); MEAN CORPUSCULAR HGB CONC 34 G/DL (32-36); MEAN CORPUSCULAR VOLUME 90 FL (80-99); MEAN PLATELET VOLUME 8.8 FL (7.4-10.4); MONOCYTES # (AUTO) 0.9 X 10^3 (0.0-1.0); MONOCYTES % (AUTO) 8 % (0-12); NEUTROPHILS # (AUTO) 7.7 X 10^3 (1.8-7.8); NEUTROPHILS % (AUTO) 69 % (42-75); PLATELET COUNT 266 10^3/uL (130-400); RED CELL DISTRIBUTION WIDTH 13.7 % (10.0-14.5); WHITE BLOOD COUNT 11.2 10^3/uL (4.3-11.0)
[2019-08-08] MEDS ORDERED: OXYTOCIN/NORMAL SALINE 1,000 ML IV ONE (06:50)
[2019-08-08] MEDS ORDERED: fentaNYL INJECTION 100 MCG/2 ML AMP ONE (06:54)
--- NOTE | 2019-08-08 07:16 | History & Physical-OB ---
OB - Chief Complaint & HPI Date/Time Date of Admission: Date of Admission: Aug 08, 2019 at 05:52 Date seen by a Provider: Aug 08, 2019 Time Seen by a Provider: 07:10 Chief Complaint/History OB-Reason for Admission/Chief: Section Hx : 5 Hx Para: 1 Expected Date of Delivery: Aug 13, 2019 Gestational Age in Weeks: 39 Gestational Age in Days: 2 Indication for : desires repeat Admission Nurse Assessment Rev: Yes History of Labs A pos Antibody neg RI RPR NR HBsAg NR HIV NR GC neg GBS neg Allergies and Home Medications Allergies Coded Allergies: Sulfa (Sulfonamide Antibiotics) (Verified Allergy, Unknown, 02/19/18) Home Medications Pnv No.122/Iron/Folic Acid 1 Each Tablet, 1 EACH PO DAILY, (Reported) Patient Home Medication List Home Medication List Reviewed: Yes OB - History Hx of Present Care: Yes Ultrasounds: Normal mid trimester US Obstetrical Complications: None Medical Complications: None Delivery History Hx Blood Disorders: No Adverse Rxn to Tranfusion: No (N/A) Patient Past Medical History tobacco use in Social History/Family History HIV/AIDS: No Recent Infectious Disease Expo: No Sexually Transmitted Disease: No Alcohol Use: Occasionally Uses Recreational Drug Use: No 2nd Hand Smoke Exposure: Yes Immunizations Tetanus Booster (TDap): More than 5yrs OB - Admission Exam Physical Exam HEENT: NCAT Heart: Rhythm Normal Lungs: Clear Abdomen: Gravid Extremities: Normal Reflexes: Normal Heart Rate: 130's Accelerations: Accelerations Present Decelerations: No Decelerations Short Term Variability: Present [employer] Variability: Average (6-25) Contractions on Admission: 6-10 Minutes Apart Intensity: Mild Labs Laboratory Tests Test 08/08/19 06:20 Range/Units White Blood Count 11.2 H 4.3-11.0 10^3/uL Red Blood Count 3.87 L 4.35-5.85 10^6/uL Hemoglobin 11.9 11.5-16.0 G/DL Hematocrit 35 35-52 % Mean Corpuscular Volume 90 80-99 FL Mean Corpuscular Hemoglobin 31 25-34 PG Mean Corpuscular Hemoglobin Concent 34 32-36 G/DL Red Cell Distribution Width 13.7 10.0-14.5 % Platelet Count 266 130-400 10^3/uL Mean Platelet Volume 8.8 7.4-10.4 FL Neutrophils (%) (Auto) 69 42-75 % Lymphocytes (%) (Auto) 21 12-44 % Monocytes (%) (Auto) 8 0-12 % Eosinophils (%) (Auto) 1 0-10 % Basophils (%) (Auto) 0 0-10 % Neutrophils # (Auto) 7.7 1.8-7.8 X 10^3 Lymphocytes # (Auto) 2.4 1.0-4.0 X 10^3 Monocytes # (Auto) 0.9 0.0-1.0 X 10^3 Eosinophils # (Auto) 0.2 0.0-0.3 10^3/uL Basophils # (Auto) 0.0 0.0-0.1 10^3/uL OB - Assessment/Plan/Diagnosis Assessment Assessment: section Admission Dx 24 yo @ 39.2 Previous Tobacco use in GBS neg Admission Status: Inpatient Order (span 2 midnights) Reason for Inpatient Admission: Repeat at term Plan Plan: Section KIM PETERS DO Aug 08, 2019 07:16 POS
[2019-08-08] MEDS ORDERED: OXYTOCIN/NORMAL SALINE 500 ML IV SCH (07:17)
--- NOTE | 2019-08-08 07:22 | Discharge Inst-Women's Service ---
Discharge Inst-Women's Serv Depart Medication/Instructions New, Converted or Re-Newed RX: RX on Chart Final Diagnosis POD 2 RLTCS Problems Reviewed?: Yes Consults/Follow Up Additional Follow Up: Yes Orders/Referrals Dr. Nguyen in 7-10 days and in 6 weeks Activity Activity: Activity as Tolerated Driving Instructions: No Driving for 1 Week NO SMOKING: NO SMOKING Nothing Inside Vagina: No Douching, No [place], No Tampons Diet Discharge Diet: No Restrictions Symptoms to Report to : Bleeding Excessive, Pain Increased, Fever Over 101 Degrees F, Vaginal Bleeding Increase, Questions/Concerns For Any Problems or Questions: Contact Your Physician Skin/Wound Care Infection Signs and Symptoms: Increased Redness, Foul Odor of Wound, Increased Drainage, Skin Itchy or Has a Rash, Increased Swelling, Temperature Above 101 F Operative Area Clean and Dry: Keep Incision Clean/Dry Stitches/[place]/Dermabond: Dermabond, Care of Stitches Bathing Instructions: KIM Wallace DO Aug 08, 2019 07:22 POS
[2019-08-08] MEDS ORDERED: ACHD5005 PO (07:23)
[2019-08-08] MEDS ORDERED: IBUP-844 PO (07:23)
[2019-08-08] MEDS ORDERED: DOCU100C37 PO (07:23)
[2019-08-08] MEDS ORDERED: TETANUS,DIPTH,PERTUSS P/F (BOOSTRIX) 0.5 ML VIAL IM SCH (07:30)
[2019-08-08] MEDS ORDERED: ONDANSETRON 4 MG/2 ML (SDV) Z0FRAN IVP PRN (07:30)
[2019-08-08] MEDS ORDERED: MEASLES,MUMPS,RUBELLA 1 EA INJ SC SCH (07:30)
[2019-08-08] MEDS ORDERED: ONDANSETRON 4 MG/2 ML (SDV) Z0FRAN ONE (07:43)
[2019-08-08] MEDS ORDERED: BUPIVACAINE 0.25% 30 ML (SENSORCAINE) VIAL ONE (07:43)
[2019-08-08] MEDS ORDERED: PHENYLEPHRINE 100 MCG/ML 10 ML (ANESTHESIA) SYR ONE (08:24)
--- NOTE | 2019-08-08 09:00 | NUR ---
Occasional irregular heart rate per bobbin cleaner, auscultation, and radial pulse. Pt denies symptoms. Notified Jesse Smith CRNA of irregular HR. Ordered EKG. 0945 Transferred to [facility].
[2019-08-08 09:10] LABS: AMPHETAMINE SCREEN, URINE NEGATIVE (NEGATIVE); BARBITURATE SCREEN URINE NEGATIVE (NEGATIVE); BENZODIAZEPINES SCREEN URINE NEGATIVE (NEGATIVE); CANNABINOID SCREEN, URINE NEGATIVE (NEGATIVE); COCAINE SCREEN URINE NEGATIVE (NEGATIVE); METHADONE STAT NEGATIVE (NEGATIVE); METHAMPHETAMINE SCREEN URINE S NEGATIVE (NEGATIVE); OPIATE SCREEN URINE NEGATIVE (NEGATIVE); OXYCODONE STAT NEGATIVE (NEGATIVE); PROPOXYPHENE STAT NEGATIVE (NEGATIVE); TRICYCLIC ANTIDEPRESSANTS SCRE NEGATIVE (NEGATIVE)
[2019-08-08] MEDS: KETOROLAC 30 MG/ML VIAL IV SCH ×3 (09:30→21:20)
--- NOTE | 2019-08-08 12:00 | NUR ---
Completed 1000ml of Oxytocin infusion. Not scanned by OR.
[2019-08-08 12:01] LABS: BASOPHILS % (AUTO) 0 % (0-10); EOSINOPHILS # (AUTO) 0.1 10^3/uL (0.0-0.3); EOSINOPHILS % (AUTO) 1 % (0-10); HEMATOCRIT 33 % (35-52); LYMPHOCYTES # (AUTO) 2.4 X 10^3 (1.0-4.0); LYMPHOCYTES % (AUTO) 15 % (12-44); MEAN CORPUSCULAR HEMOGLOBIN 30 PG (25-34); MEAN CORPUSCULAR HGB CONC 33 G/DL (32-36); MEAN CORPUSCULAR VOLUME 92 FL (80-99); MEAN PLATELET VOLUME 8.6 FL (7.4-10.4); MONOCYTES # (AUTO) 0.5 X 10^3 (0.0-1.0); MONOCYTES % (AUTO) 3 % (0-12); NEUTROPHILS # (AUTO) 12.4 X 10^3 (1.8-7.8); NEUTROPHILS % (AUTO) 81 % (42-75); PLATELET COUNT 235 10^3/uL (130-400); RED CELL DISTRIBUTION WIDTH 13.9 % (10.0-14.5); WHITE BLOOD COUNT 15.4 10^3/uL (4.3-11.0)
[2019-08-08] MEDS: METOCLOPRAMIDE 10 MG (REGLAN) TAB PO SCH ×2 (12:10→21:19)
[2019-08-08] MEDS: HYDROcodone/APAP 5 MG/325 MG (LORTAB) TAB PO PRN ×3 (12:10→23:08)
[2019-08-08] MEDS ORDERED: CATHETER FLUSH 10 ML SYR IV SCH (14:00)
--- NOTE | 2019-08-08 15:23 | OPERATIVE REPORT ---
DATE OF SERVICE: PREOPERATIVE DIAGNOSES: 1. A 24-year-old G3, P1 at 39 weeks and 2 days gestation. 2. Previous section. POSTOPERATIVE DIAGNOSES: 1. A 24-year-old G3, P1 at 39 weeks and 2 days gestation. 2. Previous section. PROCEDURE: Repeat low transverse section. SURGEON: Enzo Nguyen DO. BREAD WRAPPER: Hillary Beckford MS-3. ANESTHESIA: Spinal. ESTIMATED BLOOD LOSS: 500 mL. URINE OUTPUT: 75 mL clear at the end of the procedure. FLUIDS: 2000 mL of lactated Ringer's solution. FINDINGS: A live female weighing 6 pounds 14 ounces, Apgars of 8 and 9. Grossly normal appearing uterus, bilateral fallopian tubes and ovaries. SPECIMEN SENT: Placenta. INDICATIONS FOR PROCEDURE: This 24-year-old female is a patient, who had sought care in my office. She had issues with compliance and showing up her examinations; however, overall her was uncomplicated with the exception of previous section and tobacco use throughout the . Risk of had been reviewed with the patient throughout her care, was once again reviewed in the preoperative area where the consent was obtained and all of her questions were answered. Once all of her questions were answered and consent had been obtained, the patient was taken to the operating room. OPERATIVE REPORT IN DETAIL: Once in the operating room, spinal anesthesia was found to be adequate. She was placed in supine position with leftward tilt, prepped and draped in a normal sterile fashion. A timeout was performed and anesthesia was tested. I then proceeded with making a Pfannenstiel skin incision through the previously existing scar using a knife and carried down to underlying fascia using Bovie cautery. Fascial incision extended laterally using Bovie cautery. Superior aspect of fascial incision was then grasped with Paola clamps, tented up and dissected off the underlying rectus muscles. The inferior aspect of the fascial incision was then grasped with Paola clamps, tented up and dissected off the underlying rectus muscles. Rectus muscles were then dissected down the midline using Dickey scissors exposing the peritoneum, which I entered bluntly and extended using blunt traction. I then placed an Alec ring retractor within the peritoneal incision, which offers excellent lateral sidewall retraction. I then identified the lower uterine segment, which was found to be thinned out. I made a low transverse incision to the vesicouterine peritoneum and bluntly dissected the vesicouterine peritoneum off the lower uterine segment, creating a bladder flap. I then proceeded with my myotomy until membranes were visualized, at which point I extended the uterine incision laterally and superiorly using bandage scissors. Amniotomy was performed in the process of doing this and clear fluid was noted. The was found in the vertex presentation. With gentle fundal pressure, the infant's head was elevated up the incision where the nares and oropharynx were bulb suctioned. Anterior and posterior shoulders were delivered. The was then brought to the operative field where the cord was doubly clamped and cut. Infant was handed off to waiting nurses in attendance. Cord blood was collected. Three-vessel cord was intact. Placenta was delivered spontaneously thereafter. IV Pitocin was initiated to facilitate uterine contraction. Uterine fundus became firmer with bimanual massage. The uterus was then exteriorized and cleared of all endometrial clots and debris. I then proceeded with closing the uterine incision using 0 Vicryl suture in running locked fashion. Second layer of imbricating 0 Monocryl was placed. Excellent hemostasis was noted after doing this. I then placed the uterus back in the pelvis and copiously irrigated the pelvis using normal saline. Once again, there was no active bleeding noted from any of my dissection planes. I placed Interceed antiadhesive over my low transverse incision. I then removed the Alec ring retractor. The peritoneum was reapproximated using 3-0 Vicryl suture in a running fashion. Rectus muscle reapproximated using 3-0 Vicryl suture in interrupted fashion. The fascia was reapproximated with 0 Vicryl suture in running fashion. Subcutaneous tissue was reapproximated using 3-0 plain interrupted subcutaneous stitch and skin reapproximated using 4-0 Monocryl in a running subcuticular. Dermabond was applied to incision and sterile dressing with adhesive white tape. The patient tolerated the procedure well and was taken to the recovery area in stable condition. Lap and sponge counts were correct at the end of the procedure. Instrument counts correct as well. Two grams of Ancef were given preoperatively for infection prophylaxis. Job ID: [id number] DocumentID: [id number] Dictated Date: 08/08/2019 10:53:26 [employer]aughterer [employer] Ritual Date: 08/08/2019 15:22:52 Dictated By: DO VIOLET MCNALLY
[2019-08-08] MEDS ORDERED: FLU QUADRIvalent (5+ YOA) 2019-2020 (AFLURIA) 0.5 ML IM ONE (18:30)
[2019-08-08] MEDS: DOCUSATE SODIUM 100 MG (COLACE) CAP PO SCH (21:19)
[2019-08-09 03:41] VITALS: BP 104/64
[2019-08-09] MEDS: KETOROLAC 30 MG/ML VIAL IV SCH (03:41)
[2019-08-09] MEDS: METOCLOPRAMIDE 10 MG (REGLAN) TAB PO SCH ×2 (03:41→09:00)
--- NOTE | 2019-08-09 04:41 | NUR ---
This rn updated carlos eduardo rt that IS needs initiated.
--- NOTE | 2019-08-09 04:58 | NUR ---
RT present in room for IS initiation and education.
[2019-08-09 05:53] LABS: BASOPHILS % (AUTO) 0 % (0-10); EOSINOPHILS # (AUTO) 0.2 10^3/uL (0.0-0.3); EOSINOPHILS % (AUTO) 2 % (0-10); HEMATOCRIT 31 % (35-52); HEMOGLOBIN 10.3 G/DL (11.5-16.0); LYMPHOCYTES # (AUTO) 2.7 X 10^3 (1.0-4.0); LYMPHOCYTES % (AUTO) 24 % (12-44); MEAN CORPUSCULAR HGB CONC 33 G/DL (32-36); MEAN CORPUSCULAR VOLUME 92 FL (80-99); MEAN PLATELET VOLUME 8.9 FL (7.4-10.4); MONOCYTES # (AUTO) 1.1 X 10^3 (0.0-1.0); MONOCYTES % (AUTO) 10 % (0-12); NEUTROPHILS % (AUTO) 64 % (42-75); PLATELET COUNT 228 10^3/uL (130-400); RED CELL DISTRIBUTION WIDTH 14.1 % (10.0-14.5)
[2019-08-09 05:55] LABS: MEAN CORPUSCULAR HEMOGLOBIN 30 PG (25-34)
--- NOTE | 2019-08-09 07:00 | NUR ---
REPORT RECEIVED FROM BISMARK MOODY.
--- NOTE | 2019-08-09 08:14 | Postpartum Progress Note ---
Note Note Day # 1 Subjective: Patient is without complaints. Ambulating, voiding. Tolerating a regular diet without nausea or vomiting. Normal lochia. Pain is well controlled with oral pain medications. Objective: Physical Exam: General - Alert and oriented, no apparent distress Abdomen - Soft, appropriately tender to palpation, non-distended, fundus firm at umbilicus Extremities - no edema, negative Patricia's bilaterally Incision- c/d/i Assessment: POD 1 RLTCS Acute blood loss anemia Plan: Routine care. Encourage breast feeding. Encourage ambulation. Ferrous sulfate supplementation. Plan for discharge tomorrow Vitals - Labs Vital Signs - I&O Vital Signs Date Time Temp Pulse Resp B/P (MAP) Pulse Ox O2 Delivery O2 Flow Rate FiO2 08/09/19 03:41 36.7 72 18 104/64 (77) 97 Room Air 08/08/19 21:21 36.8 59 18 121/81 (94) 99 Room Air 08/08/19 15:25 37.1 08/08/19 15:20 37.1 70 20 97/60 (72) 96 Room Air 08/08/19 11:10 35.8 62 16 97/66 (76) 100 Room Air 08/08/19 09:45 36.6 58 16 102/66 (78) 99 Room Air 08/08/19 09:30 36.3 16 94/61 (72) 97 Room Air 08/08/19 09:30 Room Air 08/08/19 09:15 Room Air 08/08/19 09:15 36.3 16 97/61 (73) 97 Room Air 08/08/19 09:00 Room Air 08/08/19 09:00 36 16 93/53 (66) 96 Room Air 08/08/19 08:45 36.4 20 107/52 (70) 97 Room Air 08/08/19 08:45 Room Air 08/08/19 08:30 Room Air 08/08/19 08:30 Room Air 08/08/19 08:30 36.3 16 106/62 (77) 92 Room Air I & O 08/09/19 07:00 Intake Total 1300 ml Output Total 225 ml Balance 1075 ml Labs Laboratory Tests 08/08/19 08:35: Urine Opiates Screen NEGATIVE, Urine Oxycodone Screen NEGATIVE, Urine Methadone Screen NEGATIVE, Urine Propoxyphene Screen NEGATIVE, Urine Barbiturates Screen NEGATIVE, Ur Tricyclic Antidepressants Screen NEGATIVE, Urine Phencyclidine Screen NEGATIVE, Urine Amphetamines Screen NEGATIVE, Urine Methamphetamines Screen NEGATIVE, Urine Benzodiazepines Screen NEGATIVE, Urine Cocaine Screen NEGATIVE, Urine Cannabinoids Screen NEGATIVE 08/08/19 11:45: White Blood Count 15.4H, Red Blood Count 3.65L, Hemoglobin 11.0L, Hematocrit 33L , Mean Corpuscular Volume 92, Mean Corpuscular Hemoglobin 30, Mean Corpuscular Hemoglobin Concent 33, Red Cell Distribution Width 13.9, Platelet Count 235, Mean Platelet Volume 8.6, Neutrophils (%) (Auto) 81H, Lymphocytes (%) (Auto) 15, Monocytes (%) (Auto) 3, Eosinophils (%) (Auto) 1, Basophils (%) (Auto) 0, Neutrophils # (Auto) 12.4H, Lymphocytes # (Auto) 2.4, Monocytes # (Auto) 0.5, Eosinophils # (Auto) 0.1, Basophils # (Auto) 0.0 08/09/19 05:40: White Blood Count 11.0, Red Blood Count 3.38L, Hemoglobin 10.3L, Hematocrit 31L, Mean Corpuscular Volume 92, Mean Corpuscular Hemoglobin 30, Mean Corpuscular Hemoglobin Concent 33, Red Cell Distribution Width 14.1, Platelet Count 228, Mean Platelet Volume 8.9, Neutrophils (%) (Auto) 64, Lymphocytes (%) (Auto) 24, Monocytes (%) (Auto) 10, Eosinophils (%) (Auto) 2, Basophils (%) (Auto) 0, Neutrophils # (Auto) 7.0, Lymphocytes # (Auto) 2.7, Monocytes # (Auto) 1.1H, Eosinophils # (Auto) 0.2, Basophils # (Auto) 0.0 KIM PETERS DO Aug 09, 2019 08:14 POS
--- NOTE | 2019-08-09 08:27 | Anesthesia-Regional Post-Op ---
Regional Patient Condition Mental Status: Alert, Oriented x3 Circulation: Same as Pre-Op Headache: Absent Sensation: Full Recovery Motor Block: Absent Post Op Complications Complications None Follow Up Care/Instructions Patient Instructions None needed. Anesthesia/Patient Condition Patient is doing well, no complaints, stable vital signs, no apparent adverse anesthesia problems. No complications reported per nursing. FRED OLIVO CRNA Aug 09, 2019 08:27 POS
--- NOTE | 2019-08-09 08:30 | NUR ---
DR PETERS HERE NO NEW ORDERS.
[2019-08-09 09:00] VITALS: BP 101/81
[2019-08-09] MEDS: IBUPROFEN 600 MG (MOTRIN) TAB PO SCH ×2 (09:00→19:35)
[2019-08-09] MEDS: DOCUSATE SODIUM 100 MG (COLACE) CAP PO SCH ×2 (09:01→20:47)
[2019-08-09] MEDS: HYDROcodone/APAP 5 MG/325 MG (LORTAB) TAB PO PRN ×3 (09:01→20:47)
[2019-08-09 13:00] VITALS: BP 99/55
--- NOTE | 2019-08-09 16:30 | NUR ---
PT UP TO SHOWER, NO DISTRESS NOTED.
[2019-08-09 20:53] VITALS: BP 108/58
[2019-08-10 00:29] VITALS: BP 108/56
[2019-08-10] MEDS: HYDROcodone/APAP 5 MG/325 MG (LORTAB) TAB PO PRN ×2 (00:43→10:49)
[2019-08-10] MEDS: IBUPROFEN 600 MG (MOTRIN) TAB PO SCH ×2 (01:47→09:40)
--- NOTE | 2019-08-10 03:03 | NUR ---
Report given to Jd MOODY
[2019-08-10 09:38] VITALS: BP 110/54
[2019-08-10] MEDS: DOCUSATE SODIUM 100 MG (COLACE) CAP PO SCH (09:40)
--- NOTE | 2019-08-10 09:40 | NUR ---
PT SLEEPING IN BED. VS OBTAINED. MEDS GIVEN PO; SEE EMAR FOR FURTHER. INITIAL SHIFT ASSESSMENT COMPLETED; SEE INTERVENTION FOR FURTHER. FRESH ICE WATER PROVIDED. S/O SLEEPING AT THE BEDSIDE. CALL LIGHT WITHIN REACH.
--- NOTE | 2019-08-10 09:45 | Postpartum Progress Note ---
Post Op Post-operative Day #2 s/p RLTCS Subjective: Patient is without complaints. Ambulating, voiding after corado removed. Tolerating a regular diet without nausea or vomiting. Normal lochia. Pain is well controlled with oral pain medications. Passing flatus. Covering for dr. Nguyen Objective: 08/10/19 08/10/19 00:29 09:38 Temp 36.4 37.2 Pulse 76 77 Resp 18 18 B/P (MAP) 108/56 (73) 110/54 (72) Pulse Ox 97 96 O2 Delivery Room Air Room Air Physical Exam: General - Alert and oriented, no apparent distress Abdomen - Soft, appropriately tender to palpation, non-distended, fundus firm at umbilicus Incision - clean, dry and intact; no erythema or induration, no drainage Extremities - no edema, negative Patrciia's bilaterally Assessment: 1. post-operative day # 2 status post rltcs Recovering well, hemodynamically stable Acute blood loss anemia Plan: Routine post-operative care. Encourage ambulation. VTE prophylaxis: SCDs. Ferrous sulfate supplementation. Plan for discharge today Vitals - Labs Vital Signs - I&O Vital Signs Date Time Temp Pulse Resp B/P (MAP) Pulse Ox O2 Delivery O2 Flow Rate FiO2 08/10/19 09:38 37.2 77 18 110/54 (72) 96 Room Air 08/10/19 00:29 36.4 76 18 108/56 (73) 97 Room Air 08/09/19 20:53 36.1 63 18 108/58 (75) 98 Room Air 08/09/19 13:00 36.3 69 18 99/55 (70) 96 Room Air JADON ALLISON DO Aug 10, 2019 09:45 POS
--- NOTE | 2019-08-10 09:50 | NUR ---
DR. ALLISON TO PT'S BEDSIDE.
[2019-08-10] MEDS ORDERED: FLU QUADRIvalent (5+ YOA) 2019-2020 (AFLURIA) 0.5 ML IM ONE (10:47)
--- NOTE | 2019-08-10 11:02 | NUR ---
PAIN MEDS AND FLU VACCINE GIVEN; SEE EMAR FOR FURTHER. DISCHARGE INSTRUCTIONS PROVIDED AND REVIEWED WITH PT, PT VERBALIZES UNDERSTANDING AND DENIES ANY QUESTIONS. S/O PRESENT. PAPER SIGNED. RX'S X3 ALSO PROVIDED AND PLACED INTO DISCHARGE FOLDER.
--- NOTE | 2019-08-10 12:45 | NUR ---
PT DISCHARGED FROM -313 TO [facility]ATORY IN STABLE CONDITION ACC BY S/O, HIS MOTHER AND . BELONGINGS IN TOW.
== END 2019-08-10 12:45 | disposition home or self-care (01) | DRG 787 ==
LOC: LDRP 05:52
PROVIDERS: ADMIT Obstetrics & Gynecology; ATTEND Obstetrics & Gynecology
PROC: 10D00Z1 Extraction of Products of Conception, Low, Open Approach (ICD-10-PCS; principal; 2019-08-08 07:20)
DX: O99.334 Smoking (tobacco) complicating childbirth (principal); D62 Acute posthemorrhagic anemia; F17.200 Nicotine dependence, unspecified, uncomplicated; O90.81 Anemia of the puerperium; O34.211 Maternal care for low transverse scar from previous cesarean delivery; Z3A.39 39 weeks gestation of pregnancy; Z37.0 Single live birth; Z23 Encounter for immunization
CPT/HCPCS: 36415; 80306; 85025; 86850; 86900; 86901; 93005

== ENCOUNTER 2019-08-15 16:16 | Emergency (ER) | payer MEDICAID ==
[~2019-08-15] VITALS: Ht 160.2 cm; Wt 96.6 kg
[~2019-08-15 16:16] MED LIST changes: -CITRIC ACID/SOB CIT (BICITRA) 30 ML UDC ONE; +DOCU100C37 PO; -FAMOTIDINE 20MG/2ML IV (PEPCID) ONE; +IBUP-844 PO; -LACTATED RINGERS 1,000 ML IV ONE; -METOCLOPRAMIDE INJ 10 MG/2 ML (REGLAN) ONE; -WATER (STERILE) FOR INJECTION 0 ML ONE; -ceFAZolin INJECTION 0 MG ONE
[2019-08-15] MEDS ORDERED: NS IV 1000 ML 1,000 ML IV ONE (17:33)
[2019-08-15 17:43] LABS: BASOPHILS # (AUTO) 0.1 10^3/uL (0.0-0.1); BASOPHILS % (AUTO) 1 % (0-10); EOSINOPHILS # (AUTO) 0.5 10^3/uL (0.0-0.3); EOSINOPHILS % (AUTO) 4 % (0-10); HEMATOCRIT 35 % (35-52); HEMOGLOBIN 11.2 G/DL (11.5-16.0); LYMPHOCYTES # (AUTO) 2.3 X 10^3 (1.0-4.0); LYMPHOCYTES % (AUTO) 22 % (12-44); MEAN CORPUSCULAR HEMOGLOBIN 30 PG (25-34); MEAN CORPUSCULAR HGB CONC 33 G/DL (32-36); MEAN CORPUSCULAR VOLUME 93 FL (80-99); MEAN PLATELET VOLUME 8.8 FL (7.4-10.4); MONOCYTES # (AUTO) 0.8 X 10^3 (0.0-1.0); MONOCYTES % (AUTO) 8 % (0-12); NEUTROPHILS % (AUTO) 66 % (42-75); PLATELET COUNT 352 10^3/uL (130-400); RED CELL DISTRIBUTION WIDTH 13.8 % (10.0-14.5); WHITE BLOOD COUNT 10.6 10^3/uL (4.3-11.0)
[2019-08-15 17:45] LABS: BILIRUBIN,URINE NEGATIVE (NEGATIVE); CLARITY,URINE CLEAR; COLOR,URINE YELLOW; GLUCOSE, URINE (UA) NEGATIVE (NEGATIVE); KETONES,URINE NEGATIVE (NEGATIVE); LEUKOCYTE ESTERASE ,URINE NEGATIVE (NEGATIVE); NITRITE,URINE NEGATIVE (NEGATIVE); PROTEIN,URINE NEGATIVE (NEGATIVE)
[2019-08-15 18:02] LABS: ALANINE AMINOTRANSFERASE 29 U/L (0-55); ALBUMIN 3.4 GM/DL (3.2-4.5); ALKALINE PHOSPHATASE 80 U/L (40-136); BILIRUBIN,TOTAL 0.2 MG/DL (0.1-1.0); BUN/CREATININE RATIO 15; CALCIUM 9.1 MG/DL (8.5-10.1); CARBON DIOXIDE 24 MMOL/L (21-32); CHLORIDE 108 MMOL/L (98-107); CREATININE SERUM 0.78 MG/DL (0.60-1.30); GFR ESTIMATED > 60; GLUCOSE 73 MG/DL (70-105); MAGNESIUM 1.7 MG/DL (1.6-2.4); POTASSIUM 3.9 MMOL/L (3.6-5.0); SODIUM 142 MMOL/L (135-145); TOTAL PROTEIN 6.3 GM/DL (6.4-8.2)
--- NOTE | 2019-08-15 18:03 | ED General ---
General Chief Complaint: General Problems/Pain Stated Complaint: ANKLE SWELLING, LEG PAIN, PAIN IN UPPER BACK Nursing Triage Note: AMB TO ED REPORTS HAD BABY ON AUG 08 3 DAYS AGO LEGS STARTED SWELLING AND HAVING PAIN IN LEGS AND BACK. Nursing Sepsis Screen: No Definite Risk Source of Information: Patient Exam Limitations: No Limitations History of Present Illness Date Seen by Provider: Aug 15, 2019 Allergies and Home Medications Allergies Coded Allergies: Sulfa (Sulfonamide Antibiotics) (Verified Allergy, Unknown, 02/19/18) Home Medications Docusate Sodium 100 Mg Capsule, 100 MG PO BID PRN for CONSTIPATION-1ST LINE Prescribed by: KIM NGUYEN on 08/08/19722 Hydrocodone Bit/Acetaminophen 1 Tab Tab, 1-2 TAB PO Q6HR PRN for PAIN-MODERATE Prescribed by: KIM NGUYEN on 08/08/19722 Ibuprofen 600 Mg Tablet, 600 MG PO Q6HR Prescribed by: KIM NGUYEN on 08/08/19722 Pnv No.122/Iron/Folic Acid 1 Each Tablet, 1 EACH PO DAILY, (Reported) Past Wwrzsbw-Pwpjcd-Wcebcz Hx Patient Social History Alcohol Use: Denies Use Number of Drinks Today: Alcohol Beverage of Choice: Wine Recreational Drug Use: No Smoking Status: Current Everyday Smoker Type Used: Cigarettes 2nd Hand Smoke Exposure: Yes Recent Foreign Travel: No Contact w/Someone Who Travel: No Recent Infectious Disease Expo: No Recent Hopitalizations: No Physical Abuse: No Sexual Abuse: No Mistreated: No Fear: No Immunizations Up To Date Tetanus Booster (TDap): More than 5yrs PED Vaccines UTD: Yes Seasonal Allergies Seasonal Allergies: No Past Medical History Surgeries: Yes Section, Gallbladder, Nose, Tonsillectomy Respiratory: Yes ( A CHILD) Asthma Currently Using CPAP: Yes Currently Using BIPAP: Yes Cardiac: No Neurological: No Headaches /Migraines Reproductive Disorders: No Female Reproductive Disorders: Denies Sexually Transmitted Disease: No HIV/AIDS: No Genitourinary: Yes Kidney Stones Gastrointestinal: Yes Gastroesophageal Reflux, Chronic Constipation, Chronic Diarrhea Musculoskeletal: Yes Chronic Back Pain Endocrine: No (PRE-DIABETIC) HEENT: No Loss of Vision: Bilateral Hearing Impairment: Denies Cancer: No Psychosocial: No Integumentary: No Blood Disorders: No Adverse Reaction/Blood Tranf: No (N/A) Family Medical History Alcoholism 19 MOTHER FH: Crohn's disease 19 FATHER Hypertension 19 MOTHER No Pertinent Family Hx Physical Exam Vital Signs Vital Signs - First Documented 08/15/19 16:34 Temp 36.6 Pulse 75 Resp 18 B/P (MAP) 119/78 (92) Pulse Ox 98 Capillary Refill : Less Than 3 Seconds Height, Weight, BMI Height: 5'3.00" Weight: 197lbs. 0.6oz. [id number]; 37.00 BMI Method:Stated Progress/Results/Core Measures Suspected Sepsis Recent Fever Within 48 Hours: No Infection Criteria Present: None New/Unexplained Altered Menta: No Sepsis Screen: No Definite Risk SIRS Temperature: Pulse: 75 Respiratory Rate: 18 Laboratory Tests 08/15/19 17:18: White Blood Count 10.6 Blood Pressure 119 /78 Mean: 92 Laboratory Tests 08/15/19 17:18: Creatinine 0.78, INR Comment 0.9, Platelet Count 352, Total Bilirubin 0.2 Results/Orders Lab Results Laboratory Tests Test 08/15/19 17:15 08/15/19 17:18 Range/Units Urine Color YELLOW Urine Clarity CLEAR Urine pH 6.0 5-9 Urine Specific [place] 1.010 L 1.016-1.022 Urine Protein NEGATIVE NEGATIVE Urine Glucose (UA) NEGATIVE NEGATIVE Urine Ketones NEGATIVE NEGATIVE Urine Nitrite NEGATIVE NEGATIVE Urine Bilirubin NEGATIVE NEGATIVE Urine Urobilinogen 0.2 < = 1.0 MG/DL Urine Leukocyte Esterase NEGATIVE NEGATIVE Urine RBC (Auto) 3+ H NEGATIVE Urine RBC NONE /HPF Urine WBC RARE /HPF Urine Crystals NONE /LPF Urine Bacteria TRACE /HPF Urine Casts NONE /LPF Urine Mucus NEGATIVE /LPF Urine Culture Indicated NO White Blood Count 10.6 4.3-11.0 10^3/uL Red Blood Count 3.72 L 4.35-5.85 10^6/uL Hemoglobin 11.2 L 11.5-16.0 G/DL Hematocrit 35 35-52 % Mean Corpuscular Volume 93 80-99 FL Mean Corpuscular Hemoglobin 30 25-34 PG Mean Corpuscular Hemoglobin Concent 33 32-36 G/DL Red Cell Distribution Width 13.8 10.0-14.5 % Platelet Count 352 130-400 10^3/uL Mean Platelet Volume 8.8 7.4-10.4 FL Neutrophils (%) (Auto) 66 42-75 % Lymphocytes (%) (Auto) 22 12-44 % Monocytes (%) (Auto) 8 0-12 % Eosinophils (%) (Auto) 4 0-10 % Basophils (%) (Auto) 1 0-10 % Neutrophils # (Auto) 7.0 1.8-7.8 X 10^3 Lymphocytes # (Auto) 2.3 1.0-4.0 X 10^3 Monocytes # (Auto) 0.8 0.0-1.0 X 10^3 Eosinophils # (Auto) 0.5 H 0.0-0.3 10^3/uL Basophils # (Auto) 0.1 0.0-0.1 10^3/uL Prothrombin Time 12.6 12.2-14.7 SEC INR Comment 0.9 0.8-1.4 Activated Partial Thromboplast Time 27 24-35 SEC Sodium Level 142 135-145 MMOL/L Potassium Level 3.9 3.6-5.0 MMOL/L Chloride Level 108 H 98-107 MMOL/L Carbon Dioxide Level 24 21-32 MMOL/L Anion Gap 10 5-14 MMOL/L Blood Urea Nitrogen 12 7-18 MG/DL Creatinine 0.78 0.60-1.30 MG/DL Estimat Glomerular Filtration Rate > 60 BUN/Creatinine Ratio 15 Glucose Level 73 70-105 MG/DL Calcium Level 9.1 8.5-10.1 MG/DL Corrected Calcium 9.6 8.5-10.1 MG/DL Magnesium Level 1.7 1.6-2.4 MG/DL Total Bilirubin 0.2 0.1-1.0 MG/DL Aspartate Amino Transf (AST/SGOT) 16 5-34 U/L Alanine Aminotransferase (ALT/SGPT) 29 0-55 U/L Alkaline Phosphatase 80 40-136 U/L Troponin I < 0.028 <0.028 NG/ML B-Type Natriuretic Peptide 191.2 H <100.0 PG/ML Total Protein 6.3 L 6.4-8.2 GM/DL Albumin 3.4 3.2-4.5 GM/DL Thyroid Stimulating Hormone (TSH) 0.74 0.35-4.94 UIU/ML My Orders Orders - TATYANA ESTES Ed Iv/Invasive Line Start (08/15/19 17:33) Ekg Tracing (08/15/19 17:33) BNP (08/15/19 17:33) Cbc With Automated Diff (08/15/19 17:33) Comprehensive Metabolic Panel (08/15/19 17:33) Magnesium (08/15/19 17:33) Protime With Inr (08/15/19 17:33) Partial Thromboplastin Time (08/15/19 17:33) Thyroid Stimulating Hormone (08/15/19 17:33) Troponin I (08/15/19 17:33) Ua Culture If Indicated (08/15/19 17:33) Ns Iv 1000 Ml (Sodium Chloride 0.9%) (08/15/19 17:33) Chest Pa/Lat (2 View) (08/15/19 17:33) Ketorolac Injection (Toradol Injection) (08/15/19 19:21) Orphenadrine Injection (Norflex Injectio (08/15/19 19:21) Medications Given in ED Current Medications Medications Dose Ordered Sig/Edy Route Start Time Stop Time Status Last Admin Dose Admin Sodium Chloride 1,000 ml @ 0 mls/hr Q0M ONCE IV 08/15/19 17:33 08/15/19 17:36 DC 08/15/19 17:49 0 MLS/HR Vital Signs/I&O 08/15/19 16:34 Temp 36.6 Pulse 75 Resp 18 B/P (MAP) 119/78 (92) Pulse Ox 98 Capillary Refill : Less Than 3 Seconds Blood Pressure Mean: 92 POS Departure Communication (Admissions) patient is not breast feeding d/w dr. nguyen Impression Primary Impression: Lumbar radiculopathy, acute Additional Impressions: Bilateral edema of lower extremity S/P Disposition: 01 HOME, SELF-CARE Condition: Improved Departure-Patient Inst. Decision time for Depature: 20:26 Referrals: KIM NGUYEN DO (PCP) Primary Care Physician FUNMILAYO RAMOS MD (Family) Primary Care Physician Patient Instructions: ( Delivery) (DC), Low Back Pain (DC) Add. Discharge Instructions: All discharge instructions reviewed with patient and/or family. Voiced understanding. Medications as instructed. Tylenol extra strength [id number] as directed for pain. Use a heating pad or pack as needed for back pain. Elevate the lower extremities above the level of the heart. Follow- up with Dr. Nguyen on Monday as scheduled. If needed follow-up with Dr. Nguyen's nurse practitioner tomorrow for recheck. Return in the emergency department for worsened symptoms, numbness, weakness, bowel incontinence, bladder incontinence, fever, shortness of air, chest pain, vomiting, or any other concerns. Scripts Naproxen (Naprosyn) 500 Mg Tablet 500 MG PO BID PRN for pain, #14 TAB 0 Refills Prov: TATYANA ESTES 08/15/19 Orphenadrine Citrate (Orphenadrine Citrate) 100 Mg Tablet.er 100 MG PO BID PRN for SPASMS, #10 TAB 0 Refills Prov: TATYANA ESTES 08/15/19 TATYANA ESTES Aug 15, 2019 18:03 POS
[2019-08-15 18:05] LABS: BACTERIA,URINE TRACE /HPF; WBC,URINE RARE /HPF
[2019-08-15 18:17] LABS: INR 0.9 (0.8-1.4); PROTHROMBIN TIME PATIENT 12.6 SEC (12.2-14.7)
--- NOTE | 2019-08-15 18:22 | Diagnostic Imaging Report ---
EXAMINATION: Chest 2 views. HISTORY: Leg swelling. FINDINGS: No comparison available. The lungs are clear. No edema. No pneumonia. No pleural effusion. No pneumothorax. Heart is normal in size. IMPRESSION: 1. Clear lungs. Dictated by: Dictated on workstation # [id number]
[2019-08-15] MEDS ORDERED: ORPHENADRINE 60 MG/2 ML (NORFLEX) AMP IV STA (19:21)
[2019-08-15] MEDS ORDERED: KETOROLAC 30 MG/ML VIAL IVP STA (19:21)
[2019-08-15] MEDS ORDERED: NAPR-1071 PO (20:28)
[2019-08-15] MEDS ORDERED: ORPH100T PO (20:28)
[2019-08-15 20:33] VITALS: BP 133/79
== END 2019-08-15 20:39 | disposition home or self-care (01) ==
LOC: EDUNIT# 16:16 → ER 16:18
DX: M54.16 Radiculopathy, lumbar region (principal); M79.89 Other specified soft tissue disorders; J45.909 Unspecified asthma, uncomplicated; G43.909 Migraine, unspecified, not intractable, without status migrainosus; K21.9 Gastro-esophageal reflux disease without esophagitis; F17.210 Nicotine dependence, cigarettes, uncomplicated; Z87.442 Personal history of urinary calculi; Z87.19 Personal history of other diseases of the digestive system; Z98.890 Other specified postprocedural states; Z88.2 Allergy status to sulfonamides; Z90.89 Acquired absence of other organs; Z82.49 Family history of ischemic heart disease and other diseases of the circulatory system
CPT/HCPCS: 36415; 71046; 80053; 81000; 83735; 83880; 84443; 84484; 85025; 85610; 85730; 93005

== ENCOUNTER 2020-01-05 13:54 | Emergency (ER) | payer SELFPAY ==
[~2020-01-05] VITALS: Ht 157 cm; Wt 95.0 kg
[~2020-01-05 13:54] MED LIST changes: -MINO100C2 PO; +MINO100C5 PO; +NAPR-1071 PO; +ORPH100T PO; -TAMS0.4C98 PO; +TMSL.4C PO; -TRAM50TA2 PO; +TRM50T PO
--- NOTE | 2020-01-05 13:58 | ED Back Pain ---
General Stated Complaint: BACKPAIN,COUGH Source of Information: Patient Exam Limitations: No Limitations History of Present Illness Date Seen by Provider: Jan 05, 2020 Time Seen by Provider: 13:58 Initial Comments To ER with midline low back pain that radiates across both sides of her low back for about 3 days no known injury, does have a history of back pain. She's taken ibuprofen for it without improvement. She denies fever now or at any time but has had a cough as well as nasal congestion for about 5 days. The pain does not radiate down either of her legs, she has no troubles with urination such as frequency or dysuria. She would also like some hand welfare supervisor to take home with her from the hospital. Location: Lumbar Spine, Paraspinous Muscles Timing/Duration: 2-3 Days Severity: Moderate Associated Symptoms: lower back pain Allergies and Home Medications Allergies Coded Allergies: Sulfa (Sulfonamide Antibiotics) (Verified Allergy, Unknown, 02/19/18) Home Medications Docusate Sodium 100 Mg Capsule, 100 MG PO BID PRN for CONSTIPATION-1ST LINE Prescribed by: KIM PETERS on 08/08/19722 Hydrocodone Bit/Acetaminophen 1 Tab Tab, 1-2 TAB PO Q6HR PRN for PAIN-MODERATE Prescribed by: KIM PETERS on 08/08/19722 Ibuprofen 600 Mg Tablet, 600 MG PO Q6HR Prescribed by: KIM PETERS on 08/08/19722 Naproxen 500 Mg Tablet, 500 MG PO BID PRN for pain Prescribed by: TATYANA ESTES on 08/15/192027 Orphenadrine Citrate 100 Mg Tablet.er, 100 MG PO BID PRN for SPASMS Prescribed by: TATYANA ESTES on 08/15/192027 Pnv No.122/Iron/Folic Acid 1 Each Tablet, 1 EACH PO DAILY, (Reported) Patient Home Medication List Home Medication List Reviewed: Yes Review of Systems Constitutional: see HPI EENTM: see HPI Respiratory: no symptoms reported Cardiovascular: no symptoms reported Genitourinary: no symptoms reported Musculoskeletal: see HPI, back pain Skin: no symptoms reported Psychiatric/Neurological: No Symptoms Reported Past Zrynlew-Xmhvpr-Chkzne Hx Patient Social History Alcohol Beverage of Choice: Wine Type Used: Cigarettes 2nd Hand Smoke Exposure: Yes Recent Hopitalizations: No Immunizations Up To Date Tetanus Booster (TDap): More than 5yrs PED Vaccines UTD: Yes Seasonal Allergies Seasonal Allergies: No Past Medical History Surgeries: Yes Section, Gallbladder, Nose, Tonsillectomy Respiratory: Yes ( A CHILD) Asthma Currently Using CPAP: Yes Currently Using BIPAP: Yes Cardiac: No Neurological: No Headaches /Migraines Reproductive Disorders: No Female Reproductive Disorders: Denies Sexually Transmitted Disease: No HIV/AIDS: No Genitourinary: Yes Kidney Stones Gastrointestinal: Yes Gastroesophageal Reflux, Chronic Constipation, Chronic Diarrhea Musculoskeletal: Yes Chronic Back Pain Endocrine: No (PRE-DIABETIC) HEENT: No Loss of Vision: Bilateral Hearing Impairment: Denies Cancer: No Psychosocial: No Integumentary: No Blood Disorders: No Adverse Reaction/Blood Tranf: No (N/A) Family Medical History Alcoholism 19 MOTHER FH: Crohn's disease 19 FATHER Hypertension 19 MOTHER No Pertinent Family Hx Physical Exam Vital Signs Capillary Refill : Height, Weight, BMI Height: 5'3.00" Weight: 197lbs. 0.6oz. 89.006006ku; 37.00 BMI Method:Stated General Appearance: No Apparent Distress, WD/WN, Other (98% room air normal respiratory effort) HEENT: PERRL/EOMI, TMs Normal, Normal ENT Inspection Neck: Full Range of Motion, Normal Inspection Respiratory: No Accessory Muscle Use, No Respiratory Distress Gastrointestinal: Normal Bowel Sounds, Non Tender, Soft Back: Normal Inspection; No Other Extremity: Normal Capillary Refill, Normal Inspection Neurologic/Psychiatric: Alert, Oriented x3 Skin: Normal Color, Warm/Dry Departure Impression Primary Impression: Low back pain Additional Impression: Cough Disposition: 01 HOME, SELF-CARE Condition: Stable Departure-Patient Inst. Referrals: NO,LOCAL PHYSICIAN (PCP) Primary Care Physician FUNMILAYO RAMOS MD (Family) Primary Care Physician Patient Instructions: Low Back Pain in Adults Add. Discharge Instructions: Continue to take DayQuil/NyQuil for the cough, muscle relaxers as directed in addition to anti-inflammatories. Scripts Methocarbamol (Robaxin-750) 750 Mg Tablet 1500 MG PO Q6H, #14 TAB Prov: OSCAR HENDRIX APRN 01/05/20 Naproxen (Naprosyn) 500 Mg Tablet 500 MG PO BID PRN for PAIN-MODERATE (5-7), #30 TAB 0 Refills Prov: OSCAR HENDRIX APRN 01/05/20 Work/School Note: Work Release Form Date Seen in the Emergency Department: Jan 05, 2020 Return to Work: Jan 07, 2020 OSCAR HENDRIX APRN Jan 05, 2020 13:58
[2020-01-05] MEDS ORDERED: METH-313 PO (14:12)
[2020-01-05] MEDS ORDERED: NAPR-1071 PO (14:12)
[2020-01-05 14:15] VITALS: BP 110/74
== END 2020-01-05 14:15 | disposition home or self-care (01) ==
LOC: EDUNIT# 13:54 → ER 13:55
DX: M54.5 Low back pain (principal); R05 Cough; Z88.2 Allergy status to sulfonamides; K52.9 Noninfective gastroenteritis and colitis, unspecified; K59.09 Other constipation; K21.9 Gastro-esophageal reflux disease without esophagitis; R73.03 Prediabetes; Z87.09 Personal history of other diseases of the respiratory system
CPT/HCPCS: 99281

== ENCOUNTER 2020-01-08 15:10 | Emergency (ER) | payer SELFPAY ==
[~2020-01-08] VITALS: Ht 162.5 cm; Wt 98.1 kg
[~2020-01-08 15:10] MED LIST changes: +METH-313 PO
[2020-01-08] MEDS ORDERED: KETOROLAC 60 MG/2 ML VIAL IM ONE (16:00)
[2020-01-08] MEDS ORDERED: ORPHENADRINE 60 MG/2 ML (NORFLEX) AMP IM ONE (16:00)
--- NOTE | 2020-01-08 16:33 | ED Back Pain ---
General Chief Complaint: Back Problems Stated Complaint: LOWER BACK PAIN Nursing Triage Note: AMB TO ED WITH C/O BACK PAIN FOR 2 YEARS LAST SEVERAL DAY HAS GOT WORSE . WAS SEEN IN ED 2 DAYS AGO GIVEN MEDS NOT ANY BETTER. Nursing Sepsis Screen: No Definite Risk Source of Information: Patient Exam Limitations: No Limitations History of Present Illness Date Seen by Provider: Jan 08, 2020 Time Seen by Provider: 16:05 Initial Comments Here with report of 4 years of intermittent back pain that is worse recently. Was seen recently and prescribed Robaxin. That has made her vomit so she stopped taking those. She has tried Tylenol and that's not very helpful. Has intermittently tried ibuprofen. She is concerned because she's had 2 epidurals, one for each , in the past and she is worried that she may have some problems related to that. Pain is actually in the low lumbar spine in the lumbar sacral junction. She does have some left-sided and occasionally with this. She is okay when laying down that hurts when transitioning to set up. Denies numbne ss between her legs. She is able to walk and has no weakness. She has been telephonically evaluated by her provider who recommended chiropractor. She is unable to pay for that because she had to pay the co-pay at the clinic. She did not have the ability to do that and so presented here. Location: Lumbar Spine, Paraspinous Muscles Timing/Duration: Other (chronic over the last 4 years but worse over the last couple of days.) Severity: Moderate Pain/Injury Location: Back Radiation: Buttocks Method of Injury: Unknown Modifying Factors: Worse With Movement Associated Symptoms: muscle spasms; No fever, No numbness in legs/feet, No tingling in legs/feet, No sensory/motor loss; lower back pain; No loss of bladder control, No loss of bowel control Allergies and Home Medications Allergies Coded Allergies: Sulfa (Sulfonamide Antibiotics) (Verified Allergy, Unknown, 02/19/18) Home Medications Docusate Sodium 100 Mg Capsule, 100 MG PO BID PRN for CONSTIPATION-1ST LINE Prescribed by: KIM PETERS on 08/08/19 0723 Hydrocodone Bit/Acetaminophen 1 Tab Tab, 1-2 TAB PO Q6HR PRN for PAIN-MODERATE Prescribed by: KIM PETERS on 08/08/19 0723 Ibuprofen 600 Mg Tablet, 600 MG PO Q6HR Prescribed by: KIM PETERS on 08/08/19 0723 Ketorolac Tromethamine 10 Mg Tablet, 10 MG PO Q6H PRN for PAIN-MODERATE (5-7) Prescribed by: RANDALL COLE on 01/08/20 164 Methocarbamol 750 Mg Tablet, 1,500 MG PO Q6H Prescribed by: OSCAR HENDRIX on 01/05/20 141 Naproxen 500 Mg Tablet, 500 MG PO BID PRN for pain Prescribed by: TATYANA ESTES on 08/15/192027 Naproxen 500 Mg Tablet, 500 MG PO BID PRN for PAIN-MODERATE (5-7) Prescribed by: OSCAR HENDRIX on 01/05/20 141 Orphenadrine Citrate 100 Mg Tablet.er, 100 MG PO BID PRN for SPASMS Prescribed by: TATYANA ESTES on 08/15/192027 Pnv No.122/Iron/Folic Acid 1 Each Tablet, 1 EACH PO DAILY, (Reported) Prednisone 20 Mg Tab, 40 MG PO DAILY Prescribed by: RANDALL COLE on 01/08/201643 Patient Home Medication List Home Medication List Reviewed: Yes Review of Systems Constitutional: see HPI; No chills, No fever Respiratory: no symptoms reported Cardiovascular: no symptoms reported Musculoskeletal: see HPI Skin: no symptoms reported Psychiatric/Neurological: See HPI Past Laypyxr-Psqprc-Bnactv Hx Past Med/Social Hx: Reviewed Nursing Past Med/Soc Hx Patient Social History Alcohol Use: Denies Use Number of Drinks Today: Alcohol Beverage of Choice: Wine Recreational Drug Use: No Smoking Status: Current Everyday Smoker Type Used: Cigarettes 2nd Hand Smoke Exposure: Yes Recent Foreign Travel: No Contact w/Someone Who Travel: No Recent Infectious Disease Expo: No Recent Hopitalizations: No Immunizations Up To Date Tetanus Booster (TDap): More than 5yrs PED Vaccines UTD: Yes Seasonal Allergies Seasonal Allergies: No Past Medical History Surgeries: Yes Section, Gallbladder, Nose, Tonsillectomy Respiratory: Yes ( A CHILD) Asthma Currently Using CPAP: Yes Currently Using BIPAP: Yes Cardiac: No Neurological: No Headaches /Migraines Reproductive Disorders: No Female Reproductive Disorders: Denies Sexually Transmitted Disease: No HIV/AIDS: No Genitourinary: Yes Kidney Stones Gastrointestinal: Yes Gastroesophageal Reflux, Chronic Constipation, Chronic Diarrhea Musculoskeletal: Yes Chronic Back Pain Endocrine: No (PRE-DIABETIC) HEENT: No Loss of Vision: Bilateral Hearing Impairment: Denies Cancer: No Psychosocial: No Integumentary: No Blood Disorders: No Adverse Reaction/Blood Tranf: No (N/A) Family Medical History Reviewed Nursing Family Hx Alcoholism 19 MOTHER FH: Crohn's disease 19 FATHER Hypertension 19 MOTHER No Pertinent Family Hx Physical Exam Vital Signs Vital Signs - First Documented 01/08/20 15:19 Temp 35.2 Pulse 85 Resp 18 B/P (MAP) 108/72 (84) Pulse Ox 95 Capillary Refill : Less Than 3 Seconds Height, Weight, BMI Height: 5'3.00" Weight: 197lbs. 0.6oz. 89.204081zr; 37.00 BMI Method:Stated General Appearance: No Apparent Distress, WD/WN, Other (laying in bed talking to the patient in the other bed shearing photos on her phone. No apparent distress.) HEENT: PERRL/EOMI, Pharynx Normal Neck: Non Tender, Supple Cardiovascular: Regular Rate, Rhythm, No Murmur Respiratory: Lungs Clear, Normal Breath Sounds Gastrointestinal: No Organomegaly, No Pulsatile Mass, Non Tender, Soft Back: Muscle Spasm (mild bilateral), Other (tender in the paraspinous region at the lumbosacral junction bilateral) Neurologic/Psychiatric: Alert, Oriented x3 Skin: Normal Color, Warm/Dry Progress/Results/Core Measures Results/Orders My Orders Orders - RANDALL COLE MD Hydrocodone/Apap 5/325 Tablet (Lortab 5 (01/08/20 16:45) Medications Given in ED Current Medications Medications Dose Ordered Sig/Edy Route Start Time Stop Time Status Last Admin Dose Admin Ketorolac Tromethamine 60 mg ONCE ONCE IM 01/08/20 16:00 01/08/20 16:01 DC 01/08/20 16:03 60 MG Orphenadrine Citrate 60 mg ONCE ONCE IM 01/08/20 16:00 01/08/20 16:01 DC 01/08/20 16:03 60 MG Vital Signs/I&O 01/08/20 15:19 Temp 35.2 Pulse 85 Resp 18 B/P (MAP) 108/72 (84) Pulse Ox 95 Blood Pressure Mean: 84 Progress Progress Note : Progress Note Seen and evaluated. Discussed multiple options for therapy. No indication for x- ray currently is she has had no recent injury. She is worried about injury from the epidurals although I do not believe this is the cause. The pain is at the lower lumbar sacral region and not in the L2-L3 region. Likely musculoskeletal. She might benefit from a chiropractor if she can get into them. Could consider further imaging if other outpatient therapy fails. I told her that she needs to discuss this with her doctor and she verbalizes understanding. Toradol 60 mg IM and Norflex 60 mg IM given. We will give one hydrocodone 02/08/25 here but no prescriptions for that. We will prescribe Toradol outpatient as well as prednisone and see if that helps. She was instructed to follow-up with her doctor. I will send a copy of the chart to her doctor. Discharged home with return precautions. Patient verbalize understanding instructions and agreement with plan. Departure Impression Primary Impression: Lumbar radiculopathy Disposition: HOME, SELF-CARE Condition: Stable Departure-Patient Inst. Decision time for Depature: 16:41 Referrals: NO,LOCAL PHYSICIAN (PCP) Primary Care Physician FUNMILAYO RAMOS MD (Family) Primary Care Physician Patient Instructions: Radiculopathy (DC), Lumbar Muscle Strain (DC) Add. Discharge Instructions: All discharge instructions reviewed with patient and/or family. Voiced understanding. Take medications as directed. Do not take ibuprofen or Naprosyn while taking the Toradol. Call and make appointment with your doctor for recheck and further evaluation and to discuss further imaging including MRI if indicated. You can also discuss with her the difficulties with the chiropractor. Return for worse pain, fever, vomiting, weakness, numbness between your legs, difficulty with walking or going to the bathroom or other concerns as needed. Scripts Ketorolac Tromethamine (Ketorolac Tromethamine) 10 Mg Tablet 10 MG PO Q6H PRN for PAIN-MODERATE (5-7), #12 TAB Prov: RANDALL COLE MD 01/08/20 Prednisone (Prednisone) 20 Mg Tab 40 MG PO DAILY, #12 TAB 0 Refills Prov: RANDALL COLE MD 01/08/20 Copy Copies To 1: FUNMILAYO RAMOS MD, TIMOTHY D MD Jan 08, 2020 16:33
[2020-01-08] MEDS ORDERED: KETO10TA PO (16:44)
[2020-01-08] MEDS ORDERED: PRD20T PO (16:44)
[2020-01-08] MEDS ORDERED: HYDROcodone/APAP 5 MG/325 MG (LORTAB) TAB PO ONE (16:45)
--- NOTE | 2020-01-08 17:02 | NUR ---
PATIENT IN ROOM TALKING THROUGH JESUS MCFARLANE IN BED 3
[2020-01-08 17:12] VITALS: BP 110/70
== END 2020-01-08 17:12 | disposition home or self-care (01) ==
LOC: EDUNIT# 15:10 → ER 15:12
DX: M54.16 Radiculopathy, lumbar region (principal); Z88.2 Allergy status to sulfonamides; K21.9 Gastro-esophageal reflux disease without esophagitis; K59.09 Other constipation; K52.9 Noninfective gastroenteritis and colitis, unspecified; F17.210 Nicotine dependence, cigarettes, uncomplicated
CPT/HCPCS: 99284

== ENCOUNTER 2021-12-25 14:11 | Emergency (ER) | payer SELFPAY ==
[~2021-12-25 14:11] MED LIST changes: +KETO10TA PO
== END 2021-12-25 14:36 | disposition left against medical advice (07) ==
LOC: EDUNIT# 14:11 → ER 14:13
DX: F41.9 Anxiety disorder, unspecified (principal)